=== PATIENT | male | born 1960 | race Caucasian/White ===

== ENCOUNTER 2017-04-24 16:16 | Emergency (ER) | payer OTHER ==
[~2017-04-24] VITALS: Ht 157.5 cm; Wt 68.8 kg
[~2017-04-24 16:16] MED LIST: ASCA500 PO; ASPEC81 PO; FENO160T4 PO; NIAC500T7 PO; PHN/100 PO; SOLI5TAB2 PO; TAMS0.4C38 PO
[2017-04-24 16:41] VITALS: Ht 157.5 cm; Wt 68.8 kg
[2017-04-24] MEDS ORDERED: IBUPROFEN 600 MG TAB PO STA (16:48)
--- NOTE | 2017-04-24 17:11 | DIAGNOSTIC IMAGING REPORT ---
RIGHT FOOT 3 VIEWS HISTORY: Right foot pain. Foot injury COMPARISON: None. FINDINGS: No fracture or dislocation. Tiny plantar and posterior calcaneal spurs. The Lisfranc joint is intact. Mild soft tissue swelling within the midfoot. No radiopaque foreign bodies. IMPRESSION: No fractures. Electronically signed by: Jc Cotto M.D. 04/24/2017 5:09 PM Dictated Date/Time: 04/24/2017 5:07 PM
--- NOTE | 2017-04-24 17:19 | EMERGENCY ROOM VISIT NOTE ---
ED Visit Note First contact with patient: 16:46 CHIEF COMPLAINT: Right foot injury HPI: This 56-year-old male patient sustained an injury to the right foot, when a large heavy pallet landed on his foot at 1030 this morning. Complains of swelling and pain with weight bearing. No numbness or weakness. Constant pain , moderate to severe, worse with movement and weight bearing. No ankle pain. Patient does admit to prior fractures in that foot in the past. REVIEW OF SYSTEMS: 6 system review was performed and was negative unless stated otherwise in history of present illness. PMH: The patient is healthy; there is no significant medical or surgical history. SOCIAL HISTORY: Patient lives with his . The patient admits to tobacco use. PHYSICAL EXAM: Vital Signs: Were reviewed reviewed Nurse's notes. GENERAL: 56- year-old male appears in no acute distress. MENTAL Status: Alert, oriented and choerent, not in acute distress. RIGHT foot: The patient has diffuse ecchymosis of the great toe. No other ecchymosis is visualized. He has tenderness palpation over both the medial and the dorsal aspect of the metatarsal region. The patient is able to move his toes without difficulty. Sensation is intact. EMERGENCY DEPARTMENT COURSE: The patient was evaluated. The patient was given Motrin 600 mg p.o. for pain. X-ray of the right foot was or interpreted by the radiologist and myself. DIAGNOSTICS:RIGHT FOOT 3 VIEWS HISTORY: Right foot pain. Foot injury COMPARISON: None. FINDINGS: No fracture or dislocation. Tiny plantar and posterior calcaneal spurs. The Lisfranc joint is intact. Mild soft tissue swelling within the midfoot. No radiopaque foreign bodies. IMPRESSION: No fractures. Electronically signed by: Jc Cotto M.D. 04/24/2017 5:09 PM The patient was informed of the findings. The patient has crutches with him to aid in ambulation. The patient was discharged home in stable condition. TREATMENT: Ice and elevation for one day. Ibuprofen, 600mg every 6 hours for the pain. Avoid weight bearing until the pain subsides. Follow up with your own doctor if the pain is no better in 4-5 days or if it gets worse. DIAGNOSIS: Right foot contusion Current/Historical Medications Scheduled Ascorbic Acid (Vitamin C *), 500 MG PO DAILY Aspirin Enteric Coated (Ecotrin Or Generic *), 81 MG PO DAILY Fenofibrate (Lofibra), 160 MG PO 3 am Niacinamide (Niacin), 2,000 MG PO 3am Phenytoin Sodium (Dilantin), 400 MG PO 3 am Solifenacin Succinate (Vesicare), 5 MG PO 11 am Tamsulosin Hcl (Flomax), 0.4 MG PO 3 am Allergies Coded Allergies: No Known Allergies (Verified , 04/24/17) Vital Signs Date Time Temp Pulse Resp B/P (MAP) Pulse Ox O2 Delivery O2 Flow Rate FiO2 04/24/17 16:41 36.5 100 20 131/89 96 Room Air Medications Administered Medications (Trade) Dose Ordered Sig/Salma Route Start Time Stop Time Status Last Admin Dose Admin Ibuprofen (Motrin Tab) 600 mg NOW STAT PO 04/24/17 16:48 04/24/17 16:50 DC 04/24/17 17:06 600 MG Departure Information Referrals Chad Wong M.D. (PCP) Patient Instructions My [facility]
[2017-04-24 17:37] VITALS: BP 131/89; PULSE 100; TEMP 36.5; O2SAT 96
== END 2017-04-24 17:38 | disposition home or self-care (01) ==
LOC: C.EDB 16:17 → C.EDD 17:38
DX: S90.31XA Contusion of right foot, initial encounter (principal); W22.8XXA Striking against or struck by other objects, initial encounter; Y92.9 Unspecified place or not applicable; Z72.0 Tobacco use; Z79.82 Long term (current) use of aspirin; Z79.899 Other long term (current) drug therapy

== ENCOUNTER 2017-10-24 16:36 | Emergency (ER) | payer OTHER ==
[~2017-10-24] VITALS: Ht 157.5 cm; Wt 68.5 kg
[~2017-10-24 16:36] MED LIST changes: -ASCA500 PO; +ASCO500T16 PO; -ASPEC81 PO; +ASPI-319 PO; -FENO160T4 PO; +FENO1TAB PO
[2017-10-24 16:41] VITALS: TEMP 36.8; Ht 157.5 cm; Wt 68.5 kg
[2017-10-24] MEDS ORDERED: AMPICILLIN/SULBACTAM SOD INJ 3,000 MG in SODIUM CHLORIDE 0.9% 100ML 100 ML IV STA (16:59)
[2017-10-24] MEDS ORDERED: OXYCODONE HCL IR 5 MG TAB (IMMEDIATE RELEASE) PO STA (16:59)
[2017-10-24 17:25] LABS: BASO % 0.2 %; BASO ABS # 0.02 K/uL (0-0.2); EOS % 3.5 %; EOS ABS # 0.43 K/uL (0-0.5); HEMATOCRIT 42.8 % (42-52); HEMOGLOBIN 15.2 g/dL (14.0-18.0); IG# 0.03 K/uL (0.00-0.02); LYMPH ABS # 3.28 K/uL (1.2-3.4); MEAN CELL VOLUME 90.5 fL (80-100); MEAN CORPUSCULAR HEMOGLOBIN 32.1 pg (25-34); MEAN CORPUSCULAR HGB CONC 35.5 g/dl (32-36); MEAN PLATELET VOLUME 9.1 fL (7.4-10.4); MONO % 8.4 %; MONO ABS # 1.02 K/uL (0.11-0.59); NEUT % 60.7 %; NEUT ABS # 7.39 K/uL (1.4-6.5); PLATELET COUNT 215 K/uL (130-400); RED CELL DISTRIBUTION WIDTH CV 12.5 % (11.5-14.5); RED CELL DISTRIBUTION WIDTH SD 41.5 fL (36.4-46.3); WHITE BLOOD COUNT 12.17 K/uL (4.8-10.8)
--- NOTE | 2017-10-24 17:40 | DIAGNOSTIC IMAGING REPORT ---
LEFT HAND 3 VIEWS CLINICAL HISTORY: Bite injury. FINDINGS: 3 views of the left hand are obtained. No prior studies are available for comparison at the time of dictation. The skeletal structures are well mineralized. No fracture is seen. Degenerative change is noted at the distal radioulnar joint. The joint spaces of the hand are preserved. Soft tissue edema is seen along the dorsal aspect of the hand. IMPRESSION: Dorsal soft tissue swelling with no radiographic evidence of acute fracture. Electronically signed by: Virgilio Lambert M.D. 10/24/2017 5:38 PM Dictated Date/Time: 10/24/2017 5:37 PM
[2017-10-24 17:46] LABS: ALBUMIN 3.8 gm/dl (3.4-5.0); CALCIUM 9.3 mg/dl (8.5-10.1); CREATININE 1.04 mg/dl (0.60-1.40); POTASSIUM 4.3 mmol/L (3.5-5.1); TOTAL PROTEIN 7.4 gm/dl (6.4-8.2)
[2017-10-24] MEDS ORDERED: AMOX875T PO (18:07)
[2017-10-24] MEDS ORDERED: OXYC-737 PO (18:07)
[2017-10-24 18:44] VITALS: BP 122/89; PULSE 89; O2SAT 99
--- NOTE | 2017-10-24 19:48 | EMERGENCY ROOM VISIT NOTE ---
History Report prepared by Sirena: Ketty Sutherland Under the Supervision of: Annabelle CorbinO. First contact with patient: 16:54 Chief Complaint: HAND PAIN/INJURY Stated Complaint: PAIN IN LEFT HAND History of Present Illness The patient is a 57 year old male who presents to the Emergency Room with complaints of an episode of a left hand injury that occurred yesterday. The patient states that he tried to mixing picker tender his mother's cat and it bit him. He states that he put Neosporin on the cut. He notes that the pain is exacerbated by trying to make a fist. The patient denies fever, chills, pain in underarms, and drainage of the cut. The patient states that he takes baby aspirin. .He denies any allergies to medications. He states that his tetanus is up to date. Source of History: patient Onset: yesterday Position: hand (left) Quality: other (cut) Modifying Factors (Worsening): other (making a fist) Associated Symptoms: No fevers, No chills Note: The patient denies pain in his underarms and drainage of the cut. Review of Systems See HPI for pertinent positives & negatives. A total of 10 systems reviewed and were otherwise negative. Past Medical & Surgical Medical Problems: (1) Diabetes Family History FH: diabetes mellitus FH: heart disease FH: kidney disease FH: seizures Social History Smoking Status: Current Every Day Smoker Alcohol Use: none Marital Status: Occupation Status: unemployed Current/Historical Medications Scheduled Amoxicillin & Pot Clavulanate (Augmentin 875-125 mg), 875 MG PO BID Ascorbic Acid (Ascorbic Acid), 500 MG PO DAILY Aspirin Enteric Coated (Ecotrin Or Generic), 81 MG PO DAILY Fenofibrate (Tricor), 160 MG PO DAILY Niacinamide (Niacin), 2,000 MG PO 3am Phenytoin Sodium (Dilantin), 400 MG PO 3 am Solifenacin Succinate (Vesicare), 5 MG PO 11 am Tamsulosin Hcl (Flomax), 0.4 MG PO 3 am Scheduled PRN Oxycodone Immediate Rel Tab (Roxicodone Ir), 1-2 TAB PO Q4H PRN for Severe Pain Allergies Coded Allergies: No Known Allergies (Verified , 09/17/17) Physical Exam Vital Signs Date Time Temp Pulse Resp B/P (MAP) Pulse Ox O2 Delivery O2 Flow Rate FiO2 8/17/18 18:44 89 18 122/89 99 10/24/17 16:41 36.8 99 18 102/76 99 Room Air Physical Exam GENERAL: Patient is awake, alert, and in no acute distress. Patient is resting comfortably and showing no signs of anxiety EYES: The conjunctivae are clear. The pupils are round and reactive. EARS, NOSE, MOUTH AND THROAT: The nose is without any evidence of any deformity. Mucous membranes are moist. Tongue is midline NECK: The neck is nontender and supple. RESPIRATORY: Normal respiratory effort is noted. There is no evidence of wheezing rhonchi or rales to auscultation. CARDIOVASCULAR: Regular rate and rhythm noted. There no murmurs rubs or gallops normal S1 normal S2 GASTROINTESTINAL: The abdomen is soft. Bowel sounds are present in all quadrants. Abdomen is nontender. MUSCULOSKELETAL/EXTREMITIES: There is no evidence of gross deformity. Full range of motion is noted in the hips and shoulders. See description of cat bite to left hand. SKIN: Multiple puncture and scratch wounds to the left hand consistent with recent history of cat bite. Erythema and swelling of the dorsum on the hand. Has pain with making a fist. Scratch wounds to the medial aspect of the right hand. No lymphangitic streaking of the left hand. NEUROLOGIC: Patient is awake alert and oriented x3. Medical Decision & Procedures ER Provider Diagnostic Interpretation: Radiology results as stated below per my review and radiologist interpretation: LEFT HAND 3 VIEWS CLINICAL HISTORY: Bite injury. FINDINGS: 3 views of the left hand are obtained. No prior studies are available for comparison at the time of dictation. The skeletal structures are well mineralized. No fracture is seen. Degenerative change is noted at the distal radioulnar joint. The joint spaces of the hand are preserved. Soft tissue edema is seen along the dorsal aspect of the hand. IMPRESSION: Dorsal soft tissue swelling with no radiographic evidence of acute fracture. Electronically signed by: Virgilio Lambert M.D. 10/24/2017 5:38 PM Dictated Date/Time: 10/24/2017 5:37 PM Laboratory Results 10/24/17 17:15 Red Blood Count 4.73, Mean Corpuscular Volume 90.5, Mean Corpuscular Hemoglobin 32.1, Mean Corpuscular Hemoglobin Concent 35.5, Mean Platelet Volume 9.1, Neutrophils (%) (Auto) 60.7, Lymphocytes (%) (Auto) 27.0, Monocytes (%) (Auto) 8.4, Eosinophils (%) (Auto) 3.5, Basophils (%) (Auto) 0.2, Neutrophils # (Auto) 7.39, Lymphocytes # (Auto) 3.28, Monocytes # (Auto) 1.02, Eosinophils # (Auto) 0.43, Basophils # (Auto) 0.02 10/24/17 17:15 Test 10/24/17 17:15 White Blood Count 12.17 K/uL (4.8-10.8) Red Blood Count 4.73 M/uL (4.7-6.1) Hemoglobin 15.2 g/dL (14.0-18.0) Hematocrit 42.8 % (42-52) Mean Corpuscular Volume 90.5 fL (80-100) Mean Corpuscular Hemoglobin 32.1 pg (25-34) Mean Corpuscular Hemoglobin Concent 35.5 g/dl (32-36) Platelet Count 215 K/uL (130-400) Mean Platelet Volume 9.1 fL (7.4-10.4) Neutrophils (%) (Auto) 60.7 % Lymphocytes (%) (Auto) 27.0 % Monocytes (%) (Auto) 8.4 % Eosinophils (%) (Auto) 3.5 % Basophils (%) (Auto) 0.2 % Neutrophils # (Auto) 7.39 K/uL (1.4-6.5) Lymphocytes # (Auto) 3.28 K/uL (1.2-3.4) Monocytes # (Auto) 1.02 K/uL (0.11-0.59) Eosinophils # (Auto) 0.43 K/uL (0-0.5) Basophils # (Auto) 0.02 K/uL (0-0.2) RDW Standard Deviation 41.5 fL (36.4-46.3) RDW Coefficient of Variation 12.5 % (11.5-14.5) Immature Granulocyte % (Auto) 0.2 % Immature Granulocyte # (Auto) 0.03 K/uL (0.00-0.02) Erythrocyte Sedimentation Rate 21 mm/hr (0-14) Anion Gap 5.0 mmol/L (3-11) Est Creatinine Clear Calc Drug Dose 66.7 ml/min Estimated GFR () 91.9 Estimated GFR (Non- 79.3 BUN/Creatinine Ratio 8.4 (10-20) Calcium Level 9.3 mg/dl (8.5-10.1) Total Bilirubin 0.4 mg/dl (0.2-1) Direct Bilirubin 0.1 mg/dl (0-0.2) Aspartate Amino Transf (AST/SGOT) 17 U/L (15-37) Alanine Aminotransferase (ALT/SGPT) 31 U/L (12-78) Alkaline Phosphatase 87 U/L (45-117) C-Reactive Protein 1.18 mg/dl (0-0.29) Total Protein 7.4 gm/dl (6.4-8.2) Albumin 3.8 gm/dl (3.4-5.0) Laboratory results per my review. Medications Administered Medications (Trade) Dose Ordered Sig/Salma Route Start Time Stop Time Status Last Admin Dose Admin Ampicillin Sodium/ Sulbactam Sodium 3000 mg/Sodium Chloride 108 ml @ 200 mls/hr NOW STAT IV 10/24/17 16:59 10/24/17 17:31 DC 10/24/17 17:21 200 MLS/HR Oxycodone HCl (Roxicodone Immediate Rel Tab) 5 mg NOW STAT PO 10/24/17 16:59 10/24/17 17:01 DC 10/24/17 17:20 5 MG ED Course 1657: The patient was evaluated in room A3. A complete history and physical examination were performed. 165: Ordered Oxycodone HCl 5 mg PO, Ampicillin Sodium/Sulbactum Sodium 3,000 mg /Sodium Chloride 108 ml @ 200 mls/hr IV. 1806: Upon reevaluation, the patient is resting comfortably. I discussed the results and treatment plan with him. He verbalized agreement of the treatment plan. He was discharged home. Medical Decision Prior records reviewed and summarized as above. Triage Nursing notes reviewed. The patient's history was concerning for swelling and redness of the skin. Differential diagnosis: Etiologies such as cellulitis, abscess, MRSA infection, DVT, necrotizing fasciitis, dermatitis, drug eruption, as well as others were entertained.. The patient is a 57-year-old male who presented to the emergency department for an evaluation of cellulitis. The patient had significant swelling and erythema over his left hand. The patient was recently bitten by a cat which is known to him. The cat is able to be observed and the patient will not require rabies vaccination at this time. He was instructed to return to the emergency department for rabies vaccination if the cat dies runs away or develops rabies within the next 10 days. Otherwise the patient was treated with IV antibiotics. He was also given pain medication. He was encouraged to follow- up with his primary care physician within the next 24-48 hours for reevaluation or return to the emergency department immediately if he develops other signs of worsening infection such as worsening pain worsening erythema worsening swelling high fever or severe vomiting or intolerance to the medication. Medication Reconcilliation Current Medication List: was personally reviewed by me Blood Pressure Screening Patient's blood pressure: Normal blood pressure Impression Primary Impression: Cellulitis of left hand Additional Impression: Cat bite Scribe Attestation The scribe's documentation has been prepared under my direction and personally reviewed by me in its entirety. I confirm that the note above accurately reflects all work, treatment, procedures, and medical decision making performed by me. Departure Information Dispostion Home / Self-Care Prescriptions Oxycodone Immediate Rel Tab (ROXICODONE IR) 5 Mg Tab 1-2 TAB PO Q4H Y for Severe Pain, #20 TAB Prov: Caesar Benson, DO 10/24/17 Amoxicillin & Pot Clavulanate (Augmentin 875-125 mg) 1 Tab Tab 875 MG PO BID, #20 TAB Prov: Caesar Benson, DO 10/24/17 Referrals No Doctor, Assigned (PCP) Forms HOME CARE DOCUMENTATION FORM, IMPORTANT VISIT INFORMATION Patient Instructions My [facility] Additional Instructions Continue all medications as prescribed. Continue to use Motrin and Tylenol as directed for pain. Continue to put triple antibiotic ointment to the area 2-3 times a day. Follow-up with your family doctor soon as possible. Return to the emergency department immediately if symptoms change worsen or the need arises. Problem Qualifiers Additional Impression: Cat bite Encounter type: initial encounter Qualified Codes: W55.01XA - Bitten by cat , initial encounter
== END 2017-10-24 18:45 | disposition home or self-care (01) ==
LOC: C.EDB 16:37 → C.EDA 18:45
DX: L03.114 Cellulitis of left upper limb (principal); S61.452A Open bite of left hand, initial encounter; W55.01XA Bitten by cat, initial encounter; Y92.89 Other specified places as the place of occurrence of the external cause; E11.9 Type 2 diabetes mellitus without complications; F17.210 Nicotine dependence, cigarettes, uncomplicated; Z79.82 Long term (current) use of aspirin; Z79.899 Other long term (current) drug therapy

== ENCOUNTER 2021-07-22 00:34 | Inpatient (IN) ==
[2021-07-22 01:46] LABS: Basophils # (auto) 0.01 K/uL (0-0.2); Basophils % (auto) 0.1 %; Eosinophils # (auto) 0.01 K/uL (0-0.5); Eosinophils % (auto) 0.1 %; Hematocrit (blood only) 37.7 % (42-52); Hemoglobin 12.7 g/dL (14.0-18.0); Immature Granulocytes # (auto) 0.08 K/uL (0.00-0.02); Immature Granulocytes % (auto) 1.1 %; Lymphocytes % (auto) 25.5 %; Mean Corpuscular Hgb Conc 33.7 g/dL (32-36); Monocytes % (auto) 16.1 %; Neutrophils # (auto) 4.24 K/uL (1.4-6.5); Neutrophils % (auto) 57.1 %; Platelet Count 160 K/uL (130-400); RDW Coefficient of Variation 13.1 % (11.5-14.5); RDW Standard Deviation 43.8 fL (36.4-46.3); White Blood Count 7.44 K/uL (4.8-10.8)
[2021-07-22 02:06] LABS: Albumin Globulin Ratio 1.6 (0.9-2); Albumin Level 4.2 gm/dl (3.4-5.0); BUN Creatinine Ratio 12.6 (10-20); Bilirubin,Total 0.6 mg/dl (0.2-1.0); Calcium 9.4 mg/dl (8.5-10.1); Creatinine Clr Calc Pharmacy 67.9 ml/min; Est GFR (African American) 91.1 ml/min; Est GFR (Non-African American) 78.6 ml/min; Globulin 2.6 gm/dl (2.5-4.0); Magnesium 1.3 mg/dl (1.7-2.4); Potassium 3.8 mmol/L (3.5-5.1); Total Protein 6.8 gm/dl (6.0-8.3)
[2021-07-22 02:10] LABS: Troponin I High Sensitivity 7.9 pg/ml (0-20)
--- NOTE | 2021-07-22 02:18 | Emergency Department Note ---
History of Present Illness General Chief complaint: Fall Stated complaint: WEAKNESS Time Seen by Provider: 07/22/21 00:36 Source: patient and EMS Mode of arrival: EMS Limitations: no limitations History of Present Illness Provider complaint: fall This is a 60-year-old male brought in by EMS from the [facility] after 3 falls throughout the day today. They reported to EMS that this is unusual for him. They did not provide any other additional history regarding whether or not this was witnessed or a medication list. Per EMS patient denied any pain, was initially tachycardic although that resolved in route. Patient for me states he did fall, despite using his walker which she normally uses. He denies any pain or concern for injury. He does not believe he struck his head or loss consciousness. Pt seen during a time of high acuity and national emergency pandemic while wearing PPE. Home Medications Medication Instructions Recorded Confirmed Type metformin 500 mg tablet,extended 1,000 mg PO [id number] 01/14/18 07/22/21 History release 24 hr Vitafusion Gummy 2 tab PO QAM 06/10/20 07/22/21 History alendronate 70 mg tablet (Fosamax) 70 mg PO WK 06/10/20 07/22/21 History atorvastatin 40 mg tablet (Lipitor) 40 mg PO QAM 06/10/20 07/22/21 History divalproex 500 mg tablet,delayed 500 mg PO BID 06/10/20 07/22/21 History release acetaminophen 500 mg tablet 1,000 mg PO Q8H PRN 07/22/21 07/22/21 History (Tylenol Extra Strength) calcium polycarbophil 625 mg 1,250 mg PO BID 07/22/21 07/22/21 History tablet (FiberCon) ketoconazole 2 % shampoo 1 ea TOPICAL 2XWK 07/22/21 07/22/21 History loperamide 2 mg capsule 2 mg PO QID PRN 07/22/21 07/22/21 History meloxicam 15 mg tablet 15 mg PO QAM 07/22/21 07/22/21 History ondansetron HCl 4 mg tablet 4 mg PO Q6H PRN 07/22/21 07/22/21 History sitagliptin 100 mg tablet (Januvia) 100 mg PO QAM 07/22/21 07/22/21 History triamcinolone acetonide 0.1 % 1 applic TOPICAL BID PRN 07/22/21 07/22/21 History topical cream Allergies Allergy/AdvReac Type Severity Reaction Status Date / Time No Known Allergies Allergy Unknown Verified 07/22/21 01:15 Past Med/Surg History Medical History (Updated 07/23/21 @ 04:18 by Thania Boss DO) Abdominal pain Abnormal EKG DR. RAMOS (01/06/18) CLEARED Diabetes mellitus, type 2 Hyperlipidemia Poor historian Psychotic disorder MANY YEARS AGO "NO RECENT HX" Seizure MANY YEARS AGO/NONE FOR MANY YEARS AND NO CURRENT SEIZURE MEDS(NEUROLOGY IN LAST 6 MONTHS AGO) [facility] Surgical History History of cataract surgery History of eye surgery Hx of tooth extraction Family History Mother , Mother age 87 and he is uncertain of her medical conditions No problems noted. Father , Father in his 80s of uncertain causes No problems noted. 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 Beliefs That Will Affect Care: None marital status: Current Living Situation: Spouse and Personal Care Facility current occupational status: unemployed current occupation: Unemployed How many Children do You have: 1 Feels Safe at Home: Yes Safety Concerns: Feels Safe At This Time Assistive Devices: None Review of Systems A total of 10 systems reviewed and were otherwise negative All systems reviewed & are unremarkable except as noted in HPI & below Physical Exam Vital Signs Vital Signs - 24 hr 07/22/21 00:45 07/22/21 02:26 Temperature 37.7 C H 38.1 C H Temperature Source Oral Oral Pulse Rate 86 Pulse Rate [Left Finger] 100 H Respiratory Rate 18 20 Respiratory Effort / Characteristics Non-Labored Spontaneous Non-Labored Spontaneous Respiratory Depth Normal Normal Blood Pressure 119/74 Blood Pressure Mean 89 Blood Pressure Position Sitting Pulse Oximetry 99 100 Oxygen Delivery Method Room Air Room Air Sepsis Recent Fever Within 48 Hours Yes Sepsis New/Unexplained Change in Mental Status No Sepsis Action Taken by Nursing No Action Required GENERAL: alert, well appearing, well nourished, no distress, non-toxic HEAD: nc/at EYE EXAM: normal conjunctiva, PERRL and EOM's grossly intact OROPHARYNX: no exudate, no erythema, lips, buccal mucosa, and tongue normal and mucous membranes are moist NECK: supple, no nuchal rigidity, no adenopathy, non-tender, FROM LUNGS: Clear to auscultation. Normal chest wall mechanics, no w/r/r HEART: no murmurs, S1 normal and S2 normal CHEST WALL: no crepitus, no tenderness with palpation ABDOMEN: abdomen soft, non-tender, normo-active bowel sounds, no masses, no rebound or guarding. PELVIS: stable with compression, nontender with palpation BACK: Back is symmetrical on inspection and there is no deformity, no midline tenderness, no CVA tenderness. SKIN: no rashes and no bruising UPPER EXTREMITIES: upper extremities are grossly normal. FROM, nml pulses b/l. LOWER EXTREMITIES: No pitting edema. FROM, nml pulses b/l. Chronic appearing deformity to left foot. Patient complains of pain and decreased range of motion of the right great toe/MTP. NEURO EXAM: Normal sensorium, cranial nerves II-XII grossly intact, normal spee ch, no gross weakness of arms, no gross weakness of legs. Gross sensation intact. Course Course 0126: ADditional paperwork sent from the [facility]. Patient did just finish a course of antibiotics for a UTI. 0220: 10 felt warm to nursing staff so repeat temperature was obtained. Patient now febrile with increased heart rate. Administered Medications Acetaminophen (Acetaminophen 1000 Mg/100 Ml Iv) 1,000 mg IV TID PRN PRN Reason: Pain or Fever Stop: 07/25/21 19:59 Last Admin: 07/22/21 20:13 Dose: 1,000 mg Documented by: [id number] Atorvastatin Calcium (Atorvastatin 40 Mg Tab) 40 mg PO QAM [facility] Stop: 08/21/21 08:59 Last Admin: 07/22/21 08:55 Dose: 40 mg Documented by: [id number] Calcium Polycarbophil (Calcium Polycarbophil 625mg Tab) 1,250 mg PO BID [facility] Stop: 08/21/21 08:59 Last Admin: 05/15/22 20:24 Dose: 1,250 mg Documented by: [id number] Admin: 07/22/21 08:55 Dose: 1,250 mg Documented by: [id number] Divalproex Sodium (Divalproex Delay Release 500 Mg Tab) 500 mg PO BID [facility] Stop: 08/21/21 08:59 Last Admin: 07/22/21 20:24 Dose: 500 mg Documented by: [id number] Admin: 07/22/21 08:55 Dose: 500 mg Documented by: [id number] Enoxaparin Sodium (Enoxaparin Inj 40 Mg/0.4 Ml Syr) 40 mg SQ Q24H [facility] Stop: 08/21/21 08:59 Last Admin: 07/22/21 08:55 Dose: 40 mg Documented by: [id number] Guaifenesin/Codeine Phosphate (Guaifenesin/Codeine 100mg/10mg 5ml Udc) 5 ml PO Q6H PRN PRN Reason: Cough Stop: 08/21/21 22:51 Last Admin: 07/22/21 23:31 Dose: 5 ml Documented by: [id number] Insulin Aspart (Insulin Aspart Per Unit) 0 units SC ACHS [facility] Stop: 08/21/21 07:29 Last Admin: 07/22/21 21:04 Dose: Not Given Documented by: [id number] Admin: 07/22/21 17:48 Dose: Not Given Documented by: [id number] Admin: 07/22/21 13:16 Dose: Not Given Documented by: [id number] Admin: 07/22/21 09:07 Dose: 2 units Documented by: [id number] Cosigned by: [id number] Multivitamins/Folic Acid/Vitamin C (Multivitamin Chewable Tab) 1 tab PO QAM [facility] Stop: 08/21/21 08:59 Last Admin: 07/22/21 08:55 Dose: 1 tab Documented by: [id number] Discontinued Medications Acetaminophen (Ofirmev) 1,000 mg in 100 mls @ 400 mls/hr IV NOW STA Stop: 07/22/21 02:42 Last Infusion: 07/22/21 04:01 Dose: 0 mls/hr Documented by: [id number] Admin: 07/22/21 03:07 Dose: 400 mls/hr Documented by: [id number] Magnesium Sulfate/Dextrose (Magnesium Sulfate / D5w) 1 gm in 100 mls @ 100 mls/hr IV Q1H [facility] Stop: 07/22/21 04:29 Last Infusion: 07/22/21 05:43 Dose: 0 mls/hr Documented by: [id number] Admin: 07/22/21 04:43 Dose: 100 mls/hr Documented by: [id number] Infusion: 07/22/21 04:07 Dose: 100 mls/hr Documented by: [id number] Admin: 07/22/21 03:07 Dose: 100 mls/hr Documented by: [id number] Cefepime HCl (Maxipime) 2,000 mg in 20 mls @ 5 mls/min IV NOW STA; Protocol Stop: 07/22/21 02:58 Last Admin: 07/22/21 03:07 Dose: 5 mls/min Documented by: [id number] Sodium Chloride (Nss 1000ml) 1,000 mls @ 75 mls/hr IV .[id number] [facility] Stop: 07/22/21 18:48 Last Infusion: 07/22/21 18:56 Dose: 0 mls/hr Documented by: [id number] Admin: 07/22/21 05:53 Dose: 75 mls/hr Documented by: [id number] Sodium Chloride (Nss) 500 mls @ 500 mls/hr IV .Q1H [facility] Stop: 07/22/21 21:14 Last Infusion: 07/22/21 21:40 Dose: 0 mls/hr Documented by: [id number] Admin: 07/22/21 20:13 Dose: 500 mls/hr Documented by: [id number] Remdesivir 200 mg/ Sodium (Chloride) 250 mls @ 125 mls/hr IV ONE STA; Protocol Stop: 07/23/21 00:59 Last Infusion: 07/23/21 01:31 Dose: 0 mls/hr Documented by: [id number] Admin: 07/22/21 23:30 Dose: 125 mls/hr Documented by: [id number] Dexamethasone 6 mg/ Syringe 1.5 mls @ 1 mls/min IV ONE ONE Stop: 07/22/21 23:01 Last Admin: 07/22/21 23:31 Dose: 1 mls/min Documented by: [id number] Ketorolac Tromethamine (Ketorolac Tromethamine 15 Mg/Ml Vial) 15 mg IV NOW ONE Stop: 07/22/21 23:17 Last Admin: 07/22/21 23:31 Dose: 15 mg Documented by: [id number] Medical Decision Making Differential Diagnosis Differential diagnoses include major intracranial, cervical, spinal, thoracic, abdominal, pelvic and neurologic injury. Fracture, contusion, sprain, strain, laceration, abrasions included as well. Medical Records Attestation: I reviewed the patient's medical records. Home Medications Current Medication List: was personally reviewed by me Laboratory Data Attestation: I reviewed the patient's lab results. Result diagrams: 07/22/21 07:00 07/22/21 07:00 Lab Results 07/22/21 07/22/21 07/22/21 Range/Units 01:39 01:39 01:39 WBC 7.44 (4.8-10.8) K/uL RBC 4.10 L (4.7-6.1) M/uL Hgb 12.7 L (14.0-18.0) g/dL Hct 37.7 L (42-52) % MCV 92.0 (80-100) fL MCH 31.0 (25-34) pg MCHC 33.7 (32-36) g/dL RDW Std Deviation 43.8 (36.4-46.3) fL RDW Coeff of Luci 13.1 (11.5-14.5) % Plt Count 160 (130-400) K/uL MPV 9.0 (7.4-10.4) fL Immature Gran % (Auto) 1.1 % Neut % (Auto) 57.1 % Lymph % (Auto) 25.5 % [place] % (Auto) 16.1 % Eos % (Auto) 0.1 % Baso % (Auto) 0.1 % Neut # (Auto) 4.24 (1.4-6.5) K/uL Lymph # (Auto) 1.90 (1.2-3.4) K/uL [place] # (Auto) 1.20 H (0.11-0.59) K/uL Eos # (Auto) 0.01 (0-0.5) K/uL Baso # (Auto) 0.01 (0-0.2) K/uL Immature Gran # (Auto) 0.08 H (0.00-0.02) K/uL Sodium 137 (136-145) mmol/L Potassium 3.8 (3.5-5.1) mmol/L Chloride 101 (98-107) mmol/L Carbon Dioxide 26 (21-32) mmol/L Anion Gap 10 (3-11) BUN 13 (6-23) mg/dl Creatinine 1.03 (0.6-1.4) mg/dl Est Cr Clr Drug Dosing 67.9 ml/min Est GFR ( Amer) 91.1 ml/min Est GFR (Non-Af Amer) 78.6 ml/min BUN/Creatinine Ratio 12.6 (10-20) Glucose 124 H (70-99(Fasting)) mg/dl Uric Acid (2.6-7.2) mg/dl Calcium 9.4 (8.5-10.1) mg/dl Magnesium 1.3 L (1.7-2.4) mg/dl Total Bilirubin 0.6 (0.2-1.0) mg/dl AST 38 (13-39) U/L ALT 59 H (7-52) U/L Alkaline Phosphatase 39 (34-104) U/L Troponin I High Sens 7.9 (0-20) pg/ml Total Protein 6.8 (6.0-8.3) gm/dl Albumin 4.2 (3.4-5.0) gm/dl Globulin 2.6 (2.5-4.0) gm/dl Albumin/Globulin Ratio 1.6 (0.9-2) Lipase 38 (11-82) U/L Procalcitonin (0-0.5) ng/ml TSH (0.300-4.500) uIu/ml Urine Color Urine Appearance (Clear) Urine pH (4.5-7.5) Ur Specific [place] (1.000-1.030) Urine Protein (Negative) Urine Glucose (UA) (Negative) Urine Ketones (Negative) Urine Blood (Negative) Urine Nitrite (Negative) Urine Bilirubin (Negative) Urine Urobilinogen (Negative) Ur Leukocyte Esterase (Negative) Valproic Acid 90 (50-100) mcg/ml SARS-CoV-2, RNA, NAAT (NEGATIVE) 07/22/21 07/22/21 07/22/21 Range/Units 01:39 01:39 01:39 WBC (4.8-10.8) K/uL RBC (4.7-6.1) M/uL Hgb (14.0-18.0) g/dL Hct (42-52) % MCV (80-100) fL MCH (25-34) pg MCHC (32-36) g/dL RDW Std Deviation (36.4-46.3) fL RDW Coeff of Luci (11.5-14.5) % Plt Count (130-400) K/uL MPV (7.4-10.4) fL Immature Gran % (Auto) % Neut % (Auto) % Lymph % (Auto) % [place] % (Auto) % Eos % (Auto) % Baso % (Auto) % Neut # (Auto) (1.4-6.5) K/uL Lymph # (Auto) (1.2-3.4) K/uL [place] # (Auto) (0.11-0.59) K/uL Eos # (Auto) (0-0.5) K/uL Baso # (Auto) (0-0.2) K/uL Immature Gran # (Auto) (0.00-0.02) K/uL Sodium (136-145) mmol/L Potassium (3.5-5.1) mmol/L Chloride (98-107) mmol/L Carbon Dioxide (21-32) mmol/L Anion Gap (3-11) BUN (6-23) mg/dl Creatinine (0.6-1.4) mg/dl Est Cr Clr Drug Dosing ml/min Est GFR ( Amer) ml/min Est GFR (Non-Af Amer) ml/min BUN/Creatinine Ratio (10-20) Glucose (70-99(Fasting)) mg/dl Uric Acid 7.9 H (2.6-7.2) mg/dl Calcium (8.5-10.1) mg/dl Magnesium (1.7-2.4) mg/dl Total Bilirubin (0.2-1.0) mg/dl AST (13-39) U/L ALT (7-52) U/L Alkaline Phosphatase (34-104) U/L Troponin I High Sens (0-20) pg/ml Total Protein (6.0-8.3) gm/dl Albumin (3.4-5.0) gm/dl Globulin (2.5-4.0) gm/dl Albumin/Globulin Ratio (0.9-2) Lipase (11-82) U/L Procalcitonin < 0.05 (0-0.5) ng/ml TSH 1.948 (0.300-4.500) uIu/ml Urine Color Urine Appearance (Clear) Urine pH (4.5-7.5) Ur Specific [place] (1.000-1.030) Urine Protein (Negative) Urine Glucose (UA) (Negative) Urine Ketones (Negative) Urine Blood (Negative) Urine Nitrite (Negative) Urine Bilirubin (Negative) Urine Urobilinogen (Negative) Ur Leukocyte Esterase (Negative) Valproic Acid (50-100) mcg/ml SARS-CoV-2, RNA, NAAT (NEGATIVE) 07/22/21 07/22/21 Range/Units 01:55 02:45 WBC (4.8-10.8) K/uL RBC (4.7-6.1) M/uL Hgb (14.0-18.0) g/dL Hct (42-52) % MCV (80-100) fL MCH (25-34) pg MCHC (32-36) g/dL RDW Std Deviation (36.4-46.3) fL RDW Coeff of Luci (11.5-14.5) % Plt Count (130-400) K/uL MPV (7.4-10.4) fL Immature Gran % (Auto) % Neut % (Auto) % Lymph % (Auto) % [place] % (Auto) % Eos % (Auto) % Baso % (Auto) % Neut # (Auto) (1.4-6.5) K/uL Lymph # (Auto) (1.2-3.4) K/uL [place] # (Auto) (0.11-0.59) K/uL Eos # (Auto) (0-0.5) K/uL Baso # (Auto) (0-0.2) K/uL Immature Gran # (Auto) (0.00-0.02) K/uL Sodium (136-145) mmol/L Potassium (3.5-5.1) mmol/L Chloride (98-107) mmol/L Carbon Dioxide (21-32) mmol/L Anion Gap (3-11) BUN (6-23) mg/dl Creatinine (0.6-1.4) mg/dl Est Cr Clr Drug Dosing ml/min Est GFR ( Amer) ml/min Est GFR (Non-Af Amer) ml/min BUN/Creatinine Ratio (10-20) Glucose (70-99(Fasting)) mg/dl Uric Acid (2.6-7.2) mg/dl Calcium (8.5-10.1) mg/dl Magnesium (1.7-2.4) mg/dl Total Bilirubin (0.2-1.0) mg/dl AST (13-39) U/L ALT (7-52) U/L Alkaline Phosphatase (34-104) U/L Troponin I High Sens (0-20) pg/ml Total Protein (6.0-8.3) gm/dl Albumin (3.4-5.0) gm/dl Globulin (2.5-4.0) gm/dl Albumin/Globulin Ratio (0.9-2) Lipase (11-82) U/L Procalcitonin (0-0.5) ng/ml TSH (0.300-4.500) uIu/ml Urine Color Yellow Urine Appearance Clear (Clear) Urine pH 8.0 H (4.5-7.5) Ur Specific [place] 1.012 (1.000-1.030) Urine Protein Negative (Negative) Urine Glucose (UA) Negative (Negative) Urine Ketones Trace H (Negative) Urine Blood Negative (Negative) Urine Nitrite Negative (Negative) Urine Bilirubin Negative (Negative) Urine Urobilinogen Negative (Negative) Ur Leukocyte Esterase Negative (Negative) Valproic Acid (50-100) mcg/ml SARS-CoV-2, RNA, NAAT POSITIVE A* (NEGATIVE) Imaging Data My Impression: X-ray: I interpreted the following studies. Chest: A single view study of the chest was reviewed and was negative for cardiomegaly, focal infiltrate, effusion, pulmonary edema, or wide mediastinum. Evidence of rib fracture or pneumothorax. Pelvis: No acute fracture or dislocation Right foot: No acute fracture or dislocation Radiologist's Impression: CT HEAD: No acute intracranial abnormality. Severe hydrocephalus. Unchanged from 04/15/2021. CT C SPINE: No acute fracture. Advanced degenerative spondylosis. Radiologist: Lamberto Brown MD ECG Data Attestation: I personally reviewed and interpreted this ECG as follows: Indication: + weakness Rate (beats per minute): 99 Rhythm: + normal sinus ECG Intervals/blocks: + Normal QRS and + Normal QT ECG [place]: + Normal ECG ST segments: + Nonspecific ST abnormalities MDM Narrative An order was placed for continuous cardiac monitoring. The monitor shows a rate of _100__ with _sinus tachycardia_ rhythm. This is a 60-year-old man who presents from [facility] care facility due to concern for recurrent falls today. Patient does admit to weakness, denies any specific complaints on initial questioning however on exam did have pain with palpation over the right great toe. Due to limited history, patient being a poor historian, and concern for possible evolving fevers patient felt warm initially, labs are drawn and sent, patient sent for CT and x-ray imaging. No evidence of acute traumatic injury. Patient's labs revealed hypomagnesemia, no other significant lab abnormality. Patient was found to be COVID-positive. I suspect patient was likely weak from his COVID infection and hypomagnesemia leading to his falls. Patient does have a history of ambulatory dysfunction and does typically use a walker. Etiology of his toe pain is unclear although acute trauma is probable. Patient was cautiously hydrated, and remained hemodyna mically stable throughout. At this time I do not suspect sepsis/bacteremia. Patient with no respiratory distress, no complaints of shortness of breath or chest pain. I do not suspect PE, pericarditis/myocarditis Impression & Plan Weakness, Fall, Hypomagnesemia, COVID-19, Anemia Discharge Plan Visit Data Chief Complaint: Fall Stated Complaint: WEAKNESS ED Provider: Thania Boss Discharge Problem: Weakness, Fall, Hypomagnesemia, COVID-19, Anemia Patient Disposition: Admitted As Inpatient Discharge Instructions Interventions: ED Discharge Assessment Last Done: 07/22/21 04:54
[2021-07-22] MEDS ORDERED: ACETAMINOPHEN 1,000 MG/100 ML VIAL IV STA (02:28)
[2021-07-22 02:34] LABS: Appearance Urine Clear (Clear); Bilirubin Urine Negative (Negative); Blood Urine Negative (Negative); Color Urine Yellow; Glucose Urine UA Negative (Negative); Ketones Urine Trace (Negative); Leukocyte Esterase Urine Negative (Negative); Nitrite Urine Negative (Negative); Protein Urine Negative (Negative); Specific Gravity Urine 1.012 (1.000-1.030); Urobilinogen Urine Negative (Negative)
[2021-07-22] MEDS ORDERED: CEFEPIME 2,000 MG/20 ML VIAL IV STA (02:55)
[2021-07-22] MEDS: MAGNESIUM SULFATE / D5W 1 GM/100 ML BAG IV SCH ×2 (03:07→04:43)
[2021-07-22] MEDS ORDERED: TRIAMCINOLONE ACET 0.1% CR 15 GM TUBE TOP PRN (05:29)
[2021-07-22] MEDS ORDERED: POLYETHYLENE (MIRALAX) 17 GM PACK PO PRN (05:29)
[2021-07-22] MEDS ORDERED: SODIUM CHLORIDE 0.9% 1000ML 1,000 ML IV SCH (05:29)
[2021-07-22] MEDS ORDERED: NITROGLYCERIN SL 0.4 MG/TAB TAB SL PRN (05:29)
[2021-07-22] MEDS ORDERED: ACETAMINOPHEN 325 MG TAB PO PRN (05:29)
[2021-07-22] MEDS ORDERED: NON-FORMULARY MEDICATION (Ketoconazole 2 % Shampoo) TOP SCH (05:29)
[2021-07-22] MEDS ORDERED: LOPERAMIDE HCL 2 MG CAP PO PRN (05:29)
[2021-07-22] MEDS ORDERED: ONDANSETRON 4 MG OD TAB PO PRN (05:29)
--- NOTE | 2021-07-22 05:53 | History and Physical Report ---
DATE OF ADMISSION: 07/22/2021. CHIEF COMPLAINT: Frequent falls, COVID. HISTORY OF PRESENT ILLNESS: This is a 60-year-old male with past medical history significant for type 2 diabetes, hyperlipidemia, history of seizure disorder, history of psychiatric disorders, poor historian, presents from [place] with frequent falls. As per the [place], he and his came about a year ago, they are at [place] because of the mild mental retardation as per the [place]. As per the [place], he has no dementia. He walks with a walker. Eats regular food. Since yesterday, his appetite is down and he fell 3 times in 24 hours that is why they sent him here. In the ER, he spiked temperature.Patient is alert and awake. Denies any headache, denies any chest pain or abdominal pain. No cough, no nausea, no vomiting, no abdominal pain, no diarrhea. He was hemodynamically stable.As per long-term also there was no complaints except for falls and the patient is COVID vaccinated and boosted as per the [place]. ALLERGIES: No known drug allergies. PAST MEDICAL HISTORY: As mentioned above. PAST SURGICAL HISTORY: Cataract surgery, tooth extractions. MEDICATIONS: The patient is on Tylenol 1000 mg p.o. q. 8 hours p.r.n., Fosamax 70 mg p.o. weekly, Lipitor 40 mg p.o. a.m., FiberCon 1250 mg p.o. b.i.d., divalproex 500 mg p.o. b.i.d., ketoconazole topical 2 times a week, Imodium 2 mg p.o. q.i.d. p.r.n., meloxicam 15 mg p.o. a.m., metformin 1000 mg p.o. b.i.d., Zofran 4 mg p.o. q. 6 hours p.r.n., Januvia 100 mg p.o. a.m., triamcinolone topical b.i.d prn., Vitafusion gummy 2 tablets p.o. a.m. FAMILY HISTORY: Significant for father and mother . No problems as per records. SOCIAL HISTORY: , currently lives at [place] with his . Seems to have a history of smoking and alcoholism. REVIEW OF SYSTEMS: As per HPI. Rest of review of systems is negative. PHYSICAL EXAMINATION: GENERAL: The patient is of moderate build, not in acute distress. VITAL SIGNS: Temperature 38.1, pulse 100, respiratory rate 20, blood pressure 119/74, oxygen 100% on room air. HEENT: Pupils equal, round and reactive to light. Oral mucosa moist. NECK: No JVD. No neck masses. CARDIOVASCULAR: S1 and S2 heard. Regular rate and rhythm. No murmur, no gallop. RESPIRATORY SYSTEM: Normal AP diameter. No accessory muscle use. No wheezing, no crackles. ABDOMEN: Soft, bowel sounds present, nontender, no distention. CENTRAL NERVOUS SYSTEM: Cranial nerves II-XII grossly intact, nonfocal. EXTREMITIES: No edema, no erythema seen. LABORATORY DATA: WBC 7.4, hemoglobin 12.7, hematocrit 37.7, platelets 160. Sodium 137, potassium 3.8, chloride 101, bicarbonate 26, BUN 13, creatinine 1.03, serum glucose 124. Uric acid 1.9, calcium 9.4, magnesium 1.3, total bilirubin 0.6, AST 38, ALT 59, alkaline phosphatase 39. Lipase 38. Procalcitonin less than 0.015. TSH 1.9. Urinalysis negative. SARS-CoV-2 PCR positive. Valproic acid level 90. IMAGING DATA: CTA of the head and CTA cervical spine results pending. Foot x- ray is pending. Chest x-ray, no acute findings. EKG: Normal sinus rhythm at a rate of 99 millimoles. T-wave inversions in lateral leads. ASSESSMENT AND PLAN: This 60-year-old male presents with frequent falls and COVID positive. 1. Frequent falls, COVID positive, falls most likely secondary to COVID. Urinalysis negative. Labs unremarkable mostly except for low magnesium, saturating okay on room air, having temp spike. We will give Tylenol p.r.n. and COVID isolation precautions. Follow CRP levels and D-dimer levels. Monitor in the med tele. PT, OT when stable. 2. Diabetes: Hold his home medications, follow blood sugars, follow HbA1c levels. 3. History of hyperlipidemia: Continue statin. 4. History of seizures disorder: Continue valproic acid. 5.Cognitive impairment chronic, monitor for any delirium. 6. Deep venous thrombosis prophylaxis: We will place on Lovenox. DISPOSITION: Closely monitor in the med tele. PT/OT prior to discharge. Social service to help with discharge planning. Discharge back to [place] when stable. Level I, full code. Job ID: [id number] [facility]
[2021-07-22] MEDS ORDERED: GLUCAGON FOR INJ 1 MG VIAL IM PRN (06:00)
[2021-07-22] MEDS ORDERED: GLUCOSE 10 TABS/TUBE PO PRN (06:00)
[2021-07-22] MEDS ORDERED: GLUCOSE 40% GEL 15 GM TUBE PO PRN (06:00)
[2021-07-22] MEDS ORDERED: CARBOHYDRATES FOR HYPOGLYCEMIA PO PRN (06:00)
[2021-07-22] MEDS ORDERED: DEXTROSE 50% 50 ML SYRINGE IV PRN (06:00)
--- NOTE | 2021-07-22 07:05 | CT Scan Report ---
HEAD CT NONCONTRAST CT DOSE: HISTORY: fall TECHNIQUE: Multiaxial CT images of the head were performed without the use of intravenous contrast. A utomated exposure control was utilized for this study. A dose lowering technique was utilized adheri ng to the principles of ALARA. Comparison: Head CT 04/15/2021. Findings: The paranasal sinuses and mastoid air cells are clear. The calvarium and skull base are int act. There is no mass, hematoma, midline shift, acute infarct. Severe hydrocephalus, unchanged. Impression: No acute intracranial abnormality. Severe hydrocephalus, unchanged. ACT 112: Negative or not required by law. Electronically signed by: Jc Cotto M.D. 07/22/2021 7:04 AM
--- NOTE | 2021-07-22 07:15 | CT Scan Report ---
CERVICAL SPINE CT CT DOSE: 1061.30 mGy.cm HISTORY: fall TECHNIQUE: Multiaxial CT images of the cervical spine were performed and reformatted in the sagittal and coronal plane without the use of contrast. A dose lowering technique was utilized adhering to th e principles of ALARA. COMPARISON: None. FINDINGS: No fractures. No subluxation. Prevertebral soft tissues and the C1-C2 interval are intact. No pneumothorax. Moderate to severe degenerative disease throughout the cervical spine. IMPRESSION: No fractures within the cervical spine. ACT 112: Negative or not required by law. Electronically signed by: Jc Cotto M.D. 07/22/2021 7:13 AM
[2021-07-22 07:22] LABS: Basophils # (auto) 0.01 K/uL (0-0.2); Basophils % (auto) 0.2 %; Eosinophils # (auto) 0.01 K/uL (0-0.5); Eosinophils % (auto) 0.2 %; Hematocrit (blood only) 36.9 % (42-52); Hemoglobin 12.3 g/dL (14.0-18.0); Immature Granulocytes # (auto) 0.05 K/uL (0.00-0.02); Immature Granulocytes % (auto) 0.8 %; Lymphocytes # (auto) 1.87 K/uL (1.2-3.4); Mean Corpuscular Hemoglobin 30.8 pg (25-34); Mean Corpuscular Hgb Conc 33.3 g/dL (32-36); Mean Corpuscular Volume 92.3 fL (80-100); Mean Platelet Volume 8.9 fL (7.4-10.4); Monocytes % (auto) 15.5 %; Neutrophils % (auto) 54.3 %; Platelet Count 142 K/uL (130-400); White Blood Count 6.44 K/uL (4.8-10.8)
[2021-07-22 07:36] LABS: D Dimer 320 ug/L FEU (0-500)
[2021-07-22 07:46] LABS: BUN Creatinine Ratio 13.7 (10-20); C Reactive Protein 3.21 mg/dl (0-0.5); Calcium 8.9 mg/dl (8.5-10.1); Creatinine Clr Calc Pharmacy 67.5 ml/min; Est GFR (African American) 92.2 ml/min; Est GFR (Non-African American) 79.5 ml/min; Potassium 3.9 mmol/L (3.5-5.1)
[2021-07-22 07:48] LABS: Troponin I High Sensitivity 8.5 pg/ml (0-20)
--- NOTE | 2021-07-22 08:49 | XRay Report ---
RIGHT FOOT 3 VIEWS HISTORY: pain right great toe/MTP COMPARISON: Right foot radiograph 04/24/2017. FINDINGS: There is no fracture or dislocation. Mild soft tissue swelling within the right first toe. Tiny plantar and posterior calcaneal spurs again noted. No erosive changes identified. There is mild osteoarthritis within the first MTP joint. No radiopaque foreign bodies. IMPRESSION: 1. No fracture or dislocation within the right foot. 2. Mild soft tissue swelling within the right first toe. ACT 112: Negative or not required by law. Electronically signed by: Jc Cotto M.D. 07/22/2021 8:47 AM
--- NOTE | 2021-07-22 08:53 | XRay Report ---
AP PELVIS ONE VIEW HISTORY: Pelvic pain. fall COMPARISON: None. FINDINGS: There is no fracture or dislocation. Soft tissues are unremarkable. No radiopaque foreign b odies. Mild osteoarthritis within the bilateral hips. The sacrum appears intact. IMPRESSION: No fracture or dislocation within the pelvis or hips. ACT 112: Negative or not required by law. Electronically signed by: Jc Cotto M.D. 07/22/2021 8:52 AM
[2021-07-22] MEDS: MULTIVITAMIN CHEWABLE TAB PO SCH (08:55)
[2021-07-22] MEDS: CALCIUM POLYCARBOPHIL 625MG TAB PO SCH ×2 (08:55→20:24)
[2021-07-22] MEDS: DIVALPROEX DELAY RELEASE 500 MG TAB PO SCH ×2 (08:55→20:24)
[2021-07-22] MEDS: ENOXAPARIN INJ 40 MG/0.4 ML SYR SQ SCH (08:55)
[2021-07-22] MEDS: ATORVASTATIN 40 MG TAB PO SCH (08:55)
--- NOTE | 2021-07-22 08:58 | XRay Report ---
XR chest 1V portable HISTORY: fall COMPARISON: Chest 06/10/2020. FINDINGS: The lungs are clear. Cardiac silhouette is normal in size. No pleural effusions. No pneumot horax. IMPRESSION: No acute process. ACT 112: Negative or not required by law. Electronically signed by: Jc Cotto M.D. 07/22/2021 8:57 AM
[2021-07-22] MEDS: INSULIN ASPART PER UNIT SC SCH ×4 (09:07→21:04)
--- NOTE | 2021-07-22 10:32 | Electrocardiogram Report ---
Test Reason : Blood Pressure : / mmHG Vent. Rate : 099 BPM Atrial Rate : 099 BPM P-R Int : 154 ms QRS Dur : 086 ms QT Int : 334 ms P-R-T Axes : 043 -21 -04 degrees QTc Int : 428 ms Normal sinus rhythm Poor R wave progression, consider anterior RI vs. lead placement vs. LVH Nonspecific T wave abnormality Abnormal ECG When compared with ECG of 10-JUN-2020 18:53, T wave inversion now evident in Anterior leads QT has shortened Confirmed by Felipe Douglas ([id number]) on 07/22/2021 10:32:30 AM Referred By: CHASTITY Confirmed By:Felipe Douglas
--- NOTE | 2021-07-22 18:40 | Communication Note ---
Date of Service: July 22, 2021 Pt was seen and examined for follow up of weakness. Lying in bed with no acute distress. Saturated well on RA. Pt said that he feels weak. CXR showed no acute distress. COVID 19 positive. Elevated CRP. Does not meed criteria for covid 19 therapy. Will monitor closely. MD Mariela
[2021-07-22] MEDS: ACETAMINOPHEN 1000 MG/100 ML IV IV PRN (20:13)
[2021-07-22] MEDS ORDERED: SODIUM CHLORIDE 0.9% 500 ML IV SCH (20:15)
[2021-07-22] MEDS ORDERED: LEVALBUTEROL HCL 1.25 MG/3 ML NEB NEB PRN (20:22)
[2021-07-22] MEDS ORDERED: dexAMETHasone 6 MG in SYRINGE 0 ML IV ONE (23:00)
[2021-07-22] MEDS ORDERED: REMDESIVIR 200 MG in SODIUM CHLORIDE 0.9% 210 ML IV STA (23:00)
[2021-07-22] MEDS ORDERED: KETOROLAC TROMETHAMINE 15 MG/ML VIAL IV ONE (23:16)
[2021-07-22] MEDS: guaiFENesin/CODEINE 100MG/10MG 5ML UDC PO PRN (23:31)
[2021-07-23] MEDS: guaiFENesin/CODEINE 100MG/10MG 5ML UDC PO PRN ×2 (05:54→22:04)
[2021-07-23] MEDS: ACETAMINOPHEN 1000 MG/100 ML IV IV PRN (05:54)
[2021-07-23 07:37] LABS: Estimated Average Glucose 154 mg/dl
[2021-07-23] MEDS: dexAMETHasone 6 MG in SYRINGE 0 ML IV SCH (08:28)
[2021-07-23] MEDS: CALCIUM POLYCARBOPHIL 625MG TAB PO SCH ×2 (08:28→20:08)
[2021-07-23] MEDS: BENZONATATE 100 MG CAPSULE PO SCH ×3 (08:28→20:08)
[2021-07-23] MEDS: FLUTICASONE FUROATE 100MCG 14 PUFFS/INHALER INH SCH (08:29)
[2021-07-23] MEDS: ATORVASTATIN 40 MG TAB PO SCH (08:29)
[2021-07-23] MEDS: DIVALPROEX DELAY RELEASE 500 MG TAB PO SCH ×2 (08:29→20:08)
[2021-07-23] MEDS: MULTIVITAMIN CHEWABLE TAB PO SCH (08:29)
[2021-07-23] MEDS: ENOXAPARIN INJ 40 MG/0.4 ML SYR SQ SCH (08:29)
--- NOTE | 2021-07-23 09:24 | XRay Report ---
XR chest 1V portable HISTORY: 60 years-old Male hypoxia acute shortness of breath COMPARISON: Chest radiograph 07/22/2021 at 1:25 AM TECHNIQUE: Portable AP view of the chest FINDINGS: Cardiac silhouette is enlarged. Mild right hemidiaphragmatic elevation. Mild pulmonary vascular conge stion. No pneumothorax, airspace consolidation or large pleural effusion. Degenerative changes of the shoulders and spine. IMPRESSION: Cardiac megaly with pulmonary vascular congestion. ACT 112: Negative or not required by law. The above report was generated using voice recognition software. It may contain grammatical, syntax o r spelling errors. Electronically signed by: Noe Onofre M.D. 07/23/2021 9:23 AM
[2021-07-23 09:27] LABS: Hematocrit (blood only) 40.8 % (42-52); Hemoglobin 13.7 g/dL (14.0-18.0); Mean Corpuscular Hemoglobin 31.2 pg (25-34); Mean Corpuscular Hgb Conc 33.6 g/dL (32-36); Mean Corpuscular Volume 92.9 fL (80-100); Mean Platelet Volume 9.7 fL (7.4-10.4); Platelet Count 137 K/uL (130-400); RDW Coefficient of Variation 12.8 % (11.5-14.5); RDW Standard Deviation 43.6 fL (36.4-46.3); Red Blood Count 4.39 M/uL (4.7-6.1); White Blood Count 8.99 K/uL (4.8-10.8)
[2021-07-23] MEDS: INSULIN ASPART PER UNIT SC SCH ×4 (09:38→20:21)
[2021-07-23 09:47] LABS: Albumin Globulin Ratio 1.3 (0.9-2); Albumin Level 3.9 gm/dl (3.4-5.0); BUN Creatinine Ratio 15.4 (10-20); Bilirubin Direct 0.1 mg/dl (0-0.2); Bilirubin,Total 0.6 mg/dl (0.2-1.0); C Reactive Protein 11.44 mg/dl (0-0.5); Calcium 8.5 mg/dl (8.5-10.1); Creatinine Clr Calc Pharmacy 58.7 ml/min; Est GFR (African American) 78.1 ml/min; Est GFR (Non-African American) 67.4 ml/min; Potassium 4.2 mmol/L (3.5-5.1); Total Protein 6.9 gm/dl (6.0-8.3)
[2021-07-23] MEDS ORDERED: PNEUMOCOCCAL POLYSACCHARIDES 25 MCG/0.5 ML VIAL/SYR IM ONE (11:00)
--- NOTE | 2021-07-23 12:45 | XRay Report ---
SINGLE VIEW CHEST CLINICAL HISTORY: Hypoxia. FINDINGS: An AP, portable, upright chest radiograph is compared to study dated 07/22/2021. The examina tion is degraded by portable technique and patient rotation. The heart is top normal for projection n oting atherosclerotic calcification of the thoracic aorta. There is chronic elevation of the right he midiaphragm with bibasilar scarring/atelectasis. No airspace consolidation or large pleural effusion is identified. No pneumothorax is seen. The skeletal structures are osteopenic. The bony thorax is gr ossly intact. Degenerative change is seen throughout the thoracic spine. IMPRESSION: No acute cardiopulmonary abnormality. ACT 112: Negative or not required by law. Electronically signed by: Virgilio Lambert M.D. 07/23/2021 12:43 PM
--- NOTE | 2021-07-23 17:53 | Hospitalist Progress Note ---
Date of Service July 23, 2021 Assessment & Plan (1) COVID-19: Plan: Present on admission with worsening weakness Testing positive for COVID 19 CXR on admission showed no acute process He became hypoxia and currently on 6L NC Pt was starting on Remdesivir and Dexamethasone CRP continues to elevate from 3.2 to 11.4 and D-dimer normal Will monitor LFT while on Remdesivir Will monitor inflammatory markers such as CRP and ferritin Continue oxygen supplement Weakness Falls Mostly due to acute illness CT head showed no acute intracranial abnormality. Severe hydrocephalus, unchanged. CT cervical spine showed No fractures within the cervical spine. Continue PT/OT eval Diabetes type 2 Most recent hab1c 7 Continue Insulin sliding scale Will monitor BS while on Solumedrol History of hyperlipidemia Continue statin. History of seizures disorder Continue valproic acid. Chronic Cognitive impairment Stable DVT px Continue Lovenox. Code status FULL CODE Admission and Anticipated Discharge Date Admission Date: July 22, 2021 Subjective Pt was seen and examined for follow up of weakness/SOB due to COVID 19 Lying in bed with no acute distress He continues to feel weak Currently he is on 6L NC oxygen He gave permission to speak to his Denies any chest pain, palpitation, dizziness and SOB Review of Systems Review of Systems: All systems reviewed & are unremarkable except as noted in Subjective Physical Exam Physical Exam: General- No acute distress Head- atraumatic Eyes- PERRL, EOMI, ENT- oropharynx clear Neck- supple, no JVD Lungs- +diminished BS Heart- regular rhythm; no murmur Abdomen- normal bowel sounds, soft, nontender Extremities- no calf tenderness Neuro- alert, oriented x 3; PERRL, EOMI; no facial palsy; no dysarthria Skin- warm & dry Results & Data Results & Data ([facility]) Vital Signs (Past 12 Hours) Vital Signs Temp Pulse Resp BP Pulse Ox 07/23/21 16:00 36.9 C 81 20 96/70 L 94 07/23/21 15:06 94 07/23/21 13:25 88 L 07/23/21 13:00 89 L 07/23/21 12:00 36.7 C 80 20 95/64 L 92 07/23/21 07:13 37.9 C H
[2021-07-23] MEDS: REMDESIVIR 100 MG in SODIUM CHLORIDE 0.9% 230 ML IV SCH (20:37)
[2021-07-24] MEDS: ALENDRONATE SODIUM 70 MG TAB PO SCH (06:14)
[2021-07-24 09:25] LABS: Albumin Globulin Ratio 1.3 (0.9-2); Albumin Level 3.4 gm/dl (3.4-5.0); BUN Creatinine Ratio 31.6 (10-20); Bilirubin,Total 0.4 mg/dl (0.2-1.0); C Reactive Protein 10.53 mg/dl (0-0.5); Calcium 8.4 mg/dl (8.5-10.1); Creatinine Clr Calc Pharmacy 72.3 ml/min; Est GFR (African American) 100.4 ml/min; Est GFR (Non-African American) 86.7 ml/min; Globulin 2.6 gm/dl (2.5-4.0); Potassium 4.4 mmol/L (3.5-5.1)
[2021-07-24] MEDS: ENOXAPARIN INJ 40 MG/0.4 ML SYR SQ SCH (09:31)
[2021-07-24] MEDS: DIVALPROEX DELAY RELEASE 500 MG TAB PO SCH ×2 (09:31→20:21)
[2021-07-24] MEDS: dexAMETHasone 6 MG in SYRINGE 0 ML IV SCH (09:31)
[2021-07-24] MEDS: BENZONATATE 100 MG CAPSULE PO SCH ×3 (09:31→20:21)
[2021-07-24] MEDS: MULTIVITAMIN CHEWABLE TAB PO SCH (09:32)
[2021-07-24] MEDS: ATORVASTATIN 40 MG TAB PO SCH (09:32)
[2021-07-24] MEDS: FLUTICASONE FUROATE 100MCG 14 PUFFS/INHALER INH SCH (09:32)
[2021-07-24] MEDS: CALCIUM POLYCARBOPHIL 625MG TAB PO SCH ×2 (09:32→20:21)
[2021-07-24 09:37] LABS: Ferritin 347.3 ng/ml (8-388)
[2021-07-24] MEDS: INSULIN ASPART PER UNIT SC SCH ×4 (09:57→20:57)
[2021-07-24] MEDS: REMDESIVIR 100 MG in SODIUM CHLORIDE 0.9% 230 ML IV SCH (20:21)
[2021-07-24] MEDS: guaiFENesin/CODEINE 100MG/10MG 5ML UDC PO PRN (20:21)
--- NOTE | 2021-07-24 23:28 | Hospitalist Progress Note ---
Date of Service July 24, 2021 Assessment & Plan (1) COVID-19: Plan: Present on admission with worsening weakness Testing positive for COVID 19 CXR on admission showed no acute process currently on 4L NC and saturated in the 95% Continue monitor Remdesivir and Dexamethasone CRP slightly dropped from 11.4 to 10.5 Ferritin and D-dimer normal Continue monitor LFT while on Remdesivir Continue oxygen titrate oxygen supplement Weakness Falls Mostly due to acute illness CT head showed no acute intracranial abnormality. Severe hydrocephalus, unchanged. CT cervical spine showed No fractures within the cervical spine. Continue PT/OT eval Diabetes type 2 Most recent hab1c 7 Continue Insulin sliding scale Will monitor BS while on Solumedrol History of hyperlipidemia Continue statin. History of seizures disorder Continue valproic acid. Chronic Cognitive impairment Stable DVT px Continue Lovenox. Code status FULL CODE Admission and Anticipated Discharge Date Admission Date: July 22, 2021 Subjective Pt was seen and examined for follow up of weakness/SOB due to COVID 19 Lying in bed with no acute distress Pt is looking much better today He is more awake and he has more energy today Currently he is on 4L NC oxygen Denies any chest pain, palpitation, dizziness and SOB Review of Systems Review of Systems: All systems reviewed & are unremarkable except as noted in Subjective Physical Exam Physical Exam: General- No acute distress Head- atraumatic Eyes- PERRL, EOMI, ENT- oropharynx clear Neck- supple, no JVD Lungs- +diminished BS Heart- regular rhythm; no murmur Abdomen- normal bowel sounds, soft, nontender Extremities- no calf tenderness Neuro- alert, oriented x 3; PERRL, EOMI; no facial palsy; no dysarthria Skin- warm & dry Results & Data Results & Data ([facility]) Vital Signs (Past 12 Hours) Vital Signs Temp Pulse Pulse Resp BP BP Pulse Ox 07/24/21 22:55 36.4 C L 68 18 131/81 96 07/24/21 20:13 36.4 C L 72 18 113/74 97 07/24/21 15:31 36.4 C L 84 20 101/67 94 07/24/21 15:06 93 H 07/24/21 13:37 07/24/21 11:57 36.8 C 81 18 105/70 95 Pulse Ox Pulse Ox 07/24/21 22:55 07/24/21 20:13 07/24/21 15:31 07/24/21 15:06 07/24/21 13:37 93 91 07/24/21 11:57
[2021-07-25] MEDS: dexAMETHasone 6 MG in SYRINGE 0 ML IV SCH (08:38)
[2021-07-25] MEDS: MULTIVITAMIN CHEWABLE TAB PO SCH (08:39)
[2021-07-25] MEDS: DIVALPROEX DELAY RELEASE 500 MG TAB PO SCH ×2 (08:39→20:52)
[2021-07-25] MEDS: ATORVASTATIN 40 MG TAB PO SCH (08:39)
[2021-07-25] MEDS: BENZONATATE 100 MG CAPSULE PO SCH ×3 (08:39→20:52)
[2021-07-25] MEDS: CALCIUM POLYCARBOPHIL 625MG TAB PO SCH ×2 (08:39→20:52)
[2021-07-25] MEDS: FLUTICASONE FUROATE 100MCG 14 PUFFS/INHALER INH SCH (08:40)
[2021-07-25] MEDS: ENOXAPARIN INJ 40 MG/0.4 ML SYR SQ SCH (08:40)
[2021-07-25] MEDS: INSULIN ASPART PER UNIT SC SCH ×4 (08:52→21:07)
[2021-07-25 11:38] LABS: Albumin Globulin Ratio 1.2 (0.9-2); Albumin Level 3.4 gm/dl (3.4-5.0); Bilirubin,Total 0.4 mg/dl (0.2-1.0); C Reactive Protein 3.94 mg/dl (0-0.5); Calcium 8.7 mg/dl (8.5-10.1); Creatinine Clr Calc Pharmacy 81.8 ml/min; Est GFR (African American) 110.3 ml/min; Est GFR (Non-African American) 95.2 ml/min; Globulin 2.8 gm/dl (2.5-4.0); Potassium 4.4 mmol/L (3.5-5.1); Total Protein 6.2 gm/dl (6.0-8.3)
--- NOTE | 2021-07-25 19:36 | Hospitalist Progress Note ---
Date of Service July 25, 2021 Assessment & Plan (1) COVID-19: Plan: Present on admission with worsening weakness Testing positive for COVID 19 CXR on admission showed no acute process currently on 3L NC and saturated in the 95% Continue monitor Remdesivir and Dexamethasone CRP slightly dropped from 11.4 to 10.5 Ferritin and D-dimer normal Continue monitor LFT while on Remdesivir Continue oxygen titrate oxygen supplement Weakness Falls Mostly due to acute illness CT head showed no acute intracranial abnormality. Severe hydrocephalus, unchanged. CT cervical spine showed No fractures within the cervical spine. Continue PT/OT recommended inpatient therapy Diabetes type 2 Most recent hab1c 7 Continue Insulin sliding scale Continue monitor BS while on Solumedrol History of hyperlipidemia Continue statin. History of seizures disorder Continue valproic acid. Chronic Cognitive impairment Stable DVT px Continue Lovenox. Code status FULL CODE Admission and Anticipated Discharge Date Admission Date: July 22, 2021 Subjective Pt was seen and examined for follow up of weakness/SOB due to COVID 19 Lying in bed with no acute distress Pt is looking much better today Currently he is on 3L NC oxygen Spoke to his over the phone. provided with updates and answered all her questions Denies any chest pain, palpitation, dizziness and SOB Review of Systems Review of Systems: All systems reviewed & are unremarkable except as noted in Subjective Physical Exam Physical Exam: General- No acute distress Head- atraumatic Eyes- PERRL, EOMI, ENT- oropharynx clear Neck- supple, no JVD Lungs- +diminished BS Heart- regular rhythm; no murmur Abdomen- normal bowel sounds, soft, nontender Extremities- no calf tenderness Neuro- alert, oriented x 3; PERRL, EOMI; no facial palsy; no dysarthria Skin- warm & dry Results & Data Results & Data ([facility]) Vital Signs (Past 12 Hours) Vital Signs Temp Pulse Pulse Resp BP Pulse Ox 07/25/21 16:13 69 07/25/21 14:29 36.6 C 77 18 104/68 94 07/25/21 11:59 36.6 C 72 18 110/71 93 07/25/21 10:58 94
[2021-07-25] MEDS: REMDESIVIR 100 MG in SODIUM CHLORIDE 0.9% 230 ML IV SCH (20:41)
[2021-07-26] MEDS: INSULIN ASPART PER UNIT SC SCH ×4 (08:00→22:26)
[2021-07-26] MEDS: FLUTICASONE FUROATE 100MCG 14 PUFFS/INHALER INH SCH (08:15)
[2021-07-26] MEDS: ATORVASTATIN 40 MG TAB PO SCH (08:15)
[2021-07-26] MEDS: CALCIUM POLYCARBOPHIL 625MG TAB PO SCH ×2 (08:15→22:06)
[2021-07-26] MEDS: dexAMETHasone 6 MG in SYRINGE 0 ML IV SCH (08:15)
[2021-07-26] MEDS: ENOXAPARIN INJ 40 MG/0.4 ML SYR SQ SCH (08:15)
[2021-07-26] MEDS: BENZONATATE 100 MG CAPSULE PO SCH ×3 (08:15→22:06)
[2021-07-26] MEDS: DIVALPROEX DELAY RELEASE 500 MG TAB PO SCH ×2 (08:15→22:07)
[2021-07-26] MEDS: MULTIVITAMIN CHEWABLE TAB PO SCH (08:15)
[2021-07-26 08:47] LABS: BUN Creatinine Ratio 29.1 (10-20); Calcium 8.8 mg/dl (8.5-10.1); Creatinine Clr Calc Pharmacy 80.1 ml/min; Est GFR (African American) 109.2 ml/min; Est GFR (Non-African American) 94.3 ml/min; Potassium 4.4 mmol/L (3.5-5.1)
[2021-07-26] MEDS ORDERED: FUROSEMIDE INJ 20 MG/2 ML VIAL IV ONE (09:04)
[2021-07-26 11:34] LABS: Albumin Globulin Ratio 1.2 (0.9-2); Albumin Level 3.5 gm/dl (3.4-5.0); Bilirubin,Total 0.5 mg/dl (0.2-1.0); Total Protein 6.5 gm/dl (6.0-8.3)
[2021-07-26] MEDS ORDERED: PHARMACY GLYCEMIC MGMT CONSULT PRN (17:52)
[2021-07-26] MEDS ORDERED: INSULIN GLARGINE SOLOSTAR 100 UNITS/ML 3 ML PEN SC STA (17:56)
--- NOTE | 2021-07-26 19:54 | Pharmacy Report ---
Pharmacy Glycemic Short Note 2 - Date of Service July 26, 2021 - Glycemic Short BSG Results (Last 24 hours): 07/25/21 07/26/21 07/26/21 20:34 07:48 07:53 Glucose 171 H POC Glucose 218 H 171 H 07/26/21 07/26/21 07/26/21 11:55 16:58 16:59 Glucose POC Glucose 281 H 319 H* 308 H* OUTPATIENT ANTIDIABETIC REGIMEN: * Metformin 1000 mg PO BIDM * Januvia 100 mg PO qAM * HbA1c = 7.0% (07/22/21) ASSESSMENT: * 60 yo M admitted on 07/22/21 secondary to COVID-19 infection. Pharmacy was consulted on 07/26/21 to assist with inpatient glycemic management. * Experiencing postprandial hyperglycemia secondary to steroid use. Will add basal insulin today and tighten goal range as well as carb ratio/correction factor to account for this. * Stressors remains stable at this time (Day #4/10 of IV dexamethasone). PLAN FOR INPATIENT GLYCEMIC CONTROL: * Hold outpatient oral diabetes medications * Basal insulin * Lantus 30 units SQ x 1 * Bolus insulin * NovoLog per scale ACHS or Q6hrs while NPO * Goal Range: Low 110 mg/dL - High 140 mg/dL * Correction Factor: 20 mg/dL/unit * Nutritional / Prandial insulin per carb ratio of 1 unit per 7 grams CHO consumed
[2021-07-26] MEDS: REMDESIVIR 100 MG in SODIUM CHLORIDE 0.9% 230 ML IV SCH (22:06)
--- NOTE | 2021-07-27 02:09 | Hospitalist Progress Note ---
Date of Service July 26, 2021 Assessment & Plan (1) COVID-19: Plan: Present on admission with worsening weakness Testing positive for COVID 19 CXR on admission showed no acute process currently on 2L NC and saturated in the 95% Continue monitor Remdesivir and Dexamethasone CRP slightly dropped from 11.4 to 10.5 Ferritin and D-dimer normal Continue monitor LFT while on Remdesivir Continue oxygen titrate oxygen supplement Will give lasix 20mg x1 Weakness Falls Mostly due to acute illness CT head showed no acute intracranial abnormality. Severe hydrocephalus, unchanged. CT cervical spine showed No fractures within the cervical spine. Continue PT/OT recommended inpatient therapy Diabetes type 2 Most recent hab1c 7 Continue Insulin sliding scale Continue monitor BS while on Solumedrol History of hyperlipidemia Continue statin. History of seizures disorder Continue valproic acid. Chronic Cognitive impairment Stable DVT px Continue Lovenox. Code status FULL CODE Admission and Anticipated Discharge Date Admission Date: July 22, 2021 Subjective Pt was seen and examined for follow up of weakness/SOB due to COVID 19 Sitting in chair with no acute distress Pt is looking much better today and participated in therapy Currently he is on 2L NC oxygen Denies any chest pain, palpitation, dizziness and SOB Review of Systems Review of Systems: All systems reviewed & are unremarkable except as noted in Subjective Physical Exam Physical Exam: General- No acute distress Head- atraumatic Eyes- PERRL, EOMI, ENT- oropharynx clear Neck- supple, no JVD Lungs- No wheezing Heart- regular rhythm; no murmur Abdomen- normal bowel sounds, soft, nontender Extremities- no calf tenderness Neuro- alert, oriented x 3; PERRL, EOMI; no facial palsy; no dysarthria Skin- warm & dry Results & Data Results & Data ([facility]) Vital Signs (Past 12 Hours) Vital Signs Temp Pulse Pulse Resp BP Pulse Ox 07/26/21 23:05 36.7 C 54 L 18 129/77 96 07/26/21 22:28 55 L 07/26/21 20:14 36.4 C L 76 16 124/76 93 07/26/21 15:37 36.4 C L 78 18 102/70 93 07/26/21 14:27 71
[2021-07-27] MEDS ORDERED: INSULIN ASPART PER UNIT SC ONE (03:00)
[2021-07-27 08:37] LABS: BUN Creatinine Ratio 31.5 (10-20); Calcium 9.1 mg/dl (8.5-10.1); Creatinine Clr Calc Pharmacy 77.5 ml/min; Est GFR (African American) 107.7 ml/min; Est GFR (Non-African American) 92.9 ml/min; Potassium 4.1 mmol/L (3.5-5.1)
[2021-07-27] MEDS ORDERED: INSULIN HUMAN NPH SC SCH (09:00)
[2021-07-27] MEDS: FLUTICASONE FUROATE 100MCG 14 PUFFS/INHALER INH SCH (09:07)
[2021-07-27] MEDS: DIVALPROEX DELAY RELEASE 500 MG TAB PO SCH ×2 (09:08→20:24)
[2021-07-27] MEDS: BENZONATATE 100 MG CAPSULE PO SCH ×3 (09:08→20:23)
[2021-07-27] MEDS: dexAMETHasone 6 MG in SYRINGE 0 ML IV SCH (09:08)
[2021-07-27] MEDS: MULTIVITAMIN CHEWABLE TAB PO SCH (09:09)
[2021-07-27] MEDS: ENOXAPARIN INJ 40 MG/0.4 ML SYR SQ SCH (09:09)
[2021-07-27] MEDS: CALCIUM POLYCARBOPHIL 625MG TAB PO SCH ×2 (09:09→20:23)
[2021-07-27] MEDS: ATORVASTATIN 40 MG TAB PO SCH (09:10)
[2021-07-27] MEDS: INSULIN ASPART PER UNIT SC SCH ×4 (09:19→20:37)
--- NOTE | 2021-07-27 10:00 | Psychiatric Consultation ---
Date of Consultation July 27, 2021 Impression / Recommendations Impression 60 yo man with intellectual disability, seizures on depakote with remote history of brief psychotic episode in 2003 admitted medically for COVID-19 with plan for [facility]. The patient is psychiatrically stable for transfer to a jail facility. There is no acute indication for inpatient psychiatric hospitalization as the patient is not suicidal or homicidal; there is no evidence of psychosis nor psychiatric symptoms interfering with their ability to care for their basic needs.He does not require any psychiatric medications. (1) COVID-19: (2) Intellectual disability: -Psychiatrically stable for transfer to a jail facility Telehealth Telehealth Options: Telephone only For the duration of the visit, provider was performing the assessment from: The same facility as the patient After establishing a telemedicine visit, patient was: Patient was verified with two unique identifiers, Patient/authorized rep acknowledged consent and understanding and Gave permission to continue telehealth session Total Time Spent (minutes): 10 Psych History Identifying Data 60 yo man with history of intellectual disability, seizures on depakote, and remote history of psychosis in 2003 admitted medically for COVID-19 infection. Psychiatry was consulted for assessment of appropriateness of [facility] placement. Chief Complaint "I'm ok, I'm happy that I'm feeling better and getting closer to being able to go soon". History of Present Illness Spoke with John via telephone as he is in isolation due to COVID-19. Psych liason nurses were present in the room with the patient. John notes stable mood, denies SI, denies HI and speaks to interests including watching TV. He denies any psychotic symptoms including denial of auditory hallucinations and denial of visual hallucinations. He denies any current psychiatric conditions and is not taking any psychiatric medications. He denies any medication side effects, confirms that he takes depakote for seizure prevention. He lives in a personal long-term with his . He endorses stable sleep and appetite. Has good sense of humor. Denies any other concerns. Has not required any IM medications nor had any behavioral events per chart review. Past Psychiatric History Previous Psych History: reported remote hx of psychosis in 2003, no psychiatric hospitalizations nor concerns since that time Allergies Allergy/AdvReac Type Severity Reaction Status Date / Time No Known Allergies Allergy Unknown Verified 07/22/21 01:15 Home Medications Medication Instructions Recorded Confirmed Type metformin 500 mg tablet,extended 1,000 mg PO BID17 01/14/18 07/22/21 History release 24 hr Vitafusion Gummy 2 tab PO QAM 06/10/20 07/22/21 History alendronate 70 mg tablet (Fosamax) 70 mg PO WK 06/10/20 07/22/21 History atorvastatin 40 mg tablet (Lipitor) 40 mg PO QAM 06/10/20 07/22/21 History divalproex 500 mg tablet,delayed 500 mg PO BID 06/10/20 07/22/21 History release acetaminophen 500 mg tablet 1,000 mg PO Q8H PRN 07/22/21 07/22/21 History (Tylenol Extra Strength) calcium polycarbophil 625 mg 1,250 mg PO BID 07/22/21 07/22/21 History tablet (FiberCon) ketoconazole 2 % shampoo 1 ea TOPICAL 2XWK 07/22/21 07/22/21 History loperamide 2 mg capsule 2 mg PO QID PRN 07/22/21 07/22/21 History meloxicam 15 mg tablet 15 mg PO QAM 07/22/21 07/22/21 History ondansetron HCl 4 mg tablet 4 mg PO Q6H PRN 07/22/21 07/22/21 History sitagliptin 100 mg tablet (Januvia) 100 mg PO QAM 07/22/21 07/22/21 History triamcinolone acetonide 0.1 % 1 applic TOPICAL BID PRN 07/22/21 07/22/21 History topical cream Substance Abuse History denies Personal History Living Arrangements: Personal Care Facility Highest Grade Completed: High School Graduate Beliefs That Will Affect Care: None Patient History Medical History (Updated 07/27/21 @ 10:11 by Ruby Paredes MD) Abdominal pain Abnormal EKG DR. RAMOS (01/06/18) CLEARED Diabetes mellitus, type 2 Hyperlipidemia Intellectual disability Poor historian Psychotic disorder MANY YEARS AGO "NO RECENT HX" Seizure MANY YEARS AGO/NONE FOR MANY YEARS AND NO CURRENT SEIZURE MEDS(NEUROLOGY IN LAST 6 MONTHS AGO) [facility] Surgical History History of cataract surgery History of eye surgery Hx of tooth extraction Family History Mother , Mother age 87 and he is uncertain of her medical conditions No problems noted. Father , Father in his 80s of uncertain causes No problems noted. Social History Smoking Status: Former smoker Tobacco Type: Cigarettes Years Smoked: 30; Cigarettes Per Day: NO CIG FOR 2 WEEKS/RECENTLY USING NICOTINE PATCH; Second Hand Exposure: No; Hx Alcohol Use: No Hx Substance Use: No Preferred Language: Yi Communication Ability: Effective Joint Setter Required: No Beliefs That Will Affect Care: None marital status: Current Living Situation: Spouse and Personal Care Facility current occupational status: unemployed current occupation: Unemployed How many Children do You have: 1 Feels Safe at Home: Yes Safety Concerns: Feels Safe At This Time Assistive Devices: None Physical Exam Psychiatric: Orientation: alert and oriented x 3 Speech: normal rate/rhythm/volume of speech Mood: no depressed mood and no anxious mood Thought Process: clear/coherent thought process and + concrete thought process Thought Content: reality based without delusions Suicidal Thoughts: denies suicidal thoughts Homicidal Thoughts: denies homicidal thoughts Hallucinations: no auditory hallucinations and no visual hallucinations Estimated Intelligence: + below average estimated intelligence Insight: + fair insight Judgement: + fair judgement Vital Signs (Past 24 Hours): Last Vital Signs Temp 36.6 C 07/27/21 07:34 Pulse 54 L 07/27/21 08:10 Resp 18 07/27/21 07:34 BP 120/69 07/27/21 07:34 Pulse Ox 96 07/27/21 07:34 Review of Systems All systems reviewed & are unremarkable except as noted in HPI & below Results & Data (PSY) Medications Administered Alendronate Sodium (Alendronate Sodium 70 Mg Tab) 70 mg PO Tu@0600 [facility] Stop: 08/23/21 05:59 Last Admin: 07/24/21 06:14 Dose: 70 mg Documented by: [id number] Atorvastatin Calcium (Atorvastatin 40 Mg Tab) 40 mg PO QAM [facility] Stop: 08/21/21 08:59 Last Admin: 07/27/21 09:10 Dose: 40 mg Documented by: [id number] Admin: 07/26/21 08:15 Dose: 40 mg Documented by: [id number] Admin: 07/25/21 08:39 Dose: 40 mg Documented by: [id number] Admin: 07/24/21 09:32 Dose: 40 mg Documented by: [id number] Admin: 07/23/21 08:29 Dose: 40 mg Documented by: [id number] Admin: 07/22/21 08:55 Dose: 40 mg Documented by: [id number] Benzonatate (Benzonatate 100 Mg Capsule) 100 mg PO TID [facility] Stop: 08/22/21 08:59 Last Admin: 07/27/21 09:08 Dose: 100 mg Documented by: [id number] Admin: 07/26/21 22:06 Dose: 100 mg Documented by: [id number] Admin: 07/26/21 13:50 Dose: Not Given Documented by: [id number] Admin: 07/26/21 08:15 Dose: 100 mg Documented by: [id number] Admin: 07/25/21 20:52 Dose: 100 mg Documented by: [id number] Admin: 07/25/21 12:40 Dose: 100 mg Documented by: [id number] Admin: 07/25/21 08:39 Dose: 100 mg Documented by: [id number] Admin: 07/24/21 20:21 Dose: 100 mg Documented by: [id number] Admin: 07/24/21 13:01 Dose: 100 mg Documented by: [id number] Admin: 07/24/21 09:31 Dose: 100 mg Documented by: [id number] Admin: 07/23/21 20:08 Dose: 100 mg Documented by: [id number] Admin: 07/23/21 14:30 Dose: Not Given Documented by: [id number] Admin: 07/23/21 08:28 Dose: 100 mg Documented by: [id number] Calcium Polycarbophil (Calcium Polycarbophil 625mg Tab) 1,250 mg PO BID [facility] Stop: 08/21/21 08:59 Last Admin: 07/27/21 09:09 Dose: 1,250 mg Documented by: [id number] Admin: 07/26/21 22:06 Dose: 1,250 mg Documented by: [id number] Admin: 07/26/21 08:15 Dose: 1,250 mg Documented by: [id number] Admin: 07/25/21 20:52 Dose: 1,250 mg Documented by: [id number] Admin: 07/25/21 08:39 Dose: 1,250 mg Documented by: [id number] Admin: 07/24/21 20:21 Dose: 1,250 mg Documented by: [id number] Admin: 07/24/21 09:32 Dose: 1,250 mg Documented by: [id number] Admin: 07/23/21 20:08 Dose: 1,250 mg Documented by: [id number] Admin: 07/23/21 08:28 Dose: 1,250 mg Documented by: [id number] Admin: 07/22/21 20:24 Dose: 1,250 mg Documented by: [id number] Admin: 07/22/21 08:55 Dose: 1,250 mg Documented by: [id number] Divalproex Sodium (Divalproex Delay Release 500 Mg Tab) 500 mg PO BID [facility] Stop: 08/21/21 08:59 Last Admin: 07/27/21 09:08 Dose: 500 mg Documented by: [id number] Admin: 07/26/21 22:07 Dose: 500 mg Documented by: [id number] Admin: 07/26/21 08:15 Dose: 500 mg Documented by: [id number] Admin: 07/25/21 20:52 Dose: 500 mg Documented by: [id number] Admin: 07/25/21 08:39 Dose: 500 mg Documented by: [id number] Admin: 07/24/21 20:21 Dose: 500 mg Documented by: [id number] Admin: 07/24/21 09:31 Dose: 500 mg Documented by: [id number] Admin: 07/23/21 20:08 Dose: 500 mg Documented by: [id number] Admin: 07/23/21 08:29 Dose: 500 mg Documented by: [id number] Admin: 07/22/21 20:24 Dose: 500 mg Documented by: [id number] Admin: 07/22/21 08:55 Dose: 500 mg Documented by: [id number] Enoxaparin Sodium (Enoxaparin Inj 40 Mg/0.4 Ml Syr) 40 mg SQ Q24H [facility] Stop: 08/21/21 08:59 Last Admin: 07/27/21 09:09 Dose: 40 mg Documented by: [id number] Admin: 07/26/21 08:15 Dose: 40 mg Documented by: [id number] Admin: 07/25/21 08:40 Dose: 40 mg Documented by: [id number] Admin: 07/24/21 09:31 Dose: 40 mg Documented by: [id number] Admin: 07/23/21 08:29 Dose: 40 mg Documented by: [id number] Admin: 07/22/21 08:55 Dose: 40 mg Documented by: [id number] Fluticasone Furoate (Fluticasone Furoate 100mcg 14 Puffs/Inhaler) 1 puffs INH DAILY [facility] Stop: 08/22/21 08:59 Last Admin: 07/27/21 09:07 Dose: 1 puffs Documented by: [id number] Admin: 07/26/21 08:15 Dose: 1 puffs Documented by: [id number] Admin: 07/25/21 08:40 Dose: 1 puffs Documented by: [id number] Admin: 07/24/21 09:32 Dose: 1 puffs Documented by: [id number] Admin: 07/23/21 08:29 Dose: 1 puffs Documented by: [id number] Guaifenesin/Codeine Phosphate (Guaifenesin/Codeine 100mg/10mg 5ml Udc) 5 ml PO Q6H PRN PRN Reason: Cough Stop: 08/21/21 22:51 Last Admin: 07/24/21 20:21 Dose: 5 ml Documented by: [id number] Admin: 07/23/21 22:04 Dose: 5 ml Documented by: [id number] Admin: 07/23/21 05:54 Dose: 5 ml Documented by: [id number] Admin: 07/22/21 23:31 Dose: 5 ml Documented by: [id number] Dexamethasone 6 mg/ Syringe 1.5 mls @ 1 mls/min IV DAILY [facility] Stop: 08/02/21 08:59 Last Admin: 07/27/21 09:08 Dose: 1 mls/min Documented by: [id number] Admin: 07/26/21 08:15 Dose: 1 mls/min Documented by: [id number] Admin: 07/25/21 08:38 Dose: 1 mls/min Documented by: [id number] Admin: 07/24/21 09:31 Dose: 1 mls/min Documented by: [id number] Admin: 07/23/21 08:28 Dose: 1 mls/min Documented by: [id number] Insulin Aspart (Insulin Aspart Per Unit) 0 units SC ACHS [facility] Stop: 08/21/21 07:29 Last Admin: 07/27/21 09:19 Dose: 8 units Documented by: [id number] Cosigned by: [id number] Admin: 07/26/21 22:26 Dose: 10 units Documented by: [id number] Cosigned by: [id number] Admin: 07/26/21 17:58 Dose: 14 units Documented by: [id number] Cosigned by: [id number] Admin: 07/26/21 12:17 Dose: 8 units Documented by: [id number] Cosigned by: [id number] Admin: 07/26/21 08:00 Dose: 6 units Documented by: [id number] Cosigned by: [id number] Admin: 07/25/21 21:07 Dose: 3 units Documented by: [id number] Cosigned by: [id number] Admin: 07/25/21 17:28 Dose: 6 units Documented by: [id number] Cosigned by: [id number] Admin: 07/25/21 12:43 Dose: 5 units Documented by: [id number] Cosigned by: [id number] Admin: 07/25/21 08:52 Dose: 4 units Documented by: [id number] Cosigned by: [id number] Admin: 07/24/21 20:57 Dose: 2 units Documented by: [id number] Cosigned by: [id number] Admin: 07/24/21 18:15 Dose: 5 units Documented by: [id number] Cosigned by: [id number] Admin: 07/24/21 13:16 Dose: 5 units Documented by: [id number] Cosigned by: [id number] Admin: 07/24/21 09:57 Dose: 4 units Documented by: [id number] Cosigned by: [id number] Admin: 07/23/21 20:21 Dose: 3 units Documented by: [id number] Cosigned by: [id number] Admin: 07/23/21 18:17 Dose: 4 units Documented by: [id number] Cosigned by: [id number] Admin: 07/23/21 12:47 Dose: 3 units Documented by: [id number] Cosigned by: [id number] Admin: 07/23/21 09:38 Dose: Not Given Documented by: [id number] Admin: 07/22/21 21:04 Dose: Not Given Documented by: [id number] Admin: 07/22/21 17:48 Dose: Not Given Documented by: [id number] Admin: 07/22/21 13:16 Dose: Not Given Documented by: [id number] Admin: 07/22/21 09:07 Dose: 2 units Documented by: [id number] Cosigned by: [id number] Insulin Human NPH (Insulin Human Nph) 15 units SC 0900 [facility] Stop: 07/27/21 11:00 Last Admin: 07/27/21 09:19 Dose: 15 units Documented by: [id number] Cosigned by: [id number] Loperamide HCl (Loperamide Hcl 2 Mg Cap) 2 mg PO QID PRN PRN Reason: Diarrhea Stop: 08/21/21 05:28 Last Admin: 07/23/21 08:28 Dose: 2 mg Documented by: [id number] Multivitamins/Folic Acid/Vitamin C (Multivitamin Chewable Tab) 1 tab PO QAM [facility] Stop: 08/21/21 08:59 Last Admin: 07/27/21 09:09 Dose: 1 tab Documented by: [id number] Admin: 07/26/21 08:15 Dose: 1 tab Documented by: [id number] Admin: 07/25/21 08:39 Dose: 1 tab Documented by: [id number] Admin: 07/24/21 09:32 Dose: 1 tab Documented by: [id number] Admin: 07/23/21 08:29 Dose: 1 tab Documented by: [id number] Admin: 07/22/21 08:55 Dose: 1 tab Documented by: [id number] Coding Level of Care Code 94031 Inpt Consult Level 2 Diagnoses COVID-19 U07.1 Intellectual disability F79
[2021-07-27] MEDS ORDERED: INSULIN HUMAN NPH SC ONE (12:15)
--- NOTE | 2021-07-27 12:19 | Pharmacy Report ---
Pharmacy Glycemic Short Note 2 - Date of Service July 27, 2021 - Glycemic Short BSG Results (Last 24 hours): 07/26/21 07/26/21 07/26/21 16:58 16:59 20:10 Glucose POC Glucose 319 H* 308 H* 287 H 07/27/21 07/27/21 07/27/21 03:22 07:30 07:36 Glucose 101 H POC Glucose 83 111 H 07/27/21 11:30 Glucose POC Glucose 254 H OUTPATIENT ANTIDIABETIC REGIMEN: * Metformin 1000 mg PO BIDM * Januvia 100 mg PO qAM * HbA1c = 7.0% (07/22/21) ASSESSMENT: 07/27: * John received 68 units of insulin yesterday (30 units Lantus + 38 units NovoLog) * Continues on dexamethasone 6 mg IV daily (day 07/17) * Fasting BSG = 111 mg/dL. Typically would start NPH 0.4 units/kg while on DXM IV, however, I was hesitant to do this with 30 units of Lantus on board and rapid correction overnight (287 -> 83) after 10 units of NovoLog. Entered a partial dose (0.2 units/kg) of NPH for today with plans to start full dose on 07/28. Lunch BSG elevated, therefore I have ordered an additional 5 units for now. * Change Lantus to dose per scale to avoid hypoglycemia with both NPH and Lantus on board. * Continue current Novolog parameters 07/26: * 60 yo M admitted on 07/22/21 secondary to COVID-19 infection. Pharmacy was consulted on 07/26/21 to assist with inpatient glycemic management. * Experiencing postprandial hyperglycemia secondary to steroid use. Will add basal insulin today and tighten goal range as well as carb ratio/correction factor to account for this. * Stressors remains stable at this time (Day #4/ of IV dexamethasone). PLAN FOR INPATIENT GLYCEMIC CONTROL: * Hold outpatient oral diabetes medications * Basal insulin * NPH 15 units SQ this morning, additional 5 units with lunch * Start NPH 30 units SQ daily on 07/28 - administer with dexamethasone * Lantus 0-18 units SQ qHS (0 units for BSG <120, 13 units for BSG 120-200, 18 units for BSG > 200) * Bolus insulin * NovoLog per scale ACHS or Q6hrs while NPO * Goal Range: Low 110 mg/dL - High 140 mg/dL * Correction Factor: 15 mg/dL/unit * Nutritional / Prandial insulin per carb ratio of 1 unit per 5 grams CHO consumed
[2021-07-27] MEDS: INSULIN GLARGINE SOLOSTAR 100 UNITS/ML 3 ML PEN SC SCH (20:38)
--- NOTE | 2021-07-27 23:36 | Hospitalist Progress Note ---
Date of Service July 27, 2021 Assessment & Plan (1) COVID-19: Plan: Present on admission with worsening weakness Testing positive for COVID 19 CXR on admission showed no acute process currently on 2L NC and saturated in the 95% Continue monitor Remdesivir and Dexamethasone CRP slightly dropped from 11.4 to 10.5 Ferritin and D-dimer normal Continue monitor LFT while on Remdesivir Continue oxygen titrate oxygen supplement Clinically improved significantly Weakness Falls Mostly due to acute illness CT head showed no acute intracranial abnormality. Severe hydrocephalus, unchanged. CT cervical spine showed No fractures within the cervical spine. Continue PT/OT recommended inpatient therapy Diabetes type 2 Most recent hab1c 7 Continue Insulin sliding scale Continue monitor BS while on Solumedrol History of hyperlipidemia Continue statin. History of seizures disorder Continue valproic acid. Chronic Cognitive impairment Stable DVT px Continue Lovenox. Code status FULL CODE Admission and Anticipated Discharge Date Admission Date: July 22, 2021 Subjective Pt was seen and examined for follow up of weakness/SOB due to COVID 19 Sitting in chair with no acute distress Pt is looking much better today Currently he is on 1L NC oxygen Denies any chest pain, palpitation, dizziness and SOB Review of Systems Review of Systems: All systems reviewed & are unremarkable except as noted in Subjective Physical Exam Physical Exam: General- No acute distress Head- atraumatic Eyes- PERRL, EOMI, ENT- oropharynx clear Neck- supple, no JVD Lungs- No wheezing Heart- regular rhythm; no murmur Abdomen- normal bowel sounds, soft, nontender Extremities- no calf tenderness Neuro- alert, oriented x 3; PERRL, EOMI; no facial palsy; no dysarthria Skin- warm & dry Results & Data Results & Data ([facility]) Vital Signs (Past 12 Hours) Vital Signs Temp Pulse Pulse Resp BP Pulse Ox 07/27/21 23:03 36.6 C 86 16 113/74 64 L 07/27/21 19:57 36.7 C 85 18 103/70 94 07/27/21 17:50 36.6 C 84 18 118/76 93 07/27/21 15:03 89
[2021-07-28 07:53] LABS: Creatinine Clr Calc Pharmacy 73.2 ml/min; Est GFR (African American) 101.7 ml/min; Est GFR (Non-African American) 87.8 ml/min
[2021-07-28] MEDS: MULTIVITAMIN CHEWABLE TAB PO SCH (09:06)
[2021-07-28] MEDS: ATORVASTATIN 40 MG TAB PO SCH (09:06)
[2021-07-28] MEDS: DIVALPROEX DELAY RELEASE 500 MG TAB PO SCH ×2 (09:07→21:43)
[2021-07-28] MEDS: dexAMETHasone 6 MG in SYRINGE 0 ML IV SCH (09:07)
[2021-07-28] MEDS: CALCIUM POLYCARBOPHIL 625MG TAB PO SCH ×2 (09:07→21:42)
[2021-07-28] MEDS: FLUTICASONE FUROATE 100MCG 14 PUFFS/INHALER INH SCH (09:07)
[2021-07-28] MEDS: BENZONATATE 100 MG CAPSULE PO SCH ×3 (09:07→21:43)
[2021-07-28] MEDS: ENOXAPARIN INJ 40 MG/0.4 ML SYR SQ SCH (09:07)
[2021-07-28] MEDS: INSULIN HUMAN NPH SC SCH (09:57)
[2021-07-28] MEDS: INSULIN ASPART PER UNIT SC SCH ×4 (09:57→21:29)
[2021-07-28] MEDS: INSULIN GLARGINE SOLOSTAR 100 UNITS/ML 3 ML PEN SC SCH (21:30)
--- NOTE | 2021-07-28 23:48 | Hospitalist Progress Note ---
Date of Service July 28, 2021 Assessment & Plan (1) COVID-19: Plan: Present on admission with worsening weakness Testing positive for COVID 19 CXR on admission showed no acute process Continue monitor Remdesivir and Dexamethasone CRP slightly dropped from 11.4 to 10.5 Ferritin and D-dimer normal Continue monitor LFT while on Remdesivir Continue incentive spirometry currently on 1L NC and saturated in the 94% Will turn off oxygen supplement and monitor closely off the oxygen Clinically improved significantly Weakness Falls Mostly due to acute illness CT head showed no acute intracranial abnormality. Severe hydrocephalus, unchanged. CT cervical spine showed No fractures within the cervical spine. Continue PT/OT recommended inpatient therapy Diabetes type 2 Most recent hab1c 7 Continue Insulin sliding scale Continue monitor BS while on Solumedrol History of hyperlipidemia Continue statin. History of seizures disorder Continue valproic acid. Chronic Cognitive impairment Stable DVT px Continue Lovenox. Code status FULL CODE Admission and Anticipated Discharge Date Admission Date: July 22, 2021 Subjective Pt was seen and examined for follow up of weakness/SOB due to COVID 19 Lying in bed with with no acute distress Pt is looking much better today He said that his seems to start to feel sick Spoke to an provided with update Denies any chest pain, palpitation, dizziness and SOB Review of Systems Review of Systems: All systems reviewed & are unremarkable except as noted in Subjective Physical Exam Physical Exam: General- No acute distress Head- atraumatic Eyes- PERRL, EOMI, ENT- oropharynx clear Neck- supple, no JVD Lungs- No wheezing Heart- regular rhythm; no murmur Abdomen- normal bowel sounds, soft, nontender Extremities- no calf tenderness Neuro- alert, oriented x 3; PERRL, EOMI; no facial palsy; no dysarthria Skin- warm & dry Results & Data Results & Data ([facility]) Vital Signs (Past 12 Hours) Vital Signs Temp Pulse Pulse Resp BP Pulse Ox 07/28/21 22:00 36.4 C L 57 L 18 108/64 94 07/28/21 19:28 36.4 C L 82 20 100/67 94 07/28/21 17:50 85 07/28/21 14:55 36.3 C L 89 18 95/74 L 92
[2021-07-29] MEDS: INSULIN ASPART PER UNIT SC SCH ×4 (09:59→21:18)
[2021-07-29] MEDS: ATORVASTATIN 40 MG TAB PO SCH (10:37)
[2021-07-29] MEDS: CALCIUM POLYCARBOPHIL 625MG TAB PO SCH ×2 (10:37→21:17)
[2021-07-29] MEDS: ENOXAPARIN INJ 40 MG/0.4 ML SYR SQ SCH (10:37)
[2021-07-29] MEDS: MULTIVITAMIN CHEWABLE TAB PO SCH (10:37)
[2021-07-29] MEDS: dexAMETHasone 6 MG in SYRINGE 0 ML IV SCH (10:37)
[2021-07-29] MEDS: FLUTICASONE FUROATE 100MCG 14 PUFFS/INHALER INH SCH (10:37)
[2021-07-29] MEDS: BENZONATATE 100 MG CAPSULE PO SCH ×3 (10:37→21:17)
[2021-07-29] MEDS: DIVALPROEX DELAY RELEASE 500 MG TAB PO SCH ×2 (10:37→21:41)
[2021-07-29] MEDS: INSULIN HUMAN NPH SC SCH (10:56)
[2021-07-29] MEDS ORDERED: INSULIN GLARGINE SOLOSTAR 100 UNITS/ML 3 ML PEN SC SCH (21:00)
--- NOTE | 2021-07-29 23:16 | Hospitalist Progress Note ---
Date of Service July 29, 2021 Assessment & Plan (1) COVID-19: Plan: Present on admission with worsening weakness Testing positive for COVID 19 CXR on admission showed no acute process Continue monitor Remdesivir and Dexamethasone CRP slightly dropped from 11.4 to 10.5 Ferritin and D-dimer normal Continue monitor LFT while on Remdesivir Continue incentive spirometry currently on 1L NC and saturated in the 94% Will turn off oxygen supplement and monitor closely off the oxygen Clinically improved significantly Weakness Falls Mostly due to acute illness CT head showed no acute intracranial abnormality. Severe hydrocephalus, unchanged. CT cervical spine showed No fractures within the cervical spine. Continue PT/OT recommended inpatient therapy Diabetes type 2 Most recent hab1c 7 Continue Insulin sliding scale Continue monitor BS while on Solumedrol History of hyperlipidemia Continue statin. History of seizures disorder Continue valproic acid. Chronic Cognitive impairment Stable DVT px Continue Lovenox. Code status FULL CODE Admission and Anticipated Discharge Date Admission Date: July 22, 2021 Subjective Pt was seen and examined for follow up of weakness/SOB due to COVID 19 Lying in bed with with no acute distress Pt feels much better He is saturated well on RA Denies any chest pain, palpitation, dizziness and SOB Review of Systems Review of Systems: All systems reviewed & are unremarkable except as noted in Subjective Physical Exam Physical Exam: General- No acute distress Head- atraumatic Eyes- PERRL, EOMI, ENT- oropharynx clear Neck- supple, no JVD Lungs- No wheezing Heart- regular rhythm; no murmur Abdomen- normal bowel sounds, soft, nontender Extremities- no calf tenderness Neuro- alert, oriented x 3; PERRL, EOMI; no facial palsy; no dysarthria Skin- warm & dry Results & Data Results [facility]) Vital Signs (Past 12 Hours) Vital Signs Temp Pulse Pulse Resp BP Pulse Ox 07/29/21 23:01 36.7 C 72 18 113/75 96 07/29/21 22:17 70 07/29/21 20:14 36.7 C 71 16 111/73 95
--- NOTE | 2021-07-30 07:52 | Pharmacy Report ---
Pharmacy Glycemic Short Note 2 - Date of Service July 30, 2021 - Glycemic Short BSG Results (Last 24 hours): 07/29/21 07/29/21 07/29/21 08:02 12:04 16:58 POC Glucose 183 H 121 H 44 L* 07/29/21 07/29/21 07/29/21 17:00 17:10 17:16 POC Glucose 45 L* 49 L* 42 L* 07/29/21 07/29/21 07/30/21 17:25 20:10 03:11 POC Glucose 92 206 H 67 L* 07/30/21 03:33 POC Glucose 88 OUTPATIENT ANTIDIABETIC REGIMEN: * Metformin 1000 mg PO BIDM * Januvia 100 mg PO qAM * HbA1c = 7.0% (07/22/21) ASSESSMENT: 07/30: * Patient remains on IV Dexamethasone, hypoglycemic yesterday prior to dinner and again at 0300 this morning. * I suspect hypoglycemia is most due to excess basal, especially Lantus, as it is 24 hours duration. * DC Lantus, reduce NPH dose and loosen CF/CR, raise goal range. 07/27: * John received 68 units of insulin yesterday (30 units Lantus + 38 units NovoLog) * Continues on dexamethasone 6 mg IV daily (day 07/17) * Fasting BSG = 111 mg/dL. Typically would start NPH 0.4 units/kg while on DXM IV, however, I was hesitant to do this with 30 units of Lantus on board and rapid correction overnight (287 -> 83) after 10 units of NovoLog. Entered a partial dose (0.2 units/kg) of NPH for today with plans to start full dose on 07/28. Lunch BSG elevated, therefore I have ordered an additional 5 units for now. * Change Lantus to dose per scale to avoid hypoglycemia with both NPH and Lantus on board. * Continue current Novolog parameters 07/26: * 60 yo M admitted on 07/22/21 secondary to COVID-19 infection. Pharmacy was consulted on 07/26/21 to assist with inpatient glycemic management. * Experiencing postprandial hyperglycemia secondary to steroid use. Will add basal insulin today and tighten goal range as well as carb ratio/correction factor to account for this. * Stressors remains stable at this time (Day #4/10 of IV dexamethasone). PLAN FOR INPATIENT GLYCEMIC CONTROL: * Hold outpatient oral diabetes medications * Basal insulin * DC Lantus * NPH 15 units SQ AM with IV Dexamethasone * Bolus insulin * NovoLog per scale ACHS or Q6hrs while NPO * Goal Range: Low 120 mg/dL - High 150 mg/dL - slightly higher to prevent further hypoglycemia * Correction Factor: 20 mg/dL/unit * Nutritional / Prandial insulin per carb ratio of 1 unit per 7 grams CHO consumed
[2021-07-30 08:09] LABS: BUN Creatinine Ratio 22.7 (10-20); Calcium 8.7 mg/dl (8.5-10.1); Creatinine Clr Calc Pharmacy 78.4 ml/min; Est GFR (African American) 108.2 ml/min; Est GFR (Non-African American) 93.4 ml/min; Potassium 4.4 mmol/L (3.5-5.1)
[2021-07-30] MEDS ORDERED: INSULIN HUMAN NPH SC SCH (09:00)
[2021-07-30] MEDS: BENZONATATE 100 MG CAPSULE PO SCH ×3 (09:05→21:11)
[2021-07-30] MEDS: dexAMETHasone 6 MG in SYRINGE 0 ML IV SCH (09:05)
[2021-07-30] MEDS: ATORVASTATIN 40 MG TAB PO SCH (09:05)
[2021-07-30] MEDS: FLUTICASONE FUROATE 100MCG 14 PUFFS/INHALER INH SCH (09:05)
[2021-07-30] MEDS: MULTIVITAMIN CHEWABLE TAB PO SCH (09:05)
[2021-07-30] MEDS: ENOXAPARIN INJ 40 MG/0.4 ML SYR SQ SCH (09:05)
[2021-07-30] MEDS: DIVALPROEX DELAY RELEASE 500 MG TAB PO SCH ×2 (09:06→21:12)
[2021-07-30] MEDS: CALCIUM POLYCARBOPHIL 625MG TAB PO SCH ×2 (09:06→21:14)
[2021-07-30] MEDS: INSULIN ASPART PER UNIT SC SCH ×4 (09:08→21:21)
--- NOTE | 2021-07-30 21:55 | Hospitalist Progress Note ---
Date of Service July 30, 2021 Assessment & Plan (1) COVID-19: Plan: Present on admission with worsening weakness Testing positive for COVID 19 CXR on admission showed no acute process Continue monitor Remdesivir and Dexamethasone CRP slightly dropped from 11.4 to 10.5 Ferritin and D-dimer normal Continue monitor LFT while on Remdesivir Continue incentive spirometry He has been saturated well on RA Clinically improved significantly Weakness Falls Mostly due to acute illness CT head showed no acute intracranial abnormality. Severe hydrocephalus, unchanged. CT cervical spine showed No fractures within the cervical spine. Continue PT/OT recommended inpatient therapy Diabetes type 2 Most recent hab1c 7 Continue Insulin sliding scale Continue monitor BS while on Solumedrol History of hyperlipidemia Continue statin. History of seizures disorder Continue valproic acid. Chronic Cognitive impairment Stable DVT px Continue Lovenox. Code status FULL CODE Disposition Waiting for placement to rehab Admission and Anticipated Discharge Date Admission Date: July 22, 2021 Subjective Pt was seen and examined for follow up of weakness/SOB due to COVID 19 Lying in bed with with no acute distress Pt feels much better He is saturated well on RA He is waiting for placement to discharge Denies any chest pain, palpitation, dizziness and SOB Review of Systems Review of Systems: All systems reviewed & are unremarkable except as noted in Subjective Physical Exam Physical Exam: General- No acute distress Head- atraumatic Eyes- PERRL, EOMI, ENT- oropharynx clear Neck- supple, no JVD Lungs- No wheezing Heart- regular rhythm; no murmur Abdomen- normal bowel sounds, soft, nontender Extremities- no calf tenderness Neuro- alert, oriented x 3; PERRL, EOMI; no facial palsy; no dysarthria Skin- warm & dry Results & Data Results & Data ([facility]) Vital Signs (Past 12 Hours) Vital Signs Temp Pulse Pulse Resp BP Pulse Ox 07/30/21 20:30 36.6 C 87 18 115/78 93 07/30/21 15:19 80 07/30/21 12:02 36.8 C 101 H 18 94/61 L 93
[2021-07-31] MEDS ORDERED: INSULIN ASPART PER UNIT SC SCH
[2021-07-31] MEDS: ALENDRONATE SODIUM 70 MG TAB PO SCH (05:58)
[2021-07-31] MEDS: INSULIN ASPART PER UNIT SC SCH ×4 (08:56→21:23)
[2021-07-31] MEDS ORDERED: INSULIN HUMAN NPH SC SCH (09:00)
[2021-07-31] MEDS: MULTIVITAMIN CHEWABLE TAB PO SCH (09:01)
[2021-07-31] MEDS: BENZONATATE 100 MG CAPSULE PO SCH ×3 (09:01→21:21)
[2021-07-31] MEDS: ENOXAPARIN INJ 40 MG/0.4 ML SYR SQ SCH (09:01)
[2021-07-31] MEDS: dexAMETHasone 6 MG in SYRINGE 0 ML IV SCH (09:01)
[2021-07-31] MEDS: CALCIUM POLYCARBOPHIL 625MG TAB PO SCH ×2 (09:02→21:20)
[2021-07-31] MEDS: DIVALPROEX DELAY RELEASE 500 MG TAB PO SCH ×2 (09:02→21:21)
[2021-07-31] MEDS: ATORVASTATIN 40 MG TAB PO SCH (09:02)
[2021-07-31] MEDS: FLUTICASONE FUROATE 100MCG 14 PUFFS/INHALER INH SCH (09:03)
[2021-07-31 10:09] LABS: Creatinine Clr Calc Pharmacy 67.2 ml/min; Est GFR (African American) 93.3 ml/min; Est GFR (Non-African American) 80.5 ml/min
--- NOTE | 2021-07-31 14:17 | Pharmacy Report ---
Pharmacy Glycemic Short Note 2 - Date of Service July 31, 2021 - Glycemic Short BSG Results (Last 24 hours): 07/30/21 07/30/21 07/30/21 16:54 19:57 23:33 POC Glucose 220 H 217 H 265 H 07/31/21 07/31/21 08:00 11:58 POC Glucose 107 H 289 H OUTPATIENT ANTIDIABETIC REGIMEN: * Metformin 1000 mg PO BIDM * Januvia 100 mg PO qAM * HbA1c = 7.0% (07/22/21) ASSESSMENT: 07/31: * Patient received 49 units of insulin yesterday, 15 units of basal with NPH, blood sugars [phone]/dl (increased d/t previous hypoglycemia and decreasing insulin dosing) * Increase NPH and tighten CR at this time, continue to hold off on Lantus 07/30: * Patient remains on IV Dexamethasone, hypoglycemic yesterday prior to dinner and again at 0300 this morning. * I suspect hypoglycemia is most due to excess basal, especially Lantus, as it is 24 hours duration. * DC Lantus, reduce NPH dose and loosen CF/CR, raise goal range. 07/27: * John received 68 units of insulin yesterday (30 units Lantus + 38 units NovoLog) * Continues on dexamethasone 6 mg IV daily (day 07/17) * Fasting BSG = 111 mg/dL. Typically would start NPH 0.4 units/kg while on DXM IV, however, I was hesitant to do this with 30 units of Lantus on board and rapid correction overnight (287 -> 83) after 10 units of NovoLog. Entered a partial dose (0.2 units/kg) of NPH for today with plans to start full dose on 07/28. Lunch BSG elevated, therefore I have ordered an additional 5 units for now. * Change Lantus to dose per scale to avoid hypoglycemia with both NPH and Lantus on board. * Continue current Novolog parameters 07/26: * 60 yo M admitted on 07/22/21 secondary to COVID-19 infection. Pharmacy was consulted on 07/26/21 to assist with inpatient glycemic management. * Experiencing postprandial hyperglycemia secondary to steroid use. Will add basal insulin today and tighten goal range as well as carb ratio/correction factor to account for this. * Stressors remains stable at this time (Day #4/10 of IV dexamethasone). PLAN FOR INPATIENT GLYCEMIC CONTROL: * Hold outpatient oral diabetes medications * Basal insulin * NPH 25 units SQ AM with IV Dexamethasone * Bolus insulin * NovoLog per scale ACHS or Q6hrs while NPO * Goal Range: Low 120 mg/dL - High 150 mg/dL - slightly higher to prevent further hypoglycemia * Correction Factor: 20 mg/dL/unit * Nutritional / Prandial insulin per carb ratio of 1 unit per 4 grams CHO consumed
--- NOTE | 2021-07-31 23:43 | Hospitalist Progress Note ---
Date of Service July 31, 2021 Assessment & Plan (1) COVID-19: Plan: Present on admission with worsening weakness Testing positive for COVID 19 CXR on admission showed no acute process Continue monitor Remdesivir and Dexamethasone CRP slightly dropped from 11.4 to 10.5 Ferritin and D-dimer normal Continue monitor LFT while on Remdesivir Continue incentive spirometry He has been saturated well on RA Clinically improved significantly Weakness Falls Mostly due to acute illness CT head showed no acute intracranial abnormality. Severe hydrocephalus, unchanged. CT cervical spine showed No fractures within the cervical spine. Continue PT/OT recommended inpatient therapy Diabetes type 2 Most recent hab1c 7 Continue Insulin sliding scale Continue monitor BS while on Solumedrol History of hyperlipidemia Continue statin. History of seizures disorder Continue valproic acid. Chronic Cognitive impairment Stable DVT px Continue Lovenox. Code status FULL CODE Disposition Waiting for placement to rehab Admission and Anticipated Discharge Date Admission Date: July 22, 2021 Subjective Pt was seen and examined for follow up of weakness/SOB due to COVID 19 Lying in bed with with no acute distress He is waiting for placement to discharge Denies any chest pain, palpitation, dizziness and SOB Review of Systems Review of Systems: All systems reviewed & are unremarkable except as noted in Subjective Physical Exam Physical Exam: General- No acute distress Head- atraumatic Eyes- PERRL, EOMI, ENT- oropharynx clear Neck- supple, no JVD Lungs- No wheezing Heart- regular rhythm; no murmur Abdomen- normal bowel sounds, soft, nontender Extremities- no calf tenderness Neuro- alert, oriented x 3; PERRL, EOMI; no facial palsy; no dysarthria Skin- warm & dry Results & Data Results & Data ([facility]) Vital Signs (Past 12 Hours) Vital Signs Temp Pulse Pulse Resp BP Pulse Ox 07/31/21 20:29 36.5 C 85 18 101/68 95 07/31/21 16:05 36.8 C 68 18 100/68 93 07/31/21 15:50 71 07/31/21 12:02 36.8 C 80 18 99/63 L 93
[2021-08-01] MEDS ORDERED: INSULIN ASPART PER UNIT SC SCH (02:00)
[2021-08-01] MEDS ORDERED: INSULIN HUMAN NPH SC SCH (09:00)
[2021-08-01] MEDS: dexAMETHasone 6 MG in SYRINGE 0 ML IV SCH (09:03)
[2021-08-01] MEDS: BENZONATATE 100 MG CAPSULE PO SCH ×3 (09:04→21:08)
[2021-08-01] MEDS: CALCIUM POLYCARBOPHIL 625MG TAB PO SCH ×2 (09:04→21:09)
[2021-08-01] MEDS: DIVALPROEX DELAY RELEASE 500 MG TAB PO SCH ×2 (09:04→21:08)
[2021-08-01] MEDS: FLUTICASONE FUROATE 100MCG 14 PUFFS/INHALER INH SCH (09:04)
[2021-08-01] MEDS: MULTIVITAMIN CHEWABLE TAB PO SCH (09:05)
[2021-08-01] MEDS: ATORVASTATIN 40 MG TAB PO SCH (09:05)
[2021-08-01] MEDS: ENOXAPARIN INJ 40 MG/0.4 ML SYR SQ SCH (09:05)
[2021-08-01] MEDS: INSULIN ASPART PER UNIT SC SCH ×4 (09:35→20:56)
--- NOTE | 2021-08-01 11:28 | Pharmacy Report ---
Pharmacy Glycemic Short Note 2 - Date of Service August 01, 2021 - Glycemic Short BSG Results (Last 24 hours): 07/31/21 07/31/21 07/31/21 11:58 16:59 20:06 POC Glucose 289 H 150 H 300 H 08/01/21 08/01/21 03:44 08:06 POC Glucose 199 H 189 H OUTPATIENT ANTIDIABETIC REGIMEN: * Metformin 1000 mg PO BIDM * Januvia 100 mg PO qAM * HbA1c = 7.0% (07/22/21) ASSESSMENT: 08/01: * John received a total of 77 units of insulin yesterday (25 units NPH + 52 units bolus). * BSGs uncontrolled: [phone] mg/dL. * Fasting BSG elevated at 189 mg/dL this AM. * Will increase NPH this AM. Today is last day of IV dexamethasone but given long half life, patient may require some basal coverage in the form of Lantus until Dexamethasone is removed from system. * No change to Novolog 07/31: * Patient received 49 units of insulin yesterday, 15 units of basal with NPH, blood sugars [phone]/dl (increased d/t previous hypoglycemia and decreasing insulin dosing) * Increase NPH and tighten CR at this time, continue to hold off on Lantus PLAN FOR INPATIENT GLYCEMIC CONTROL: * Hold outpatient oral diabetes medications * Basal insulin - increased * NPH 30 units SQ AM with IV Dexamethasone * Bolus insulin * NovoLog per scale ACHS or Q6hrs while NPO * Goal Range: Low 120 mg/dL - High 150 mg/dL * Correction Factor: 20 mg/dL/unit * Nutritional / Prandial insulin per carb ratio of 1 unit per 4 grams CHO consumed
--- NOTE | 2021-08-01 12:43 | Hospitalist Progress Note ---
Date of Service August 01, 2021 Assessment & Plan (1) COVID-19: Plan: Present on admission with worsening weakness Testing positive for COVID 19 CXR on admission showed no acute process Finished Remdesivir and cont. Dexamethasone CRP slightly dropped from 11.4 to 10.5 Ferritin and D-dimer normal Continued to monitor LFT while on Remdesivir Continue incentive spirometry He has been saturated well on RA Clinically improved significantly Weakness Falls Mostly due to acute illness CT head showed no acute intracranial abnormality. Severe hydrocephalus, unchanged. CT cervical spine showed No fractures within the cervical spine. Continue PT/OT recommended inpatient therapy Diabetes type 2 Most recent hab1c 7 Continue Insulin sliding scale Continue monitor BS while on Solumedrol History of hyperlipidemia Continue statin. History of seizures disorder Continue valproic acid. Chronic Cognitive impairment Stable DVT px Continue Lovenox. Code status FULL CODE Disposition Waiting for placement to rehab Admission and Anticipated Discharge Date Admission Date: July 22, 2021 Subjective Pt seen in follow up of weakness/SOB due to COVID 19 Pt is sitting up in chair in no acute distress He is waiting for placement to discharge Denies any chest pain, shortness of breath, palpitation, dizziness Currently breathing comfortably on RA Review of Systems Review of Systems: All systems reviewed & are unremarkable except as noted in Subjective Physical Exam Physical Exam: General- No acute distress Head- at raumatic Eyes- PER RL, EOMI, ENT- vikki pharynx clear Neck - supple, no JVD L ungs- No wheezing, somewhat diminish ed breath sounds H eart- regular rhyt hm; no murmur Abdo men- normal bowel sounds, soft, nont aure Extremities- no calf tenderne ss Neuro- alert, o riented x 3; PERRL , EOMI; no facial palsy; no dysarthr ia Skin- warm & dr y Results & Data Results & Data ([facility]) Vital Signs (Past 12 Hours) Vital Signs Temp Pulse Pulse Resp BP Pulse Ox Pulse Ox 08/01/21 07:45 36.8 C 82 18 115/80 98 08/01/21 07:15 67 08/01/21 06:55 96 08/01/21 04:41 36.6 C 70 18 122/81 94 Medications Administered Current Inpatient Medications Acetaminophen (Acetaminophen 325 Mg Tab) 650 mg PO Q4H PRN PRN Reason: Pain or Fever Stop: 08/21/21 05:28 Alendronate Sodium (Alendronate Sodium 70 Mg Tab) 70 mg PO Tu@0600 [facility] Stop: 08/23/21 05:59 Last Admin: 07/31/21 05:58 Dose: 70 mg Documented by: Atorvastatin Calcium (Atorvastatin 40 Mg Tab) 40 mg PO QAM [facility] Stop: 08/21/21 08:59 Last Admin: 08/01/21 09:05 Dose: 40 mg Documented by: Benzonatate (Benzonatate 100 Mg Capsule) 100 mg PO TID [facility] Stop: 08/22/21 08:59 Last Admin: 08/01/21 09:04 Dose: 100 mg Documented by: Calcium Polycarbophil (Calcium Polycarbophil 625mg Tab) 1,250 mg PO BID [facility] Stop: 08/21/21 08:59 Last Admin: 08/01/21 09:04 Dose: 1,250 mg Documented by: Dextrose (Dextrose 50% 50 Ml Syringe) 25 - 50 ml IV UD PRN; Protocol PRN Reason: Hypoglycemia Protocol Stop: 08/21/21 05:59 Divalproex Sodium (Divalproex Delay Release 500 Mg Tab) 500 mg PO BID [facility] Stop: 08/21/21 08:59 Last Admin: 08/01/21 09:04 Dose: 500 mg Documented by: Enoxaparin Sodium (Enoxaparin Inj 40 Mg/0.4 Ml Syr) 40 mg SQ Q24H [facility] Stop: 08/21/21 08:59 Last Admin: 08/01/21 09:05 Dose: 40 mg Documented by: Fluticasone Furoate (Fluticasone Furoate 100mcg 14 Puffs/Inhaler) 1 puffs INH DAILY [facility] Stop: 08/22/21 08:59 Last Admin: 08/01/21 09:04 Dose: 1 puffs Documented by: Glucagon (Glucagon For Inj 1 Mg Vial) 1 mg IM UD PRN; Protocol PRN Reason: Hypoglycemia Protocol Stop: 08/21/21 05:59 Glucose (Glucose 40% Gel 15 Gm Tube) 15 - 30 gm PO UD PRN; Protocol PRN Reason: Hypoglycemia Protocol Stop: 08/21/21 05:59 Last Admin: 07/29/21 17:32 Dose: 15 gm Documented by: Glucose (Glucose 10 Tabs/Tube) 4 - 8 tabs PO UD PRN; Protocol PRN Reason: Hypoglycemia Protocol Stop: 08/21/21 05:59 Guaifenesin/Codeine Phosphate (Guaifenesin/Codeine 100mg/10mg 5ml Udc) 5 ml PO Q6H PRN PRN Reason: Cough Stop: 08/21/21 22:51 Last Admin: 07/24/21 20:21 Dose: 5 ml Documented by: Dexamethasone 6 mg/ Syringe 1.5 mls @ 1 mls/min IV DAILY [facility] Stop: 08/02/21 08:59 Last Admin: 08/01/21 09:03 Dose: 1 mls/min Documented by: Insulin Aspart (Insulin Aspart Per Unit) 0 units SC ACHS [facility] Stop: 08/21/21 07:29 Last Admin: 08/01/21 12:38 Dose: 20 units Documented by: Insulin Human NPH (Insulin Human Nph) 30 units SC DAILY [facility]; Protocol Stop: 08/30/21 08:59 Last Admin: 08/01/21 09:35 Dose: 30 units Documented by: Levalbuterol HCl (Levalbuterol Hcl 1.25 Mg/3 Ml Neb) 1.25 mg NEB Q4R PRN; Protocol PRN Reason: Shortness Of Breath Or Wheezing Stop: 08/21/21 20:21 Loperamide HCl (Loperamide Hcl 2 Mg Cap) 2 mg PO QID PRN PRN Reason: Diarrhea Stop: 08/21/21 05:28 Last Admin: 07/23/21 08:28 Dose: 2 mg Documented by: Miscellaneous (Carbohydrates For Hypoglycemia ) 15 - 30 gm PO UD PRN PRN Reason: Hypoglycemia Treatment Stop: 08/21/21 05:59 Last Admin: 07/30/21 03:13 Dose: 15 gm Documented by: Miscellaneous Information (Pharmacy Glycemic Mgmt Consult) 1 ea N/A UD PRN PRN Reason: Consult Stop: 08/25/21 17:51 Multivitamins/Folic Acid/Vitamin C (Multivitamin Chewable Tab) 1 tab PO QAM [facility] Stop: 08/21/21 08:59 Last Admin: 08/01/21 09:05 Dose: 1 tab Documented by: Nitroglycerin (Nitroglycerin Sl 0.4 Mg/Tab Tab) 0.4 mg SL UD PRN PRN Reason: Chest Pain Stop: 08/21/21 05:28 Ondansetron HCl (Ondansetron 4 Mg Od Tab) 4 mg PO Q6H PRN PRN Reason: Nausea Stop: 08/21/21 05:28 Polyethylene Glycol (Polyethylene (Miralax) 17 Gm Pack) 17 gm PO DAILY PRN PRN Reason: Constipation Stop: 08/21/21 05:28 Triamcinolone Acetonide (Triamcinolone Acet 0.1% Cr 15 Gm Tube) 1 appln TOP BID PRN PRN Reason: SKIN IRRITATION BEHIND LEFT EA Stop: 08/21/21 05:28
[2021-08-02] MEDS: DIVALPROEX DELAY RELEASE 500 MG TAB PO SCH ×2 (08:10→20:40)
[2021-08-02] MEDS: BENZONATATE 100 MG CAPSULE PO SCH (08:10)
[2021-08-02] MEDS: CALCIUM POLYCARBOPHIL 625MG TAB PO SCH ×2 (08:10→20:39)
[2021-08-02] MEDS: MULTIVITAMIN CHEWABLE TAB PO SCH (08:12)
[2021-08-02] MEDS: FLUTICASONE FUROATE 100MCG 14 PUFFS/INHALER INH SCH (08:12)
[2021-08-02] MEDS: ENOXAPARIN INJ 40 MG/0.4 ML SYR SQ SCH (08:12)
[2021-08-02] MEDS: ATORVASTATIN 40 MG TAB PO SCH (08:12)
--- NOTE | 2021-08-02 08:18 | Hospitalist Progress Note ---
Date of Service August 02, 2021 Assessment & Plan (1) COVID-19: Plan: Present on admission with worsening weakness Testing positive for COVID 19 CXR on admission showed no acute process Finished Remdesivir and finished course of Dexamethasone CRP slightly dropped from 11.4 to 10.5 Ferritin and D-dimer normal Continued to monitor LFT while on Remdesivir Continue incentive spirometry He has been saturated well on RA Clinically improved significantly Weakness Falls Mostly due to acute illness CT head showed no acute intracranial abnormality. Severe hydrocephalus, unchanged. CT cervical spine showed No fractures within the cervical spine. Continue PT/OT recommended inpatient therapy Diabetes type 2 Most recent hab1c 7 Continue Insulin sliding scale Continue monitor BS while on Solumedrol History of hyperlipidemia Continue statin. History of seizures disorder Continue valproic acid. Chronic Cognitive impairment Stable DVT px Continue Lovenox. Code status FULL CODE Disposition Waiting for placement to rehab Admission and Anticipated Discharge Date Admission Date: July 22, 2021 Subjective Pt seen in follow up of weakness/shortness of breath due to COVID 19 Pt is sitting up in chair in no acute distress, eating dinner He is waiting for placement to discharge Denies any chest pain, shortness of breath, palpitation, dizziness Also denies any abdominal pain, nausea vomiting Currently breathing comfortably on RA Review of Systems Review of Systems: All systems reviewed & are unremarkable except as noted in Subjective Physical Exam Physical Exam: General- No acute distress Head- at raumatic Eyes- PER RL, EOMI, ENT- vikki pharynx clear Neck - supple, no JVD L ungs- No wheezing, somewhat diminish ed breath sounds H eart- regular rhyt hm; no murmur Abdo men- normal bowel sounds, soft, nont aure Extremities- no calf tenderne ss Neuro- alert, o riented x 3; PERRL , EOMI; no facial palsy; no dysarthr ia, moves extremit ies Skin- warm & d ry Results & Data Results & Data ([facility]) Vital Signs (Past 12 Hours) Vital Signs Temp Pulse Pulse Resp BP BP Pulse Ox 08/02/21 04:00 36.4 C L 69 18 134/81 97 08/02/21 00:00 67 08/01/21 23:00 36.4 C L 55 L 18 141/77 H 98 Laboratory Results 05/26/22 05/26/22 05/26/22 Range/Units 17:04 11:34 07:45 Sodium (136-145) mmol/L Potassium (3.5-5.1) mmol/L Chloride (98-107) mmol/L Carbon Dioxide (21-32) mmol/L Anion Gap (3-11) BUN (6-23) mg/dl Creatinine (0.6-1.4) mg/dl Est Cr Clr Drug Dosing ml/min Est GFR ( Amer) ml/min Est GFR (Non-Af Amer) ml/min BUN/Creatinine Ratio (10-20) Glucose (70-99(Fasting)) mg/dl POC Glucose 262 H 195 H 105 H (70-99) mg/dl Calcium (8.5-10.1) mg/dl Phosphorus (2.5-4.9) mg/dl Magnesium (1.7-2.4) mg/dl 08/02/21 08/01/21 Range/Units 07:36 20:22 Sodium 137 (136-145) mmol/L Potassium 4.0 (3.5-5.1) mmol/L Chloride 103 (98-107) mmol/L Carbon Dioxide 29 (21-32) mmol/L Anion Gap 5 (3-11) BUN 16 (6-23) mg/dl Creatinine 0.78 (0.6-1.4) mg/dl Est Cr Clr Drug Dosing 88.5 ml/min Est GFR ( Amer) 113.7 ml/min Est GFR (Non-Af Amer) 98.1 ml/min BUN/Creatinine Ratio 20.5 H (10-20) Glucose 114 H (70-99(Fasting)) mg/dl POC Glucose 185 H (70-99) mg/dl Calcium 8.5 (8.5-10.1) mg/dl Phosphorus 3.4 (2.5-4.9) mg/dl Magnesium 1.8 (1.7-2.4) mg/dl Medications Administered Current Inpatient Medications Acetaminophen (Acetaminophen 325 Mg Tab) 650 mg PO Q4H PRN PRN Reason: Pain or Fever Stop: 08/21/21 05:28 Alendronate Sodium (Alendronate Sodium 70 Mg Tab) 70 mg PO Tu@0600 [facility] Stop: 08/23/21 05:59 Last Admin: 07/31/21 05:58 Dose: 70 mg Documented by: Atorvastatin Calcium (Atorvastatin 40 Mg Tab) 40 mg PO QAM [facility] Stop: 08/21/21 08:59 Last Admin: 08/02/21 08:12 Dose: 40 mg Documented by: Benzonatate (Benzonatate 100 Mg Capsule) 100 mg PO TID [facility] Stop: 08/22/21 08:59 Last Admin: 08/02/21 08:10 Dose: 100 mg Documented by: Calcium Polycarbophil (Calcium Polycarbophil 625mg Tab) 1,250 mg PO BID [facility] Stop: 08/21/21 08:59 Last Admin: 08/02/21 08:10 Dose: 1,250 mg Documented by: Dextrose (Dextrose 50% 50 Ml Syringe) 25 - 50 ml IV UD PRN; Protocol PRN Reason: Hypoglycemia Protocol Stop: 08/21/21 05:59 Divalproex Sodium (Divalproex Delay Release 500 Mg Tab) 500 mg PO BID [facility] Stop: 08/21/21 08:59 Last Admin: 08/02/21 08:10 Dose: 500 mg Documented by: Enoxaparin Sodium (Enoxaparin Inj 40 Mg/0.4 Ml Syr) 40 mg SQ Q24H [facility] Stop: 08/21/21 08:59 Last Admin: 08/02/21 08:12 Dose: 40 mg Documented by: Fluticasone Furoate (Fluticasone Furoate 100mcg 14 Puffs/Inhaler) 1 puffs INH DAILY [facility] Stop: 08/22/21 08:59 Last Admin: 08/02/21 08:12 Dose: 1 puffs Documented by: Glucagon (Glucagon For Inj 1 Mg Vial) 1 mg IM UD PRN; Protocol PRN Reason: Hypoglycemia Protocol Stop: 08/21/21 05:59 Glucose (Glucose 40% Gel 15 Gm Tube) 15 - 30 gm PO UD PRN; Protocol PRN Reason: Hypoglycemia Protocol Stop: 08/21/21 05:59 Last Admin: 07/29/21 17:32 Dose: 15 gm Documented by: Glucose (Glucose 10 Tabs/Tube) 4 - 8 tabs PO UD PRN; Protocol PRN Reason: Hypoglycemia Protocol Stop: 08/21/21 05:59 Guaifenesin/Codeine Phosphate (Guaifenesin/Codeine 100mg/10mg 5ml Udc) 5 ml PO Q6H PRN PRN Reason: Cough Stop: 08/21/21 22:51 Last Admin: 07/24/21 20:21 Dose: 5 ml Documented by: Dexamethasone 6 mg/ Syringe 1.5 mls @ 1 mls/min IV DAILY [facility] Stop: 08/02/21 08:59 Last Admin: 08/01/21 09:03 Dose: 1 mls/min Documented by: Insulin Aspart (Insulin Aspart Per Unit) 0 units SC ACHS [facility] Stop: 08/21/21 07:29 Last Admin: 08/01/21 20:56 Dose: 2 units Documented by: Levalbuterol HCl (Levalbuterol Hcl 1.25 Mg/3 Ml Neb) 1.25 mg NEB Q4R PRN; Protocol PRN Reason: Shortness Of Breath Or Wheezing Stop: 08/21/21 20:21 Loperamide HCl (Loperamide Hcl 2 Mg Cap) 2 mg PO QID PRN PRN Reason: Diarrhea Stop: 08/21/21 05:28 Last Admin: 07/23/21 08:28 Dose: 2 mg Documented by: Miscellaneous (Carbohydrates For Hypoglycemia ) 15 - 30 gm PO UD PRN PRN Reason: Hypoglycemia Treatment Stop: 08/21/21 05:59 Last Admin: 07/30/21 03:13 Dose: 15 gm Documented by: Miscellaneous Information (Pharmacy Glycemic Mgmt Consult) 1 ea N/A UD PRN PRN Reason: Consult Stop: 08/25/21 17:51 Multivitamins/Folic Acid/Vitamin C (Multivitamin Chewable Tab) 1 tab PO QAM [facility] Stop: 08/21/21 08:59 Last Admin: 08/02/21 08:12 Dose: 1 tab Documented by: Nitroglycerin (Nitroglycerin Sl 0.4 Mg/Tab Tab) 0.4 mg SL UD PRN PRN Reason: Chest Pain Stop: 08/21/21 05:28 Ondansetron HCl (Ondansetron 4 Mg Od Tab) 4 mg PO Q6H PRN PRN Reason: Nausea Stop: 08/21/21 05:28 Polyethylene Glycol (Polyethylene (Miralax) 17 Gm Pack) 17 gm PO DAILY PRN PRN Reason: Constipation Stop: 08/21/21 05:28 Triamcinolone Acetonide (Triamcinolone Acet 0.1% Cr 15 Gm Tube) 1 appln TOP BID PRN PRN Reason: SKIN IRRITATION BEHIND LEFT EA Stop: 08/21/21 05:28
[2021-08-02] MEDS: INSULIN ASPART PER UNIT SC SCH ×4 (08:29→20:37)
[2021-08-02 08:38] LABS: BUN Creatinine Ratio 20.5 (10-20); Calcium 8.5 mg/dl (8.5-10.1); Creatinine Clr Calc Pharmacy 88.5 ml/min; Est GFR (African American) 113.7 ml/min; Est GFR (Non-African American) 98.1 ml/min; Magnesium 1.8 mg/dl (1.7-2.4); Phosphorus 3.4 mg/dl (2.5-4.9)
[2021-08-02] MEDS ORDERED: BENZONATATE 100 MG CAPSULE PO PRN (10:55)
[2021-08-03] MEDS: INSULIN ASPART PER UNIT SC SCH ×4 (08:23→22:00)
[2021-08-03] MEDS: FLUTICASONE FUROATE 100MCG 14 PUFFS/INHALER INH SCH (09:27)
[2021-08-03] MEDS: ATORVASTATIN 40 MG TAB PO SCH (09:28)
[2021-08-03] MEDS: ENOXAPARIN INJ 40 MG/0.4 ML SYR SQ SCH (09:28)
[2021-08-03] MEDS: DIVALPROEX DELAY RELEASE 500 MG TAB PO SCH ×2 (09:28→22:18)
[2021-08-03] MEDS: MULTIVITAMIN CHEWABLE TAB PO SCH (09:28)
[2021-08-03] MEDS: CALCIUM POLYCARBOPHIL 625MG TAB PO SCH ×2 (09:28→22:18)
[2021-08-03 10:04] LABS: Creatinine Clr Calc Pharmacy 76.4 ml/min; Est GFR (African American) 105.8 ml/min; Est GFR (Non-African American) 91.3 ml/min
--- NOTE | 2021-08-03 15:10 | Hospitalist Progress Note ---
Date of Service August 03, 2021 Assessment & Plan (1) COVID-19: Plan: Present on admission with worsening weakness Testing positive for COVID 19 CXR on admission showed no acute process Finished Remdesivir and finished course of Dexamethasone CRP slightly dropped from 11.4 to 10.5 Ferritin and D-dimer normal Continued to monitor LFT while on Remdesivir Continue incentive spirometry He has been saturated well on RA Clinically improved significantly Weakness Falls Mostly due to acute illness CT head showed no acute intracranial abnormality. Severe hydrocephalus, unchanged. CT cervical spine showed No fractures within the cervical spine. Continue PT/OT recommended inpatient therapy Diabetes type 2 Most recent hab1c 7 Continue Insulin sliding scale Continue monitor BS while on Solumedrol History of hyperlipidemia Continue statin. History of seizures disorder Continue valproic acid. Chronic Cognitive impairment Stable DVT px Continue Lovenox. Code status FULL CODE Disposition Waiting for placement to rehab Admission and Anticipated Discharge Date Admission Date: July 22, 2021 Subjective Pt seen in follow up of weakness/shortness of breath due to COVID 19 Pt is sitting up in chair in no acute distress He is waiting for placement to discharge Denies any chest pain, shortness of breath, palpitation, dizziness Also denies any abdominal pain, nausea vomiting Currently breathing comfortably on RA Review of Systems Review of Systems: All systems reviewed & are unremarkable except as noted in Subjective Physical Exam Physical Exam: General- No acute distress Head- at raumatic Eyes- PER RL, EOMI, ENT- vikki pharynx clear Neck - supple, no JVD L ungs- No wheezing, somewhat diminish ed breath sounds H eart- regular rhyt hm; no murmur Abdo men- normal bowel sounds, soft, nont aure Extremities- no calf tenderne ss Neuro- alert, o riented x 3; PERRL , EOMI; no facial palsy; no dysarthr ia, moves extremit ies Skin- warm & d ry Results & Data Results & Data ([facility]) Vital Signs (Past 12 Hours) Vital Signs Temp Pulse Pulse Resp BP BP Pulse Ox 08/03/21 12:09 36.3 C L 107 H 18 102/70 95 08/03/21 10:49 64 08/03/21 08:23 36.5 C 76 18 118/72 97 08/03/21 04:00 36.5 C 75 20 109/73 97 Laboratory Results 05/08/03/21 08/03/21 Range/Units 11:41 08:09 08:08 Creatinine 0.91 (0.6-1.4) mg/dl Est Cr Clr Drug Dosing 76.4 ml/min Est GFR ( Amer) 105.8 ml/min Est GFR (Non-Af Amer) 91.3 ml/min POC Glucose 181 H 97 (70-99) mg/dl 08/02/21 08/02/21 Range/Units 20:20 17:04 Creatinine (0.6-1.4) mg/dl Est Cr Clr Drug Dosing ml/min Est GFR ( Amer) ml/min Est GFR (Non-Af Amer) ml/min POC Glucose 149 H 262 H (70-99) mg/dl Medications Administered Current Inpatient Medications Acetaminophen (Acetaminophen 325 Mg Tab) 650 mg PO Q4H PRN PRN Reason: Pain or Fever Stop: 08/21/21 05:28 Alendronate Sodium (Alendronate Sodium 70 Mg Tab) 70 mg PO Tu@0600 [facility] Stop: 08/23/21 05:59 Last Admin: 07/31/21 05:58 Dose: 70 mg Documented by: Atorvastatin Calcium (Atorvastatin 40 Mg Tab) 40 mg PO QAM [facility] Stop: 08/21/21 08:59 Last Admin: 08/03/21 09:28 Dose: 40 mg Documented by: Benzonatate (Benzonatate 100 Mg Capsule) 100 mg PO TID PRN PRN Reason: Cough Stop: 08/22/21 08:59 Calcium Polycarbophil (Calcium Polycarbophil 625mg Tab) 1,250 mg PO BID [facility] Stop: 08/21/21 08:59 Last Admin: 08/03/21 09:28 Dose: 1,250 mg Documented by: Dextrose (Dextrose 50% 50 Ml Syringe) 25 - 50 ml IV UD PRN; Protocol PRN Reason: Hypoglycemia Protocol Stop: 08/21/21 05:59 Divalproex Sodium (Divalproex Delay Release 500 Mg Tab) 500 mg PO BID [facility] Stop: 08/21/21 08:59 Last Admin: 08/03/21 09:28 Dose: 500 mg Documented by: Enoxaparin Sodium (Enoxaparin Inj 40 Mg/0.4 Ml Syr) 40 mg SQ Q24H [facility] Stop: 08/21/21 08:59 Last Admin: 08/03/21 09:28 Dose: 40 mg Documented by: Fluticasone Furoate (Fluticasone Furoate 100mcg 14 Puffs/Inhaler) 1 puffs INH DAILY [facility] Stop: 08/22/21 08:59 Last Admin: 08/03/21 09:27 Dose: 1 puffs Documented by: Glucagon (Glucagon For Inj 1 Mg Vial) 1 mg IM UD PRN; Protocol PRN Reason: Hypoglycemia Protocol Stop: 08/21/21 05:59 Glucose (Glucose 40% Gel 15 Gm Tube) 15 - 30 gm PO UD PRN; Protocol PRN Reason: Hypoglycemia Protocol Stop: 08/21/21 05:59 Last Admin: 07/29/21 17:32 Dose: 15 gm Documented by: Glucose (Glucose 10 Tabs/Tube) 4 - 8 tabs PO UD PRN; Protocol PRN Reason: Hypoglycemia Protocol Stop: 08/21/21 05:59 Guaifenesin/Codeine Phosphate (Guaifenesin/Codeine 100mg/10mg 5ml Udc) 5 ml PO Q6H PRN PRN Reason: Cough Stop: 08/21/21 22:51 Last Admin: 07/24/21 20:21 Dose: 5 ml Documented by: Insulin Aspart (Insulin Aspart Per Unit) 0 units SC ACHS [facility] Stop: 08/21/21 07:29 Last Admin: 08/03/21 12:47 Dose: 8 units Documented by: Levalbuterol HCl (Levalbuterol Hcl 1.25 Mg/3 Ml Neb) 1.25 mg NEB Q4R PRN; Protocol PRN Reason: Shortness Of Breath Or Wheezing Stop: 08/21/21 20:21 Loperamide HCl (Loperamide Hcl 2 Mg Cap) 2 mg PO QID PRN PRN Reason: Diarrhea Stop: 08/21/21 05:28 Last Admin: 07/23/21 08:28 Dose: 2 mg Documented by: Miscellaneous (Carbohydrates For Hypoglycemia ) 15 - 30 gm PO UD PRN PRN Reason: Hypoglycemia Treatment Stop: 08/21/21 05:59 Last Admin: 07/30/21 03:13 Dose: 15 gm Documented by: Miscellaneous Information (Pharmacy Glycemic Mgmt Consult) 1 ea N/A UD PRN PRN Reason: Consult Stop: 08/25/21 17:51 Multivitamins/Folic Acid/Vitamin C (Multivitamin Chewable Tab) 1 tab PO QAM [facility] Stop: 08/21/21 08:59 Last Admin: 08/03/21 09:28 Dose: 1 tab Documented by: Nitroglycerin (Nitroglycerin Sl 0.4 Mg/Tab Tab) 0.4 mg SL UD PRN PRN Reason: Chest Pain Stop: 08/21/21 05:28 Ondansetron HCl (Ondansetron 4 Mg Od Tab) 4 mg PO Q6H PRN PRN Reason: Nausea Stop: 08/21/21 05:28 Polyethylene Glycol (Polyethylene (Miralax) 17 Gm Pack) 17 gm PO DAILY PRN PRN Reason: Constipation Stop: 08/21/21 05:28 Triamcinolone Acetonide (Triamcinolone Acet 0.1% Cr 15 Gm Tube) 1 appln TOP BID PRN PRN Reason: SKIN IRRITATION BEHIND LEFT EA Stop: 08/21/21 05:28
[2021-08-03] MEDS: guaiFENesin 600 MG TABCR PO SCH (22:20)
--- NOTE | 2021-08-04 07:55 | Hospitalist Progress Note ---
Date of Service August 04, 2021 Assessment & Plan (1) COVID-19: Plan: Present on admission with worsening weakness Testing positive for COVID 19 CXR on admission showed no acute process Finished Remdesivir and finished course of Dexamethasone CRP slightly dropped from 11.4 to 10.5 Ferritin and D-dimer normal Continued to monitor LFT while on Remdesivir Continue incentive spirometry He has been saturated well on RA Clinically improved significantly Weakness Falls Mostly due to acute illness CT head showed no acute intracranial abnormality. Severe hydrocephalus, unchanged. CT cervical spine showed No fractures within the cervical spine. Continue PT/OT recommended inpatient therapy Diabetes type 2 Most recent hab1c 7 Continue Insulin sliding scale Continue monitor BS while on Solumedrol History of hyperlipidemia Continue statin. History of seizures disorder Continue valproic acid. Chronic Cognitive impairment Stable DVT px Continue Lovenox. Code status FULL CODE Disposition Waiting for placement to rehab Admission and Anticipated Discharge Date Admission Date: July 22, 2021 Subjective Pt seen in follow up of weakness/shortness of breath due to COVID 19 Pt is laying in bed in no acute distress He is waiting for placement to discharge Denies any chest pain, shortness of breath, palpitation, dizziness Also denies any abdominal pain, nausea vomiting Currently breathing comfortably on RA Review of Systems Review of Systems: All systems reviewed & are unremarkable except as noted in Subjective Physical Exam Physical Exam: General- No acute distress Head- at raumatic Eyes- PER RL, EOMI, ENT- vikki pharynx clear Neck - supple, no JVD L ungs- No wheezing, somewhat diminish ed breath sounds H eart- regular rhyt hm; no murmur Abdo men- normal bowel sounds, soft, nont aure Extremities- no calf tenderne ss Neuro- alert, o riented x 3; PERRL , EOMI; no facial palsy; no dysarthr ia, moves extremit ies Skin- warm & d ry Results & Data Results & Data ([facility]) Vital Signs (Past 12 Hours) Vital Signs Temp Pulse Resp BP Pulse Ox 08/04/21 07:15 36.9 C 59 L 16 134/72 100 08/04/21 04:03 36.8 C 74 18 105/70 94 08/03/21 23:00 36.8 C 86 18 92/62 L 94 Laboratory Results 05/27/22 05/27/22 05/27/22 Range/Units 20:58 17:08 11:41 Creatinine (0.6-1.4) mg/dl Est Cr Clr Drug Dosing ml/min Est GFR ( Amer) ml/min Est GFR (Non-Af Amer) ml/min POC Glucose 230 H 166 H 181 H (70-99) mg/dl 08/03/21 08/03/21 Range/Units 08:09 08:08 Creatinine 0.91 (0.6-1.4) mg/dl Est Cr Clr Drug Dosing 76.4 ml/min Est GFR ( Amer) 105.8 ml/min Est GFR (Non-Af Amer) 91.3 ml/min POC Glucose 97 (70-99) mg/dl Medications Administered Current Inpatient Medications Acetaminophen (Acetaminophen 325 Mg Tab) 650 mg PO Q4H PRN PRN Reason: Pain or Fever Stop: 08/21/21 05:28 Alendronate Sodium (Alendronate Sodium 70 Mg Tab) 70 mg PO Tu@0600 [facility] Stop: 08/23/21 05:59 Last Admin: 07/31/21 05:58 Dose: 70 mg Documented by: Atorvastatin Calcium (Atorvastatin 40 Mg Tab) 40 mg PO QAM [facility] Stop: 08/21/21 08:59 Last Admin: 08/03/21 09:28 Dose: 40 mg Documented by: Benzonatate (Benzonatate 100 Mg Capsule) 100 mg PO TID PRN PRN Reason: Cough Stop: 08/22/21 08:59 Calcium Polycarbophil (Calcium Polycarbophil 625mg Tab) 1,250 mg PO BID [facility] Stop: 08/21/21 08:59 Last Admin: 08/03/21 22:18 Dose: 1,250 mg Documented by: Dextrose (Dextrose 50% 50 Ml Syringe) 25 - 50 ml IV UD PRN; Protocol PRN Reason: Hypoglycemia Protocol Stop: 08/21/21 05:59 Divalproex Sodium (Divalproex Delay Release 500 Mg Tab) 500 mg PO BID [facility] Stop: 08/21/21 08:59 Last Admin: 08/03/21 22:18 Dose: 500 mg Documented by: Enoxaparin Sodium (Enoxaparin Inj 40 Mg/0.4 Ml Syr) 40 mg SQ Q24H [facility] Stop: 08/21/21 08:59 Last Admin: 08/03/21 09:28 Dose: 40 mg Documented by: Fluticasone Furoate (Fluticasone Furoate 100mcg 14 Puffs/Inhaler) 1 puffs INH DAILY [facility] Stop: 08/22/21 08:59 Last Admin: 08/03/21 09:27 Dose: 1 puffs Documented by: Glucagon (Glucagon For Inj 1 Mg Vial) 1 mg IM UD PRN; Protocol PRN Reason: Hypoglycemia Protocol Stop: 08/21/21 05:59 Glucose (Glucose 40% Gel 15 Gm Tube) 15 - 30 gm PO UD PRN; Protocol PRN Reason: Hypoglycemia Protocol Stop: 08/21/21 05:59 Last Admin: 07/29/21 17:32 Dose: 15 gm Documented by: Glucose (Glucose 10 Tabs/Tube) 4 - 8 tabs PO UD PRN; Protocol PRN Reason: Hypoglycemia Protocol Stop: 08/21/21 05:59 Guaifenesin (Guaifenesin 600 Mg Tabcr) 600 mg PO Q12 [facility] Stop: 09/02/21 20:59 Last Admin: 08/03/21 22:20 Dose: 600 mg Documented by: Guaifenesin/Codeine Phosphate (Guaifenesin/Codeine 100mg/10mg 5ml Udc) 5 ml PO Q6H PRN PRN Reason: Cough Stop: 08/21/21 22:51 Last Admin: 07/24/21 20:21 Dose: 5 ml Documented by: Insulin Aspart (Insulin Aspart Per Unit) 0 units SC ACHS [facility] Stop: 08/21/21 07:29 Last Admin: 08/03/21 22:00 Dose: 3 units Documented by: Levalbuterol HCl (Levalbuterol Hcl 1.25 Mg/3 Ml Neb) 1.25 mg NEB Q4R PRN; Protocol PRN Reason: Shortness Of Breath Or Wheezing Stop: 08/21/21 20:21 Loperamide HCl (Loperamide Hcl 2 Mg Cap) 2 mg PO QID PRN PRN Reason: Diarrhea Stop: 08/21/21 05:28 Last Admin: 07/23/21 08:28 Dose: 2 mg Documented by: Miscellaneous (Carbohydrates For Hypoglycemia ) 15 - 30 gm PO UD PRN PRN Reason: Hypoglycemia Treatment Stop: 08/21/21 05:59 Last Admin: 07/30/21 03:13 Dose: 15 gm Documented by: Miscellaneous Information (Pharmacy Glycemic Mgmt Consult) 1 ea N/A UD PRN PRN Reason: Consult Stop: 08/25/21 17:51 Multivitamins/Folic Acid/Vitamin C (Multivitamin Chewable Tab) 1 tab PO QAM [facility] Stop: 08/21/21 08:59 Last Admin: 08/03/21 09:28 Dose: 1 tab Documented by: Nitroglycerin (Nitroglycerin Sl 0.4 Mg/Tab Tab) 0.4 mg SL UD PRN PRN Reason: Chest Pain Stop: 08/21/21 05:28 Ondansetron HCl (Ondansetron 4 Mg Od Tab) 4 mg PO Q6H PRN PRN Reason: Nausea Stop: 08/21/21 05:28 Polyethylene Glycol (Polyethylene (Miralax) 17 Gm Pack) 17 gm PO DAILY PRN PRN Reason: Constipation Stop: 08/21/21 05:28 Triamcinolone Acetonide (Triamcinolone Acet 0.1% Cr 15 Gm Tube) 1 appln TOP BID PRN PRN Reason: SKIN IRRITATION BEHIND LEFT EA Stop: 08/21/21 05:28
[2021-08-04] MEDS: CALCIUM POLYCARBOPHIL 625MG TAB PO SCH ×2 (08:48→21:22)
[2021-08-04] MEDS: ATORVASTATIN 40 MG TAB PO SCH (08:48)
[2021-08-04] MEDS: DIVALPROEX DELAY RELEASE 500 MG TAB PO SCH ×2 (08:49→21:22)
[2021-08-04] MEDS: ENOXAPARIN INJ 40 MG/0.4 ML SYR SQ SCH (08:49)
[2021-08-04] MEDS: FLUTICASONE FUROATE 100MCG 14 PUFFS/INHALER INH SCH (08:50)
[2021-08-04] MEDS: MULTIVITAMIN CHEWABLE TAB PO SCH (08:50)
[2021-08-04] MEDS: guaiFENesin 600 MG TABCR PO SCH ×2 (08:51→21:22)
[2021-08-04] MEDS: INSULIN ASPART PER UNIT SC SCH ×4 (09:23→21:21)
[2021-08-04] MEDS: metFORMIN HCL ER 500 MG TABCR PO SCH ×2 (10:42→17:12)
--- NOTE | 2021-08-05 08:35 | Hospitalist Progress Note ---
Date of Service August 05, 2021 Assessment & Plan (1) COVID-19: Plan: Present on admission with worsening weakness Testing positive for COVID 19 CXR on admission showed no acute process Finished Remdesivir and finished course of Dexamethasone CRP slightly dropped from 11.4 to 10.5 Ferritin and D-dimer normal Continued to monitor LFT while on Remdesivir Continue incentive spirometry He has been saturated well on RA Clinically improved significantly Weakness Falls Mostly due to acute illness CT head showed no acute intracranial abnormality. Severe hydrocephalus, unchanged. CT cervical spine showed No fractures within the cervical spine. Continue PT/OT recommended inpatient therapy Diabetes type 2 Most recent hab1c 7 Continue Insulin sliding scale Continue monitor BS while on Solumedrol History of hyperlipidemia Continue statin. History of seizures disorder Continue valproic acid. Chronic Cognitive impairment Stable DVT px Continue Lovenox. Code status FULL CODE Disposition Waiting for placement to rehab Admission and Anticipated Discharge Date Admission Date: July 22, 2021 Subjective Pt seen in follow up of weakness/shortness of breath due to COVID 19 Pt is laying in bed in no acute distress He is waiting for placement to discharge Denies any chest pain, shortness of breath, palpitation, dizziness Also denies any abdominal pain, nausea vomiting Currently breathing comfortably on RA Review of Systems Review of Systems: All systems reviewed & are unremarkable except as noted in Subjective Physical Exam Physical Exam: General- No acute distress Head- at raumatic Eyes- PER RL, EOMI, ENT- vikki pharynx clear Neck - supple, no JVD L ungs- No wheezing, somewhat diminish ed breath sounds H eart- regular rhyt hm; no murmur Abdo men- normal bowel sounds, soft, nont aure Extremities- no calf tenderne ss Neuro- alert, o riented x 3; PERRL , EOMI; no facial palsy; no dysarthr ia, moves extremit ies Skin- warm & d ry Results & Data Results & Data ([facility]) Vital Signs (Past 12 Hours) Vital Signs Temp Pulse Resp BP Pulse Ox 08/04/21 21:28 36.5 C 98 H 18 95/62 L 95 Laboratory Results 08/04/21 08/04/21 08/04/21 Range/Units 20:27 17:41 12:59 POC Glucose 153 H 121 H 152 H (70-99) mg/dl 08/04/21 08/04/21 Range/Units 12:07 08:39 POC Glucose 193 H 117 H (70-99) mg/dl Medications Administered Current Inpatient Medications Acetaminophen (Acetaminophen 325 Mg Tab) 650 mg PO Q4H PRN PRN Reason: Pain or Fever Stop: 08/21/21 05:28 Alendronate Sodium (Alendronate Sodium 70 Mg Tab) 70 mg PO Tu@0600 [facility] Stop: 08/23/21 05:59 Last Admin: 07/31/21 05:58 Dose: 70 mg Documented by: Atorvastatin Calcium (Atorvastatin 40 Mg Tab) 40 mg PO QAM [facility] Stop: 08/21/21 08:59 Last Admin: 08/04/21 08:48 Dose: 40 mg Documented by: Benzonatate (Benzonatate 100 Mg Capsule) 100 mg PO TID PRN PRN Reason: Cough Stop: 08/22/21 08:59 Calcium Polycarbophil (Calcium Polycarbophil 625mg Tab) 1,250 mg PO BID [facility] Stop: 08/21/21 08:59 Last Admin: 08/04/21 21:22 Dose: 1,250 mg Documented by: Dextrose (Dextrose 50% 50 Ml Syringe) 25 - 50 ml IV UD PRN; Protocol PRN Reason: Hypoglycemia Protocol Stop: 08/21/21 05:59 Divalproex Sodium (Divalproex Delay Release 500 Mg Tab) 500 mg PO BID [facility] Stop: 08/21/21 08:59 Last Admin: 08/04/21 21:22 Dose: 500 mg Documented by: Enoxaparin Sodium (Enoxaparin Inj 40 Mg/0.4 Ml Syr) 40 mg SQ Q24H [facility] Stop: 08/21/21 08:59 Last Admin: 08/04/21 08:49 Dose: 40 mg Documented by: Fluticasone Furoate (Fluticasone Furoate 100mcg 14 Puffs/Inhaler) 1 puffs INH DAILY [facility] Stop: 08/22/21 08:59 Last Admin: 08/04/21 08:50 Dose: 1 puffs Documented by: Glucagon (Glucagon For Inj 1 Mg Vial) 1 mg IM UD PRN; Protocol PRN Reason: Hypoglycemia Protocol Stop: 08/21/21 05:59 Glucose (Glucose 40% Gel 15 Gm Tube) 15 - 30 gm PO UD PRN; Protocol PRN Reason: Hypoglycemia Protocol Stop: 08/21/21 05:59 Last Admin: 07/29/21 17:32 Dose: 15 gm Documented by: Glucose (Glucose 10 Tabs/Tube) 4 - 8 tabs PO UD PRN; Protocol PRN Reason: Hypoglycemia Protocol Stop: 08/21/21 05:59 Guaifenesin (Guaifenesin 600 Mg Tabcr) 600 mg PO Q12 [facility] Stop: 09/02/21 20:59 Last Admin: 08/04/21 21:22 Dose: 600 mg Documented by: Guaifenesin/Codeine Phosphate (Guaifenesin/Codeine 100mg/10mg 5ml Udc) 5 ml PO Q6H PRN PRN Reason: Cough Stop: 08/21/21 22:51 Last Admin: 07/24/21 20:21 Dose: 5 ml Documented by: Insulin Aspart (Insulin Aspart Per Unit) 0 units SC ACHS [facility] Stop: 08/21/21 07:29 Last Admin: 08/04/21 21:21 Dose: 2 units Documented by: Levalbuterol HCl (Levalbuterol Hcl 1.25 Mg/3 Ml Neb) 1.25 mg NEB Q4R PRN; Protocol PRN Reason: Shortness Of Breath Or Wheezing Stop: 08/21/21 20:21 Loperamide HCl (Loperamide Hcl 2 Mg Cap) 2 mg PO QID PRN PRN Reason: Diarrhea Stop: 08/21/21 05:28 Last Admin: 07/23/21 08:28 Dose: 2 mg Documented by: Metformin HCl (Metformin Hcl Er 500 Mg Tabcr) 1,000 mg PO BIDM [facility] Stop: 09/03/21 09:59 Last Admin: 08/04/21 17:12 Dose: 1,000 mg Documented by: Miscellaneous (Carbohydrates For Hypoglycemia ) 15 - 30 gm PO UD PRN PRN Reason: Hypoglycemia Treatment Stop: 08/21/21 05:59 Last Admin: 07/30/21 03:13 Dose: 15 gm Documented by: Miscellaneous Information (Pharmacy Glycemic Mgmt Consult) 1 ea N/A UD PRN PRN Reason: Consult Stop: 08/25/21 17:51 Multivitamins/Folic Acid/Vitamin C (Multivitamin Chewable Tab) 1 tab PO QAM [facility] Stop: 08/21/21 08:59 Last Admin: 08/04/21 08:50 Dose: 1 tab Documented by: Nitroglycerin (Nitroglycerin Sl 0.4 Mg/Tab Tab) 0.4 mg SL UD PRN PRN Reason: Chest Pain Stop: 08/21/21 05:28 Ondansetron HCl (Ondansetron 4 Mg Od Tab) 4 mg PO Q6H PRN PRN Reason: Nausea Stop: 08/21/21 05:28 Polyethylene Glycol (Polyethylene (Miralax) 17 Gm Pack) 17 gm PO DAILY PRN PRN Reason: Constipation Stop: 08/21/21 05:28 Triamcinolone Acetonide (Triamcinolone Acet 0.1% Cr 15 Gm Tube) 1 appln TOP BID PRN PRN Reason: SKIN IRRITATION BEHIND LEFT EA Stop: 08/21/21 05:28
[2021-08-05] MEDS: INSULIN ASPART PER UNIT SC SCH ×4 (09:16→21:51)
[2021-08-05] MEDS: FLUTICASONE FUROATE 100MCG 14 PUFFS/INHALER INH SCH (09:28)
[2021-08-05] MEDS: MULTIVITAMIN CHEWABLE TAB PO SCH (09:29)
[2021-08-05] MEDS: ATORVASTATIN 40 MG TAB PO SCH (09:29)
[2021-08-05] MEDS: CALCIUM POLYCARBOPHIL 625MG TAB PO SCH ×2 (09:29→21:41)
[2021-08-05] MEDS: metFORMIN HCL ER 500 MG TABCR PO SCH ×2 (09:30→18:09)
[2021-08-05] MEDS: guaiFENesin 600 MG TABCR PO SCH ×2 (09:30→21:41)
[2021-08-05] MEDS: ENOXAPARIN INJ 40 MG/0.4 ML SYR SQ SCH (09:30)
[2021-08-05] MEDS: DIVALPROEX DELAY RELEASE 500 MG TAB PO SCH ×2 (11:05→21:41)
--- NOTE | 2021-08-05 14:05 | Pharmacy Report ---
Pharmacy Glycemic Short Note 2 - Date of Service August 05, 2021 - Glycemic Short BSG Results (Last 24 hours): 08/04/21 08/04/21 08/05/21 17:41 20:27 08:45 POC Glucose 121 H 153 H 127 H 08/05/21 12:40 POC Glucose 125 H OUTPATIENT ANTIDIABETIC REGIMEN: * Metformin 1000 mg PO BIDM * Januvia 100 mg PO qAM * HbA1c = 7.0% (07/22/21) ASSESSMENT: * BSGs have been stable. * Metformin was resumed yesterday, so Novolog parameters were adjusted to provide slightly less prandial coverage. * No additional changes are required at this time. PLAN FOR INPATIENT GLYCEMIC CONTROL: * Metformin ER 1gm PO BID * Basal insulin - none * Bolus insulin * NovoLog per scale ACHS or Q6hrs while NPO * Goal Range: Low 110 mg/dL - High 140 mg/dL * Correction Factor: 30 mg/dL/unit * Nutritional / Prandial insulin per carb ratio of 1 unit per 15 grams CHO consumed
[2021-08-06 07:24] LABS: Creatinine Clr Calc Pharmacy 77.3 ml/min; Est GFR (African American) 107.2 ml/min; Est GFR (Non-African American) 92.5 ml/min
[2021-08-06] MEDS: INSULIN ASPART PER UNIT SC SCH ×4 (09:23→21:37)
[2021-08-06] MEDS: FLUTICASONE FUROATE 100MCG 14 PUFFS/INHALER INH SCH (09:55)
[2021-08-06] MEDS: ENOXAPARIN INJ 40 MG/0.4 ML SYR SQ SCH (09:56)
[2021-08-06] MEDS: guaiFENesin 600 MG TABCR PO SCH ×2 (09:56→21:37)
[2021-08-06] MEDS: DIVALPROEX DELAY RELEASE 500 MG TAB PO SCH ×2 (09:56→21:36)
[2021-08-06] MEDS: CALCIUM POLYCARBOPHIL 625MG TAB PO SCH ×2 (09:56→21:36)
[2021-08-06] MEDS: ATORVASTATIN 40 MG TAB PO SCH (09:57)
[2021-08-06] MEDS: metFORMIN HCL ER 500 MG TABCR PO SCH ×2 (09:57→18:39)
[2021-08-06] MEDS: MULTIVITAMIN CHEWABLE TAB PO SCH (09:57)
--- NOTE | 2021-08-06 14:06 | Hospitalist Progress Note ---
Date of Service August 06, 2021 Assessment & Plan (1) COVID-19: Plan: Present on admission with worsening weakness Testing positive for COVID 19 CXR on admission showed no acute process Finished Remdesivir and finished course of Dexamethasone CRP slightly dropped from 11.4 to 10.5 Ferritin and D-dimer normal Continue incentive spirometry He has been saturated well on RA Clinically improved significantly Weakness Falls Mostly due to acute illness CT head showed no acute intracranial abnormality. Severe hydrocephalus, unchanged. CT cervical spine showed No fractures within the cervical spine. Continue PT/OT recommended inpatient therapy Diabetes type 2 Most recent hab1c 7 Continue Insulin sliding scale Continue monitor BS while on Solumedrol History of hyperlipidemia Continue statin. History of seizures disorder Continue valproic acid. Chronic Cognitive impairment Stable DVT px Continue Lovenox. Code status FULL CODE Disposition Waiting for placement to rehab Admission and Anticipated Discharge Date Admission Date: July 22, 2021 Subjective Pt seen in follow up of weakness/shortness of breath due to COVID 19 Pt is laying in bed in no acute distress He is waiting for placement to discharge Denies any chest pain, shortness of breath, palpitation, dizziness Also denies any abdominal pain, nausea vomiting Currently breathing comfortably on RA Review of Systems Review of Systems: All systems reviewed & are unremarkable except as noted in Subjective Physical Exam Physical Exam: General- No acute distress Head- at raumatic Eyes- PER RL, EOMI, ENT- vikki pharynx clear Neck - supple, no JVD L ungs- No wheezing, somewhat diminish ed breath sounds H eart- regular rhyt hm; no murmur Abdo men- normal bowel sounds, soft, nont aure Extremities- no calf tenderne ss Neuro- alert, o riented x 3; PERRL , EOMI; no facial palsy; no dysarthr ia, moves extremit ies Skin- warm & d ry Results & Data Results & Data ([facility]) Vital Signs (Past 12 Hours) Vital Signs Temp Pulse Resp BP Pulse Ox 08/06/21 08:21 36.9 C 82 16 103/69 96 Laboratory Results 08/06/21 08/06/21 08/06/21 Range/Units 12:05 08:19 06:24 Creatinine 0.90 (0.6-1.4) mg/dl Est Cr Clr Drug Dosing 77.3 ml/min Est GFR ( Amer) 107.2 ml/min Est GFR (Non-Af Amer) 92.5 ml/min POC Glucose 192 H 107 H (70-99) mg/dl 08/05/21 08/05/21 Range/Units 21:37 17:18 Creatinine (0.6-1.4) mg/dl Est Cr Clr Drug Dosing ml/min Est GFR ( Amer) ml/min Est GFR (Non-Af Amer) ml/min POC Glucose 168 H 192 H (70-99) mg/dl Medications Administered Current Inpatient Medications Acetaminophen (Acetaminophen 325 Mg Tab) 650 mg PO Q4H PRN PRN Reason: Pain or Fever Stop: 08/21/21 05:28 Alendronate Sodium (Alendronate Sodium 70 Mg Tab) 70 mg PO Tu@0600 [facility] Stop: 08/23/21 05:59 Last Admin: 07/31/21 05:58 Dose: 70 mg Documented by: Atorvastatin Calcium (Atorvastatin 40 Mg Tab) 40 mg PO QAM [facility] Stop: 08/21/21 08:59 Last Admin: 08/06/21 09:57 Dose: 40 mg Documented by: Benzonatate (Benzonatate 100 Mg Capsule) 100 mg PO TID PRN PRN Reason: Cough Stop: 08/22/21 08:59 Calcium Polycarbophil (Calcium Polycarbophil 625mg Tab) 1,250 mg PO BID [facility] Stop: 08/21/21 08:59 Last Admin: 08/06/21 09:56 Dose: 1,250 mg Documented by: Dextrose (Dextrose 50% 50 Ml Syringe) 25 - 50 ml IV UD PRN; Protocol PRN Reason: Hypoglycemia Protocol Stop: 08/21/21 05:59 Divalproex Sodium (Divalproex Delay Release 500 Mg Tab) 500 mg PO BID [facility] Stop: 08/21/21 08:59 Last Admin: 08/06/21 09:56 Dose: 500 mg Documented by: Enoxaparin Sodium (Enoxaparin Inj 40 Mg/0.4 Ml Syr) 40 mg SQ Q24H [facility] Stop: 08/21/21 08:59 Last Admin: 08/06/21 09:56 Dose: 40 mg Documented by: Fluticasone Furoate (Fluticasone Furoate 100mcg 14 Puffs/Inhaler) 1 puffs INH DAILY [facility] Stop: 08/22/21 08:59 Last Admin: 08/06/21 09:55 Dose: 1 puffs Documented by: Glucagon (Glucagon For Inj 1 Mg Vial) 1 mg IM UD PRN; Protocol PRN Reason: Hypoglycemia Protocol Stop: 08/21/21 05:59 Glucose (Glucose 40% Gel 15 Gm Tube) 15 - 30 gm PO UD PRN; Protocol PRN Reason: Hypoglycemia Protocol Stop: 08/21/21 05:59 Last Admin: 07/29/21 17:32 Dose: 15 gm Documented by: Glucose (Glucose 10 Tabs/Tube) 4 - 8 tabs PO UD PRN; Protocol PRN Reason: Hypoglycemia Protocol Stop: 08/21/21 05:59 Guaifenesin (Guaifenesin 600 Mg Tabcr) 600 mg PO Q12 [facility] Stop: 09/02/21 20:59 Last Admin: 08/06/21 09:56 Dose: 600 mg Documented by: Guaifenesin/Codeine Phosphate (Guaifenesin/Codeine 100mg/10mg 5ml Udc) 5 ml PO Q6H PRN PRN Reason: Cough Stop: 08/21/21 22:51 Last Admin: 07/24/21 20:21 Dose: 5 ml Documented by: Insulin Aspart (Insulin Aspart Per Unit) 0 units SC ACHS [facility] Stop: 08/21/21 07:29 Last Admin: 08/06/21 12:35 Dose: 6 units Documented by: Levalbuterol HCl (Levalbuterol Hcl 1.25 Mg/3 Ml Neb) 1.25 mg NEB Q4R PRN; Protocol PRN Reason: Shortness Of Breath Or Wheezing Stop: 08/21/21 20:21 Loperamide HCl (Loperamide Hcl 2 Mg Cap) 2 mg PO QID PRN PRN Reason: Diarrhea Stop: 08/21/21 05:28 Last Admin: 07/23/21 08:28 Dose: 2 mg Documented by: Metformin HCl (Metformin Hcl Er 500 Mg Tabcr) 1,000 mg PO BIDM [facility] Stop: 09/03/21 09:59 Last Admin: 08/06/21 09:57 Dose: 1,000 mg Documented by: Miscellaneous (Carbohydrates For Hypoglycemia ) 15 - 30 gm PO UD PRN PRN Reason: Hypoglycemia Treatment Stop: 08/21/21 05:59 Last Admin: 07/30/21 03:13 Dose: 15 gm Documented by: Miscellaneous Information (Pharmacy Glycemic Mgmt Consult) 1 ea N/A UD PRN PRN Reason: Consult Stop: 08/25/21 17:51 Multivitamins/Folic Acid/Vitamin C (Multivitamin Chewable Tab) 1 tab PO QAM [facility] Stop: 08/21/21 08:59 Last Admin: 08/06/21 09:57 Dose: 1 tab Documented by: Nitroglycerin (Nitroglycerin Sl 0.4 Mg/Tab Tab) 0.4 mg SL UD PRN PRN Reason: Chest Pain Stop: 08/21/21 05:28 Ondansetron HCl (Ondansetron 4 Mg Od Tab) 4 mg PO Q6H PRN PRN Reason: Nausea Stop: 08/21/21 05:28 Polyethylene Glycol (Polyethylene (Miralax) 17 Gm Pack) 17 gm PO DAILY PRN PRN Reason: Constipation Stop: 08/21/21 05:28 Triamcinolone Acetonide (Triamcinolone Acet 0.1% Cr 15 Gm Tube) 1 appln TOP BID PRN PRN Reason: SKIN IRRITATION BEHIND LEFT EA Stop: 08/21/21 05:28
[2021-08-07] MEDS: ALENDRONATE SODIUM 70 MG TAB PO SCH (06:13)
[2021-08-07] MEDS: ENOXAPARIN INJ 40 MG/0.4 ML SYR SQ SCH (08:25)
[2021-08-07] MEDS: CALCIUM POLYCARBOPHIL 625MG TAB PO SCH ×2 (08:26→21:44)
[2021-08-07] MEDS: ATORVASTATIN 40 MG TAB PO SCH (08:26)
[2021-08-07] MEDS: guaiFENesin 600 MG TABCR PO SCH ×2 (08:26→21:44)
[2021-08-07] MEDS: DIVALPROEX DELAY RELEASE 500 MG TAB PO SCH ×2 (08:26→21:44)
[2021-08-07] MEDS: metFORMIN HCL ER 500 MG TABCR PO SCH ×2 (08:26→17:15)
[2021-08-07] MEDS: FLUTICASONE FUROATE 100MCG 14 PUFFS/INHALER INH SCH (08:27)
[2021-08-07] MEDS: MULTIVITAMIN CHEWABLE TAB PO SCH (08:27)
[2021-08-07] MEDS: INSULIN ASPART PER UNIT SC SCH ×4 (10:03→22:18)
--- NOTE | 2021-08-07 11:52 | Hospitalist Progress Note ---
Date of Service August 07, 2021 Assessment & Plan (1) COVID-19: Plan: Present on admission with worsening weakness Testing positive for COVID 19 CXR on admission showed no acute process Finished Remdesivir and finished course of Dexamethasone CRP slightly dropped from 11.4 to 10.5 Ferritin and D-dimer normal Continue incentive spirometry He has been saturated well on RA Clinically improved significantly Weakness Falls Mostly due to acute illness CT head showed no acute intracranial abnormality. Severe hydrocephalus, unchanged. CT cervical spine showed No fractures within the cervical spine. Continue PT/OT recommended inpatient therapy Diabetes type 2 Most recent hab1c 7 Continue Insulin sliding scale Continue monitor BS while on Solumedrol History of hyperlipidemia Continue statin. History of seizures disorder Continue valproic acid. Chronic Cognitive impairment Stable DVT px Continue Lovenox. Code status FULL CODE Disposition Waiting for placement to rehab Admission and Anticipated Discharge Date Admission Date: July 22, 2021 Subjective Pt seen in follow up of weakness/shortness of breath due to COVID 19 Pt is laying in bed in no acute distress He is waiting for placement to discharge Denies any chest pain, shortness of breath, palpitation, dizziness Also denies any abdominal pain, nausea vomiting Currently breathing comfortably on RA Review of Systems Review of Systems: All systems reviewed & are unremarkable except as noted in Subjective Physical Exam Physical Exam: General- No acute distress Head- at raumatic Eyes- PER RL, EOMI, ENT- vikki pharynx clear Neck - supple, no JVD L ungs- No wheezing, somewhat diminish ed breath sounds H eart- regular rhyt hm; no murmur Abdo men- normal bowel sounds, soft, nont aure Extremities- no calf tenderne ss Neuro- alert, o riented x 3; PERRL , EOMI; no facial palsy; no dysarthr ia, moves extremit ies Skin- warm & d ry Results & Data Results & Data ([facility]) Vital Signs (Past 12 Hours) Vital Signs Temp Pulse Resp BP Pulse Ox 08/07/21 07:27 36.6 C 89 17 111/75 95 Laboratory Results 08/07/21 08/06/21 08/06/21 Range/Units 08:28 21:14 17:58 POC Glucose 101 H 168 H 87 (70-99) mg/dl 08/06/21 Range/Units 12:05 POC Glucose 192 H (70-99) mg/dl Medications Administered Current Inpatient Medications Acetaminophen (Acetaminophen 325 Mg Tab) 650 mg PO Q4H PRN PRN Reason: Pain or Fever Stop: 08/21/21 05:28 Last Admin: 08/07/21 08:25 Dose: 650 mg Documented by: Alendronate Sodium (Alendronate Sodium 70 Mg Tab) 70 mg PO Tu@0600 [facility] Stop: 08/23/21 05:59 Last Admin: 08/07/21 06:13 Dose: 70 mg Documented by: Atorvastatin Calcium (Atorvastatin 40 Mg Tab) 40 mg PO QAM [facility] Stop: 08/21/21 08:59 Last Admin: 08/07/21 08:26 Dose: 40 mg Documented by: Benzonatate (Benzonatate 100 Mg Capsule) 100 mg PO TID PRN PRN Reason: Cough Stop: 08/22/21 08:59 Calcium Polycarbophil (Calcium Polycarbophil 625mg Tab) 1,250 mg PO BID [facility] Stop: 08/21/21 08:59 Last Admin: 08/07/21 08:26 Dose: 1,250 mg Documented by: Dextrose (Dextrose 50% 50 Ml Syringe) 25 - 50 ml IV UD PRN; Protocol PRN Reason: Hypoglycemia Protocol Stop: 08/21/21 05:59 Divalproex Sodium (Divalproex Delay Release 500 Mg Tab) 500 mg PO BID [facility] Stop: 08/21/21 08:59 Last Admin: 08/07/21 08:26 Dose: 500 mg Documented by: Enoxaparin Sodium (Enoxaparin Inj 40 Mg/0.4 Ml Syr) 40 mg SQ Q24H [facility] Stop: 08/21/21 08:59 Last Admin: 08/07/21 08:25 Dose: 40 mg Documented by: Fluticasone Furoate (Fluticasone Furoate 100mcg 14 Puffs/Inhaler) 1 puffs INH DAILY [facility] Stop: 08/22/21 08:59 Last Admin: 08/07/21 08:27 Dose: 1 puffs Documented by: Glucagon (Glucagon For Inj 1 Mg Vial) 1 mg IM UD PRN; Protocol PRN Reason: Hypoglycemia Protocol Stop: 08/21/21 05:59 Glucose (Glucose 40% Gel 15 Gm Tube) 15 - 30 gm PO UD PRN; Protocol PRN Reason: Hypoglycemia Protocol Stop: 08/21/21 05:59 Last Admin: 07/29/21 17:32 Dose: 15 gm Documented by: Glucose (Glucose 10 Tabs/Tube) 4 - 8 tabs PO UD PRN; Protocol PRN Reason: Hypoglycemia Protocol Stop: 08/21/21 05:59 Guaifenesin (Guaifenesin 600 Mg Tabcr) 600 mg PO Q12 [facility] Stop: 09/02/21 20:59 Last Admin: 08/07/21 08:26 Dose: 600 mg Documented by: Guaifenesin/Codeine Phosphate (Guaifenesin/Codeine 100mg/10mg 5ml Udc) 5 ml PO Q6H PRN PRN Reason: Cough Stop: 08/21/21 22:51 Last Admin: 07/24/21 20:21 Dose: 5 ml Documented by: Insulin Aspart (Insulin Aspart Per Unit) 0 units SC ACHS [facility] Stop: 08/21/21 07:29 Last Admin: 08/07/21 10:03 Dose: 4 units Documented by: Levalbuterol HCl (Levalbuterol Hcl 1.25 Mg/3 Ml Neb) 1.25 mg NEB Q4R PRN; Protocol PRN Reason: Shortness Of Breath Or Wheezing Stop: 08/21/21 20:21 Loperamide HCl (Loperamide Hcl 2 Mg Cap) 2 mg PO QID PRN PRN Reason: Diarrhea Stop: 08/21/21 05:28 Last Admin: 07/23/21 08:28 Dose: 2 mg Documented by: Metformin HCl (Metformin Hcl Er 500 Mg Tabcr) 1,000 mg PO BIDM [facility] Stop: 09/03/21 09:59 Last Admin: 08/07/21 08:26 Dose: 1,000 mg Documented by: Miscellaneous (Carbohydrates For Hypoglycemia ) 15 - 30 gm PO UD PRN PRN Reason: Hypoglycemia Treatment Stop: 08/21/21 05:59 Last Admin: 07/30/21 03:13 Dose: 15 gm Documented by: Miscellaneous Information (Pharmacy Glycemic Mgmt Consult) 1 ea N/A UD PRN PRN Reason: Consult Stop: 08/25/21 17:51 Multivitamins/Folic Acid/Vitamin C (Multivitamin Chewable Tab) 1 tab PO QAM [facility] Stop: 08/21/21 08:59 Last Admin: 08/07/21 08:27 Dose: 1 tab Documented by: Nitroglycerin (Nitroglycerin Sl 0.4 Mg/Tab Tab) 0.4 mg SL UD PRN PRN Reason: Chest Pain Stop: 08/21/21 05:28 Ondansetron HCl (Ondansetron 4 Mg Od Tab) 4 mg PO Q6H PRN PRN Reason: Nausea Stop: 08/21/21 05:28 Polyethylene Glycol (Polyethylene (Miralax) 17 Gm Pack) 17 gm PO DAILY PRN PRN Reason: Constipation Stop: 08/21/21 05:28 Triamcinolone Acetonide (Triamcinolone Acet 0.1% Cr 15 Gm Tube) 1 appln TOP BID PRN PRN Reason: SKIN IRRITATION BEHIND LEFT EA Stop: 08/21/21 05:28
[2021-08-08] MEDS: CALCIUM POLYCARBOPHIL 625MG TAB PO SCH ×2 (08:39→20:18)
[2021-08-08] MEDS: FLUTICASONE FUROATE 100MCG 14 PUFFS/INHALER INH SCH (08:39)
[2021-08-08] MEDS: metFORMIN HCL ER 500 MG TABCR PO SCH ×2 (08:40→16:46)
[2021-08-08] MEDS: MULTIVITAMIN CHEWABLE TAB PO SCH (08:40)
[2021-08-08] MEDS: ENOXAPARIN INJ 40 MG/0.4 ML SYR SQ SCH (08:40)
[2021-08-08] MEDS: DIVALPROEX DELAY RELEASE 500 MG TAB PO SCH ×2 (08:41→20:18)
[2021-08-08] MEDS: guaiFENesin 600 MG TABCR PO SCH ×2 (08:41→20:18)
[2021-08-08] MEDS: ATORVASTATIN 40 MG TAB PO SCH (08:41)
[2021-08-08] MEDS: INSULIN ASPART PER UNIT SC SCH ×4 (09:32→20:35)
--- NOTE | 2021-08-08 15:03 | Pharmacy Report ---
Pharmacy Glycemic Sign Off Nt - Date of Service August 08, 2021 - Assessment & Plan ASSESSMENT: * Pharmacy was consulted by Dr Sierra on 07/26/21 for glycemic control and to write orders per [facility] inpatient glycemic control protocol. * Patient has been receiving 10 units of Novolog insulin per day for adequate glycemic control * BSGs ranging 101-113 mg/dl * Regimen has only required minor adjustments over the past 48hrs to achieve this level of control * Do not anticipate further changes in patient status that would quickly deteriorate glycemic control (i.e. patient to be NPO for upcoming procedure, steroids tapering, starting tube feedings, etc). * Please see recommendations for outpatient antidiabetic regimen below. PLAN FOR INPATIENT GLYCEMIC CONTROL: No changes needed to current regimen. * Continue NovoLog per scale ACHS/Q6hrs while NPO * Goal range = 110-140 mg/dl * CF = 30 mg/dl/unit * CR = 1 unit for ever 15 g CHO consumed * Pharmacy is signing off of glycemic consult and will no longer be making adjustments to inpatient regimen. Please feel free to re-consult if needed. Thank you.
--- NOTE | 2021-08-08 23:47 | Hospitalist Progress Note ---
Date of Service August 08, 2021 Assessment & Plan (1) COVID-19: Plan: Present on admission with worsening weakness Testing positive for COVID 19 CXR on admission showed no acute process Finished Remdesivir and finished course of Dexamethasone CRP slightly dropped from 11.4 to 10.5 Ferritin and D-dimer normal Continue incentive spirometry He has been saturated well on RA Clinically improved significantly Weakness Falls Mostly due to acute illness CT head showed no acute intracranial abnormality. Severe hydrocephalus, unchanged. CT cervical spine showed No fractures within the cervical spine. Continue PT/OT recommended inpatient therapy Diabetes type 2 Most recent hab1c 7 Continue Insulin sliding scale Continue monitor BS while on Solumedrol History of hyperlipidemia Continue statin. History of seizures disorder Continue valproic acid. Chronic Cognitive impairment Stable DVT px Continue Lovenox. Code status FULL CODE Disposition Waiting for placement to rehab Admission and Anticipated Discharge Date Admission Date: July 22, 2021 Subjective Pt was seen and examined for follow up of COVID 19 Pt is laying in bed in no acute distress He is waiting for placement to discharge Denies any chest pain, shortness of breath, palpitation, dizziness Review of Systems Review of Systems: All systems reviewed & are unremarkable except as noted in Subjective Physical Exam Physical Exam: General- No acute distress Head- atraumatic Eyes- PERRL, EOMI, ENT- oropharynx clear Neck- supple, no JVD Lungs- No wheezing Heart- regular rhythm; no murmur Abdomen- normal bowel sounds, soft, nontender Extremities- no calf tenderness Neuro- alert, oriented x 3; PERRL, EOMI; no facial palsy; no dysarthria Skin- warm & dry Results & Data Results & Data ([facility]) Vital Signs (Past 12 Hours) Vital Signs Temp Pulse Resp BP BP Pulse Ox 08/08/21 22:30 36.6 C 94 H 20 112/73 96 08/08/21 13:42 36.7 C 17 95/61 L 94
[2021-08-09] MEDS: guaiFENesin 600 MG TABCR PO SCH ×2 (07:56→20:54)
[2021-08-09] MEDS: DIVALPROEX DELAY RELEASE 500 MG TAB PO SCH ×2 (07:56→20:55)
[2021-08-09] MEDS: ATORVASTATIN 40 MG TAB PO SCH (07:56)
[2021-08-09] MEDS: MULTIVITAMIN CHEWABLE TAB PO SCH (07:56)
[2021-08-09] MEDS: ENOXAPARIN INJ 40 MG/0.4 ML SYR SQ SCH (07:56)
[2021-08-09] MEDS: metFORMIN HCL ER 500 MG TABCR PO SCH ×2 (07:56→17:38)
[2021-08-09] MEDS: CALCIUM POLYCARBOPHIL 625MG TAB PO SCH ×2 (07:56→20:55)
[2021-08-09] MEDS: FLUTICASONE FUROATE 100MCG 14 PUFFS/INHALER INH SCH (07:57)
[2021-08-09] MEDS: INSULIN ASPART PER UNIT SC SCH ×4 (08:35→20:47)
[2021-08-09 11:39] LABS: Creatinine Clr Calc Pharmacy 73.2 ml/min; Est GFR (African American) 100.4 ml/min; Est GFR (Non-African American) 86.7 ml/min
--- NOTE | 2021-08-09 22:13 | Hospitalist Progress Note ---
Date of Service August 09, 2021 Assessment & Plan (1) COVID-19: Plan: Present on admission with worsening weakness Testing positive for COVID 19 CXR on admission showed no acute process Finished Remdesivir and finished course of Dexamethasone CRP slightly dropped from 11.4 to 10.5 Ferritin and D-dimer normal Continue incentive spirometry He has been saturated well on RA Resolved Weakness Falls Mostly due to acute illness CT head showed no acute intracranial abnormality. Severe hydrocephalus, unchanged. CT cervical spine showed No fractures within the cervical spine. Continue PT/OT recommended inpatient therapy Diabetes type 2 Most recent hab1c 7 Continue Insulin sliding scale Continue monitor BS while on Solumedrol History of hyperlipidemia Continue statin. History of seizures disorder Continue valproic acid. Chronic Cognitive impairment Stable DVT px Continue Lovenox. Code status FULL CODE Disposition Waiting for placement to rehab Admission and Anticipated Discharge Date Admission Date: July 22, 2021 Subjective Pt was seen and examined for follow up of COVID 19 Pt is laying in bed in no acute distress Denies any chest pain, shortness of breath, palpitation, dizziness Review of Systems Review of Systems: All systems reviewed & are unremarkable except as noted in Subjective Physical Exam Physical Exam: General- No acute distress Head- atraumatic Eyes- PERRL, EOMI, ENT- oropharynx clear Neck- supple, no JVD Lungs- No wheezing Heart- regular rhythm; no murmur Abdomen- normal bowel sounds, soft, nontender Extremities- no calf tenderness Neuro- alert, oriented x 3; PERRL, EOMI; no facial palsy; no dysarthria Skin- warm & dry Results & Data Results & Data ([facility]) Vital Signs (Past 12 Hours) Vital Signs Temp Pulse Resp BP Pulse Ox 08/09/21 21:49 36.5 C 92 H 18 124/83 98 08/09/21 15:34 36.8 C 82 20 98/66 L 98
[2021-08-10] MEDS: metFORMIN HCL ER 500 MG TABCR PO SCH ×2 (08:04→17:31)
[2021-08-10] MEDS: ATORVASTATIN 40 MG TAB PO SCH (08:04)
[2021-08-10] MEDS: DIVALPROEX DELAY RELEASE 500 MG TAB PO SCH ×2 (08:04→21:05)
[2021-08-10] MEDS: MULTIVITAMIN CHEWABLE TAB PO SCH (08:04)
[2021-08-10] MEDS: CALCIUM POLYCARBOPHIL 625MG TAB PO SCH ×2 (08:04→21:06)
[2021-08-10] MEDS: guaiFENesin 600 MG TABCR PO SCH ×2 (08:04→21:06)
[2021-08-10] MEDS: FLUTICASONE FUROATE 100MCG 14 PUFFS/INHALER INH SCH (08:04)
[2021-08-10] MEDS: ENOXAPARIN INJ 40 MG/0.4 ML SYR SQ SCH (08:05)
[2021-08-10] MEDS: INSULIN ASPART PER UNIT SC SCH ×4 (09:17→22:29)
--- NOTE | 2021-08-10 23:58 | Hospitalist Progress Note ---
Date of Service August 10, 2021 Assessment & Plan (1) COVID-19: Plan: Present on admission with worsening weakness Testing positive for COVID 19 CXR on admission showed no acute process Finished Remdesivir and finished course of Dexamethasone CRP slightly dropped from 11.4 to 10.5 Ferritin and D-dimer normal Continue incentive spirometry He has been saturated well on RA Resolved Weakness Falls Mostly due to acute illness CT head showed no acute intracranial abnormality. Severe hydrocephalus, unchanged. CT cervical spine showed No fractures within the cervical spine. Continue PT/OT recommended inpatient therapy Diabetes type 2 Most recent hab1c 7 Continue Insulin sliding scale Continue monitor BS while on Solumedrol History of hyperlipidemia Continue statin. History of seizures disorder Continue valproic acid. Chronic Cognitive impairment Stable DVT px Continue Lovenox. Code status FULL CODE Disposition Waiting for placement to rehab Admission and Anticipated Discharge Date Admission Date: July 22, 2021 Subjective Pt was seen and examined for follow up of COVID 19 Pt is laying in bed in no acute distress Denies any chest pain, shortness of breath, palpitation, dizziness Review of Systems Review of Systems: All systems reviewed & are unremarkable except as noted in Subjective Physical Exam Physical Exam: General- No acute distress Head- atraumatic Eyes- PERRL, EOMI, ENT- oropharynx clear Neck- supple, no JVD Lungs- No wheezing Heart- regular rhythm; no murmur Abdomen- normal bowel sounds, soft, nontender Extremities- no calf tenderness Neuro- alert, oriented x 3; PERRL, EOMI; no facial palsy; no dysarthria Skin- warm & dry Results & Data Results & Data ([facility]) Vital Signs (Past 12 Hours) Vital Signs Temp Pulse Resp BP BP Pulse Ox 08/10/21 22:34 36.8 C 101 H 16 109/76 93 08/10/21 13:48 36.8 C 95 H 16 101/68 96
[2021-08-11] MEDS: guaiFENesin 600 MG TABCR PO SCH ×2 (08:42→22:05)
[2021-08-11] MEDS: ATORVASTATIN 40 MG TAB PO SCH (08:42)
[2021-08-11] MEDS: MULTIVITAMIN CHEWABLE TAB PO SCH (08:42)
[2021-08-11] MEDS: DIVALPROEX DELAY RELEASE 500 MG TAB PO SCH ×2 (08:42→22:06)
[2021-08-11] MEDS: CALCIUM POLYCARBOPHIL 625MG TAB PO SCH ×2 (08:43→22:06)
[2021-08-11] MEDS: FLUTICASONE FUROATE 100MCG 14 PUFFS/INHALER INH SCH (08:43)
[2021-08-11] MEDS: metFORMIN HCL ER 500 MG TABCR PO SCH ×2 (08:43→17:34)
[2021-08-11] MEDS: ENOXAPARIN INJ 40 MG/0.4 ML SYR SQ SCH (08:43)
[2021-08-11] MEDS: INSULIN ASPART PER UNIT SC SCH ×4 (09:25→22:35)
--- NOTE | 2021-08-11 23:37 | Hospitalist Progress Note ---
Date of Service August 11, 2021 Assessment & Plan (1) COVID-19: Plan: Present on admission with worsening weakness Testing positive for COVID 19 CXR on admission showed no acute process Finished Remdesivir and finished course of Dexamethasone CRP slightly dropped from 11.4 to 10.5 Ferritin and D-dimer normal Continue incentive spirometry He has been saturated well on RA Resolved Weakness Falls Mostly due to acute illness CT head showed no acute intracranial abnormality. Severe hydrocephalus, unchanged. CT cervical spine showed No fractures within the cervical spine. Continue PT/OT recommended inpatient therapy Diabetes type 2 Most recent hab1c 7 Continue Insulin sliding scale Continue monitor BS while on Solumedrol History of hyperlipidemia Continue statin. History of seizures disorder Continue valproic acid. Chronic Cognitive impairment Stable DVT px Continue Lovenox. Code status FULL CODE Disposition Waiting for placement to rehab Admission and Anticipated Discharge Date Admission Date: July 22, 2021 Subjective Pt was seen and examined for follow up of COVID 19 Pt is laying in bed in no acute distress Denies any chest pain, shortness of breath, palpitation, dizziness Review of Systems Review of Systems: All systems reviewed & are unremarkable except as noted in Subjective Physical Exam Physical Exam: General- No acute distress Head- atraumatic Eyes- PERRL, EOMI, ENT- oropharynx clear Neck- supple, no JVD Lungs- No wheezing Heart- regular rhythm; no murmur Abdomen- normal bowel sounds, soft, nontender Extremities- no calf tenderness Neuro- alert, oriented x 3; PERRL, EOMI; no facial palsy; no dysarthria Skin- warm & dry Results & Data Results & Data ([facility]) Vital Signs (Past 12 Hours) Vital Signs Temp Pulse Pulse Resp BP Pulse Ox 08/11/21 22:24 36.8 C 90 18 122/76 95 08/11/21 14:42 36.8 C 85 16 95/65 L 95
[2021-08-12 06:49] LABS: Creatinine Clr Calc Pharmacy 85.9 ml/min; Est GFR (Non-African American) 96.6 ml/min
[2021-08-12] MEDS: guaiFENesin 600 MG TABCR PO SCH ×2 (09:18→20:38)
[2021-08-12] MEDS: DIVALPROEX DELAY RELEASE 500 MG TAB PO SCH ×2 (09:18→20:38)
[2021-08-12] MEDS: CALCIUM POLYCARBOPHIL 625MG TAB PO SCH ×2 (09:18→20:38)
[2021-08-12] MEDS: ATORVASTATIN 40 MG TAB PO SCH (09:18)
[2021-08-12] MEDS: MULTIVITAMIN CHEWABLE TAB PO SCH (09:18)
[2021-08-12] MEDS: metFORMIN HCL ER 500 MG TABCR PO SCH ×2 (09:18→17:37)
[2021-08-12] MEDS: FLUTICASONE FUROATE 100MCG 14 PUFFS/INHALER INH SCH (09:19)
[2021-08-12] MEDS: ENOXAPARIN INJ 40 MG/0.4 ML SYR SQ SCH (09:19)
[2021-08-12] MEDS: INSULIN ASPART PER UNIT SC SCH ×4 (09:21→22:03)
--- NOTE | 2021-08-12 22:26 | Hospitalist Progress Note ---
Date of Service August 12, 2021 Assessment & Plan (1) COVID-19: Plan: Present on admission with worsening weakness Testing positive for COVID 19 CXR on admission showed no acute process Finished Remdesivir and finished course of Dexamethasone CRP slightly dropped from 11.4 to 10.5 Ferritin and D-dimer normal Continue incentive spirometry He has been saturated well on RA Resolved Weakness Falls Mostly due to acute illness CT head showed no acute intracranial abnormality. Severe hydrocephalus, unchanged. CT cervical spine showed No fractures within the cervical spine. Continue PT/OT recommended inpatient therapy Diabetes type 2 Most recent hab1c 7 Continue Insulin sliding scale Continue monitor BS while on Solumedrol History of hyperlipidemia Continue statin. History of seizures disorder Continue valproic acid. Chronic Cognitive impairment Stable DVT px Continue Lovenox. Code status FULL CODE Disposition Waiting for placement to rehab Admission and Anticipated Discharge Date Admission Date: July 22, 2021 Subjective Pt was seen and examined for follow up of COVID 19 Pt is laying in bed in no acute distress Denies any chest pain, shortness of breath, palpitation, dizziness Review of Systems Review of Systems: All systems reviewed & are unremarkable except as noted in Subjective Physical Exam Physical Exam: General- No acute distress Head- atraumatic Eyes- PERRL, EOMI, ENT- oropharynx clear Neck- supple, no JVD Lungs- No wheezing Heart- regular rhythm; no murmur Abdomen- normal bowel sounds, soft, nontender Extremities- no calf tenderness Neuro- alert, oriented x 3; PERRL, EOMI; no facial palsy; no dysarthria Skin- warm & dry Results & Data Results & Data ([facility]) Vital Signs (Past 12 Hours) Vital Signs Temp Pulse Resp BP Pulse Ox 08/12/21 14:14 36.5 C 88 16 94/62 L 95
[2021-08-13] MEDS: CALCIUM POLYCARBOPHIL 625MG TAB PO SCH (08:07)
[2021-08-13] MEDS: DIVALPROEX DELAY RELEASE 500 MG TAB PO SCH (08:07)
[2021-08-13] MEDS: guaiFENesin 600 MG TABCR PO SCH (08:07)
[2021-08-13] MEDS: MULTIVITAMIN CHEWABLE TAB PO SCH (08:07)
[2021-08-13] MEDS: ATORVASTATIN 40 MG TAB PO SCH (08:07)
[2021-08-13] MEDS: ENOXAPARIN INJ 40 MG/0.4 ML SYR SQ SCH (08:08)
[2021-08-13] MEDS: FLUTICASONE FUROATE 100MCG 14 PUFFS/INHALER INH SCH (08:08)
[2021-08-13] MEDS: metFORMIN HCL ER 500 MG TABCR PO SCH (08:08)
[2021-08-13] MEDS: INSULIN ASPART PER UNIT SC SCH ×2 (08:24→12:31)
--- NOTE | 2021-08-13 14:05 | Discharge Summary ---
Date of Service August 13, 2021 Admission HPI Per Admitting Provider CHIEF COMPLAINT: Frequent falls, COVID. HISTORY OF PRESENT ILLNESS: This is a 60-year-old male with past medical history significant for type 2 diabetes, hyperlipidemia, history of seizure disorder, history of psychiatric disorders, poor historian, presents from [facility] with frequent falls. As per the [facility], he and his came about a year ago, they are at [facility] because of the mild mental retardation as per the [facility]. As per the [facility], he has no dementia. He walks with a walker. Eats regular food. Since yesterday, his appetite is down and he fell 3 times in 24 hours that is why they sent him here. In the ER, he spiked temperature.Patient is alert and awake. Denies any headache, denies any chest pain or abdominal pain. No cough, no nausea, no vomiting, no abdominal pain, no diarrhea. He was hemodynamically s table.As per residential also there was no complaints except for falls and the patient is COVID vaccinated and boosted as per the [facility]. Admission Exam Per Admitting Provider GENERAL: The patient is of moderate build, not in acute distress. VITAL SIGNS: Temperature 38.1, pulse 100, respiratory rate 20, blood pressure 119/74, oxygen 100% on room air. HEENT: Pupils equal, round and reactive to light. Oral mucosa moist. NECK: No JVD. No neck masses. CARDIOVASCULAR: S1 and S2 heard. Regular rate and rhythm. No murmur, no gallop. RESPIRATORY SYSTEM: Normal AP diameter. No accessory muscle use. No wheezing, no crackles. ABDOMEN: Soft, bowel sounds present, nontender, no distention. CENTRAL NERVOUS SYSTEM: Cranial nerves II-XII grossly intact, nonfocal. EXTREMITIES: No edema, no erythema seen. Principal Diagnosis COVID-19 Weakness S/P Fall Diabetes type 2 History of hyperlipidemia History of seizures disorder Discharge Exam General- No acute distress Head- atraumatic Eyes- PERRL, EOMI, ENT- oropharynx clear Neck- supple, no JVD Lungs- No wheezing Heart- regular rhythm; no murmur Abdomen- normal bowel sounds, soft, nontender Extremities- no calf tenderness Neuro- alert, oriented x 3; PERRL, EOMI; no facial palsy; no dysarthria Skin- warm & dry Discharge Data Allergies Allergy/AdvReac Type Severity Reaction Status Date / Time No Known Allergies Allergy Unknown Verified 07/22/21 01:15 Consultations 07/22/21 03:04 ED Decision to Admit Stat 07/26/21 14:56 Consult Psychiatry Routine Ordered Studies 07/22/21 00:44 CT cervical spine wo con Urgent CT head/brain wo con Urgent RIGHT FOOT 3 VIEWS HISTORY: pain right great toe/MTP COMPARISON: Right foot radiograph 04/24/2017. FINDINGS: There is no fracture or dislocation. Mild soft tissue swelling within the right first toe. Tiny plantar and posterior calcaneal spurs again noted. No erosive changes identified. There is mild osteoarthritis within the first MTP joint. No radiopaque foreign bodies. IMPRESSION: 1. No fracture or dislocation within the right foot. 2. Mild soft tissue swelling within the right first toe. ACT 112: Negative or not required by law. Electronically signed by: Jc Cotto M.D. 07/22/2021 8:47 AM Dictated:07/22/2144 Transcribed: 07/22/[address] DOSE: 1061.30 mGy.cm HISTORY: fall TECHNIQUE: Multiaxial CT images of the cervical spine were performed and reformatted in the sagittal and coronal plane without the use of contrast. A dose lowering technique was utilized adhering to the principles of ALARA. COMPARISON: None. FINDINGS: No fractures. No subluxation. Prevertebral soft tissues and the C1-C2 interval are intact. No pneumothorax. Moderate to severe degenerative disease throughout the cervical spine. IMPRESSION: No fractures within the cervical spine. ACT 112: Negative or not required by law. Electronically signed by: Jc Cotto M.D. 07/22/2021 7:13 AM Dictated:07/22/21 0711 Transcribed: 07/22/21 0711 XR chest 1V portable HISTORY: fall COMPARISON: Chest 06/10/2020. FINDINGS: The lungs are clear. Cardiac silhouette is normal in size. No pleural effusions. No pneumothorax. IMPRESSION: No acute process. ACT 112: Negative or not required by law. Electronically signed by: Jc Cotto M.D. 07/22/2021 8:57 AM Dictated:07/22/21 0856 Transcribed: 07/22/[address] DOSE: HISTORY: fall TECHNIQUE: Multiaxial CT images of the head were performed without the use of intravenous contrast. Automated exposure control was utilized for this study. A dose lowering technique was utilized adhering to the principles of ALARA. Comparison: Head CT 04/15/2021. Findings: The paranasal sinuses and mastoid air cells are clear. The calvarium and skull base are intact. There is no mass, hematoma, midline shift, acute infarct. Severe hydrocephalus, unchanged. Impression: No acute intracranial abnormality. Severe hydrocephalus, unchanged. ACT 112: Negative or not required by law. Electronically signed by: Jc Cotto M.D. 07/22/2021 7:04 AM Dictated:07/22/21702 Transcribed: 07/22/21702 AP PELVIS ONE VIEW HISTORY: Pelvic pain. fall COMPARISON: None. FINDINGS: There is no fracture or dislocation. Soft tissues are unremarkable. No radiopaque foreign bodies. Mild osteoarthritis within the bilateral hips. The sacrum appears intact. IMPRESSION: No fracture or dislocation within the pelvis or hips. ACT 112: Negative or not required by law. Electronically signed by: Jc Cotto M.D. 07/22/2021 8:52 AM Dictated:07/22/21 0851 Transcribed: 07/22/21850 XR chest 1V portable HISTORY: 60 years-old Male hypoxia acute shortness of breath COMPARISON: Chest radiograph 07/22/2021 at 1:25 AM TECHNIQUE: Portable AP view of the chest FINDINGS: Cardiac silhouette is enlarged. Mild right hemidiaphragmatic elevation. Mild p ulmonary vascular congestion. No pneumothorax, airspace consolidation or large pleural effusion. Degenerative changes of the shoulders and spine. IMPRESSION: Cardiac megaly with pulmonary vascular congestion. ACT 112: Negative or not required by law. The above report was generated using voice recognition software. It may contain grammatical, syntax or spelling errors. Electronically signed by: Noe Onofre M.D. 07/23/2021 9:23 AM Dictated:07/23/21917 Transcribed: 07/23/21917 SINGLE VIEW CHEST CLINICAL HISTORY: Hypoxia. FINDINGS: An AP, portable, upright chest radiograph is compared to study dated 07/22/2021. The examination is degraded by portable technique and patient rotation. The heart is top normal for projection noting atherosclerotic calcification of the thoracic aorta. There is chronic elevation of the right hemidiaphragm with bibasilar scarring/atelectasis. No airspace consolidation or large pleural effusion is identified. No pneumothorax is seen. The skeletal structures are osteopenic. The bony thorax is grossly intact. Degenerative change is seen throughout the thoracic spine. IMPRESSION: No acute cardiopulmonary abnormality. ACT 112: Negative or not required by law. Electronically signed by: Virgilio Lambert M.D. 07/23/2021 12:43 PM Dictated:07/23/21 1242 Transcribed: 07/23/21 1242 Hospital Course (1) COVID-19: Present on admission with worsening weakness Testing positive for COVID 19 CXR on admission showed no acute process Finished Remdesivir and finished course of Dexamethasone CRP slightly dropped from 11.4 to 10.5 Ferritin and D-dimer normal Continue incentive spirometry He has been saturated well on RA Resolved Weakness Falls Mostly due to acute illness CT head showed no acute intracranial abnormality. Severe hydrocephalus, unchanged. CT cervical spine showed No fractures within the cervical spine. Continue PT/OT recommended inpatient therapy Fall precaution Diabetes type 2 Most recent hab1c 7 Continue Insulin sliding scale Continue monitor BS while on Solumedrol History of hyperlipidemia Continue statin. History of seizures disorder Continue valproic acid. Seizure precaution Chronic Cognitive impairment Stable DVT px Continue Lovenox. Code status FULL CODE Disposition Discharge to [facility] today Total Time Total Time Spent Total Time Spent (In Minutes): 35 minutes Discharge Plan Discharge Items Patient Disposition: Transfer Correction Fac Reason For Visit: FALLS Discharge Diagnosis: COVID-19 Weakness S/P Fall Diabetes type 2 History of hyperlipidemia History of seizures disorder Activity: Resume your previous activity Non-emergency contact: Primary Care Provider Call non-emergency contact if: you have any medication questions Follow-up/Referrals: CHASTITY, [Primary Care Provider] - Diet: Carb Consistent or DM2 Addtl Attending Provider Instructions: You were admitted at [facility] for weakness and recurrent falls. You were found to have covid 19 and completed treatment. You will be discharged to [facility] for rehab. Please follow with your primary care provider once discharge from rehab Continue physical and occuaptional therapy Fall and seizure precaution Continue to wear your mask and practice social distance Coronavirus disease 2019 (COVID-19) is a virus that causes a respiratory illness. It is caused by a coronavirus called 2019 novel coronavirus (2019- nCoV). There are many types of coronavirus. Coronaviruses are a very common cause of bronchitis. They may sometimes cause lung infection(pneumonia). Symptoms can range from mild to severe respiratory illness. These viruses are also foundin some animals. COVID-19 was first found in people in [facility], in late 2019. In 2020, several cases of COVID-19 have been confirmed in the [place] Public health officials are working to find the source. How the virus spreads is not yet fully known. It may be spread through droplets of fluid that a person coughs or sneezes into the air. It may be spread if you touch a surface with virus on it, such as a handle or object, and then touch your mouth. What are the symptoms of COVID-19? Some people have no symptoms or mild symptoms. Symptoms may appear 2 to 14 days after contact with the virus. Symptoms can include: Fever Coughing Trouble breathing What are possible complications from COVID-19? In many cases, this virus can cause infection (pneumonia) in both lungs. In some cases, this can cause . How is COVID-19 diagnosed? Your healthcare provider will ask about your symptoms. He or she will also ask about your recent travel and contact with sick people. Testing for the virus is only done through the CDC. If yourhealthcare provider thinks you may have COVID- 19, he or she will work with your local health department and the CDC on testing. Follow all instructions from your healthcare provider. COVID-19 is diagnosed by: Nasal and throat swab. A cotton-tipped swab is wiped inside your nose or throat. This is done to check for viruses in your nasal mucus. Sputum culture. A small sample of mucus coughed from your lungs (sputum) is collected if you have a cough. It is checked for the virus. How is COVID-19 treated? There is currently no medicine to treat the virus. Treatment is done to help your body while it fights the virus. This is known as supportive care. Supportive care may include: Pain medicine. These include acetaminophen and ibuprofen. They are used to help ease pain and reduce fever. Bed rest. This helps your body fight the illness. For severe illness, you may need to stay in the hospital. Care during severe illness may include: IV (intravenous) fluids.These are given through a vein to help keep your body hydrated. Oxygen. Supplemental oxygen or ventilation with a breathing machine (ventilator) may be given. This is done to keep enough oxygen in your body. Are you at risk for COVID-19? If youve been to a place where people have been sick with this virus, you are at risk for infection. You are at risk if you: Recently traveled to an affected area Had contact with a sick person who recently traveled to this area Had contact with a person who was diagnosed with COVID-19 How can COVID-19 be prevented? There is no vaccine yet. The best prevention is to not have contact with the virus. The CDC advises that people should not travel to areas where there are COVID-19 outbreaks right now for any reason that is not urgent. To help prevent spreading the infection, wash your hands often, or use an alcohol-basedhand hypo splasher. If you are in an area with COVID-19: Wash your hands often. Or use an alcohol-based hand hypo splasher often. Only touch your eyes, nose, or mouth with clean hands. Dont have contact with people who are sick. Follow local instructions about being in public. For example, you may be told to not use public transport for a period of time. Stay away from markets that have live or animals. Wash your hands after touching any animals. Don't touch animals that may be sick. Dont share eating or drinking tools with sick people. Dont kiss someone who is sick. Clean surfaces often with disinfectant. If you were in an area with COVID-19 in the last 14 days: Call your healthcare provider. He or she can talk with local health staff to see what action may be needed. Follow all instructions from your provider. Take your temperature every morning and evening for at least 14 days. This is to check for fever. Keep a record of the readings. Keep watch for symptoms of the virus. Tell your provider right away if you have symptoms. If you were in an area with COVID-19 and have a fever or other symptoms: Dont panic. Keep in mind that other illnesses can cause similar symptoms. Stay away from work, school, and public places. Limit physical contact with family members. Don't kiss anyone or share eating or drinking utensils. Clean surfaces you touch with disinfectant. This is to help prevent the virus from spreading. Call your healthcare provider. Explain that you have been exposed to COVID-19 and have symptoms. Do this before going to any hospital. Wait for instructions. Keep in mind that healthcare staff may wear protective equipment such as masks, gowns, gloves, and eye protection. You may be put in a separate room. This is to prevent the possible virus from spreading. Tell the healthcare staff about recent travel. This includes local travel on public transport. Staff may need to find other people you have been in contact with. Follow all instructions the healthcare staff give you. If you have been diagnosed with COVID-19 Follow all instructions from your healthcare provider. Dont leave your home, except to get medical care. Call your healthcare providers office before going. They can prepare and give you instructions. This will help prevent the virus from spreading. Dont go to work, school, or public areas. Dont use public transport or taxis. Stay away from other people in your home. Have them wear face masks around you. Dont share household items or food. Wear a face mask if you can. This includes at home or in a medical facility. Cover your face with a tissue when you cough or sneeze. Throw the tissue away. Wash your hands. Wash your hands often. Caregivers should: Follow all instructions from healthcare staff. Wear a face mask and protective clothing as advised. Wash hands often. Keep track of the sick persons symptoms. Clean surfaces, fabrics, and laundry thoroughly. Keep other people away from the sick person. When to call your healthcare provider Call your healthcare provider: If youve recently traveled and have symptoms If you have been diagnosed with COVID-19 and your symptoms are worse To learn more To find out more about COVID-19, visit the CDC website at www.cdc.gov/coronavirus/2019-ncov/index.html. [employer]. [address] [place] [address], [place] [address]. All rights reserved. This information is not intended as a substitute for professional medical care. Always follow your healthcare professional's instructions. This information has been adapted from [employer] Pending Studies at Discharge: No Stand-Alone Forms: My [employer] Skilled Items Patient informed of condition?: Yes DNR: No Discharge Level of Care: Skilled Communicable Disease: No Discharge Prognosis: Stable Lines: None Urinary Catheter: No Medications and DC Order Prescriptions: Continued metformin 500 mg tablet extended release 24 hr 1,000 mg PO BID17 RF: 0 ketoconazole 2 % Shampoo 1 ea TOPICAL 2XWK RF: 0 calcium polycarbophil [FiberCon] 625 mg Tablet 1,250 mg PO BID RF: 0 Januvia 100 mg tablet 100 mg PO QAM RF: 0 loperamide [Imodium] 2 mg Capsule 2 mg PO QID PRN (Reason: Diarrhea) RF: 0 ondansetron HCl [Zofran] 4 mg Tablet 4 mg PO Q6H PRN (Reason: Nausea) RF: 0 acetaminophen [Tylenol Extra Strength] 500 mg Tablet 1,000 mg PO Q8H PRN (Reason: Pain, Moderate) RF: 0 triamcinolone acetonide 0.1 % Cream 1 applic TOPICAL BID PRN (Reason: SKIN IRRITATION BEHIND LEFT EAR) RF: 0 atorvastatin [Lipitor] 40 mg tablet 40 mg PO QAM RF: 0 alendronate [Fosamax] 70 mg tablet 70 mg PO WK RF: 0 divalproex 500 mg tablet,delayed release (DR/EC) 500 mg PO BID RF: 0 Vitafusion Gummy 2 tab PO QAM RF: 0 Changed meloxicam 15 mg Tablet 15 mg PO QAM PRN (Reason: pain) Qty: 0 RF: 0 Discharge Orders: Discharge Order (Routine); Ordered 08/13/21 Ordered By: Argentina Sierra Admission Data Admit Date/Time: 07/22/21 04:15 Attending Provider: Argentina Sierra Admit Provider: Gael Maynard Primary Care Provider: Eleanor HAYWOOD Providers: Nakul Rico ; Roosevelt,Care ; Gael Maynard ; Ruby Paredes ; Nati eBach ; Bessy Noland ; Agusto Light
== END 2021-08-13 14:30 | DRG 178 ==
LOC: ED 00:34 → 2W 04:15 → SUATTDRO 04:15 → 2W 04:54 → 3N 08-04 04:05 → 3E 08-07 22:51

== ENCOUNTER 2022-06-25 17:33 | Observation (INO) ==
--- NOTE | 2022-06-25 17:58 | Emergency Department Note ---
Impression & Plan Fall, Abnormal serum level of lipase, Vomiting, Acute pancreatitis ED Provider Note NAME: RASHEEDA DO AGE: 61 SEX: M : 1960 ARRIVES VIA: Ambulance INFORMANT: Patient ED PROVIDER(S): Lukas Storm DO CHIEF COMPLAINT: fall HPI: Patient is a 61-year-old male who presents to the ER for a fall. He notes that he got up to go to the bathroom lost his balance and fell. He was not dizzy or lightheaded. He denies any headache or change in vision. No chest pain or shortness of breath. He does admit to throwing up about 3 times prior to arrival. He threw up after eating earlier today. He notes his stomach does feel little upset. He notes he fell backward to his right side and did hit his head. He has no head pain. Denies any blood thinners. No other exacerbating or remitting factors. PAST MEDICAL HISTORY:See Below PAST SURGICAL HISTORY:See Below FAMILY HISTORY:See Below SOCIAL HISTORY:See Below HOME MEDICATIONS:See Below ALLERGIES:See Below VITALS:See Below PHYSICAL EXAMINATION: GENERAL: Sitting up in bed, alert, well appearing, well nourished, no distress, non-toxic EYE EXAM: normal conjunctiva. HEAD: NC/AT HEAD: Normal cephalic atraumatic OROPHARYNX: no exudate, no erythema, lips, buccal mucosa, and tongue normal and mucous membranes are moist NECK: supple, no nuchal rigidity, no adenopathy, non-tender LUNGS: Clear to auscultation. Normal chest wall mechanics HEART: no murmurs, S1 normal and S2 normal ABDOMEN: abdomen soft, non-tender, normo-active bowel sounds, no masses, no rebound or guarding. BACK: Back is symmetrical on inspection and there is no deformity, no midline tenderness, no CVA tenderness. SKIN: no rashes and no bruising UPPER EXTREMITIES: upper extremities are grossly normal. LOWER EXTREMITIES: No pitting edema. NEURO EXAM: Normal sensorium, cranial nerves II-XII grossly intact, normal speech, no gross weakness of arms, no gross weakness of legs. No drift. Finger to nose intact. Gross sensation intact. MEDICAL DECISION MAKING: Patient is a 61-year-old male with a past medical history of cognitive impairm ent, hydrocephalus, seizures, aspiration pneumonitis who presents to the ER following a fall. He notes he does remember this. This not consistent with a seizure. IV was established blood work was obtained. External records were reviewed. Labs show no significant leukocytosis. No anemia. BMP along with LFTs bilirubin was unremarkable. Troponin was negative. Lipase was elevated at 285. He did vomit several times prior to arrival. He also vomited once here after eating. Do favor this is consistent with a pancreatitis. CT of the head was unremarkable. CT of the belly was unremarkable as well. Triage Nursing notes reviewed. Limited review of prior medical records performed Vital Signs: reviewed and remarkable for no significant abnormalities Differential diagnosis: Differential diagnoses include major intracranial, cervical, spinal, thoracic, abdominal, pelvic and neurologic injury. Fracture, contusion, sprain, strain, laceration, abrasions included as well. ER treatment provided: See below Diagnostics interpreted by me include EKG and cardiac monitoring as listed below: -Cardiac Monitoring: An order was placed for continuous cardiac monitoring. The monitor shows a rate of 80 with sinus rhythm. -ECG: Sinus rhythm rate 86 Normal axis No PVCs Poor baseline T wave inversion in septal leads -Laboratory studies:Interpreted by me as stated above in MDM and shown below. Imaging studies: Xrays: As interpreted by me: Portable AP upright 1 view of the chest shows no focal infiltrate CTs show: CT head and abdomen pelvis is unremarkable Consultation(s): As described in [facility] Procedures:none Critical Care: None Past Med/Surg History Medical History Abdominal pain Abnormal EKG DR. RAMOS (01/06/18) CLEARED Anemia COVID-19 Diabetes mellitus, type 2 Fall Hyperlipidemia Hypomagnesemia Poor historian Psychotic disorder MANY YEARS AGO "NO RECENT HX" Seizure MANY YEARS AGO/NONE FOR MANY YEARS AND NO CURRENT SEIZURE MEDS(NEUROLOGY IN LAST 6 MONTHS AGO) [place] Weakness Surgical History History of cataract surgery History of eye surgery Hx of tooth extraction Family History Mother , Mother age 87 and he is uncertain of her medical conditions No problems noted. Father , Father in his 80s of uncertain causes No problems noted. Social History (Reviewed 02/27/22 @ 20:32 by Jacoby Wei Smoking Status: Never smoker Tobacco Type: Cigarettes Cigarettes Per Day: NO CIG FOR 2 WEEKS/RECENTLY USING NICOTINE PATCH; Second Hand Exposure: No; Hx Alcohol Use: No Hx Substance Use: No Preferred Language: Albanian Communication Ability: Effective Quality Control Coordinator Required: No Beliefs That Will Affect Care: None marital status: Current Living Situation: Spouse and Personal Care Facility current occupational status: unemployed current occupation: Unemployed How many Children do You have: 1 Feels Safe at Home: Yes Assistive Devices: None Allergies Allergies Allergy/AdvReac Type Severity Reaction Status Date / Time No Known Allergies Allergy Unknown Verified 06/25/22 18:36 Home Meds Home Medications Medication Instructions Recorded Confirmed metformin 500 mg tablet,extended 1,000 mg PO BID17 01/14/18 06/25/22 release 24 hr alendronate 70 mg tablet (Fosamax) 70 mg PO WK 06/10/20 06/25/22 atorvastatin 40 mg tablet (Lipitor) 40 mg PO QAM 06/10/20 06/25/22 divalproex 500 mg tablet,delayed 500 mg PO BID 06/10/20 06/25/22 release acetaminophen 500 mg tablet 1,000 mg PO Q8H PRN Pain, 07/22/21 06/25/22 (Tylenol Extra Strength) Moderate/FEVER ketoconazole 2 % shampoo 1 ea topical 2XWK 07/22/21 06/25/22 loperamide 2 mg capsule 2 mg PO QID PRN Diarrhea 07/22/21 06/25/22 ondansetron HCl 4 mg tablet 4 mg PO Q8H PRN Nausea 07/22/21 06/25/22 sitagliptin phosphate 100 mg 100 mg PO QAM 07/22/21 06/25/22 tablet (Januvia) triamcinolone acetonide 0.1 % 1 applic topical BID PRN SKIN 07/22/21 06/25/22 topical cream IRRITATION BEHIND LEFT EAR Vitafusion Multivit Gummy 2 tab PO QAM 06/25/22 06/25/22 Vitafusion Vitamin D 2,000 unit PO QAM 06/25/22 06/25/22 levothyroxine 25 mcg tablet 25 mcg PO DAILYBB 06/25/22 06/25/22 Results & Data (ED) Vital Signs Vital Signs - 24 hr 06/25/22 17:42 06/25/22 17:49 06/25/22 18:15 Temperature 36.8 C Temperature Source Oral Pulse Rate 90 85 Pulse Rate from SpO2 Sensor Respiratory Rate 18 Respiratory Effort / Characteristics Non-Labored Respiratory Depth Normal Blood Pressure Blood Pressure [Right Arm] 113/72 Blood Pressure Mean Blood Pressure Mean [Right Arm] 85 Pulse Oximetry 98 Oxygen Delivery Method Room Air Sepsis Recent Fever Within 48 Hours No Sepsis New/Unexplained Change in Mental Status N/A Sepsis Action Taken by Nursing No Action Required 06/25/22 18:45 06/25/22 18:14 06/25/22 19:47 Temperature Temperature Source Pulse Rate 82 85 Pulse Rate from SpO2 Sensor 83 Respiratory Rate 18 18 Respiratory Effort / Characteristics Respiratory Depth Blood Pressure 104/73 104/73 Blood Pressure [Right Arm] Blood Pressure Mean 83 83 Blood Pressure Mean [Right Arm] Pulse Oximetry 99 98 Oxygen Delivery Method Sepsis Recent Fever Within 48 Hours Sepsis New/Unexplained Change in Mental Status Sepsis Action Taken by Nursing 06/25/22 20:57 Temperature Temperature Source Pulse Rate 89 Pulse Rate from SpO2 Sensor Respiratory Rate 18 Respiratory Effort / Characteristics Respiratory Depth Blood Pressure 138/75 Blood Pressure [Right Arm] Blood Pressure Mean 96 Blood Pressure Mean [Right Arm] Pulse Oximetry Oxygen Delivery Method Sepsis Recent Fever Within 48 Hours Sepsis New/Unexplained Change in Mental Status Sepsis Action Taken by Nursing Laboratory Data 06/25/22 17:43 06/25/22 17:43 Lab Results 06/25/22 06/25/22 Range/Units 17:43 17:43 WBC 7.28 (4.8-10.8) K/ul RBC 4.37 L (4.70-6.10) M/uL Hgb 13.0 L (14.0-18.0) g/dl Hct 39.0 L (42.0-52.0) % MCV 89.2 (80.0-100.0) fL MCH 29.7 (25.0-34.0) pg MCHC 33.3 (32.0-36.0) g/dL RDW Std Deviation 42.9 (36.4-46.3) fL RDW Coeff of Luci 13.2 (11.5-14.5) % Plt Count 188 (130-400) K/uL MPV 9.4 (9.4-12.4) fL Immature Gran % (Auto) 1.1 % Neut % (Auto) 45.9 % Lymph % (Auto) 42.2 % Levy % (Auto) 8.1 % Eos % (Auto) 2.3 % Baso % (Auto) 0.4 % Neut # (Auto) 3.34 (1.40-6.50) K/uL Lymph # (Auto) 3.07 (1.2-3.4) K/uL Levy # (Auto) 0.59 (0.11-0.59) K/uL Eos # (Auto) 0.17 (0-0.50) K/uL Baso # (Auto) 0.03 (0-0.2) K/uL Immature Gran # (Auto) 0.08 (0.01-0.20) K/uL Sodium 138 (136-145) mmol/L Potassium 4.0 (3.5-5.1) mmol/L Chloride 103 (98-107) mmol/L Carbon Dioxide 29 (21-32) mmol/L Anion Gap 6 (3-11) BUN 13 (6-23) mg/dl Creatinine 1.07 (0.6-1.4) mg/dl Est Cr Clr Drug Dosing 69.0 ml/min Est GFR ( Amer) 86.4 ml/min Est GFR (Non-Af Amer) 74.5 ml/min BUN/Creatinine Ratio 12.1 (10-20) Glucose 159 H (70-99(Fasting)) mg/dl Calcium 9.4 (8.6-10.3) mg/dl Total Bilirubin 0.4 (0.2-1.0) mg/dl AST 33 (13-39) U/L ALT 46 (7-52) U/L Alkaline Phosphatase 52 (34-104) U/L Troponin I High Sens 5.6 (0-20) pg/ml Total Protein 6.9 (6.0-8.3) gm/dl Albumin 4.1 (3.4-5.0) gm/dl Globulin 2.8 (2.5-4.0) gm/dl Albumin/Globulin Ratio 1.5 (0.9-2) Lipase 284 H (11-82) U/L Administered Medications Discontinued Medications Ioversol (Optiray 350 100ml) 82 ml IV ONCE ONE Stop: 06/25/22 20:28 Last Admin: 06/25/22 20:29 Dose: 82 ml Documented By: [facility] Imaging Data Radiologist's Impression: Chest X-Ray 06/25/22 17:42 XR chest 1V portable CLINICAL HISTORY: Chest pain, nonspecific COMPARISON STUDY: Chest radiograph July 23, 2021. FINDINGS: No pneumothorax or pleural effusion is present. Lung volumes are diminished. This is unchanged. Right infrahilar opacity is noted. Cardiomediastinal silhouette is stable. Mild interstitial thickening is unchanged. This is likely chronic. IMPRESSION: 1. No change in low lung volumes with a right infrahilar opacity. This likely reflects pulmonary vessels or atelectasis. Consolidation could appear similar although is considered less likely. Radiographic follow-up to exclude an underlying lesion is recommended. 2. Stable interstitial thickening, likely chronic. ACT 112: Negative or not required by law. Electronically signed by: Ren Espinoza M.D. 06/25/2022 7:[address] 06/25/22 17:42 CT OF THE HEAD WITHOUT CONTRAST CLINICAL HISTORY: Fall. COMPARISON STUDY: Head CT February 27, 2022. CT DOSE: 691.05 mGy.cm TECHNIQUE: Helical axial images of the head were obtained without IV contrast. Automated exposure control was utilized for the study. A dose lowering technique was utilized adhering to the principles of ALARA. FINDINGS: No acute intracranial hemorrhage, midline shift or mass effect is pr esent. Severe dilatation of the lateral ventricles remains unchanged. Mild dilatation of the third ventricle is unchanged. The basal cisterns are patent. No extra-axial collections are present. There are no findings to suggest acute dural sinus thrombosis or acute territorial infarct. No significant calvarial abnormalities are present. Visualized portions of the sinuses and mastoid air cells are clear. IMPRESSION: 1. No acute intracranial findings. No change in hydrocephalus. 2. No acute calvarial fracture. ACT 112: Negative or not required by law. Electronically signed by: Ren Espinoza M.D. 06/25/2022 7:30 PM Abdomen/Pelvis CT 06/25/22 19:39 Exam(s): CT ABDOMEN + PELVIS With Contrast EXAM: CT Abdomen and Pelvis With Intravenous Contrast CLINICAL HISTORY: Reason for exam: elevated lipase w/ fall. TECHNIQUE: Axial computed tomography images of the abdomen and pelvis with intravenous contrast. Automated exposure control was utilized for the study. A dose lowering technique was utilized adhering to the principles of ALARA. CONTRAST: Contrast must be dictated COMPARISON: No relevant prior studies available. FINDINGS: Lung bases: Unremarkable. No mass. No consolidation. Mediastinum: Mild-moderate hiatal hernia. ABDOMEN: Liver: Hepatic steatosis. Gallbladder and bile ducts: Contracted gallbladder. No calcified stones. No ductal dilation. Pancreas: Unremarkable. No mass. No ductal dilation. Spleen: Unremarkable. No splenomegaly. Adrenals: Unremarkable. No mass. Kidneys and ureters: Unremarkable. No hydronephrosis or delayed nephrogram. Stomach and bowel: Diverticulosis, without acute diverticulitis. No small bowel obstruction. No free intraperitoneal air. Mild fluid-filled small bowel, with mild wall thickening, correlate for mild enteritis. PELVIS: Appendix: Normal appendix. Bladder: Unremarkable. No mass. Reproductive: Unremarkable as visualized. ABDOMEN and PELVIS: Intraperitoneal space: Unremarkable. No free air. No significant fluid collection. Bones/joints: Degenerative changes of the spine. No acute fracture. No dislocation. Soft tissues: Unremarkable. Vasculature: Atherosclerotic changes of the aorta. No abdominal aortic aneurysm. Lymph nodes: Unremarkable. No enlarged lymph nodes. IMPRESSION: 1. Normal appendix. 2. Diverticulosis, without acute diverticulitis. No small bowel obstruction. No free intraperitoneal air. 3. Mild fluid-filled small bowel, with mild wall thickening, correlate for mild enteritis. 4. Mild-moderate hiatal hernia. 5. Hepatic steatosis. Electronically signed by: Amadeo Galarza MD 06/25/22 21:45 PM Discharge Plan Visit Data Chief Complaint: Fall Stated Complaint: Fall ED Provider: Lukas Storm Discharge Problem: Fall, Abnormal serum level of lipase, Vomiting, Acute pancreatitis Discharge Instructions Activity Restrictions/Additional Instructions: Please follow up with your primary care doctor with in the next 24 hours. Any worsening of your symptoms, please return to the ED immediately. This includes any fevers greater than 100.4, worsening pain, chest pain, shortness breath, persistent nausea, vomiting, unable to eat or drink, or any other concerning signs or symptoms from your standpoint. You were found to have a blood pressure greater than 120 systolic over 90 diastolic. Due to the new Medicare guidelines, we are now recommending that you follow up with your primary care doctor in regards to this elevated blood pressure. Lipase is slightly elevated at [address] abdomen pelvis was negative. CT of his head was also unremarkable. No abdominal pain. He was discharged to follow-up with PCP as an outpatient. Should have repeat blood work within the next 24 to 48 hours. Forms Stand Alone Forms: My [facility] Prescriptions Prescriptions: No Action metformin 500 mg tablet extended release 24 hr 1,000 mg PO BID17 ketoconazole 2 % Shampoo 1 ea TOPICAL 2XWK Rx Instructions: DOES ON TUESDAYS & SATURDAYS Januvia 100 mg tablet 100 mg PO QAM loperamide 2 mg Capsule 2 mg PO QID PRN (Reason: Diarrhea) ondansetron HCl 4 mg Tablet 4 mg PO Q8H PRN (Reason: Nausea) acetaminophen [Tylenol Extra Strength] 500 mg Tablet 1,000 mg PO Q8H MDD 3 GRAMS APAP/24 HOURS PRN (Reason: Pain, Moderate/FEVER) triamcinolone acetonide 0.1 % Cream 1 applic TOPICAL BID PRN (Reason: SKIN IRRITATION BEHIND LEFT EAR) levothyroxine 25 mcg tablet 25 mcg PO DAILYBB Vitafusion Multivit Gummy 2 tab PO QAM Vitafusion Vitamin D 2,000 unit PO QAM atorvastatin [Lipitor] 40 mg tablet 40 mg PO QAM alendronate [Fosamax] 70 mg tablet 70 mg PO WK Rx Instructions: TAKES ON TUESDAYS. Take 1/2 hour prior to breakfast with a full glass of water. Do not lay down divalproex 500 mg tablet,delayed release (DR/EC) 500 mg PO BID Referrals Referrals: CHASTITY, [Primary Care Provider] -
[2022-06-25 18:12] LABS: Basophils # (auto) 0.03 K/uL (0-0.2); Basophils % (auto) 0.4 %; Eosinophils # (auto) 0.17 K/uL (0-0.50); Eosinophils % (auto) 2.3 %; Immature Granulocytes # (auto) 0.08 K/uL (0.01-0.20); Immature Granulocytes % (auto) 1.1 %; Lymphocytes # (auto) 3.07 K/uL (1.2-3.4); Lymphocytes % (auto) 42.2 %; Mean Corpuscular Hemoglobin 29.7 pg (25.0-34.0); Mean Corpuscular Hgb Conc 33.3 g/dL (32.0-36.0); Mean Corpuscular Volume 89.2 fL (80.0-100.0); Mean Platelet Volume 9.4 fL (9.4-12.4); Monocytes # (auto) 0.59 K/uL (0.11-0.59); Monocytes % (auto) 8.1 %; Neutrophils # (auto) 3.34 K/uL (1.40-6.50); Neutrophils % (auto) 45.9 %; Platelet Count 188 K/uL (130-400); RDW Coefficient of Variation 13.2 % (11.5-14.5); RDW Standard Deviation 42.9 fL (36.4-46.3); Red Blood Count 4.37 M/uL (4.70-6.10); White Blood Count 7.28 K/ul (4.8-10.8)
[2022-06-25 18:29] LABS: Albumin Globulin Ratio 1.5 (0.9-2); Albumin Level 4.1 gm/dl (3.4-5.0); BUN Creatinine Ratio 12.1 (10-20); Bilirubin,Total 0.4 mg/dl (0.2-1.0); Calcium 9.4 mg/dl (8.6-10.3); Est GFR (African American) 86.4 ml/min; Est GFR (Non-African American) 74.5 ml/min; Globulin 2.8 gm/dl (2.5-4.0); Total Protein 6.9 gm/dl (6.0-8.3)
[2022-06-25 18:36] LABS: Troponin I High Sensitivity 5.6 pg/ml (0-20)
--- NOTE | 2022-06-25 19:31 | CT Scan Report ---
CT OF THE HEAD WITHOUT CONTRAST CLINICAL HISTORY: Fall. COMPARISON STUDY: Head CT February 27, 2022. CT DOSE: 691.05 mGy.cm TECHNIQUE: Helical axial images of the head were obtained without IV contrast. Automated exposure con trol was utilized for the study. A dose lowering technique was utilized adhering to the principles o f ALARA. FINDINGS: No acute intracranial hemorrhage, midline shift or mass effect is present. Severe dilatatio n of the lateral ventricles remains unchanged. Mild dilatation of the third ventricle is unchanged. T he basal cisterns are patent. No extra-axial collections are present. There are no findings to sugges t acute dural sinus thrombosis or acute territorial infarct. No significant calvarial abnormalities a re present. Visualized portions of the sinuses and mastoid air cells are clear. IMPRESSION: 1. No acute intracranial findings. No change in hydrocephalus. 2. No acute calvarial fracture. ACT 112: Negative or not required by law. Electronically signed by: Ren Espinoza M.D. 06/25/2022 7:30 PM
--- NOTE | 2022-06-25 19:47 | XRay Report ---
XR chest 1V portable CLINICAL HISTORY: Chest pain, nonspecific COMPARISON STUDY: Chest radiograph July 23, 2021. FINDINGS: No pneumothorax or pleural effusion is present. Lung volumes are diminished. This is unchan ged. Right infrahilar opacity is noted. Cardiomediastinal silhouette is stable. Mild interstitial thi ckening is unchanged. This is likely chronic. IMPRESSION: 1. No change in low lung volumes with a right infrahilar opacity. This likely reflects pulmonary vess els or atelectasis. Consolidation could appear similar although is considered less likely. Radiograph ic follow-up to exclude an underlying lesion is recommended. 2. Stable interstitial thickening, likely chronic. ACT 112: Negative or not required by law. Electronically signed by: Ren Espinoza M.D. 06/25/2022 7:46 PM
[2022-06-25] MEDS ORDERED: OPTIRAY 350 100ml IV ONE (20:27)
--- NOTE | 2022-06-25 21:46 | CT Scan Report ---
Exam(s): CT ABDOMEN + PELVIS With Contrast EXAM: CT Abdomen and Pelvis With Intravenous Contrast CLINICAL HISTORY: Reason for exam: elevated lipase w/ fall. TECHNIQUE: Axial computed tomography images of the abdomen and pelvis with intravenous contrast. Automated exposure control was utilized for the study. A dose lowering technique was utilized adhering to the principles of ALARA. CONTRAST: Contrast must be dictated COMPARISON: No relevant prior studies available. FINDINGS: Lung bases: Unremarkable. No mass. No consolidation. Mediastinum: Mild-moderate hiatal hernia. ABDOMEN: Liver: Hepatic steatosis. Gallbladder and bile ducts: Contracted gallbladder. No calcified stones. No ductal dilation. Pancreas: Unremarkable. No mass. No ductal dilation. Spleen: Unremarkable. No splenomegaly. Adrenals: Unremarkable. No mass. Kidneys and ureters: Unremarkable. No hydronephrosis or delayed nephrogram. Stomach and bowel: Diverticulosis, without acute diverticulitis. No small bowel obstruction. No free intraperitoneal air. Mild fluid-filled small bowel, with mild wall thickening, correlate for mild enteritis. PELVIS: Appendix: Normal appendix. Bladder: Unremarkable. No mass. Reproductive: Unremarkable as visualized. ABDOMEN and PELVIS: Intraperitoneal space: Unremarkable. No free air. No significant fluid collection. Bones/joints: Degenerative changes of the spine. No acute fracture. No dislocation. Soft tissues: Unremarkable. Vasculature: Atherosclerotic changes of the aorta. No abdominal aortic aneurysm. Lymph nodes: Unremarkable. No enlarged lymph nodes. IMPRESSION: 1. Normal appendix. 2. Diverticulosis, without acute diverticulitis. No small bowel obstruction. No free intraperitoneal air. 3. Mild fluid-filled small bowel, with mild wall thickening, correlate for mild enteritis. 4. Mild-moderate hiatal hernia. 5. Hepatic steatosis. Electronically signed by: Amadeo Galarza MD 06/25/22 21:45 PM
[2022-06-25] MEDS ORDERED: ONDANSETRON INJ 2 MG/ML 2 ML VIAL IV STA (21:59)
[2022-06-25] MEDS ORDERED: SODIUM CHLORIDE 0.9% 1000ML 1,000 ML IV ONE (21:59)
[2022-06-26] MEDS ORDERED: GLUCAGON FOR INJ 1 MG VIAL SQ PRN (02:40)
[2022-06-26] MEDS ORDERED: DEXTROSE 50% 50 ML SYRINGE IV PRN (02:40)
[2022-06-26] MEDS ORDERED: GLUCOSE 40% GEL 15 GM TUBE PO PRN (02:40)
[2022-06-26] MEDS ORDERED: GLUCOSE 10 TAB/TUBE PO PRN (02:40)
[2022-06-26] MEDS ORDERED: TRIAMCINOLONE ACET 0.1% CR 15 GM TUBE TOP PRN (02:40)
[2022-06-26] MEDS ORDERED: ONDANSETRON INJ 2 MG/ML 2 ML VIAL IV PRN (02:40)
[2022-06-26] MEDS ORDERED: LOPERAMIDE HCL 2 MG CAP PO PRN (02:40)
[2022-06-26] MEDS ORDERED: ACETAMINOPHEN 325 MG TAB PO PRN (02:40)
[2022-06-26] MEDS ORDERED: CARBOHYDRATES FOR HYPOGLYCEMIA PO PRN (02:40)
[2022-06-26] MEDS: D5W AND 1/2NSS 1,000 ML IV SCH ×2 (02:55→10:27)
--- NOTE | 2022-06-26 02:57 | History and Physical Report ---
DATE OF ADMISSION: 06/26/2022. CHIEF COMPLAINT: Nausea, vomiting and a fall. HISTORY OF PRESENT ILLNESS: This is a 61-year-old male with past medical history significant for type 2 diabetes, hyperlipidemia, history of seizure disorder, history of psychiatric disorders, who is a poor historian, presents with falls and also nausea, vomiting. The patient has a history of mild mental retardation. The patient ays he lives at [facility] [place] and his , lives in next room. He walks with a walker. Today, he seems like when coming out of bathroom fell. HAs history of falls.. Denies any dizziness, no chest pain, no shortness of breath, no cough, but he vomited 3 times and vomited once in the ER. Denies any diarrhea or constipation. Bowels are moving okay. No abdominal pain. Normal bladder movements. Currently, resting comfortably and hemodynamically stable. His nausea has improved. ALLERGIES: No known drug allergies. PAST MEDICAL HISTORY: As mentioned above. PAST SURGICAL HISTORY: Cataract surgery. MEDICATIONS: The patient is on Tylenol Extra Strength 1000 mg p.o. q. 8 hours p.r.n., Fosamax 70 mg p.o. weekly, atorvastatin 40 mg p.o. a.m., divalproex 500 mg p.o. b.i.d., Januvia 100 mg p.o. a.m., levothyroxine 25 mcg p.o. daily, loperamide 2 mg p.o. b.i.d. p.r.n., metformin 1000 mg p.o. b.i.d., Zofran 4 mg p.o. q. 8 hours p.r.n., triamcinolone topical b.i.d. p.r.n., VitaFusion multivitamin gummies 2 tablets p.o. a.m. FAMILY HISTORY: Significant for father has diabetes. SOCIAL HISTORY: Currently living at [facility]. Former smoker, quit smoking in 10/2019. Smoked from 0.33 packs a day for 43 years. No alcohol use. No drug use. REVIEW OF SYSTEMS: As per HPI. Rest of review of systems is negative. PHYSICAL EXAMINATION: GENERAL: The patient is of moderate build, not in acute distress. VITAL SIGNS: Temperature 36.8, pulse 89, respiratory rate 18, blood pressure 119/84, oxygen 96% on room air. HEENT: Pupils equal, round and reactive to light. Oral mucosa moist. NECK: No JVD, no neck masses. CARDIOVASCULAR: S1 and S2 heard. Regular rate and rhythm. No murmur, no gallop. RESPIRATORY SYSTEM: Normal AP diameter. No accessory muscle use. No wheezing, no crackles. ABDOMEN: Soft, bowel sounds present, nontender, no distention. CENTRAL NERVOUS SYSTEM: Cranial nerves II through XII grossly intact. Nonfocal. EXTREMITIES: No edema, no erythema. LABORATORY DATA: WBC 7.1, hemoglobin 13, hematocrit 39, platelets 188. Sodium 138, potassium 4, chloride 103, bicarb 29, BUN 13, creatinine 1.07, serum glucose 159, calcium 9.4, total bilirubin 0.4, AST 33, ALT 46, alkaline phosphatase 52. Troponin I high sensitivity 5.6. Lipase 284. SARS-CoV-2 rapid test negative. IMAGING DATA: CT abdomen and pelvis with IV contrast, normal appendix, diverticulosis without acute diverticulitis. No small bowel obstruction, no free intraperitoneal air, with mild fluid-filled small bowel with mild wall thickening, correlated with mild enteritis, [id number] hiatal hernia, hepatic steatosis. CT of the head, no acute findings, no hydrocephalus. Chest x-ray, no change in low lung volumes with right infrahilar opacity, likely representing atelectasis, pulmonary edema or atelectasis. ASSESSMENT AND PLAN: This is a 61-year-old male, comes [facility] with a fall and also nausea and vomiting. 1. Falls: The patient has history of frequent falls. We will do PT, OT. Observe in the hospital. 2. Nausea and vomiting: on ct scan mild enteritis, most likely mild gastroenteritis. We will place him on clear liquid diet, IV fluids, IV antiemetics and monitor in the hospital. 3. History of seizure disorder: Continue his home medications. 4. History of diabetes: Hold his p.o. medications. Placed on insulin sliding scale. Follow the blood sugars. 5. History of hyperlipidemia: Continue statin. 6. Deep venous thrombosis prophylaxis: Heparin subcutaneously. DISPOSITION: Observe in medical floor. PT/OT prior to discharge. Social service to help with discharge planning. Discharged back to [place] when stable. Level 1 full code. Job ID: [id number] [facility]
[2022-06-26] MEDS: LEVOTHYROXINE SODIUM 25 MCG TABLET PO SCH (05:30)
[2022-06-26 07:12] LABS: Basophils # (auto) 0.02 K/uL (0-0.2); Basophils % (auto) 0.3 %; Eosinophils # (auto) 0.16 K/uL (0-0.50); Eosinophils % (auto) 2.2 %; Hematocrit (blood only) 38.6 % (42.0-52.0); Immature Granulocytes # (auto) 0.06 K/uL (0.01-0.20); Immature Granulocytes % (auto) 0.8 %; Lymphocytes # (auto) 2.75 K/uL (1.2-3.4); Mean Corpuscular Hemoglobin 29.7 pg (25.0-34.0); Mean Corpuscular Hgb Conc 33.7 g/dL (32.0-36.0); Mean Corpuscular Volume 88.3 fL (80.0-100.0); Mean Platelet Volume 9.5 fL (9.4-12.4); Monocytes # (auto) 0.69 K/uL (0.11-0.59); Monocytes % (auto) 9.3 %; Neutrophils # (auto) 3.76 K/uL (1.40-6.50); Neutrophils % (auto) 50.4 %; Platelet Count 182 K/uL (130-400); RDW Coefficient of Variation 13.2 % (11.5-14.5); RDW Standard Deviation 42.6 fL (36.4-46.3); Red Blood Count 4.37 M/uL (4.70-6.10); White Blood Count 7.44 K/ul (4.8-10.8)
[2022-06-26 07:18] LABS: BUN Creatinine Ratio 9.5 (10-20); Calcium 8.7 mg/dl (8.6-10.3); Creatinine Clr Calc Pharmacy 70.3 ml/min; Est GFR (African American) 88.4 ml/min; Est GFR (Non-African American) 76.2 ml/min; Magnesium 1.5 mg/dl (1.7-2.4); Potassium 4.3 mmol/L (3.5-5.1)
[2022-06-26] MEDS: ATORVASTATIN 40 MG TAB PO SCH (08:41)
[2022-06-26] MEDS: DIVALPROEX DELAY RELEASE 500 MG TAB PO SCH ×2 (08:41→20:38)
[2022-06-26] MEDS: HEPARIN SOD 5,000 UNIT/0.5 ML VIAL SQ SCH ×2 (08:41→20:38)
[2022-06-26] MEDS ORDERED: MAGNESIUM SULFATE / D5W 1 GM/100 ML BAG IV ONE (09:21)
[2022-06-26] MEDS: INSULIN ASPART PER UNIT CHARGE SC SCH ×4 (09:28→22:38)
--- NOTE | 2022-06-26 13:18 | Electrocardiogram Report ---
Test Reason : Blood Pressure : / mmHG Vent. Rate : 086 BPM Atrial Rate : 086 BPM P-R Int : 158 ms QRS Dur : 074 ms QT Int : 376 ms P-R-T Axes : 034 -23 -13 degrees QTc Int : 449 ms Poor data quality, interpretation may be adversely affected Normal sinus rhythm Low voltage QRS Inferior infarct , age undetermined Abnormal ECG When compared with ECG of 22-JUL-2021 01:16, No significant change was found Confirmed by Jose Maria Cano ([id number]) on 06/26/2022 1:17:42 PM Referred By: CHASTITY Confirmed By:Kit Cano
--- NOTE | 2022-06-26 17:41 | Communication Note ---
Date of Service: June 26, 2022 Patient was admitted overnight with nausea, vomiting and diarrhea with CT abdomen pelvis showing evidence of mild fluid-filled small bowel, with mild wall thickening consistent with gastroenteritis. Symptoms have subsided today without any further episodes of vomiting or diarrhea. Tolerating clears with plans to advance to solids for dinner. Stool culture pending but has not had a bowel movement today. Denies any fever, chills, lightheadedness, chest pain for shortness of breath, nausea, vomiting, dumping, dysuria, diarrhea constipation. If able to tolerate normal diet this evening, plan for discharge tomorrow. Initial magnesium low at 1.5 and was replaced. Repeat lab work tomorrow. Patient seen in collaboration with Dr. Light.
[2022-06-27] MEDS: LEVOTHYROXINE SODIUM 25 MCG TABLET PO SCH (05:45)
[2022-06-27 07:04] LABS: Hematocrit (blood only) 39.8 % (42.0-52.0); Hemoglobin 13.5 g/dl (14.0-18.0); Mean Corpuscular Hemoglobin 29.9 pg (25.0-34.0); Mean Corpuscular Hgb Conc 33.9 g/dL (32.0-36.0); Mean Corpuscular Volume 88.1 fL (80.0-100.0); Mean Platelet Volume 9.2 fL (9.4-12.4); Platelet Count 185 K/uL (130-400); RDW Coefficient of Variation 13.4 % (11.5-14.5); RDW Standard Deviation 43.2 fL (36.4-46.3); Red Blood Count 4.52 M/uL (4.70-6.10); White Blood Count 7.75 K/ul (4.8-10.8)
[2022-06-27 07:26] LABS: Calcium 8.6 mg/dl (8.6-10.3); Magnesium 1.8 mg/dl (1.7-2.4); Potassium 4.1 mmol/L (3.5-5.1)
[2022-06-27 07:31] LABS: BUN Creatinine Ratio 6.9 (10-20); Creatinine Clr Calc Pharmacy 73.1 ml/min; Est GFR (African American) 92.6 ml/min; Est GFR (Non-African American) 79.9 ml/min
[2022-06-27] MEDS: DIVALPROEX DELAY RELEASE 500 MG TAB PO SCH (09:18)
[2022-06-27] MEDS: INSULIN ASPART PER UNIT CHARGE SC SCH ×2 (09:18→14:03)
[2022-06-27] MEDS: ATORVASTATIN 40 MG TAB PO SCH (09:18)
[2022-06-27] MEDS: HEPARIN SOD 5,000 UNIT/0.5 ML VIAL SQ SCH (09:18)
--- NOTE | 2022-06-27 13:51 | Discharge Summary ---
Discharge Summary Date of Service June 27, 2022 Notes For Next Care Provider Mild gastroenteritis with associated weakness now resolved Medication Changes From Visit none Admission HPI Per Admitting Provider This is a 61-year-old male with past medical history significant for type 2 diabetes, hyperlipidemia, history of seizure disorder, history of psychiatric disorders, who is a poor historian, presents with falls and also nausea, vomiting. The patient has a history of mild mental retardation. The patient ays he lives at [facility] [place] and his , lives in [facility]. He walks with a walker. Today, he seems like when coming out of bathroom fell. HAs history of falls.. Denies any dizziness, no chest pain, no shortness of breath, no cough, but he vomited 3 times and vomited once in the ER. Denies any diarrhea or constipation. Bowels are moving okay. No abdominal pain. Normal bladder movements. Currently, resting comfortably and hemodynamically stable. His nausea has improved. Admission Exam Per Admitting Provider GENERAL: The patient is of moderate build, not in acute distress. VITAL SIGNS: Temperature 36.8, pulse 89, respiratory rate 18, blood pressure 119/84, oxygen 96% on room air. HEENT: Pupils equal, round and reactive to light. Oral mucosa moist. NECK: No JVD, no neck masses. CARDIOVASCULAR: S1 and S2 heard. Regular rate and rhythm. No murmur, no gallop. RESPIRATORY SYSTEM: Normal AP diameter. No accessory muscle use. No wheezing, no crackles. ABDOMEN: Soft, bowel sounds present, nontender, no distention. CENTRAL NERVOUS SYSTEM: Cranial nerves II through XII grossly intact. Nonfocal. EXTREMITIES: No edema, no erythema. Principal Dx & Hospital Course #1 = Principal Diagnosis (1) Gastroenteritis: (2) Fall: (3) Cognitive impairment: (4) Diabetes: Plan This is a 61-year-old male with past medical history significant for type 2 diabetes, hyperlipidemia, history of seizure disorder, history of psychiatric di sorders, who is a poor historian, presents with falls and also nausea, vomiting. CT abd/pelvis with mild fluid-filled small bowel, with mild wall thickening, correlate for mild enteritis. Symptoms consistent with mild gastroenteritis. Did order stool studies, but diarrhea resolved soon after arrival. Has not had nausea, vomiting or diarrhea in over a day and is tolerating regular diet without issue. Initially had episode of fall at personal care facility due to generalized weakness in setting of illness, but head CT without acute intracranial abnormality. Ambulates with walker at baseline. [place] to be appropriate to return to the [place], where he permanently resides. Patient is comfortable and hemodynamically stable at time of discharge. Discharge Exam Gen: WD/WN, NAD, lying in bed, A&Ox3 HEENT: Normocephalic, atraumatic, conjunctivae moist, sclerae anicteric, mucous membranes moist Lung: Clear to Auscultation bilaterally, no wheezes/rales/rhonchi Heart: Regular rate, regular rhythm, no murmurs, rubs, or gallops Abdomen: Soft, NT, ND +BS x 4 Extremities: no edema Skin: Warm, no rash Updated Medication List Medication Instructions Recorded Confirmed Type metformin 500 mg tablet,extended 1,000 mg PO BID17 01/14/18 06/25/22 History release 24 hr alendronate 70 mg tablet (Fosamax) 70 mg PO WK 06/10/20 06/25/22 History atorvastatin 40 mg tablet (Lipitor) 40 mg PO QAM 06/10/20 06/25/22 History divalproex 500 mg tablet,delayed 500 mg PO BID 06/10/20 06/25/22 History release acetaminophen 500 mg tablet 1,000 mg PO Q8H PRN Pain, 07/22/21 06/25/22 History (Tylenol Extra Strength) Moderate/FEVER ketoconazole 2 % shampoo 1 ea topical 2XWK 07/22/21 06/25/22 History loperamide 2 mg capsule 2 mg PO QID PRN Diarrhea 07/22/21 06/25/22 History ondansetron HCl 4 mg tablet 4 mg PO Q8H PRN Nausea 07/22/21 06/25/22 History sitagliptin phosphate 100 mg 100 mg PO QAM 07/22/21 06/25/22 History tablet (Januvia) triamcinolone acetonide 0.1 % 1 applic topical BID PRN SKIN 07/22/21 06/25/22 History topical cream IRRITATION BEHIND LEFT EAR Vitafusion Multivit Gummy 2 tab PO QAM 06/25/22 06/25/22 History Vitafusion Vitamin D 2,000 unit PO QAM 06/25/22 06/25/22 History levothyroxine 25 mcg tablet 25 mcg PO DAILYBB 06/25/22 06/25/22 History Hospital Stay Data Diagnostic Imagining Performed 06/25/22 17:42 CT head/brain wo con Stat 06/25/22 19:39 CT Abd and Pelvis [CT abd pelvis IV con only] Stat Pending Results Patient Have Any Pending Studies at Discharge: No Discharge Instructions Given to Patient (Per Discharging Provider) MEDICATION CHANGES: No medication changes SUMMARY OF TEST RESULTS: You were admitted to hospital for nausea, vomiting and diarrhea felt to be due to viral gastroenteritis. CT abd/pelvis with mild fluid-filled small bowel, with mild wall thickening, correlate for mild enteritis. RECOMMENDATIONS FOR FOLLOW-UP: Follow up with PCP as scheduled. Take it easy with bland foods for the next few days. Continue home medication regimen as before. OTHER INSTRUCTIONS: Seek medical attention if you have: * temperature above 101 * chest pain or trouble breathing * abdominal pain, nausea, vomiting * diarrhea, dark stools or bloody stools * any unanswered questions or concerns Call 911 if symptoms are severe. Please take good care of yourself. Call if you have any questions or problems. You can reach a [facility] hospitalist on duty at [facility] 24 hours a day by calling [phone]. Sally Swanson PA-C [facility] Hospitalist Total Time Total Time Spent Total Time Spent (In Minutes): 45 Supervising Physician Co-Signing Physician Notes Pt seen and examined by myself, Dr. Key Ledbetter MD. Care was coordinated with Sally Swanson PA-C. Please refer to their note for additional information. Pt seen on day of service. Was sitting at the bedside, eating a full breakfast and tolerating well. States that his episodes of N/V had subsided. [place] well enough to be discharged. AAOx3. No acute distress, abdomen nontender to palpation. CT abd/pelvis showed signs of enteritis. Pt eating food and tolerating well, N/V resolved. Stable for discharge, with close pcp followup.
--- NOTE | 2022-06-27 13:52 | Discharge Summary ---
Discharge Summary Date of Service June 27, 2022 Notes For Next Care Provider mild gastroenteritis now resolved, Admission HPI Per Admitting Provider This is a 61-year-old male with past medical history significant for type 2 diabetes, hyperlipidemia, history of seizure disorder, history of psychiatric disorders, who is a poor historian, presents with falls and also nausea, vomiting. The patient has a history of mild mental retardation. The patient ays he lives at [facility] [place] and his , lives in [facility]. He walks with a walker. Today, he seems like when coming out of bathroom fell. HAs history of falls.. Denies any dizziness, no chest pain, no shortness of breath, no cough, but he vomited 3 times and vomited once in the ER. Denies any diarrhea or constipation. Bowels are moving okay. No abdominal pain. Normal bladder movements. Currently, resting comfortably and hemodynamically stable. His nausea has improved. Principal Dx & Hospital Course #1 = Principal Diagnosis Updated Medication List Medication Instructions Recorded Confirmed Type metformin 500 mg tablet,extended 1,000 mg PO BID17 01/14/18 06/25/22 History release 24 hr alendronate 70 mg tablet (Fosamax) 70 mg PO WK 06/10/20 06/25/22 History atorvastatin 40 mg tablet (Lipitor) 40 mg PO QAM 06/10/20 06/25/22 History divalproex 500 mg tablet,delayed 500 mg PO BID 06/10/20 06/25/22 History release acetaminophen 500 mg tablet 1,000 mg PO Q8H PRN Pain, 07/22/21 06/25/22 History (Tylenol Extra Strength) Moderate/FEVER ketoconazole 2 % shampoo 1 ea topical 2XWK 07/22/21 06/25/22 History loperamide 2 mg capsule 2 mg PO QID PRN Diarrhea 07/22/21 06/25/22 History ondansetron HCl 4 mg tablet 4 mg PO Q8H PRN Nausea 07/22/21 06/25/22 History sitagliptin phosphate 100 mg 100 mg PO QAM 07/22/21 06/25/22 History tablet (Januvia) triamcinolone acetonide 0.1 % 1 applic topical BID PRN SKIN 07/22/21 06/25/22 History topical cream IRRITATION BEHIND LEFT EAR Vitafusion Multivit Gummy 2 tab PO QAM 06/25/22 06/25/22 History Vitafusion Vitamin D 2,000 unit PO QAM 06/25/22 06/25/22 History levothyroxine 25 mcg tablet 25 mcg PO DAILYBB 06/25/22 06/25/22 History Hospital Stay Data Diagnostic Imagining Performed 06/25/22 17:42 CT head/brain wo con Stat 06/25/22 19:39 CT Abd and Pelvis [CT abd pelvis IV con only] Stat Pending Results Patient Have Any Pending Studies at Discharge: No Discharge Instructions Given to Patient (Per Discharging Provider) MEDICATION CHANGES: No medication changes SUMMARY OF TEST RESULTS: You were admitted to hospital for nausea, vomiting and diarrhea felt to be due to viral gastroenteritis. CT abd/pelvis with mild fluid-filled small bowel, with mild wall thickening, correlate for mild enteritis. RECOMMENDATIONS FOR FOLLOW-UP: Follow up with PCP as scheduled. Take it easy with bland foods for the next few days. Continue home medication regimen as before. OTHER INSTRUCTIONS: Seek medical attention if you have: * temperature above 101 * chest pain or trouble breathing * abdominal pain, nausea, vomiting * diarrhea, dark stools or bloody stools * any unanswered questions or concerns Call 911 if symptoms are severe. Please take good care of yourself. Call if you have any questions or problems. You can reach a [facility] hospitalist on duty at [facility] 24 hours a day by calling [phone]. Sally Swanson PA-C [facility] Hospitalist
== END 2022-06-27 14:04 | disposition home or self-care (01) ==
LOC: 3N 17:33 → ED 17:33 → SUATTDRO 06-26 01:06 → 3N 06-26 02:16

== ENCOUNTER 2022-07-06 21:34 | Inpatient (IN) ==
[2022-07-06] MEDS ORDERED: HYDROmorphone INJ 0.5 MG/0.5 ML SYR IV STA ×2 (21:43→22:54)
[2022-07-06] MEDS ORDERED: MoRPHine SULFATE 10 MG/ML CARP/VIAL ONE (21:45)
--- NOTE | 2022-07-06 21:46 | Emergency Department Note ---
Impression & Plan Closed fracture of left hip, Fall from ground level ED Provider Note Name: RASHEEDA REYNOSO Age: 61 Sex: M Arrives Via: Ambulance Informant: Patient, EMS ED Provider: Pedro Luis Norman MD Chief Complaint: Left leg injury Impression: As per impressions above Medical Decision Makin-year-old male from local nursing facility who has known cognitive disorder along with extensive other past medical history arrives following a fall at nursing facility. Patient was actually just seen this morning for another fall with work-up that was benign. Unfortunately this time seems to have injured his leg and has deformity of the left thigh/hip. X-rays do confirm an extensive com minuted left hip fracture. Chest x-ray is benign and the rest of the femur looks okay. Laboratory work-up is benign. Conteh catheter was placed. Patient's pain was controlled with IV narcotics. At this point given no headache and no evidence of head injury would hold off on CT imaging of the bra in at this time. Hospitalist was consulted for further management. Patient does have a mildly elevated CK may be due to injury as well as maybe mild rhabdo though was not on the ground very long tonight. He was given a small bolus of fluid. Prior Medical Record and Triage/Nursing Notes reviewed by Me External chart reviewed by me Differentials:Fracture, dislocation, compartment syndrome, neurovascular injury, multiple other pathologies considered Vital Signs: reviewed and remarkable for hypertension Interventions: Normal saline bolus 500 mL IV, Dilaudid 0.5 mg IV x2 Labs:Reviewed and remarkable for mildly elevated CK Imagin view left femur x-rays as per my interpretation comminuted displaced left intertrochanteric hip fracture 1 view pelvis x-rays as per my interpretation, hip fracture 1 view chest x-ray as per my interpretation no infiltrate effusion poor aeration noted. Consults:Dr Aleyda Trejo Hospitalist Plan: Disposition:Hospitalization. Condition: Good History of Present Illness:61-year-old gentleman arrives for evaluation of left knee and hip pain. Patient fell at his nursing facility landing on his left knee. Notes left thigh and knee pain. Unable to walk. Unable to get up due to the pain. No head injury or loss of consciousness. Patient with recurrent fall issues and was actually seen here earlier this morning. Denies any headache, chest pain, neck pain, other injuries. Past History:See Below Home Medications:See Below Allergies:See Below Vitals:Blood Pressure: 172/100, Pulse 94, RR 20, T 36.6C, O2 99% on RA Physical Exam: GENERAL: Patient is uncomfortable appearing and in moderate distress. EYES: No scleral icterus, unremarkable pupils. NECK: No cervical midline TTP. RESPIRATORY: No dyspnea. Clear to auscultation and equal bilaterally. No wheeze, no rhonchi. CARDIOVASCULAR: Regular rate and rhythm.No murmurs, rubs, gallops appreciated. GASTROINTESTINAL: Abdomen soft, non-tender, no peritonitis. EXTREMITIES: Shortened externally rotated left leg with swelling over the left proximal thigh pain with range of motion knee and hip. Distal N/V intact. Moderate edema bilateral lower leg. Normal motion all extremities, no cyanosis, no edema. NEUROLOGIC: Alert and answering most questions, no focal neurologic deficit appreciated SKIN: No rash, no jaundice, no diaphoresis. PSYCH: Appropriate GCS: 15 ED Course: Times/Reassessments: Patient was given IV narcotics with vast improvement in pain. He denies any headache or neck pain. Good pulses in foot. Pedro Luis Norman MD Past Med/Surg History Medical History Abdominal pain Abnormal EKG DR. RAMOS (01/06/18) CLEARED Anemia COVID-19 Diabetes mellitus, type 2 Fall Hyperlipidemia Hypomagnesemia Intellectual disability Poor historian Psychotic disorder MANY YEARS AGO "NO RECENT HX" Seizure MANY YEARS AGO/NONE FOR MANY YEARS AND NO CURRENT SEIZURE MEDS(NEUROLOGY IN LAST 6 MONTHS AGO) [place] Weakness Surgical History History of cataract surgery History of eye surgery Hx of tooth extraction Family History Mother , Mother age 87 and he is uncertain of her medical conditions No problems noted. Father , Father in his 80s of uncertain causes No problems noted. 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 Beliefs That Will Affect Care: None marital status: Current Living Situation: Personal Care Facility Current Living Situation Comment: [facility] current occupational status: unemployed current occupation: Unemployed How many Children do You have: 1 Other Information That Helps Us Care for You: No Feels Safe at Home: Yes Safety Concerns: Feels Safe At This Time Assistive Devices: Glasses and Walker Allergies Allergies Allergy/AdvReac Type Severity Reaction Status Date / Time No Known Allergies Allergy Unknown Verified 07/06/22 23:28 Home Meds Home Medications Medication Instructions Recorded Confirmed metformin 500 mg tablet,extended 1,000 mg PO BID 01/14/18 07/06/22 release 24 hr alendronate 70 mg tablet (Fosamax) 70 mg PO WK 06/10/20 07/06/22 atorvastatin 40 mg tablet (Lipitor) 40 mg PO QAM 06/10/20 07/06/22 divalproex 500 mg tablet,delayed 500 mg PO BID 06/10/20 07/06/22 release acetaminophen 500 mg tablet 1,000 mg PO Q8H PRN Pain, 07/22/21 07/06/22 (Tylenol Extra Strength) Moderate/FEVER ketoconazole 2 % shampoo 1 ea topical 2XWK 07/22/21 07/06/22 loperamide 2 mg capsule 2 mg PO QID PRN Diarrhea 07/22/21 07/06/22 ondansetron HCl 4 mg tablet 4 mg PO Q8H PRN Nausea 07/22/21 07/06/22 sitagliptin phosphate 100 mg 100 mg PO QAM 07/22/21 07/06/22 tablet (Januvia) triamcinolone acetonide 0.1 % 1 applic topical BID PRN SKIN 07/22/21 07/06/22 topical cream IRRITATION BEHIND LEFT EAR Vitafusion Multivit Gummy 2 tab PO QAM 06/25/22 07/06/22 Vitafusion Vitamin D 2,000 unit PO QAM 06/25/22 07/06/22 levothyroxine 25 mcg tablet 25 mcg PO DAILYBB 06/25/22 07/06/22 diphenoxylate-atropine 2.5 2 tab PO QID 07/06/22 07/06/22 mg-0.025 mg tablet Results & Data (ED) Vital Signs Vital Signs - 24 hr 07/06/22 21:41 07/06/22 21:41 07/06/22 23:04 Temperature 36.6 C 36.6 C Temperature Source Temporal Artery Scan Temporal Artery Scan Pulse Rate 94 H Pulse Rate [Finger] 94 H 98 H Pulse Rate from SpO2 Sensor Respiratory Rate 20 20 20 Respiratory Effort / Characteristics Non-Labored Spontaneous Non-Labored Spontaneous Non-Labored Spontaneous Respiratory Depth Normal Normal Normal Blood Pressure 172/100 H Blood Pressure [Right Arm] 172/100 H 164/97 H Blood Pressure Mean 124 Blood Pressure Mean [Right Arm] 124 119 Pulse Oximetry 99 99 94 Oxygen Delivery Method Room Air Room Air Room Air Sepsis Recent Fever Within 48 Hours No Sepsis New/Unexplained Change in Mental Status N/A Sepsis Action Taken by Nursing No Action Required 07/06/22 23:00 Temperature Temperature Source Pulse Rate 102 H Pulse Rate [Finger] Pulse Rate from SpO2 Sensor 103 H Respiratory Rate 14 Respiratory Effort / Characteristics Respiratory Depth Blood Pressure 164/97 H Blood Pressure [Right Arm] Blood Pressure Mean 119 Blood Pressure Mean [Right Arm] Pulse Oximetry 97 Oxygen Delivery Method Sepsis Recent Fever Within 48 Hours Sepsis New/Unexplained Change in Mental Status Sepsis Action Taken by Nursing Laboratory Data 07/06/22 21:55 07/06/22 21:55 Lab Results 07/06/22 07/06/22 07/06/22 Range/Units 21:45 21:55 21:55 WBC 8.80 (4.8-10.8) K/ul RBC 4.16 L (4.70-6.10) M/uL Hgb 12.7 L (14.0-18.0) g/dl Hct 37.3 L (42.0-52.0) % MCV 89.7 (80.0-100.0) fL MCH 30.5 (25.0-34.0) pg MCHC 34.0 (32.0-36.0) g/dL RDW Std Deviation 43.8 (36.4-46.3) fL RDW Coeff of Luci 13.3 (11.5-14.5) % Plt Count 203 (130-400) K/uL MPV 9.8 (9.4-12.4) fL Immature Gran % (Auto) 0.8 % Neut % (Auto) 71.0 % Lymph % (Auto) 16.0 % [place] % (Auto) 10.8 % Eos % (Auto) 1.3 % Baso % (Auto) 0.1 % Neut # (Auto) 6.25 (1.40-6.50) K/uL Lymph # (Auto) 1.41 (1.2-3.4) K/uL [place] # (Auto) 0.95 H (0.11-0.59) K/uL Eos # (Auto) 0.11 (0-0.50) K/uL Baso # (Auto) 0.01 (0-0.2) K/uL Immature Gran # (Auto) 0.07 (0.01-0.20) K/uL Sodium 138 (136-145) mmol/L Potassium 4.3 (3.5-5.1) mmol/L Chloride 103 (98-107) mmol/L Carbon Dioxide 25 (21-32) mmol/L Anion Gap 10 (3-11) BUN 12 (6-23) mg/dl Creatinine 0.98 (0.6-1.4) mg/dl Est Cr Clr Drug Dosing 73.1 ml/min Est GFR ( Amer) 96.1 ml/min Est GFR (Non-Af Amer) 82.9 ml/min BUN/Creatinine Ratio 12.2 (10-20) Glucose 167 H (70-99(Fasting)) mg/dl Calcium 8.9 (8.6-10.3) mg/dl Total Creatine Kinase 525 H (30-223) U/L SARS-CoV-2, RNA, NAAT NEGATIVE (NEGATIVE) Administered Medications Sodium Chloride (Nss 1000ml) 1,000 mls @ 125 mls/hr IV .Q8H MARIBELL Stop: 08/06/22 00:49 Last Admin: 07/07/22 01:30 Dose: 125 mls/hr Documented By: MAIRA Insulin Aspart (Insulin Aspart Per Unit Charge) 0 units SC Q6 MARIBELL Stop: 08/06/22 00:49 Last Admin: 07/07/22 01:30 Dose: 1 units Documented By: MAIRA Co-signed By: LY Discontinued Medications Hydromorphone HCl (Hydromorphone Inj 0.5 Mg/0.5 Ml Syr) 0.5 mg IV NOW STA Stop: 07/06/22 21:44 Last Admin: 07/06/22 21:53 Dose: 0.5 mg Documented By: ALFIE Hydromorphone HCl (Hydromorphone Inj 0.5 Mg/0.5 Ml Syr) 0.5 mg IV NOW STA Stop: 07/06/22 22:55 Last Admin: 07/06/22 22:58 Dose: 0.5 mg Documented By: ALFIE Hydromorphone HCl (Hydromorphone Inj 0.5 Mg/0.5 Ml Syr) 0.5 mg IV Q15M PRN PRN Reason: Pain Stop: 07/20/22 22:53 Last Admin: 07/07/22 00:21 Dose: 0.5 mg Documented By: ROCIO Sodium Chloride (Nss) 500 mls @ 999 mls/hr IV .Q31M ONE Stop: 07/06/22 23:52 Last Infusion: 07/07/22 00:24 Dose: 0 mls/hr Documented By: Admin: 07/06/22 23:35 Dose: 999 mls/hr Documented By: ROCIO Morphine Sulfate (Morphine Sulfate 10 Mg/Ml Carp/Vial) Confirm Administered Dose 10 mg .ROUTE .STK-MED ONE Stop: 07/06/22 21:46 Last Admin: 07/06/22 21:48 Dose: Not Given Documented By: ALFIE Discharge Plan Visit Data Chief Complaint: Fall Stated Complaint: FALL/DISLOCATED [place]ATE[place]A ED Provider: Pedro Luis Norman Discharge Problem: Closed fracture of left hip, Fall from ground level Patient Disposition: Admitted As Inpatient Discharge Instructions Interventions: ED Discharge Assessment Last Done: 07/07/22 00:23 Closed fracture of left hip Qualifiers: Encounter type: initial encounter Qualified Code(s): S72.002A - Fracture of unspecified part of neck of left femur, initial encounter for closed fracture
[2022-07-06 22:21] LABS: Basophils # (auto) 0.01 K/uL (0-0.2); Basophils % (auto) 0.1 %; Eosinophils # (auto) 0.11 K/uL (0-0.50); Eosinophils % (auto) 1.3 %; Hematocrit (blood only) 37.3 % (42.0-52.0); Hemoglobin 12.7 g/dl (14.0-18.0); Immature Granulocytes # (auto) 0.07 K/uL (0.01-0.20); Immature Granulocytes % (auto) 0.8 %; Lymphocytes # (auto) 1.41 K/uL (1.2-3.4); Mean Corpuscular Hemoglobin 30.5 pg (25.0-34.0); Mean Corpuscular Volume 89.7 fL (80.0-100.0); Mean Platelet Volume 9.8 fL (9.4-12.4); Monocytes # (auto) 0.95 K/uL (0.11-0.59); Monocytes % (auto) 10.8 %; Neutrophils # (auto) 6.25 K/uL (1.40-6.50); Platelet Count 203 K/uL (130-400); RDW Coefficient of Variation 13.3 % (11.5-14.5); RDW Standard Deviation 43.8 fL (36.4-46.3); Red Blood Count 4.16 M/uL (4.70-6.10)
[2022-07-06] MEDS ORDERED: HYDROmorphone INJ 0.5 MG/0.5 ML SYR IV PRN (22:54)
[2022-07-06 23:08] LABS: Calcium 8.9 mg/dl (8.6-10.3); Potassium 4.3 mmol/L (3.5-5.1)
[2022-07-06 23:10] LABS: Appearance Urine Clear (Clear); Bilirubin Urine Negative (Negative); Blood Urine Negative (Negative); Color Urine Yellow; Glucose Urine UA Trace (Negative); Ketones Urine 1+ (Negative); Leukocyte Esterase Urine Negative (Negative); Nitrite Urine Negative (Negative); Protein Urine Negative (Negative); Specific Gravity Urine 1.022 (1.000-1.030); Urobilinogen Urine Negative (Negative); pH Urine 7.5 (4.5-7.5)
[2022-07-06 23:14] LABS: BUN Creatinine Ratio 12.2 (10-20); Creatinine Clr Calc Pharmacy 73.1 ml/min; Est GFR (African American) 96.1 ml/min; Est GFR (Non-African American) 82.9 ml/min
[2022-07-06] MEDS ORDERED: SODIUM CHLORIDE 0.9% 500 ML IV ONE (23:22)
[2022-07-07] MEDS ORDERED: DEXTROSE 50% 50 ML SYRINGE IV PRN ×2 (00:50→13:48)
[2022-07-07] MEDS ORDERED: HYDROmorphone INJ 0.5 MG/0.5 ML SYR IV PRN (00:50)
[2022-07-07] MEDS ORDERED: GLUCOSE 40% GEL 15 GM TUBE PO PRN ×2 (00:50→13:48)
[2022-07-07] MEDS ORDERED: TRIAMCINOLONE ACET 0.1% CR 15 GM TUBE TOP PRN (00:50)
[2022-07-07] MEDS ORDERED: GLUCOSE 10 TAB/TUBE PO PRN ×2 (00:50→13:48)
[2022-07-07] MEDS ORDERED: ONDANSETRON INJ 2 MG/ML 2 ML VIAL IV PRN ×2 (00:50→10:06)
[2022-07-07] MEDS ORDERED: GLUCAGON FOR INJ 1 MG VIAL SQ PRN ×2 (00:50→13:48)
[2022-07-07] MEDS ORDERED: CARBOHYDRATES FOR HYPOGLYCEMIA PO PRN ×2 (00:50→13:48)
[2022-07-07] MEDS ORDERED: ACETAMINOPHEN 325 MG TAB PO PRN (00:50)
[2022-07-07] MEDS: INSULIN ASPART PER UNIT CHARGE SC SCH ×5 (01:30→20:25)
[2022-07-07] MEDS: SODIUM CHLORIDE 0.9% 1000ML 1,000 ML IV SCH ×3 (01:30→13:57)
[2022-07-07 06:07] LABS: Basophils # (auto) 0.02 K/uL (0-0.2); Basophils % (auto) 0.2 %; Eosinophils # (auto) 0.08 K/uL (0-0.50); Eosinophils % (auto) 0.9 %; Hematocrit (blood only) 34.2 % (42.0-52.0); Hemoglobin 11.1 g/dl (14.0-18.0); Immature Granulocytes # (auto) 0.05 K/uL (0.01-0.20); Immature Granulocytes % (auto) 0.6 %; Lymphocytes # (auto) 2.09 K/uL (1.2-3.4); Lymphocytes % (auto) 23.4 %; Mean Corpuscular Hemoglobin 29.3 pg (25.0-34.0); Mean Corpuscular Hgb Conc 32.5 g/dL (32.0-36.0); Mean Corpuscular Volume 90.2 fL (80.0-100.0); Mean Platelet Volume 9.4 fL (9.4-12.4); Monocytes # (auto) 1.09 K/uL (0.11-0.59); Monocytes % (auto) 12.2 %; Neutrophils # (auto) 5.61 K/uL (1.40-6.50); Neutrophils % (auto) 62.7 %; Platelet Count 193 K/uL (130-400); RDW Coefficient of Variation 13.3 % (11.5-14.5); Red Blood Count 3.79 M/uL (4.70-6.10); White Blood Count 8.94 K/ul (4.8-10.8)
[2022-07-07] MEDS: LEVOTHYROXINE SODIUM 25 MCG TABLET PO SCH (06:18)
[2022-07-07 06:26] LABS: BUN Creatinine Ratio 11.4 (10-20); Calcium 8.1 mg/dl (8.6-10.3); Est GFR (African American) 107.5 ml/min; Est GFR (Non-African American) 92.7 ml/min; Magnesium 1.6 mg/dl (1.7-2.4); Potassium 4.2 mmol/L (3.5-5.1)
[2022-07-07] MEDS: ATORVASTATIN 40 MG TAB PO SCH (07:33)
[2022-07-07] MEDS: CHOLECALCIFEROL 1,000 UNITS 25 MCG TAB PO SCH (07:34)
[2022-07-07] MEDS: MULTIVITAMIN CHEWABLE TAB PO SCH (07:34)
[2022-07-07] MEDS: DIVALPROEX DELAY RELEASE 500 MG TAB PO SCH ×2 (07:34→20:25)
[2022-07-07] MEDS: KETOCONAZOLE 2% SCH ×2 (07:34→15:27)
--- NOTE | 2022-07-07 07:35 | XRay Report ---
XR pelvis 1-2V routine, XR femur LT 2V routine CLINICAL HISTORY: left hip pain COMPARISON STUDY: Abdomen and pelvis CT 07/06/2022.. FINDINGS: Comminuted and displaced intertrochanteric fracture within the proximal left femur. Contras t within the bladder from the recent CT examination. No acute fracture or dislocation within the pelv is or right hip. The distal left femur is intact. IMPRESSION: Comminuted and displaced intertrochanteric fracture within the proximal left femur. ACT 112: Negative or not required by law. Electronically signed by: Jc Cotto M.D. 07/07/2022 7:33 AM
--- NOTE | 2022-07-07 07:36 | XRay Report ---
XR chest 1V portable HISTORY: left hip fracture COMPARISON: Chest 06/25/2022. FINDINGS: No pneumothorax. No pleural effusions. There are low lung volumes with chronic interstitial thickening. The heart remains mildly enlarged. No evidence for pulmonary edema. IMPRESSION: Stable cardiomegaly and mild interstitial thickening. ACT 112: Negative or not required by law. Electronically signed by: Jc Cotto M.D. 07/07/2022 7:35 AM
--- NOTE | 2022-07-07 08:12 | Anesthesiology Consultation ---
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 Surgery Operation Date: 07/07/22 10:00 Proposed Procedures p Left Intramedullary Zeferino Femur - [place] MD Height/Weight Height: 5 ft 2 in Weight: 80.5 kg Allergies Allergy/AdvReac Type Severity Reaction Status Date / Time No Known Allergies Allergy Unknown Verified 07/06/22 23:28 Medications Home Medications Medication Instructions Recorded Confirmed Last Taken metformin 500 mg tablet,extended 1,000 mg PO BID 01/14/18 07/06/22 06/25/22 07:30 release 24 hr alendronate 70 mg tablet (Fosamax) 70 mg PO WK 06/10/20 07/06/22 06/25/22 atorvastatin 40 mg tablet (Lipitor) 40 mg PO QAM 06/10/20 07/06/22 06/25/22 divalproex 500 mg tablet,delayed 500 mg PO BID 06/10/20 07/06/22 06/25/22 07:30 release acetaminophen 500 mg tablet 1,000 mg PO Q8H PRN Pain, 07/22/21 07/06/22 Unknown (Tylenol Extra Strength) Moderate/FEVER ketoconazole 2 % shampoo 1 ea topical 2XWK 07/22/21 07/06/22 06/25/22 loperamide 2 mg capsule 2 mg PO QID PRN Diarrhea 07/22/21 07/06/22 06/25/22 10:00 ondansetron HCl 4 mg tablet 4 mg PO Q8H PRN Nausea 07/22/21 07/06/22 07/11/21 sitagliptin phosphate 100 mg 100 mg PO QAM 07/22/21 07/06/22 06/25/22 tablet (Januvia) triamcinolone acetonide 0.1 % 1 applic topical BID PRN SKIN 07/22/21 07/06/22 U nknown topical cream IRRITATION BEHIND LEFT EAR Vitafusion Multivit Gummy 2 tab PO QAM 06/25/22 07/06/22 06/25/22 Vitafusion Vitamin D 2,000 unit PO QAM 06/25/22 07/06/22 06/25/22 levothyroxine 25 mcg tablet 25 mcg PO DAILYBB 06/25/22 07/06/22 06/25/22 diphenoxylate-atropine 2.5 2 tab PO QID 07/06/22 07/06/22 Unknown mg-0.025 mg tablet Active Medications Generic Name Dose Route Start Last Admin Trade Name Kashmirq PRN Reason Stop Dose Admin Atorvastatin Calcium 40 mg 07/07/22 09:00 07/07/22 07:33 Atorvastatin 40 Mg Tab PO 08/06/22 08:59 40 mg QAM MARIBELL Administration Divalproex Sodium 500 mg 07/07/22 09:00 07/07/22 07:34 Divalproex Delay Release 500 Mg Tab PO 08/06/22 08:59 500 mg BID MARIBELL Administration Hydromorphone HCl 0.5 mg 07/07/22 00:50 07/07/22 07:33 Hydromorphone Inj 0.5 Mg/0.5 Ml Syr IV 07/21/22 00:49 0.5 mg Q3H PRN Administration Pain Sodium Chloride 1,000 mls @ 125 mls/hr 07/07/22 00:50 07/07/22 01:30 Nss 1000ml IV 08/06/22 00:49 125 mls/hr .Q8H MARIBELL Administration Insulin Aspart 0 units 07/07/22 00:50 07/07/22 06:14 Insulin Aspart Per Unit Charge SC 08/06/22 00:49 Not Given Q6 MARIBELL Levothyroxine Sodium 25 mcg 07/07/22 06:30 07/07/22 06:18 Levothyroxine Sodium 25 Mcg Tablet PO 08/06/22 06:29 25 mcg DAILYBB MARIBELL Administration Miscellaneous 1 each 07/07/22 08:00 07/07/22 07:34 Ketoconazole 2 % Shampoo - Order Awaiting Action N/A 08/06/22 07:59 Not Given QS MARIBELL Multivitamins/Folic Acid/Vitamin C 1 tab 07/07/22 09:00 07/07/22 07:34 Multivitamin Chewable Tab PO 08/06/22 08:59 1 tab QAM MARIBELL Administration Vitamin D 2,000 units 07/07/22 09:00 07/07/22 07:34 Cholecalciferol 1,000 Units 25 Mcg Tab PO 08/06/22 08:59 2,000 units QAM MARIBELL Administration Past Medical History Medical History Abdominal pain Abnormal EKG DR. RAMOS (01/06/18) CLEARED Anemia COVID-19 Diabetes mellitus, type 2 Fall Hyperlipidemia Hypomagnesemia Intellectual disability Poor historian Psychotic disorder MANY YEARS AGO "NO RECENT HX" Seizure MANY YEARS AGO/NONE FOR MANY YEARS AND NO CURRENT SEIZURE MEDS(NEUROLOGY IN LAST 6 MONTHS AGO) [facility] Weakness Past Family History Family History Mother , Mother age 87 and he is uncertain of her medical conditions No problems noted. Father , Father in his 80s of uncertain causes No problems noted. Past Surgical History Surgical History History of cataract surgery History of eye surgery Hx of tooth extraction Social History Smoking Status: Former smoker tobacco type: cigarettes Smoking cigarettes per day: NO CIG FOR 2 WEEKS/RECENTLY USING NICOTINE PATCH Do You Dip or Chew Tobacco: No Hx Alcohol Use: No Alcohol type: beer and wine alcohol intake frequency: a few times a month Hx Substance Use: No substance use type: does not use Physical Exam Vital Signs Last Vital Signs Temp 98.8 F 07/07/22 07:29 Pulse 105 H 07/07/22 07:29 Resp 20 07/07/22 07:29 BP 137/81 07/07/22 07:29 Pulse Ox 97 07/07/22 07:29 O2 Del Method Nasal Cannula 07/07/22 07:29 O2 Flow Rate 2 07/07/22 07:29 Testing Laboratory Results 07/07/22 05:39 07/07/22 05:39 Urine Color Yellow 07/06/22 Unknown Urine Appearance Clear (Clear) 07/06/22 Unknown Urine pH 7.5 (4.5-7.5) 07/06/22 Unknown Ur Specific [place] 1.022 (1.000-1.030) 07/06/22 Unknown Urine Protein Negative (Negative) 07/06/22 Unknown Urine Glucose (UA) Trace (Negative) H 07/06/22 Unknown Urine Ketones 1+ (Negative) H 07/06/22 Unknown Urine Nitrite Negative (Negative) 07/06/22 Unknown Ur Leukocyte Esterase Negative (Negative) 07/06/22 Unknown 07/07/22 07/07/22 06:06 01:02 POC Glucose 137 H 169 H Electrocardiogram Date: 07/06/22 Sinus tachycardia, rate 111 bpm Possible Left atrial enlargement Low voltage QRS Inferior infarct (cited on or before 25-JUN-2022) Abnormal ECG When compared with ECG of 25-JUN-2022 17:41, No significant change was found Chest X-Ray Date: 07/06/22 FINDINGS: No pneumothorax. No pleural effusions. There are low lung volumes with chronic interstitial thickening. The heart remains mildly enlarged. No evidence for pulmonary edema. IMPRESSION: Stable cardiomegaly and mild interstitial thickening.
--- NOTE | 2022-07-07 08:30 | Orthopedic Consultation ---
Date of Service July 07, 2022 Assessment & Plan (1) Closed fracture of left hip: He has been admitted by the hospital service. We will get a plan on IM nailing of left inotrope fracture. The risk meant the procedure explained to the patient. I attempted to contact family unsuccessfully this morning. We will try to proceed with the contact them to talk about as well. Informed consent was obtained. History of Present Illness Reason for Consultation: . Left hip fracture Requesting Physician: . Attending Physician: Mac Antony MD . 61-year-old gentleman who is a resident of a care facility who has had multiple falls recently. He apparently was recently evaluated for a fall without any signs of a problem. He had another fall just last evening. She had cute onset of pain. Unable to ambulate. Brought to emergency room for x-rays left inotrope fracture. He has been admitted and indicated for orthopedic evaluation and treatment. Allergies Allergy/AdvReac Type Severity Reaction Status Date / Time No Known Allergies Allergy Unknown Verified 07/06/22 23:28 Home Medications Medication Instructions Recorded Confirmed Type metformin 500 mg tablet,extended 1,000 mg PO BID 01/14/18 07/06/22 History release 24 hr alendronate 70 mg tablet (Fosamax) 70 mg PO WK 06/10/20 07/06/22 History atorvastatin 40 mg tablet (Lipitor) 40 mg PO QAM 06/10/20 07/06/22 History divalproex 500 mg tablet,delayed 500 mg PO BID 06/10/20 07/06/22 History release acetaminophen 500 mg tablet 1,000 mg PO Q8H PRN Pain, 07/22/21 07/06/22 History (Tylenol Extra Strength) Moderate/FEVER ketoconazole 2 % shampoo 1 ea topical 2XWK 07/22/21 07/06/22 History loperamide 2 mg capsule 2 mg PO QID PRN Diarrhea 07/22/21 07/06/22 History ondansetron HCl 4 mg tablet 4 mg PO Q8H PRN Nausea 07/22/21 07/06/22 History sitagliptin phosphate 100 mg 100 mg PO QAM 07/22/21 07/06/22 History tablet (Januvia) triamcinolone acetonide 0.1 % 1 applic topical BID PRN SKIN 07/22/21 07/06/22 History topical cream IRRITATION BEHIND LEFT EAR Vitafusion Multivit Gummy 2 tab PO QAM 06/25/22 07/06/22 History Vitafusion Vitamin D 2,000 unit PO QAM 06/25/22 07/06/22 History levothyroxine 25 mcg tablet 25 mcg PO DAILYBB 06/25/22 07/06/22 History diphenoxylate-atropine 2.5 2 tab PO QID 07/06/22 07/06/22 History mg-0.025 mg tablet Past Med/Surg History Medical History Abdominal pain Abnormal EKG DR. RAMOS (01/06/18) CLEARED Anemia COVID-19 Diabetes mellitus, type 2 Fall Hyperlipidemia Hypomagnesemia Intellectual disability Poor historian Psychotic disorder MANY YEARS AGO "NO RECENT HX" Seizure MANY YEARS AGO/NONE FOR MANY YEARS AND NO CURRENT SEIZURE MEDS(NEUROLOGY IN LAST 6 MONTHS AGO) [place] [place] Weakness Surgical History History of cataract surgery History of eye surgery Hx of tooth extraction Family History Mother , Mother age 87 and he is uncertain of her medical conditions No problems noted. Father , Father in his 80s of uncertain causes No problems noted. 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 Physical Exam .Examination of the left hip and leg reveals the leg to be shortened and externally rotated. He is got some moderate swelling in his thigh. He is got marked pain with any type of hip motion. He is neurologically intact. He can dorsiflex and plantarflex his foot. He does have a chronic foot deformities. Results & Data Results & Data Laboratory Results . Diagnostic Findings .X-rays of the left hip and femur reveal comminuted intertrochanteric hip fracture. PG Care Time/CCT Total # of Minutes Spent Total Time Spent with Patient: Total time spent is greater than 50% in coordination of care (as documented) at patient's floor/unit and/or counseling patient: Coding Level of Care Code 17139 IN/OBS CONSULT LVL 5,80M Diagnoses Closed fracture of left hip S72.002A Encounter type: initial encounter (1) Closed fracture of left hip Encounter type: initial encounter Qualified Code(s): S72.002A - Fracture of unspecified part of neck of left femur, initial encounter for closed fracture
[2022-07-07] MEDS ORDERED: fentaNYL citrate PF 100 MCG/2 ML VIAL IV PRN (10:06)
[2022-07-07] MEDS ORDERED: ePHEDrine sulfate 50 MG/ML AMP IV PRN (10:06)
[2022-07-07] MEDS ORDERED: ATROPINE SULFATE 0.1 MG/ML 10ML SYR IV PRN (10:06)
[2022-07-07] MEDS ORDERED: BUPIVACAINE 0.5 % 5 MG/1 ML PF 10ML VIAL ONE (10:19)
[2022-07-07] MEDS ORDERED: BUPIVACAINE/EPINEPHRINE 0.5% MPF 1:200,000 30 ML VIAL ONE (10:34)
[2022-07-07] MEDS ORDERED: MIDAZOLAM HCL 1 MG/ML 2ML VIAL ONE (10:40)
[2022-07-07] MEDS ORDERED: fentaNYL citrate PF 100 MCG/2 ML VIAL ONE ×2 (10:41→13:03)
[2022-07-07] MEDS ORDERED: ceFAZolin 330 MG/ML 1 GM VIAL ONE ×2 (11:23)
[2022-07-07] MEDS ORDERED: PROPOFOL IV EMULSION 10 MG/ML 20 ML VIAL IV ONE (11:23)
[2022-07-07] MEDS ORDERED: LIDOCAINE 2% MPF LOCAL 5 ML VIAL ONE (11:23)
[2022-07-07] MEDS ORDERED: PHENYLEPHRINE 100MCG/ML 5ML SYR ONE (11:27)
[2022-07-07] MEDS ORDERED: ONDANSETRON INJ 2 MG/ML 2 ML VIAL ONE (11:29)
--- NOTE | 2022-07-07 11:47 | History and Physical Report ---
DATE OF ADMISSION: 07/06/2022. CHIEF COMPLAINT: Status post fall and left hip fracture. HISTORY OF PRESENT ILLNESS: This is a 61-year-old male with past medical history significant for type 2 diabetes, hyperlipidemia, history of seizure disorder, history of psychiatric disorders, a poor historian, has mild mental retardation, lives at assisted living at [facility], seems like his lives next door, ambulates with a walker, presents with a fall, recently he has had frequent falls. He was in the ER in the morning with a fall. Looks like he says he fell from the chair on his left hip, could not get up, lot of pain and was brought in here and found to have left hip fracture. He thinks, he might have some slight dizziness before fall. Denies any chest pain. No shortness of breath, no cough, no fevers. Appetite is okay. Eating and swallowing okay. No earache. Has occasional runny nose. No sore throat. After falling down, he said he had some nausea. Currently no abdominal pain. Normal bowel and bladder movements. Hemodynamically stable. ALLERGIES: No known drug allergies. PAST MEDICAL HISTORY: As mentioned above. PAST SURGICAL HISTORY: Cataract surgery, bilateral. MEDICATIONS: The patient is on Tylenol Extra Strength 1000 mg p.o. every 8 hours p.r.n., alendronate 70 mg p.o. weekly, Lipitor 40 mg in a.m., Lomotil 2 tablets p.o. b.i.d., divalproex 500 mg p.o. b.i.d., Januvia 100 mg p.o. daily, ketoconazole shampoo 2 times weekly, levothyroxine 25 mcg p.o. daily, loperamide 2 mg p.o. daily p.r.n., metformin 1000 mg p.o. b.i.d., Zofran 4 mg every 8 hours p.r.n., triamcinolone p.r.n., VitaFusion multivitamin gummy 2 tablets daily. FAMILY HISTORY: Significant for father had diabetes. SOCIAL HISTORY: Currently lives and still living at [facility]. Former smoker, smoked from to 10/2019 [id number]-day for 43 years. No alcohol use. No drug use. REVIEW OF SYSTEMS: As per HPI. Rest of the review of systems is negative. PHYSICAL EXAMINATION: GENERAL: The patient is of moderate build, not in acute distress. VITAL SIGNS: Temperature 36.6, pulse 90, respiratory rate 20, blood pressure 164/97, oxygen 94% on room air. HEENT: Pupils equal, round and reactive to light. Oral mucosa dry. NECK: No JVD, no neck masses. CARDIOVASCULAR: S1 and S2 heard. Regular rate and rhythm. No murmur, no gallop. RESPIRATORY SYSTEM: Normal AP diameter. No accessory muscle use. No wheezing, no crackles. ABDOMEN: Soft, bowel sounds present, nontender, no distention. CENTRAL NERVOUS SYSTEM: Alert and oriented. Speech is clear. No facial droop. Obeys simple commands. Moves extremities. EXTREMITIES: Left lower extremity is shortened and externally rotated. Mild pedal edema present, no erythema seen. LABORATORY DATA: WBC 8, hemoglobin 12.7, hematocrit 37.3, platelets 203. Sodium 138, potassium 4.3, chloride 103, bicarbonate 25, BUN 12, creatinine 0.9, serum glucose 167, calcium 8.9, total creatine kinase 525. Urinalysis negative. SARS-COVID rapid test negative. IMAGING DATA: Chest x-ray, poor inspiratory effort, but no obvious acute findings. Femur x-ray, left femur fracture. EKG: Sinus tachycardia at a rate of 111, possible left atrial enlargement, no significant change was found. ASSESSMENT AND PLAN: A 61-year-old male who presents with seems to be mechanical fall and left hip fracture. 1.Left hip Fracture. Falling frequent recently, seems to have no cardiac history. Chest x-ray and EKG looks okay and labs look okay. Hemodynamically stable. The patient seems to be an acceptable risk to proceed with surgery.Will Keep n.p.o., IV fluids, IV antiemetics, IV pain medication p.r.n. Consult orthopedics in the a.m. Monitor in the medical floor. 2. Mild elevation of CPK. Getting fluids. We will follow, repeat labs. 3. Ambulatory dysfunction and frequent falls. Needs possibly rehab. PT/OT when stable. 4. History of seizure disorder. Continue his home medications. 5. History of diabetes. Hold his p.o. medications, placed on insulin sliding scale. Follow the blood sugars. 6. History of hyperlipidemia, on statin. 7. Deep venous thrombosis prophylaxis. Could not place SCDs because of hip fracture No anticoagulation in anticipation of procedure. Further anticoagulation as per orthopedics. DISPOSITION: Admit to medical floor. PT/OT prior to discharge. Social service to help with discharge planning. Level 1 full code. Job ID: [id number] [facility]
--- NOTE | 2022-07-07 11:56 | Hospitalist Progress Note ---
Date of Service July 07, 2022 Assessment & Plan (1) Closed fracture of left hip: (2) Fall: (3) Rhabdomyolysis: Plan: past medical history of type 2 diabetes mellitus, hyperlipidemia, seizure disorder, , mild cognitive dysfunction presented from assisted living at [facility] presented with recurrent falls. found to have fracture of left hip and was admitted to medical floor. X-ray of left femur personally viewed and reviewed; comminuted and displaced intertrochanteric fracture present Labs reviewed from today morning; hemoglobin slightly lower to 11.1. BUN/creatinine within normal limits. Creatinine kinase downtrending with IV hydration EKG personally reviewed; sinus tachycardia; nonspecific T wave changes in inferior lateral leads. Similar to his EKG on 06/25. Orthopedic evaluate the patient; plan for IM nailing of the fracture Monitor for blood loss after surgery PT OT when able Plan Chronic conditions; History of seizure disorder. Continue home divalproex History of diabetes. Hold his p.o. medications, placed on insulin sliding scale. Follow the blood sugars. History of hyperlipidemia, statin on hold given elevated CK Deep venous thrombosis prophylaxis: Will start after orthopedic clearance. Full code Please note the above document was generated using voice recognition software. It may contain grammatical, syntax or spelling errors. Any formal questions or concerns about the content, text or information contained within the body of this dictation should be directly addressed to the provider for clarification Admission and Anticipated Discharge Date Admission Date: July 06, 2022 Subjective Patient seen and examined at bedside. He is lying on the bed; not in distress. He reports that he is waiting for surgery. Review of Systems Review of Systems: All systems reviewed & are unremarkable except as noted in Subjective Physical Exam Physical Exam: Constitutional: Awake, alert orient x3. Lying on the bed. Respiratory: normal respiratory effort, lungs clear to auscultation, no wheeze, rales, rhonchi. Normal insp/exp effort, no accessory muscle use Cardiovascular: RRR, no murmur, no edema Vessels: no JVD or carotid bruit Chest: normal inspection of chest Abdomen: normal bowel sounds, soft, nontender, no hepatosplenomegaly Musculoskeletal: Left leg shortened and externally rotated. Skin: no rashes, warm and dry normal turgor Neurologic: PERRL, EOMI, accommodation nl, no face palsy, no dysarthria CN's II- XI intact bilaterally and moves all extremities Psychiatric: A+Ox3, euthymic affect Lymphatic: no cervical or axillary lymphadenopathy : deferred Results & Data Results & Data Vital Signs (Past 12 Hours) Vital Signs Temp Pulse Resp BP BP Pulse Ox O2 Del Method 07/07/22 07:29 37.1 C 105 H 20 137/81 97 Nasal Cannula 07/07/22 00:51 36.3 C L 102 H 174/104 H 100 Nasal Cannula O2 Flow Rate 07/07/22 07:29 2 07/07/22 00:51 2 Laboratory Results Laboratory Results WBC 8.94 K/ul (4.8-10.8) 07/07/22 05:39 RBC 3.79 M/uL (4.70-6.10) L 07/07/22 05:39 Hgb 11.1 g/dl (14.0-18.0) L 07/07/22 05:39 Hct 34.2 % (42.0-52.0) L 07/07/22 05:39 MCV 90.2 fL (80.0-100.0) 07/07/22 05:39 MCH 29.3 pg (25.0-34.0) 07/07/22 05:39 MCHC 32.5 g/dL (32.0-36.0) 07/07/22 05:39 RDW Std Deviation 44.0 fL (36.4-46.3) 07/07/22 05:39 RDW Coeff of Luci 13.3 % (11.5-14.5) 07/07/22 05:39 Plt Count 193 K/uL (130-400) 07/07/22 05:39 MPV 9.4 fL (9.4-12.4) 07/07/22 05:39 Immature Gran % (Auto) 0.6 % 07/07/22 05:39 Neut % (Auto) 62.7 % 07/07/22 05:39 Lymph % (Auto) 23.4 % 07/07/22 05:39 [place] % (Auto) 12.2 % 07/07/22 05:39 Eos % (Auto) 0.9 % 07/07/22 05:39 Baso % (Auto) 0.2 % 07/07/22 05:39 Neut # (Auto) 5.61 K/uL (1.40-6.50) 07/07/22 05:39 Lymph # (Auto) 2.09 K/uL (1.2-3.4) 07/07/22 05:39 [place] # (Auto) 1.09 K/uL (0.11-0.59) H 07/07/22 05:39 Eos # (Auto) 0.08 K/uL (0-0.50) 07/07/22 05:39 Baso # (Auto) 0.02 K/uL (0-0.2) 07/07/22 05:39 Immature Gran # (Auto) 0.05 K/uL (0.01-0.20) 07/07/22 05:39 Sodium 139 mmol/L (136-145) 07/07/22 05:39 Potassium 4.2 mmol/L (3.5-5.1) 07/07/22 05:39 Chloride 102 mmol/L (98-107) 07/07/22 05:39 Carbon Dioxide 29 mmol/L (21-32) 07/07/22 05:39 Anion Gap 8 (3-11) 07/07/22 05:39 BUN 10 mg/dl (6-23) 07/07/22 05:39 Creatinine 0.88 mg/dl (0.6-1.4) 07/07/22 05:39 Est Cr Clr Drug Dosing 81.0 ml/min 07/07/22 05:39 Est GFR ( Amer) 107.5 ml/min 07/07/22 05:39 Est GFR (Non-Af Amer) 92.7 ml/min 07/07/22 05:39 BUN/Creatinine Ratio 11.4 (10-20) 07/07/22 05:39 Glucose 140 mg/dl (70-99(Fasting)) H 07/07/22 05:39 POC Glucose 137 mg/dl (70-99) H 07/07/22 06:06 Calcium 8.1 mg/dl (8.6-10.3) L 07/07/22 05:39 Magnesium 1.6 mg/dl (1.7-2.4) L 07/07/22 05:39 Total Creatine Kinase 395 U/L (30-223) H 07/07/22 05:39 Urine Color Yellow 07/06/22 Unknown Urine Appearance Clear (Clear) 07/06/22 Unknown Urine pH 7.5 (4.5-7.5) 07/06/22 Unknown Ur Specific [place] 1.022 (1.000-1.030) 07/06/22 Unknown Urine Protein Negative (Negative) 07/06/22 Unknown Urine Glucose (UA) Trace (Negative) H 07/06/22 Unknown Urine Ketones 1+ (Negative) H 07/06/22 Unknown Urine Blood Negative (Negative) 07/06/22 Unknown Urine Nitrite Negative (Negative) 07/06/22 Unknown Urine Bilirubin Negative (Negative) 07/06/22 Unknown Urine Urobilinogen Negative (Negative) 07/06/22 Unknown Ur Leukocyte Esterase Negative (Negative) 07/06/22 Unknown SARS-CoV-2, RNA, NAAT NEGATIVE (NEGATIVE) 07/06/22 21:45 Blood Type O Positive 07/07/22 08:35 Antibody Screen NEGATIVE 07/07/22 08:35 Impressions Femur X-Ray 07/06/22 21:43 XR pelvis 1-2V routine, XR femur LT 2V routine CLINICAL HISTORY: left hip pain COMPARISON STUDY: Abdomen and pelvis CT 07/06/2022.. FINDINGS: Comminuted and displaced intertrochanteric fracture within the proximal left femur. Contrast within the bladder from the recent CT examination. No acute fracture or dislocation within the pelvis or right hip. The distal left femur is intact. IMPRESSION: Comminuted and displaced intertrochanteric fracture within the proximal left femur. ACT 112: Negative or not required by law. Electronically signed by: Jc Cotto M.D. 07/07/2022 7:33 AM Pelvis X-Ray 07/06/22 21:43 XR pelvis 1-2V routine, XR femur LT 2V routine CLINICAL HISTORY: left hip pain COMPARISON STUDY: Abdomen and pelvis CT 07/06/2022.. FINDINGS: Comminuted and displaced intertrochanteric fracture within the proximal left femur. Contrast within the bladder from the recent CT examination. No acute fracture or dislocation within the pelvis or right hip. The distal left femur is intact. IMPRESSION: Comminuted and displaced intertrochanteric fracture within the proximal left femur. ACT 112: Negative or not required by law. Electronically signed by: Jc Cotto M.D. 07/07/2022 7:33 AM Chest X-Ray 07/06/22 22:43 XR chest 1V portable HISTORY: left hip fracture COMPARISON: Chest 06/25/2022. FINDINGS: No pneumothorax. No pleural effusions. There are low lung volumes with chronic interstitial thickening. The heart remains mildly enlarged. No evidence for pulmonary edema. IMPRESSION: Stable cardiomegaly and mild interstitial thickening. ACT 112: Negative or not required by law. Electronically signed by: Jc Cotto M.D. 07/07/2022 7:35 AM (1) Closed fracture of left hip Encounter type: initial encounter Qualified Code(s): S72.002A - Fracture of unspecified part of neck of left femur, initial encounter for closed fracture
[2022-07-07] MEDS ORDERED: ceFAZolin 2000MG 2,000 MG/15 ML SYR IV ONE (12:03)
--- NOTE | 2022-07-07 12:51 | Operative Report ---
PG Post Operative Report Pre & Post Diagnosis Operation Date: 07/07/22 10:00 Pre-Op Diagnosis: Left displaced comminuted intertrochanteric femur fracture Post-Op Diagnosis: Left displaced comminuted intertrochanteric femur fracture I identified the patient and participated in the time-out.: Yes Procedure Operation Date: 07/07/22 10:00 Actual Procedures p Left Intramedullary Zeferino Femur(Left) - South Swanson MD Surgeon South Swanson MD Gymnastic Teacher Lamberto Velasquez PA-C Estimated Blood Loss 50 Findings Consistent with Post-Op Diagnosis Specimens None Anesthesia Type General Disposition Accompanied Patient To Recovery: No Indications Patient is a 61-year-old gentleman with some underlying neurological and mental dysfunction with ambulatory dysfunction who has sustained multiple falls over the past several weeks. He recently fell yesterday had the cute onset of left hip and leg pain. Is unable to ambulate. Brought to emergency room where x-ray of the left comminuted displaced intertrochanteric hip fracture patient was admitted by the medicine service, medically optimized indicated for surgical management. Description of Procedure Operative implants consist of: 1 Synthes left 340 mm x 10 mm long trochanteric nail. 2. 85 mm helical blade. 3. 42 mm x 5 mm distal interlocking screw. The patient was taken to the operating, identified, placed on the operating table supine position protectors were properly padded. IV antibiotics provided by anesthesia team. A spinal anesthetic was attempted in the holding area but unsuccessful. A general anesthetic was implemented. The patient was then placed on the fracture table. The left leg was placed in boot traction. The right leg was placed in a well leg vidal. I applied some longitudinal traction to the left leg. I then attempted to reduce the fracture. We lined up the best we could under fluoroscopic assessment. The left hip was then scrubbed with Hibiclens, prepped with ChloraPrep and draped in usual sterile fashion. A curvilinear incision was made just proximal tip of the greater trochanter. Sharp dissection was carried through subcutaneous tissues down the loop gluteal fascia. Gluteal fascia was incised longitudinally in line with skin incision. A guidewire was then placed just over the lateral tip of the trochanter in line with the IM canal both the AP and lateral planes. It was advanced down the canal under fluoroscopic guidance. It was overreamed with a 16 mm reamer. This guidewire was then exchanged for a ball-tipped guidewire. The ball-tipped guidewire was placed down the femoral canal. The length of the wire was measured for nail length and a 340 mm nail was selected. His canal was pretty narrow so we did ream his femur. We began with a 10 reamer and progressed up to . We got chatter even at the 10. A left 340 mm x 10 mm long trochanteric nail was then placed over the guidewire. The guidewire was removed. We tapped the nail and appropriate position. The lateral aiming arm was attached. Stab incision was made in the lateral aiming arm was advanced to the lateral aspect of femur. Guidewire was placed in the central aspect of the femoral head in both the AP and lateral planes. The guidewire was measured an 85 mm helical blade was selected. The cortical strut drill was used to breach the cortex and then the triple reamer was set at 85. The guidewire was overreamed with a 85 mm triple reamer. 85 mm helical blade was tapped into place. I then compressed the fracture site. We tried to adjust the lateral compression screw to compress the trochanteric piece but it was too far posterior to do this. We did compress the fracture site. We took traction off the femur to allow it to compress. The proximal setscrew was then tightened and then just loosened I have a turn to allow for sliding to occur. The proximal humeral arm was removed. Some final x-rays were obtained. Attention drawn to the distal interlocking. Using the perfect knik technique distal interlocking hole was placed in the dynamic hole to allow for some settling of the fracture. A stab incision was made. The drill was used to create the hole and a 42 mm x 5 mm distal interlocking screw was placed. Some final x-rays were obtained. Attention drawn toward closing. The wound was irrigated coconuts with pulsatile lavage solution. I did inject locally with 30 cc of half percent Marcaine with epinephrine. The gluteal fascia was then closed with #1 Vicryl suture in a running fashion for subcutaneous tissues at the proximal incision was closed with #1 Vicryl suture. The subcutaneous tissues of all wounds were then closed with 2-0 Dexon suture in buried interrupted fashion the skin was closed skin eve. Leg was then cleaned and dried and a sterile dressing was Xeroform, 4 x 4's, ABD pad, foam tape was applied. The patient then taken off the fracture table and placed on the transport table. He was brought out of general anesthesia and transferred to the recovery room in stable condition. Patient tolerated procedure well and there were no complications. Lamberto Velasquez, my physician apartment assistant manager, was present for the entire procedure. His assistance was required for proper patient positioning, prepping and draping, surgical exposure, retraction, performing the technical details the operation, placement of the implants, closure of the incision site and placement of the sterile bandage. I attest to the content of the Intraoperative Record and any orders documented therein. Any exceptions are noted below.
--- NOTE | 2022-07-07 12:55 | Fluoroscopy Report ---
FL femur LT 2V CLINICAL HISTORY: Left femoral fracture. Postop. COMPARISON STUDY: Left femur 07/06/2022. FLUOROSCOPY TIME: 1 minute and 46 seconds FLUOROSCOPY IMAGES: 4 Ka,r: 20.4 mGy FINDINGS: Status post internal fixation of the left femoral intertrochanteric fracture with an intram edullary femoral collin and interlocking femoral neck pin. The hardware appears intact. Alignment is sanket r-anatomic. IMPRESSION: Fluoroscopic assistance as above. ACT 112: Negative or not required by law. Electronically signed by: Jc Cotto M.D. 07/07/2022 12:53 PM
--- NOTE | 2022-07-07 13:22 | Anesthesiology Progress Note ---
Date of Service July 07, 2022 Anesthesia Post Procedure Vital Signs Vital Signs: Temp Pulse Pulse Pulse Resp BP BP 07/07/22 13:15 99 H 22 131/80 07/07/22 12:55 98 H 15 145/86 H 07/07/22 12:45 102 H 14 142/78 H 07/07/22 13:05 103 H 15 131/82 07/07/22 12:39 98.2 F 104 H 18 125/84 07/07/22 07:29 98.8 F 105 H 20 137/81 07/07/22 00:51 97.3 F L 102 H 07/06/22 23:00 102 H 14 164/97 H 07/06/22 23:04 98 H 20 07/06/22 21:41 97.9 F 94 H 20 07/06/22 21:41 97.9 F 94 H 20 172/100 H BP Pulse Ox O2 Del Method O2 Flow Rate 07/07/22 13:15 95 Nasal Cannula 2 07/07/22 12:55 97 Oxymask 6 07/07/22 12:45 100 Oxymask 6 07/07/22 13:05 98 Oxymask 6 07/07/22 12:39 96 Oxymask 6 07/07/22 07:29 97 Nasal Cannula 2 07/07/22 00:51 174/104 H 100 Nasal Cannula 2 07/06/22 23:00 97 07/06/22 23:04 164/97 H 94 Room Air 07/06/22 21:41 172/100 H 99 Room Air 07/06/22 21:41 99 Room Air Pain Intensity Left Upper Leg: Pain Intensity: 5 Transfer of Care Handoff Completed per policy Notes Mental Status: alert / awake / arousable and participated in evaluation Patient Amnestic to Procedure: Yes Nausea / Vomiting: adequately controlled Pain: adequately controlled Airway Patency, RR, SpO2: stable & adequate BP & HR: stable & adequate Hydration State: stable & adequate Anesthetic Complications: no major complications apparent and Pt Satisfied with anesthetic care
[2022-07-07] MEDS ORDERED: PHARMACY GLYCEMIC MGMT CONSULT PRN (13:48)
[2022-07-07] MEDS ORDERED: DIPHENOXYLATE/ATROPINE 2.5/0.025MG TAB PO SCH (14:00)
[2022-07-07] MEDS: ACETAMINOPHEN 500 MG TAB PO SCH ×2 (15:26→21:59)
[2022-07-07] MEDS ORDERED: Nursing to Pharmacy Communication SCH (16:00)
[2022-07-07] MEDS: ceFAZolin 2000MG 2,000 MG/15 ML SYR IV SCH (18:25)
[2022-07-07] MEDS: ASPIRIN 81 MG ECTAB PO SCH (20:25)
[2022-07-08] MEDS: KETOCONAZOLE 2% SCH ×4 (01:04→23:06)
[2022-07-08] MEDS: SODIUM CHLORIDE 0.9% 1000ML 1,000 ML IV SCH (01:05)
[2022-07-08] MEDS: HYDROmorphone INJ 0.5 MG/0.5 ML SYR IV PRN (02:01)
[2022-07-08] MEDS: ceFAZolin 2000MG 2,000 MG/15 ML SYR IV SCH (02:02)
[2022-07-08] MEDS: LEVOTHYROXINE SODIUM 25 MCG TABLET PO SCH (06:20)
[2022-07-08] MEDS: ACETAMINOPHEN 500 MG TAB PO SCH ×3 (06:20→21:49)
[2022-07-08 06:51] LABS: Basophils # (auto) 0.01 K/uL (0-0.2); Basophils % (auto) 0.1 %; Eosinophils # (auto) 0.02 K/uL (0-0.50); Eosinophils % (auto) 0.2 %; Hematocrit (blood only) 29.8 % (42.0-52.0); Hemoglobin 9.8 g/dl (14.0-18.0); Immature Granulocytes # (auto) 0.04 K/uL (0.01-0.20); Immature Granulocytes % (auto) 0.5 %; Lymphocytes # (auto) 1.94 K/uL (1.2-3.4); Lymphocytes % (auto) 22.5 %; Mean Corpuscular Hemoglobin 29.7 pg (25.0-34.0); Mean Corpuscular Hgb Conc 32.9 g/dL (32.0-36.0); Mean Corpuscular Volume 90.3 fL (80.0-100.0); Mean Platelet Volume 9.6 fL (9.4-12.4); Monocytes # (auto) 1.14 K/uL (0.11-0.59); Monocytes % (auto) 13.2 %; Neutrophils # (auto) 5.47 K/uL (1.40-6.50); Neutrophils % (auto) 63.5 %; Platelet Count 171 K/uL (130-400); RDW Coefficient of Variation 13.3 % (11.5-14.5); RDW Standard Deviation 44.1 fL (36.4-46.3); White Blood Count 8.62 K/ul (4.8-10.8)
[2022-07-08 07:14] LABS: Albumin Globulin Ratio 1.4 (0.9-2); Albumin Level 3.4 gm/dl (3.4-5.0); BUN Creatinine Ratio 10.3 (10-20); Bilirubin,Total 0.5 mg/dl (0.2-1.0); Calcium 7.8 mg/dl (8.6-10.3); Creatinine Clr Calc Pharmacy 81.9 ml/min; Est GFR (Non-African American) 93.2 ml/min; Globulin 2.5 gm/dl (2.5-4.0); Potassium 4.2 mmol/L (3.5-5.1); Total Protein 5.9 gm/dl (6.0-8.3)
[2022-07-08] MEDS: CHOLECALCIFEROL 1,000 UNITS 25 MCG TAB PO SCH (08:40)
[2022-07-08] MEDS: DIVALPROEX DELAY RELEASE 500 MG TAB PO SCH ×2 (08:40→20:25)
[2022-07-08] MEDS: ASPIRIN 81 MG ECTAB PO SCH ×2 (08:41→20:25)
[2022-07-08] MEDS: MULTIVITAMIN CHEWABLE TAB PO SCH (08:41)
[2022-07-08] MEDS: ATORVASTATIN 40 MG TAB PO SCH (08:41)
[2022-07-08] MEDS: INSULIN ASPART PER UNIT CHARGE SC SCH ×4 (08:49→20:38)
--- NOTE | 2022-07-08 09:31 | Orthopedic Progress Note ---
Date of Service July 08, 2022 Assessment & Plan (1) Closed fracture of left hip: S/p IM Nail L femur (DOS 07/07/2022; Dr. Swanson) -Progressing as expected -WBAT to LLE; OOB w/ assistance; PT/OT today -DVT prophylaxis with Aspirin 81 mg BID -Post op antibiotics ordered -Pain control per primary team Dispo: Needs PT/OT evaluation. Anticipate need for inpatient rehab. Discussed w/ Dr. wSanson Subjective Feels okay today. Minimal pain at rest . Review of Systems All systems reviewed & are unremarkable except as noted in HPI & below. Physical Exam General: 61 y/o/m resting in bed in NAD. AAO x 4. Somnolent . LLE: Dressing C/D/I. Leg lengths equal. Pain w/ log roll. Expected incisional tenderness, no gross hematoma. Distally N/V/I. Results & Data Results & Data Laboratory Results Reviewed - Hgb 9.8 from 11.1 . Diagnostic Findings None recent . PG Care Time/CCT Total # of Minutes Spent Total Time Spent with Patient: Total time spent is greater than 50% in coordination of care (as documented) at patient's floor/unit and/or counseling patient: Coding Level of Care Code 76271 Post Operative Follow-Up Diagnoses Closed fracture of left hip S72.002A Encounter type: initial encounter (1) Closed fracture of left hip Encounter type: initial encounter Qualified Code(s): S72.002A - Fracture of unspecified part of neck of left femur, initial encounter for closed fracture
--- NOTE | 2022-07-08 14:50 | Hospitalist Progress Note ---
Date of Service July 08, 2022 Assessment & Plan (1) Closed fracture of left hip: (2) Fall: (3) Rhabdomyolysis: Plan: past medical history of type 2 diabetes mellitus, hyperlipidemia, seizure disorder, , mild cognitive dysfunction presented from assisted living at [place] presented with recurrent falls. found to have fracture of left hip and was admitted to medical floor. X-ray of left femur personally viewed and reviewed; comminuted and displaced intertrochanteric fracture present BUN/creatinine within normal limits. Creatinine kinase downtrending with IV hydration EKG personally reviewed; sinus tachycardia; nonspecific T wave changes in inferior lateral leads. Similar to his EKG on 06/25. Status post left intramedullary collin on 07/07/2022. PT OT Pain control with scheduled Tylenol, oxycodone and Dilaudid. Aspirin 81 mg twice daily for DVT prophylaxis. (4) Acute blood loss anemia: Plan: Postop hemoglobin is 9.8, down from 11.1. No signs of active bleeding. Monitor for now Plan Chronic conditions; History of seizure disorder. Continue home divalproex History of diabetes. Hold his p.o. medications, placed on insulin sliding scale . Follow the blood sugars. History of hyperlipidemia, statin on hold given elevated CK Deep venous thrombosis prophylaxis: Aspirin BID Full code Please note the above document was generated using voice recognition software. It may contain grammatical, syntax or spelling errors. Any formal questions or concerns about the content, text or information contained within the body of this dictation should be directly addressed to the provider for clarification Admission and Anticipated Discharge Date Admission Date: July 06, 2022 Subjective Patient seen and examined at bedside. He is sitting up on the bed; not in distress. He reports that pain is well controlled on current regimen. Denies fever, chills or shortness of breath. Review of Systems Review of Systems: All systems reviewed & are unremarkable except as noted in Subjective Physical Exam Physical Exam: Constitutional: Awake, alert orient x3. Lying on the bed. Respiratory: normal respiratory effort, lungs clear to auscultation, no wheeze, rales, rhonchi. Normal insp/exp effort, no accessory muscle use Cardiovascular: RRR, no murmur, no edema Vessels: no JVD or carotid bruit Chest: normal inspection of chest Abdomen: normal bowel sounds, soft, nontender, no hepatosplenomegaly Musculoskeletal: Left hip bandages dry, clean and intact. Skin: no rashes, warm and dry normal turgor Neurologic: PERRL, EOMI, accommodation nl, no face palsy, no dysarthria CN's II- XI intact bilaterally and moves all extremities Psychiatric: A+Ox3, euthymic affect Lymphatic: no cervical or axillary lymphadenopathy : deferred Results & Data Results & Data Vital Signs (Past 12 Hours) Vital Signs Temp Pulse Resp BP Pulse Ox O2 Del Method O2 Flow Rate 07/08/22 07:50 37.3 C 104 H 18 131/85 99 Nasal Cannula 2 07/08/22 04:28 106 H 107/69 96 Nasal Cannula 2 07/08/22 04:24 93 Nasal Cannula 2 07/08/22 04:23 37.4 C 106 H 16 98/66 L 83 L Room Air Laboratory Results Laboratory Results WBC 8.62 K/ul (4.8-10.8) 07/08/22 06:09 RBC 3.30 M/uL (4.70-6.10) L 07/08/22 06:09 Hgb 9.8 g/dl (14.0-18.0) L 07/08/22 06:09 Hct 29.8 % (42.0-52.0) L 07/08/22 06:09 MCV 90.3 fL (80.0-100.0) 07/08/22 06:09 MCH 29.7 pg (25.0-34.0) 07/08/22 06:09 MCHC 32.9 g/dL (32.0-36.0) 07/08/22 06:09 RDW Std Deviation 44.1 fL (36.4-46.3) 07/08/22 06:09 RDW Coeff of Luci 13.3 % (11.5-14.5) 07/08/22 06:09 Plt Count 171 K/uL (130-400) 07/08/22 06:09 MPV 9.6 fL (9.4-12.4) 07/08/22 06:09 Immature Gran % (Auto) 0.5 % 07/08/22 06:09 Neut % (Auto) 63.5 % 07/08/22 06:09 Lymph % (Auto) 22.5 % 07/08/22 06:09 Pope % (Auto) 13.2 % 07/08/22 06:09 Eos % (Auto) 0.2 % 07/08/22 06:09 Baso % (Auto) 0.1 % 07/08/22 06:09 Neut # (Auto) 5.47 K/uL (1.40-6.50) 07/08/22 06:09 Lymph # (Auto) 1.94 K/uL (1.2-3.4) 07/08/22 06:09 Pope # (Auto) 1.14 K/uL (0.11-0.59) H 07/08/22 06:09 Eos # (Auto) 0.02 K/uL (0-0.50) 07/08/22 06:09 Baso # (Auto) 0.01 K/uL (0-0.2) 07/08/22 06:09 Immature Gran # (Auto) 0.04 K/uL (0.01-0.20) 07/08/22 06:09 Sodium 138 mmol/L (136-145) 07/08/22 06:09 Potassium 4.2 mmol/L (3.5-5.1) 07/08/22 06:09 Chloride 103 mmol/L (98-107) 07/08/22 06:09 Carbon Dioxide 28 mmol/L (21-32) 07/08/22 06:09 Anion Gap 7 (3-11) 07/08/22 06:09 BUN 9 mg/dl (6-23) 07/08/22 06:09 Creatinine 0.87 mg/dl (0.6-1.4) 07/08/22 06:09 Est Cr Clr Drug Dosing 81.9 ml/min 07/08/22 06:09 Est GFR ( Amer) 108.0 ml/min 07/08/22 06:09 Est GFR (Non-Af Amer) 93.2 ml/min 07/08/22 06:09 BUN/Creatinine Ratio 10.3 (10-20) 07/08/22 06:09 Glucose 136 mg/dl (70-99(Fasting)) H 07/08/22 06:09 POC Glucose 196 mg/dl (70-99) H 07/08/22 12:13 Calcium 7.8 mg/dl (8.6-10.3) L 07/08/22 06:09 Magnesium 1.6 mg/dl (1.7-2.4) L 07/07/22 05:39 Total Bilirubin 0.5 mg/dl (0.2-1.0) 07/08/22 06:09 AST 25 U/L (13-39) 07/08/22 06:09 ALT 19 U/L (7-52) 07/08/22 06:09 Alkaline Phosphatase 39 U/L (34-104) 07/08/22 06:09 Total Creatine Kinase 395 U/L (30-223) H 07/07/22 05:39 Total Protein 5.9 gm/dl (6.0-8.3) L 07/08/22 06:09 Albumin 3.4 gm/dl (3.4-5.0) 07/08/22 06:09 Globulin 2.5 gm/dl (2.5-4.0) 07/08/22 06:09 Albumin/Globulin Ratio 1.4 (0.9-2) 07/08/22 06:09 25-OH Vitamin D Total 61.6 ng/ml (30-100) 07/08/22 06:09 Urine Color Yellow 07/06/22 Unknown Urine Appearance Clear (Clear) 07/06/22 Unknown Urine pH 7.5 (4.5-7.5) 07/06/22 Unknown Ur Specific [place] 1.022 (1.000-1.030) 07/06/22 Unknown Urine Protein Negative (Negative) 07/06/22 Unknown Urine Glucose (UA) Trace (Negative) H 07/06/22 Unknown Urine Ketones 1+ (Negative) H 07/06/22 Unknown Urine Blood Negative (Negative) 07/06/22 Unknown Urine Nitrite Negative (Negative) 07/06/22 Unknown Urine Bilirubin Negative (Negative) 07/06/22 Unknown Urine Urobilinogen Negative (Negative) 07/06/22 Unknown Ur Leukocyte Esterase Negative (Negative) 07/06/22 Unknown SARS-CoV-2, RNA, NAAT NEGATIVE (NEGATIVE) 07/06/22 21:45 Blood Type O Positive 07/07/22 08:35 Antibody Screen NEGATIVE 07/07/22 08:35 Impressions Pelvis X-Ray 07/06/22 21:43 XR pelvis 1-2V routine, XR femur LT 2V routine CLINICAL HISTORY: left hip pain COMPARISON STUDY: Abdomen and pelvis CT 07/06/2022.. FINDINGS: Comminuted and displaced intertrochanteric fracture within the proximal left femur. Contrast within the bladder from the recent CT examination. No acute fracture or dislocation within the pelvis or right hip. The distal left femur is intact. IMPRESSION: Comminuted and displaced intertrochanteric fracture within the proximal left femur. ACT 112: Negative or not required by law. Electronically signed by: Jc Cotto M.D. 07/07/2022 7:33 AM Chest X-Ray 07/06/22 22:43 XR chest 1V portable HISTORY: left hip fracture COMPARISON: Chest 06/25/2022. FINDINGS: No pneumothorax. No pleural effusions. There are low lung volumes with chronic interstitial thickening. The heart remains mildly enlarged. No evidence for pulmonary edema. IMPRESSION: Stable cardiomegaly and mild interstitial thickening. ACT 112: Negative or not required by law. Electronically signed by: Jc Cotto M.D. 07/07/2022 7:35 AM Femur X-Ray 07/07/22 00:00 FL femur LT 2V CLINICAL HISTORY: Left femoral fracture. Postop. COMPARISON STUDY: Left femur 07/06/2022. FLUOROSCOPY TIME: 1 minute and 46 seconds FLUOROSCOPY IMAGES: 4 Ka,r: 20.4 mGy FINDINGS: Status post internal fixation of the left femoral intertrochanteric fracture with an intramedullary femoral collin and interlocking femoral neck pin. The hardware appears intact. Alignment is near-anatomic. IMPRESSION: Fluoroscopic assistance as above. ACT 112: Negative or not required by law. Electronically signed by: Jc Cotto M.D. 07/07/2022 12:53 PM (1) Closed fracture of left hip Encounter type: initial encounter Qualified Code(s): S72.002A - Fracture of unspecified part of neck of left femur, initial encounter for closed fracture
[2022-07-09] MEDS: ACETAMINOPHEN 500 MG TAB PO SCH ×3 (05:29→21:35)
[2022-07-09] MEDS: LEVOTHYROXINE SODIUM 25 MCG TABLET PO SCH (05:29)
[2022-07-09 07:40] LABS: Basophils # (auto) 0.03 K/uL (0-0.2); Basophils % (auto) 0.3 %; Eosinophils # (auto) 0.06 K/uL (0-0.50); Eosinophils % (auto) 0.6 %; Hematocrit (blood only) 28.6 % (42.0-52.0); Hemoglobin 9.5 g/dl (14.0-18.0); Immature Granulocytes # (auto) 0.09 K/uL (0.01-0.20); Immature Granulocytes % (auto) 0.9 %; Lymphocytes # (auto) 1.57 K/uL (1.2-3.4); Mean Corpuscular Hemoglobin 29.9 pg (25.0-34.0); Mean Corpuscular Hgb Conc 33.2 g/dL (32.0-36.0); Mean Corpuscular Volume 89.9 fL (80.0-100.0); Mean Platelet Volume 9.6 fL (9.4-12.4); Monocytes # (auto) 1.31 K/uL (0.11-0.59); Monocytes % (auto) 13.3 %; Neutrophils # (auto) 6.77 K/uL (1.40-6.50); Neutrophils % (auto) 68.9 %; Nucleated RBC # (auto) 0.02 K/uL (0-0.12); Nucleated RBC % (auto) 0.2 %; Platelet Count 185 K/uL (130-400); RDW Coefficient of Variation 13.2 % (11.5-14.5); RDW Standard Deviation 43.7 fL (36.4-46.3); Red Blood Count 3.18 M/uL (4.70-6.10); White Blood Count 9.83 K/ul (4.8-10.8)
[2022-07-09 08:11] LABS: Albumin Globulin Ratio 1.2 (0.9-2); Albumin Level 3.1 gm/dl (3.4-5.0); BUN Creatinine Ratio 13.9 (10-20); Bilirubin,Total 0.6 mg/dl (0.2-1.0); Calcium 8.2 mg/dl (8.6-10.3); Creatinine Clr Calc Pharmacy 90.2 ml/min; Est GFR (African American) 112.3 ml/min; Est GFR (Non-African American) 96.9 ml/min; Globulin 2.5 gm/dl (2.5-4.0); Potassium 3.8 mmol/L (3.5-5.1); Total Protein 5.6 gm/dl (6.0-8.3)
[2022-07-09] MEDS: CHOLECALCIFEROL 1,000 UNITS 25 MCG TAB PO SCH (08:46)
[2022-07-09] MEDS: ATORVASTATIN 40 MG TAB PO SCH (08:46)
[2022-07-09] MEDS: MULTIVITAMIN CHEWABLE TAB PO SCH (08:46)
[2022-07-09] MEDS: DIVALPROEX DELAY RELEASE 500 MG TAB PO SCH ×2 (08:46→20:44)
[2022-07-09] MEDS: ASPIRIN 81 MG ECTAB PO SCH ×2 (08:46→20:44)
[2022-07-09] MEDS: KETOCONAZOLE 2% SCH ×3 (08:47→23:20)
[2022-07-09] MEDS: INSULIN ASPART PER UNIT CHARGE SC SCH ×4 (08:53→21:34)
--- NOTE | 2022-07-09 10:47 | Psychiatric Consultation ---
Date of Consultation July 09, 2022 Impression / Recommendations Impression 61 yo man with history of moderate intellectual disability, seizures on Depakote ER, a remote history of brief psychotic episode in 2003 admitted medically s/p hip fracture now awaiting [facility] placement. Psychiatry was consulted for assessment for appropriateness for [facility] placement. The patient is psychiatrically stable for transfer to a [facility] facility. There is no acute indication for inpatient psychiatric hospitalization as the patient is not suicidal or homicidal; there is no evidence of psychosis nor psychiatric symptoms interfering with their ability to care for their basic needs.He does not re quire any psychiatric follow-up care nor does he have any psychiatric medications. (1) Closed fracture of left hip: Encounter type: initial encounter Qualified Code(s): S72.002A - Fracture of unspecified part of neck of left femur, initial encounter for closed fracture (2) Cognitive impairment: Plan -Psychiatrically stable for transfer to a [facility] facility Psych History Identifying Data 61 yo man with history of moderate intellectual disability seizures on Depakote ER, a remote history of brief psychotic episode in 2003 admitted medically s/p hip fracture now awaiting [facility] placement. Psychiatry was consulted for assessment for appropriateness for [facility] placement. Chief Complaint "I'm ok". History of Present Illness John is known to me from previous psychiatric consult in July 2021 for similar assessment of appropriateness for [facility] placement. He denies any current p sychiatric symptoms, mood is stable and remains on no psychiatric medications (Depakote ER is for seizure prevention). He is looking forward to getting stronger again and recovering from this fracture. He's also looking forward to [facility]. Allergies Allergy/AdvReac Type Severity Reaction Status Date / Time No Known Allergies Allergy Unknown Verified 07/06/22 23:28 Home Medications Medication Instructions Recorded Confirmed Type metformin 500 mg tablet,extended 1,000 mg PO BID 01/14/18 07/06/22 History release 24 hr alendronate 70 mg tablet (Fosamax) 70 mg PO WK 06/10/20 07/06/22 History atorvastatin 40 mg tablet (Lipitor) 40 mg PO QAM 06/10/20 07/06/22 History divalproex 500 mg tablet,delayed 500 mg PO BID 06/10/20 07/06/22 History release acetaminophen 500 mg tablet 1,000 mg PO Q8H PRN Pain, 07/22/21 07/06/22 History (Tylenol Extra Strength) Moderate/FEVER ketoconazole 2 % shampoo 1 ea topical 2XWK 07/22/21 07/06/22 History loperamide 2 mg capsule 2 mg PO QID PRN Diarrhea 07/22/21 07/06/22 History ondansetron HCl 4 mg tablet 4 mg PO Q8H PRN Nausea 07/22/21 07/06/22 History sitagliptin phosphate 100 mg 100 mg PO QAM 07/22/21 07/06/22 History tablet (Januvia) triamcinolone acetonide 0.1 % 1 applic topical BID PRN SKIN 07/22/21 07/06/22 History topical cream IRRITATION BEHIND LEFT EAR Vitafusion Multivit Gummy 2 tab PO QAM 06/25/22 07/06/22 History Vitafusion Vitamin D 2,000 unit PO QAM 06/25/22 07/06/22 History levothyroxine 25 mcg tablet 25 mcg PO DAILYBB 06/25/22 07/06/22 History diphenoxylate-atropine 2.5 2 tab PO QID 07/06/22 07/06/22 History mg-0.025 mg tablet Patient History Medical History Abdominal pain Abnormal EKG DR. RAMOS (01/06/18) CLEARED Anemia COVID-19 Diabetes mellitus, type 2 Fall Hyperlipidemia Hypomagnesemia Intellectual disability Poor historian Psychotic disorder MANY YEARS AGO "NO RECENT HX" Seizure MANY YEARS AGO/NONE FOR MANY YEARS AND NO CURRENT SEIZURE MEDS(NEUROLOGY IN LAST 6 MONTHS AGO) [place] Weakness Surgical History History of cataract surgery History of eye surgery Hx of tooth extraction Family History Mother , Mother age 87 and he is uncertain of her medical conditions No problems noted. Father , Father in his 80s of uncertain causes No problems noted. 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: No Beliefs That Will Affect Care: None marital status: Current Living Situation: Personal Care Facility Current Living Situation Comment: [facility] current occupational status: unemployed current occupation: Unemployed How many Children do You have: 1 Other Information That Helps Us Care for You: No Feels Safe at Home: Yes Safety Concerns: Feels Safe At This Time Assistive Devices: None Physical Exam Psychiatric: Orientation: alert and oriented x 3 Apperance: appropriately dressed and appropriately groomed Eye Contact: good eye contact Motor Behavior: no abnormal motor movements Speech: normal rate/rhythm/volume of speech Affect: euthymic affect Mood: no depressed mood and no anxious mood Thought Process: linear/logical thought process Thought Content: reality based without delusions Suicidal Thoughts: denies suicidal thoughts Homicidal Thoughts: denies homicidal thoughts Hallucinations: no auditory hallucinations and no visual hallucinations Cognition: recent memory grossly intact, remote memory grossly intact, attention grossly intact and language grossly intact Estimated Intelligence: + below average estimated intelligence Insight: + fair insight Judgment: + fair judgement Vital Signs (Past 24 Hours): Last Vital Signs Temp 37.6 C H 07/09/22 07:51 Pulse 106 H 07/09/22 07:51 Resp 18 07/09/22 07:51 BP 118/75 07/09/22 07:51 Pulse Ox 93 07/09/22 07:51 O2 Del Method Room Air 07/09/22 07:51 O2 Flow Rate 2 07/08/22 07:50 Review of Systems All systems reviewed & are unremarkable except as noted in HPI & below Results & Data (PSY) Medications Administered Acetaminophen (Acetaminophen 500 Mg Tab) 1,000 mg PO Q8H [facility] Stop: 08/06/22 14:29 Last Admin: 07/09/22 05:29 Dose: 1,000 mg Documented By: Admin: 07/08/22 21:49 Dose: 1,000 mg Documented By: Admin: 07/08/22 14:23 Dose: 1,000 mg Documented By: [facility] Admin: 07/08/22 06:20 Dose: 1,000 mg Documented By: Admin: 07/07/22 21:59 Dose: 1,000 mg Documented By: Admin: 07/07/22 15:26 Dose: 1,000 mg Documented By: EDUAR Aspirin (Aspirin 81 Mg Ectab) 81 mg PO BID [facility] Stop: 08/06/22 20:59 Last Admin: 07/09/22 08:46 Dose: 81 mg Documented By: Admin: 07/08/22 20:25 Dose: 81 mg Documented By: Admin: 07/08/22 08:41 Dose: 81 mg Documented By: Admin: 07/07/22 20:25 Dose: 81 mg Documented By: MAIRA Atorvastatin Calcium (Atorvastatin 40 Mg Tab) 40 mg PO QAM [facility] Stop: 08/06/22 08:59 Last Admin: 07/09/22 08:46 Dose: 40 mg Documented By: Admin: 07/08/22 08:41 Dose: 40 mg Documented By: Admin: 07/07/22 07:33 Dose: 40 mg Documented By: EDUAR Divalproex Sodium (Divalproex Delay Release 500 Mg Tab) 500 mg PO BID [facility] Stop: 08/06/22 08:59 Last Admin: 07/09/22 08:46 Dose: 500 mg Documented By: Admin: 07/08/22 20:25 Dose: 500 mg Documented By: Admin: 07/08/22 08:40 Dose: 500 mg Documented By: Admin: 07/07/22 20:25 Dose: 500 mg Documented By: Admin: 07/07/22 07:34 Dose: 500 mg Documented By: EDUAR Hydromorphone HCl (Hydromorphone Inj 0.5 Mg/0.5 Ml Syr) 0.5 mg IV Q3H PRN PRN Reason: Severe Pain (Scale 7, 8, 9,10) Stop: 07/21/22 00:49 Last Admin: 07/08/22 02:01 Dose: 0.5 mg Documented By: MAIRA Insulin Aspart (Insulin Aspart Per Unit Charge) 0 units SC ACHS [facility] Stop: 08/06/22 00:49 Last Admin: 07/09/22 08:53 Dose: 4 units Documented By: ADELINA Co-signed By: [facility] Admin: 07/08/22 20:38 Dose: 1 units Documented By: ANITA Co-signed By: EM Admin: 07/08/22 18:29 Dose: 2 units Documented By: EDUAR Co-signed By: ADELINA Admin: 07/08/22 12:49 Dose: 4 units Documented By: EDUAR Co-signed By: GALLO Admin: 07/08/22 08:49 Dose: 3 units Documented By: EDUAR Co-signed By: ADELINA Admin: 07/07/22 20:25 Dose: 1 units Documented By: MAIRA Co-signed By: Admin: 07/07/22 17:54 Dose: 3 units Documented By: EDUAR Co-signed By: LILLIAN Levothyroxine Sodium (Levothyroxine Sodium 25 Mcg Tablet) 25 mcg PO DAILYBB [facility] Stop: 08/06/22 06:29 Last Admin: 07/09/22 05:29 Dose: 25 mcg Documented By: Admin: 07/08/22 06:20 Dose: 25 mcg Documented By: Admin: 07/07/22 06:18 Dose: 25 mcg Documented By: MAIRA Miscellaneous (Ketoconazole 2 % Shampoo - Order Awaiting Action) 1 each N/A QS [facility] Stop: 08/06/22 07:59 Last Admin: 07/09/22 08:47 Dose: Not Given Documented By: Admin: 07/08/22 23:06 Dose: Not Given Documented By: Admin: 07/08/22 17:12 Dose: Not Given Documented By: Admin: 07/08/22 08:41 Dose: Not Given Documented By: Admin: 07/08/22 01:04 Dose: Not Given Documented By: Admin: 07/07/22 15:27 Dose: Not Given Documented By: Admin: 07/07/22 07:34 Dose: Not Given Documented By: EDUAR Multivitamins/Folic Acid/Vitamin C (Multivitamin Chewable Tab) 1 tab PO QAM [facility] Stop: 08/06/22 08:59 Last Admin: 07/09/22 08:46 Dose: 1 tab Documented By: Admin: 07/08/22 08:41 Dose: 1 tab Documented By: Admin: 07/07/22 07:34 Dose: 1 tab Documented By: EDUAR Vitamin D (Cholecalciferol 1,000 Units 25 Mcg Tab) 2,000 units PO QAM [facility] Stop: 08/06/22 08:59 Last Admin: 07/09/22 08:46 Dose: 2,000 units Documented By: Admin: 07/08/22 08:40 Dose: 2,000 units Documented By: Admin: 07/07/22 07:34 Dose: 2,000 units Documented By: RENEE Coding Level of Care Code 54872 IN/OBS CONSULT LVL 2,35M Diagnoses Closed fracture of left hip S72.002A Encounter type: initial encounter Cognitive impairment R41.89 Time Spent (min) 35
--- NOTE | 2022-07-09 13:14 | Progress Notes ---
DATE OF SERVICE: 07/09/2022. SUBJECTIVE: A 61-year-old gentleman postoperative day 2 from IM nailing of a left intertrochanteric fracture. He seems to be doing okay. He has been mobilizing some. He does report a significant manjeet unt of thigh pain, but seems improved from preoperatively. No new complaints. OBJECTIVE: VITAL SIGNS: Temperature is 37.6. Vital signs are stable. GENERAL: Shows a pleasant middle-aged male. He is lying in bed, looks pretty comfortable this morni ng. EXTREMITIES: Examination of the left hip reveals dressing to be clean, dry and intact. Leg lengths are equal. He can dorsiflex and plantarflex his foot appropriately. He is neurologically intact. LABORATORY DATA: Hemoglobin 9.5. Hematocrit 28.6. Electrolytes are stable. ASSESSMENT: A 61-year-old gentleman postoperative day 2 from IM nailing of a left fairly comminuted intertrochanteric fracture. Seems to be doing okay. PLAN: 1. DVT prophylaxis including thigh-high TEDs, SCDs and we recommended a baby aspirin twice a day for 6 weeks. 2. PT/OT. He can fully weightbear as tolerated on this left leg. He will need a walker for quite s ome time. 3. Medical management as per the medicine service. 4. Disposition: Plan to discharge back to his care facility when medically stable. He is orthopedi lenka okay for discharge any time. I need to see him back 2 to 3 weeks out from his surgery date. Job ID: [id number]
--- NOTE | 2022-07-09 14:58 | Hospitalist Progress Note ---
Date of Service July 09, 2022 Assessment & Plan (1) Closed fracture of left hip: (2) Fall: (3) Rhabdomyolysis: Plan: past medical history of type 2 diabetes mellitus, hyperlipidemia, seizure disorder, , mild cognitive dysfunction presented from assisted living at [place] presented with recurrent falls. found to have fracture of left hip and was admitted to medical floor. X-ray of left femur personally viewed and reviewed; comminuted and displaced intertrochanteric fracture present BUN/creatinine within normal limits. Creatinine kinase downtrending with IV hydration EKG personally reviewed; sinus tachycardia; nonspecific T wave changes in inferior lateral leads. Similar to his EKG on 06/25. Status post left intramedullary collin on 07/07/[address] Swanson, POD #2 PT OT Pain control with scheduled Tylenol, oxycodone and Dilaudid. Aspirin 81 mg twice daily for DVT prophylaxis x 6 weeks (4) Acute blood loss anemia: Plan: Postop hemoglobin is 9.5, down from 11.1. No signs of active bleeding. Monitor for now (5) Tachycardia: Plan: present since admission pain appears to be adequately controlled, BP stable no wbc or MARIA G, hgb stable obtain ecg in a.m. Plan Chronic conditions; History of seizure disorder. Continue home divalproex History of diabetes. Hold his p.o. medications, placed on insulin sliding scale. Follow the blood sugars. History of hyperlipidemia, statin on hold given elevated CK Deep venous thrombosis prophylaxis: Aspirin BID Dispo: from the [place], seen by psych for appropriateness of [facility], no evidence of psychosis or psych symptoms interfering with their ability to care for basic needs, pt to need rehab Full code A total of 40 was spent coordinating, documenting, and providing care for this patient excluding time spent in the performance of separately billed services. This included personally viewing all current laboratories and imaging studies, medication reconciliation, outpatient chart review, and discussion with specialists. Pt seen and examined in collaboration with Dr. Antony, please see addendum Admission and Anticipated Discharge Date Admission Date: July 06, 2022 Supervising Physician Co-Signing Physician Notes Patient seen and examined independently. Discussed with above provider. Pain well controlled on current medication. Aspirin 81 mg twice daily for DVT prophylaxis Continue PT OT while inpatient. Transition to SNF when placement available. Subjective Pt seen and examined in room 353-2. F/U femur fx s/p IM collin. Pt c/o pain and wanting to get up and move. Denies f/c/s, chest pain, sob, n/v/d, abd pain. Review of Systems Review of Systems: All systems reviewed & are unremarkable except as noted in HPI & below Physical Exam Physical Exam: Gen: WD/WN, NAD, A&O x3 HEENT: Normocephalic, atraumatic, conjunctivae moist, sclerae anicteric, mucous membranes moist. Lung: Clear to Auscultation bilaterally, no wheezes/rales/rhonchi Heart: tachy rate, regular rhythm, no murmurs, rubs, or gallops Abdomen: Soft, NT, ND +BS x 4 Extremities: No edema Skin: Warm, no rash, negative turgor. Results & Data Results & Data Vital Signs (Past 12 Hours) Vital Signs Temp Pulse Resp BP Pulse Ox O2 Del Method 07/09/22 14:31 37.5 C 110 H 18 117/77 93 Room Air 07/09/22 07:51 37.6 C H 106 H 18 118/75 93 Room Air Medications Administered Current Inpatient Medications Acetaminophen (Acetaminophen 500 Mg Tab) 1,000 mg PO Q8H [facility] Stop: 08/06/22 14:29 Last Admin: 07/09/22 05:29 Dose: 1,000 mg Aspirin (Aspirin 81 Mg Ectab) 81 mg PO BID [facility] Stop: 08/06/22 20:59 Last Admin: 07/09/22 08:46 Dose: 81 mg Atorvastatin Calcium (Atorvastatin 40 Mg Tab) 40 mg PO QAM [facility] Stop: 08/06/22 08:59 Last Admin: 07/09/22 08:46 Dose: 40 mg Dextrose (Dextrose 50% 50 Ml Syringe) 25 - 50 ml IV UD PRN; Protocol PRN Reason: Hypoglycemia Protocol Stop: 08/06/22 00:49 Dextrose (Dextrose 50% 50 Ml Syringe) 25 - 50 ml IV UD PRN; Protocol PRN Reason: Hypoglycemia Protocol Stop: 08/06/22 13:47 Divalproex Sodium (Divalproex Delay Release 500 Mg Tab) 500 mg PO BID [facility] Stop: 08/06/22 08:59 Last Admin: 07/09/22 08:46 Dose: 500 mg Glucagon (Glucagon For Inj 1 Mg Vial) 1 mg SQ UD PRN; Protocol PRN Reason: Hypoglycemia Protocol Stop: 08/06/22 00:49 Glucagon (Glucagon For Inj 1 Mg Vial) 1 mg SQ UD PRN; Protocol PRN Reason: Hypoglycemia Protocol Stop: 08/06/22 13:47 Glucose (Glucose 10 Tab/Tube) 4 - 8 tab PO UD PRN; Protocol PRN Reason: Hypoglycemia Treatment Stop: 08/06/22 00:49 Glucose (Glucose 40% Gel 15 Gm Tube) 15 - 30 gm PO UD PRN; Protocol PRN Reason: Hypoglycemia Protocol Stop: 08/06/22 00:49 Glucose (Glucose 10 Tab/Tube) 4 - 8 tab PO UD PRN; Protocol PRN Reason: Hypoglycemia Treatment Stop: 08/06/22 13:47 Glucose (Glucose 40% Gel 15 Gm Tube) 15 - 30 gm PO UD PRN; Protocol PRN Reason: Hypoglycemia Protocol Stop: 08/06/22 13:47 Hydromorphone HCl (Hydromorphone Inj 0.5 Mg/0.5 Ml Syr) 0.5 mg IV Q3H PRN PRN Reason: Severe Pain (Scale 7, 8, 9,10) Stop: 07/21/22 00:49 Last Admin: 07/08/22 02:01 Dose: 0.5 mg Insulin Aspart (Insulin Aspart Per Unit Charge) 0 units SC ACHS [facility] Stop: 08/06/22 00:49 Last Admin: 07/09/22 13:40 Dose: Not Given Levothyroxine Sodium (Levothyroxine Sodium 25 Mcg Tablet) 25 mcg PO DAILYBB [facility] Stop: 08/06/22 06:29 Last Admin: 07/09/22 05:29 Dose: 25 mcg Loperamide HCl (Loperamide Hcl 2 Mg Cap) 2 mg PO QID PRN PRN Reason: Diarrhea Stop: 08/06/22 00:49 Miscellaneous (Ketoconazole 2 % Shampoo - Order Awaiting Action) 1 each N/A QS [facility] Stop: 08/06/22 07:59 Last Admin: 07/09/22 08:47 Dose: Not Given Miscellaneous (Carbohydrates For Hypoglycemia ) 15 - 30 gm PO UD PRN PRN Reason: Hypoglycemia Protocol Stop: 08/06/22 00:49 Miscellaneous (Carbohydrates For Hypoglycemia ) 15 - 30 gm PO UD PRN PRN Reason: Hypoglycemia Protocol Stop: 08/06/22 13:47 Multivitamins/Folic Acid/Vitamin C (Multivitamin Chewable Tab) 1 tab PO QAM [facility] Stop: 08/06/22 08:59 Last Admin: 07/09/22 08:46 Dose: 1 tab Ondansetron HCl (Ondansetron Inj 2 Mg/Ml 2 Ml Vial) 4 mg IV Q6H PRN PRN Reason: Nausea Stop: 08/06/22 00:49 Oxycodone HCl (Oxycodone Hcl Ir 5 Mg Tab (Immediate Release)) 5 mg PO Q4H PRN PRN Reason: Moderate Pain (Scale 4, 5, 6) Stop: 07/21/22 14:11 Polyethylene Glycol (Polyethylene (Miralax) 17 Gm Pack) 17 gm PO Q6 [facility] Stop: 08/08/22 17:59 Triamcinolone Acetonide (Triamcinolone Acet 0.1% Cr 15 Gm Tube) 1 appln TOP BID PRN PRN Reason: SKIN IRRITATION BEHIND LEFT EA Stop: 08/06/22 00:49 Vitamin D (Cholecalciferol 1,000 Units 25 Mcg Tab) 2,000 units PO QAM [facility] Stop: 08/06/22 08:59 Last Admin: 07/09/22 08:46 Dose: 2,000 units (1) Closed fracture of left hip Encounter type: initial encounter Qualified Code(s): S72.002A - Fracture of unspecified part of neck of left femur, initial encounter for closed fracture
[2022-07-09] MEDS: POLYETHYLENE (MIRALAX) 17 GM PACK PO SCH (17:42)
[2022-07-10] MEDS: POLYETHYLENE (MIRALAX) 17 GM PACK PO SCH ×5 (00:02→23:50)
[2022-07-10] MEDS: LEVOTHYROXINE SODIUM 25 MCG TABLET PO SCH (05:40)
[2022-07-10] MEDS: ACETAMINOPHEN 500 MG TAB PO SCH ×3 (05:40→22:33)
[2022-07-10 06:42] LABS: Basophils # (auto) 0.02 K/uL (0-0.2); Basophils % (auto) 0.2 %; Eosinophils # (auto) 0.12 K/uL (0-0.50); Eosinophils % (auto) 1.3 %; Hematocrit (blood only) 27.8 % (42.0-52.0); Hemoglobin 9.4 g/dl (14.0-18.0); Immature Granulocytes # (auto) 0.09 K/uL (0.01-0.20); Lymphocytes # (auto) 1.59 K/uL (1.2-3.4); Lymphocytes % (auto) 17.7 %; Mean Corpuscular Hemoglobin 30.2 pg (25.0-34.0); Mean Corpuscular Hgb Conc 33.8 g/dL (32.0-36.0); Mean Corpuscular Volume 89.4 fL (80.0-100.0); Mean Platelet Volume 9.6 fL (9.4-12.4); Monocytes # (auto) 1.01 K/uL (0.11-0.59); Monocytes % (auto) 11.3 %; Neutrophils # (auto) 6.14 K/uL (1.40-6.50); Neutrophils % (auto) 68.5 %; Nucleated RBC # (auto) 0.04 K/uL (0-0.12); Nucleated RBC % (auto) 0.4 %; Platelet Count 198 K/uL (130-400); RDW Coefficient of Variation 13.3 % (11.5-14.5); RDW Standard Deviation 43.7 fL (36.4-46.3); Red Blood Count 3.11 M/uL (4.70-6.10); White Blood Count 8.97 K/ul (4.8-10.8)
[2022-07-10 07:02] LABS: Albumin Globulin Ratio 1.2 (0.9-2); BUN Creatinine Ratio 17.3 (10-20); Bilirubin,Total 0.6 mg/dl (0.2-1.0); Calcium 8.2 mg/dl (8.6-10.3); Est GFR (African American) 114.8 ml/min; Globulin 2.5 gm/dl (2.5-4.0); Potassium 3.8 mmol/L (3.5-5.1); Total Protein 5.5 gm/dl (6.0-8.3)
[2022-07-10] MEDS: KETOCONAZOLE 2% SCH ×2 (07:04→12:25)
[2022-07-10] MEDS: MULTIVITAMIN CHEWABLE TAB PO SCH (07:40)
[2022-07-10] MEDS: DIVALPROEX DELAY RELEASE 500 MG TAB PO SCH ×2 (07:41→21:27)
[2022-07-10] MEDS: ATORVASTATIN 40 MG TAB PO SCH (07:41)
[2022-07-10] MEDS: CHOLECALCIFEROL 1,000 UNITS 25 MCG TAB PO SCH (07:41)
[2022-07-10] MEDS: ASPIRIN 81 MG ECTAB PO SCH ×2 (07:41→21:27)
[2022-07-10] MEDS: INSULIN ASPART PER UNIT CHARGE SC SCH ×4 (09:37→21:28)
[2022-07-10] MEDS: oxyCODONE HCL IR 5 MG TAB (IMMEDIATE RELEASE) PO PRN ×2 (11:17→21:27)
--- NOTE | 2022-07-10 12:38 | Progress Notes ---
DATE OF SERVICE: 07/10/2022 SUBJECTIVE: A 61-year-old gentleman now postop day 3 from IM nailing of a left intertrochanteric fra cture. He is doing okay. Pain seems a little bit better today. Denies any chest pain or shortness of breath. No new complaints. OBJECTIVE: VITAL SIGNS: Temperature 37.4. Vital signs are stable. PHYSICAL EXAMINATION: GENERAL: Shows a pleasant middle-aged male. He is sitting up in his bedside chair and looks pretty comfortable. EXTREMITIES: Examination of the left hip reveals dressing to be clean, dry and intact. Leg lengths equal. He can dorsiflex and plantarflex his foot appropriately. He is neurologically stable. LABORATORY DATA: Hemoglobin 9.4. Hematocrit 27.8. Electrolytes are stable. ASSESSMENT: A 61-year-old gentleman, postoperative day #3 from intramedullary nailing of a left comm inuted intertrochanteric fracture. He seems to be a little bit better today. Seems to be recovering appropriately considering his injury. PLAN: 1. DVT prophylaxis including thigh-high TEDs, SCDs and we recommend a baby aspirin twice a day for 6 weeks. 2. PT/OT. He can fully weight bear as tolerated in left the leg. 3. Pain control, seems to be doing okay with current pain regimen. 4. Medical management as per the medicine service. 5. Disposition: He is orthopedically okay for discharge any time medically stable. I need to see h im back 2-3 weeks out from surgery date. Any orthopedic questions can be directed to me at . Job ID: [id number]
--- NOTE | 2022-07-10 13:07 | Hospitalist Progress Note ---
Date of Service July 10, 2022 Assessment & Plan (1) Closed fracture of left hip: (2) Fall: (3) Rhabdomyolysis: Plan: past medical history of type 2 diabetes mellitus, hyperlipidemia, seizure disorder, , mild cognitive dysfunction presented from assisted living at [place] presented with recurrent falls. found to have fracture of left hip and was admitted to medical floor. X-ray of left femur personally viewed and reviewed; comminuted and displaced intertrochanteric fracture present BUN/creatinine within normal limits. Creatinine kinase downtrending with IV hydration EKG personally reviewed; sinus tachycardia; nonspecific T wave changes in inferior lateral leads. Similar to his EKG on 06/25. Status post left intramedullary collin on 07/07/[address] Swanson, POD #2 PT OT Pain control with scheduled Tylenol, oxycodone and Dilaudid. Aspirin 81 mg twice daily for DVT prophylaxis x 6 weeks (4) Acute blood loss anemia: Plan: Postop hemoglobin is 9.4, down from 11.1. No signs of active bleeding. Monitor for now (5) Tachycardia: Plan: present since admission pain appears to be adequately controlled, BP stable no wbc or MARIA G, hgb stable ekg 101bpm, no st twave change Plan Chronic conditions; History of seizure disorder. Continue home divalproex History of diabetes. Hold his p.o. medications, placed on insulin sliding scale. Follow the blood sugars. History of hyperlipidemia, statin on hold given elevated CK Deep venous thrombosis prophylaxis: Aspirin BID Dispo: from the [place], seen by psych for appropriateness of [facility], no evidence of psychosis or psych symptoms interfering with their ability to care for basic needs, pt to need rehab Full code A total of 40 was spent coordinating, documenting, and providing care for this patient excluding time spent in the performance of separately billed services. This included personally viewing all current laboratories and imaging studies, medication reconciliation, outpatient chart review, and discussion with specialists. Pt seen and examined in collaboration with Dr. Antony, please see addendum Admission and Anticipated Discharge Date Admission Date: July 06, 2022 Supervising Physician Co-Signing Physician Notes Patient seen and examined independently. Discussed with above provider. Pain well controlled on current medication. Aspirin 81 mg twice daily for DVT prophylaxis Continue PT OT while inpatient. Transition to SNF when placement available. Subjective Pt seen and examined in room 353-2. F/U femur fx s/p IM collin. He is sitting up in bed. Appears in much better spirits. C/O pain with movement. Denies f/c/s, chest pain, sob, n/v/d. Review of Systems Review of Systems: All systems reviewed & are unremarkable except as noted in HPI & below Physical Exam Physical Exam: Gen: WD/WN, NAD, A&O x3 HEENT: Normocephalic, atraumatic, conjunctivae moist, sclerae anicteric, mucous membranes moist. Lung: Clear to Auscultation bilaterally, no wheezes/rales/rhonchi Heart: tachy rate, regular rhythm, no murmurs, rubs, or gallops Abdomen: Soft, NT, ND +BS x 4 Extremities: No edema Skin: Warm, no rash, negative turgor. Results & Data Results & Data Vital Signs (Past 12 Hours) Vital Signs Temp Pulse Resp BP Pulse Ox O2 Del Method 07/10/22 07:31 37.4 C 101 H 16 132/80 95 Room Air Laboratory Results Short CBC 07/10/22 Range/Units 05:44 WBC 8.97 (4.8-10.8) K/ul Hgb 9.4 L (14.0-18.0) g/dl Hct 27.8 L (42.0-52.0) % Plt Count 198 (130-400) K/uL BMP 07/10/22 05:44 Sodium 138 Potassium 3.8 Chloride 103 Carbon Dioxide 28 BUN 13 Creatinine 0.75 Glucose 127 H Calcium 8.2 L Liver Function 07/10/22 Range/Units 05:44 Total Bilirubin 0.6 (0.2-1.0) mg/dl AST 25 (13-39) U/L ALT 17 (7-52) U/L Alkaline Phosphatase 38 (34-104) U/L Albumin 3.0 L (3.4-5.0) gm/dl (1) Closed fracture of left hip Encounter type: initial encounter Qualified Code(s): S72.002A - Fracture of unspecified part of neck of left femur, initial encounter for closed fracture
--- NOTE | 2022-07-10 14:00 | Electrocardiogram Report ---
Test Reason : Blood Pressure : / mmHG Vent. Rate : 101 BPM Atrial Rate : 101 BPM P-R Int : 146 ms QRS Dur : 084 ms QT Int : 376 ms P-R-T Axes : 044 004 012 degrees QTc Int : 487 ms Poor data quality, interpretation may be adversely affected Sinus tachycardia Inferior infarct (cited on or before 25-JUN-2022) Abnormal ECG When compared with ECG of 06-JUL-2022 08:10, No significant change Confirmed by Willie Chavez ([id number]) on 07/10/2022 1:59:52 PM Referred By: REFERRED SELF Confirmed By:Willie Chavez
[2022-07-11] MEDS: ACETAMINOPHEN 500 MG TAB PO SCH ×3 (06:30→21:57)
[2022-07-11] MEDS: LEVOTHYROXINE SODIUM 25 MCG TABLET PO SCH (06:30)
[2022-07-11] MEDS: POLYETHYLENE (MIRALAX) 17 GM PACK PO SCH ×3 (06:30→17:19)
[2022-07-11] MEDS: DIVALPROEX DELAY RELEASE 500 MG TAB PO SCH ×2 (08:17→21:20)
[2022-07-11] MEDS: ASPIRIN 81 MG ECTAB PO SCH ×2 (08:17→21:20)
[2022-07-11] MEDS: MULTIVITAMIN CHEWABLE TAB PO SCH (08:17)
[2022-07-11] MEDS: CHOLECALCIFEROL 1,000 UNITS 25 MCG TAB PO SCH (08:17)
[2022-07-11] MEDS: ATORVASTATIN 40 MG TAB PO SCH (08:17)
[2022-07-11] MEDS: oxyCODONE HCL IR 5 MG TAB (IMMEDIATE RELEASE) PO PRN (08:19)
[2022-07-11 08:59] LABS: Hematocrit (blood only) 26.5 % (42.0-52.0); Hemoglobin 9.1 g/dl (14.0-18.0); Mean Corpuscular Hemoglobin 29.8 pg (25.0-34.0); Mean Corpuscular Hgb Conc 34.3 g/dL (32.0-36.0); Mean Corpuscular Volume 86.9 fL (80.0-100.0); Mean Platelet Volume 9.1 fL (9.4-12.4); Nucleated RBC # (auto) 0.07 K/uL (0-0.12); Nucleated RBC % (auto) 0.9 %; Platelet Count 245 K/uL (130-400); RDW Coefficient of Variation 13.3 % (11.5-14.5); RDW Standard Deviation 41.9 fL (36.4-46.3); Red Blood Count 3.05 M/uL (4.70-6.10)
[2022-07-11 09:05] LABS: BUN Creatinine Ratio 21.6 (10-20); Calcium 8.2 mg/dl (8.6-10.3); Creatinine Clr Calc Pharmacy 96.3 ml/min; Est GFR (African American) 115.4 ml/min; Est GFR (Non-African American) 99.6 ml/min; Potassium 3.9 mmol/L (3.5-5.1)
[2022-07-11] MEDS: INSULIN ASPART PER UNIT CHARGE SC SCH ×4 (09:43→21:52)
--- NOTE | 2022-07-11 14:40 | Hospitalist Progress Note ---
Date of Service July 11, 2022 Assessment & Plan (1) Closed fracture of left hip: (2) Fall: (3) Rhabdomyolysis: Plan: past medical history of type 2 diabetes mellitus, hyperlipidemia, seizure disorder, , mild cognitive dysfunction presented from assisted living at [place] presented with recurrent falls. found to have fracture of left hip and was admitted to medical floor. X-ray of left femur personally viewed and reviewed; comminuted and displaced intertrochanteric fracture present BUN/creatinine within normal limits. Creatinine kinase downtrending with IV hydration EKG personally reviewed; sinus tachycardia; nonspecific T wave changes in inferior lateral leads. Similar to his EKG on 06/25. Status post left intramedullary collin on 07/07/[address] Swanson, PT OT Pain control with scheduled Tylenol, oxycodone and Dilaudid. Aspirin 81 mg twice daily for DVT prophylaxis x 6 weeks (4) Acute blood loss anemia: Plan: Postop hemoglobin around 9, down from 11.1. No signs of active bleeding. Monitor for now (5) Tachycardia: Plan: present since admission pain appears to be adequately controlled, BP stable no wbc or MARIA G, hgb stable ekg 101bpm, no st twave change Plan Chronic conditions; History of seizure disorder. Continue home divalproex History of diabetes. Hold his p.o. medications, placed on insulin sliding scale. Follow the blood sugars. History of hyperlipidemia, statin Deep venous thrombosis prophylaxis: Aspirin BID Dispo: from the [facility], seen by psych for appropriateness of FELIPE, no evidence of psychosis or psych symptoms interfering with their ability to care for basic needs, pt to need rehab Full code Please note the above document was generated using voice recognition software. It may contain grammatical, syntax or spelling errors. Any formal questions or concerns about the content, text or information contained within the body of this dictation should be directly addressed to the provider for clarification Admission and Anticipated Discharge Date Admission Date: July 06, 2022 Subjective Patient seen and examined at bedside. He is sitting up on the chair; not in distress. He reports that pain is well controlled. Voiding well and normal bowel movements. Review of Systems Review of Systems: All systems reviewed & are unremarkable except as noted in Subjective Physical Exam Physical Exam: Constitutional: Awake, alert orient x3. Lying on the bed. Respiratory: normal respiratory effort, lungs clear to auscultation, no wheeze, rales, rhonchi. Normal insp/exp effort, no accessory muscle use Cardiovascular: RRR, no murmur, no edema Vessels: no JVD or carotid bruit Chest: normal inspection of chest Abdomen: normal bowel sounds, soft, nontender, no hepatosplenomegaly Musculoskeletal: Left hip bandages dry, clean and intact. Skin: no rashes, warm and dry normal turgor Neurologic: PERRL, EOMI, accommodation nl, no face palsy, no dysarthria CN's II- XI intact bilaterally and moves all extremities Psychiatric: A+Ox3, euthymic affect Lymphatic: no cervical or axillary lymphadenopathy : deferred Results & Data Results & Data Vital Signs (Past 12 Hours) Vital Signs Temp Pulse Resp BP Pulse Ox O2 Del Method 07/11/22 07:18 36.9 C 94 H 16 145/79 H 96 Room Air Laboratory Results Laboratory Results WBC 7.50 K/ul (4.8-10.8) 07/11/22 08:22 RBC 3.05 M/uL (4.70-6.10) L 07/11/22 08:22 Hgb 9.1 g/dl (14.0-18.0) L 07/11/22 08:22 Hct 26.5 % (42.0-52.0) L 07/11/22 08:22 MCV 86.9 fL (80.0-100.0) 07/11/22 08:22 MCH 29.8 pg (25.0-34.0) 07/11/22 08:22 MCHC 34.3 g/dL (32.0-36.0) 07/11/22 08:22 RDW Std Deviation 41.9 fL (36.4-46.3) 07/11/22 08:22 RDW Coeff of Luci 13.3 % (11.5-14.5) 07/11/22 08:22 Plt Count 245 K/uL (130-400) 07/11/22 08:22 MPV 9.1 fL (9.4-12.4) L 07/11/22 08:22 Immature Gran % (Auto) 1.0 % 07/10/22 05:44 Neut % (Auto) 68.5 % 07/10/22 05:44 Lymph % (Auto) 17.7 % 07/10/22 05:44 [place] % (Auto) 11.3 % 07/10/22 05:44 Eos % (Auto) 1.3 % 07/10/22 05:44 Baso % (Auto) 0.2 % 07/10/22 05:44 Neut # (Auto) 6.14 K/uL (1.40-6.50) 07/10/22 05:44 Lymph # (Auto) 1.59 K/uL (1.2-3.4) 07/10/22 05:44 [place] # (Auto) 1.01 K/uL (0.11-0.59) H 07/10/22 05:44 Eos # (Auto) 0.12 K/uL (0-0.50) 07/10/22 05:44 Baso # (Auto) 0.02 K/uL (0-0.2) 07/10/22 05:44 Immature Gran # (Auto) 0.09 K/uL (0.01-0.20) 07/10/22 05:44 Absolute Nucleated RBC 0.07 K/uL (0-0.12) 07/11/22 08:22 Nucleated RBC % (auto) 0.9 % 07/11/22 08:22 Sodium 136 mmol/L (136-145) 07/11/22 08:22 Potassium 3.9 mmol/L (3.5-5.1) 07/11/22 08:22 Chloride 102 mmol/L (98-107) 07/11/22 08:22 Carbon Dioxide 28 mmol/L (21-32) 07/11/22 08:22 Anion Gap 6 (3-11) 07/11/22 08:22 BUN 16 mg/dl (6-23) 07/11/22 08:22 Creatinine 0.74 mg/dl (0.6-1.4) 07/11/22 08:22 Est Cr Clr Drug Dosing 96.3 ml/min 07/11/22 08:22 Est GFR ( Amer) 115.4 ml/min 07/11/22 08:22 Est GFR (Non-Af Amer) 99.6 ml/min 07/11/22 08:22 BUN/Creatinine Ratio 21.6 (10-20) H 07/11/22 08:22 Glucose 169 mg/dl (70-99(Fasting)) H 07/11/22 08:22 POC Glucose 182 mg/dl (70-99) H 07/11/22 11:52 Calcium 8.2 mg/dl (8.6-10.3) L 07/11/22 08:22 Magnesium 1.6 mg/dl (1.7-2.4) L 07/07/22 05:39 Total Bilirubin 0.6 mg/dl (0.2-1.0) 07/10/22 05:44 AST 25 U/L (13-39) 07/10/22 05:44 ALT 17 U/L (7-52) 07/10/22 05:44 Alkaline Phosphatase 38 U/L (34-104) 07/10/22 05:44 Total Creatine Kinase 395 U/L (30-223) H 07/07/22 05:39 Total Protein 5.5 gm/dl (6.0-8.3) L 07/10/22 05:44 Albumin 3.0 gm/dl (3.4-5.0) L 07/10/22 05:44 Globulin 2.5 gm/dl (2.5-4.0) 07/10/22 05:44 Albumin/Globulin Ratio 1.2 (0.9-2) 07/10/22 05:44 25-OH Vitamin D Total 61.6 ng/ml (30-100) 07/08/22 06:09 Urine Color Yellow 07/06/22 Unknown Urine Appearance Clear (Clear) 07/06/22 Unknown Urine pH 7.5 (4.5-7.5) 07/06/22 Unknown Ur Specific [place] 1.022 (1.000-1.030) 07/06/22 Unknown Urine Protein Negative (Negative) 07/06/22 Unknown Urine Glucose (UA) Trace (Negative) H 07/06/22 Unknown Urine Ketones 1+ (Negative) H 07/06/22 Unknown Urine Blood Negative (Negative) 07/06/22 Unknown Urine Nitrite Negative (Negative) 07/06/22 Unknown Urine Bilirubin Negative (Negative) 07/06/22 Unknown Urine Urobilinogen Negative (Negative) 07/06/22 Unknown Ur Leukocyte Esterase Negative (Negative) 07/06/22 Unknown SARS-CoV-2, RNA, NAAT NEGATIVE (NEGATIVE) 07/06/22 21:45 Blood Type O Positive 07/07/22 08:35 Antibody Screen NEGATIVE 07/07/22 08:35 Impressions Pelvis X-Ray 07/06/22 21:43 XR pelvis 1-2V routine, XR femur LT 2V routine CLINICAL HISTORY: left hip pain COMPARISON STUDY: Abdomen and pelvis CT 07/06/2022.. FINDINGS: Comminuted and displaced intertrochanteric fracture within the proximal left femur. Contrast within the bladder from the recent CT examination. No acute fracture or dislocation within the pelvis or right hip. The distal left femur is intact. IMPRESSION: Comminuted and displaced intertrochanteric fracture within the proximal left femur. ACT 112: Negative or not required by law. Electronically signed by: Jc Cotto M.D. 07/07/2022 7:33 AM Chest X-Ray 07/06/22 22:43 XR chest 1V portable HISTORY: left hip fracture COMPARISON: Chest 06/25/2022. FINDINGS: No pneumothorax. No pleural effusions. There are low lung volumes with chronic interstitial thickening. The heart remains mildly enlarged. No evidence for pulmonary edema. IMPRESSION: Stable cardiomegaly and mild interstitial thickening. ACT 112: Negative or not required by law. Electronically signed by: Jc Cotto M.D. 07/07/2022 7:35 AM Femur X-Ray 07/07/22 00:00 FL femur LT 2V CLINICAL HISTORY: Left femoral fracture. Postop. COMPARISON STUDY: Left femur 07/06/2022. FLUOROSCOPY TIME: 1 minute and 46 seconds FLUOROSCOPY IMAGES: 4 Ka,r: 20.4 mGy FINDINGS: Status post internal fixation of the left femoral intertrochanteric fracture with an intramedullary femoral collin and interlocking femoral neck pin. The hardware appears intact. Alignment is near-anatomic. IMPRESSION: Fluoroscopic assistance as above. ACT 112: Negative or not required by law. Electronically signed by: Jc Cotto M.D. 07/07/2022 12:53 PM (1) Closed fracture of left hip Encounter type: initial encounter Qualified Code(s): S72.002A - Fracture of unspecified part of neck of left femur, initial encounter for closed fracture
[2022-07-12] MEDS: POLYETHYLENE (MIRALAX) 17 GM PACK PO SCH ×2 (01:01→05:50)
[2022-07-12] MEDS: ACETAMINOPHEN 500 MG TAB PO SCH ×3 (05:50→21:47)
[2022-07-12] MEDS: LEVOTHYROXINE SODIUM 25 MCG TABLET PO SCH (05:51)
[2022-07-12 08:37] LABS: Basophils # (auto) 0.02 K/uL (0-0.2); Basophils % (auto) 0.3 %; Eosinophils # (auto) 0.17 K/uL (0-0.50); Eosinophils % (auto) 2.3 %; Hematocrit (blood only) 28.6 % (42.0-52.0); Hemoglobin 9.5 g/dl (14.0-18.0); Immature Granulocytes # (auto) 0.26 K/uL (0.01-0.20); Immature Granulocytes % (auto) 3.6 %; Lymphocytes # (auto) 1.51 K/uL (1.2-3.4); Lymphocytes % (auto) 20.7 %; Mean Corpuscular Hemoglobin 29.7 pg (25.0-34.0); Mean Corpuscular Hgb Conc 33.2 g/dL (32.0-36.0); Mean Corpuscular Volume 89.4 fL (80.0-100.0); Mean Platelet Volume 8.9 fL (9.4-12.4); Monocytes # (auto) 0.98 K/uL (0.11-0.59); Monocytes % (auto) 13.5 %; Neutrophils # (auto) 4.34 K/uL (1.40-6.50); Neutrophils % (auto) 59.6 %; Nucleated RBC # (auto) 0.09 K/uL (0-0.12); Nucleated RBC % (auto) 1.2 %; Platelet Count 278 K/uL (130-400); RDW Coefficient of Variation 13.4 % (11.5-14.5); RDW Standard Deviation 43.6 fL (36.4-46.3); White Blood Count 7.28 K/ul (4.8-10.8)
[2022-07-12 08:55] LABS: BUN Creatinine Ratio 18.3 (10-20); Calcium 8.2 mg/dl (8.6-10.3); Creatinine Clr Calc Pharmacy 86.9 ml/min; Est GFR (African American) 110.6 ml/min; Est GFR (Non-African American) 95.4 ml/min
[2022-07-12] MEDS: INSULIN ASPART PER UNIT CHARGE SC SCH ×4 (09:34→21:46)
[2022-07-12] MEDS: CHOLECALCIFEROL 1,000 UNITS 25 MCG TAB PO SCH (09:38)
[2022-07-12] MEDS: MULTIVITAMIN CHEWABLE TAB PO SCH (09:38)
[2022-07-12] MEDS: ATORVASTATIN 40 MG TAB PO SCH (09:39)
[2022-07-12] MEDS: DIVALPROEX DELAY RELEASE 500 MG TAB PO SCH ×2 (09:39→21:46)
[2022-07-12] MEDS: ENOXAPARIN INJ 40 MG/0.4 ML SYR SQ SCH (09:40)
[2022-07-12] MEDS: LOPERAMIDE HCL 2 MG CAP PO PRN ×2 (13:16→18:46)
--- NOTE | 2022-07-12 14:01 | Hospitalist Progress Note ---
Date of Service July 12, 2022 Assessment & Plan (1) Closed fracture of left hip: (2) Fall: (3) Rhabdomyolysis: (4) Acute blood loss anemia: (5) Tachycardia: Plan 61-year-old male from [facility] living with history of psychiatric disorder, seizure disorder, mild cognitive dysfunction who presented to ED on 07/06 after unwitnessed ground-level fall and found to have left hip fracture Closed fracture of left hip/left displaced comminuted intertrochanteric femur fracture - status post left intramedullary collin femur (lt) by Dr. Swanson on 07/07 -Continue pain management, bowel regimen, DVT prophylaxis, PT OT Acute blood loss anemia: Postop hemoglobin 12->9.8 and has remained stable >9 since. No bleeding noted. Will start iron supplements. History of seizure disorder-continue valproate History of diabetes-resume home meds Januvia and metformin. Discontinue sliding-scale insulin. DVT prophylaxis-subcu Lovenox. Change to aspirin twice daily at discharge Disposition- Paperwork in process for rehab given his psychiatric diagnosis. Target letter to be done today. Patient is stable. Please note the above document was generated using voice recognition software. It may contain grammatical, syntax or spelling errors. Any formal questions or concerns about the content, text or information contained within the body of this dictation should be directly addressed to the provider for clarification Admission and Anticipated Discharge Date Admission Date: July 06, 2022 Subjective Patient was seen and examined at bedside. Complains of pain after physical therapy. Denies any other issues. No fever, chills, chest pain or sense of breath, nausea or vomiting. Normal oral intake. Voiding without issues. regu lar bowel movement. Review of Systems Review of Systems: All systems reviewed & are unremarkable except as noted in Subjective Physical Exam Physical Exam: General: Lying comfortably in bed, not in distress, on room air HEENT: EOMI, WOJCIECH, MMM Chest: Fair breath sounds bilaterally, no wheezes or crackles CVS: Regular rate and rhythm, normal heart sounds, no murmur Abdomen: Soft, non tender, not distended, normal bowel sounds Neuro: Awake, alert, oriented, conversing well, non focal Extremities: No cyanosis, clubbing or edema MSK: Left hip incision site clean dry and intact and covered with dressing Psych: Calm, cooperative Results & Data Results & Data Vital Signs (Past 12 Hours) Vital Signs Temp Pulse Resp BP Pulse Ox O2 Del Method 07/12/22 07:31 36.8 C 100 H 16 138/69 96 Room Air Laboratory Results Short CBC 07/12/22 Range/Units 08:10 WBC 7.28 (4.8-10.8) K/ul Hgb 9.5 L (14.0-18.0) g/dl Hct 28.6 L (42.0-52.0) % Plt Count 278 (130-400) K/uL BMP 07/12/22 08:10 Sodium 139 Potassium 4.0 Chloride 104 Carbon Dioxide 27 BUN 15 Creatinine 0.82 Glucose 162 H Calcium 8.2 L Medications Administered Current Inpatient Medications Acetaminophen (Acetaminophen 500 Mg Tab) 1,000 mg PO Q8H [facility] Stop: 08/06/22 14:29 Last Admin: 07/12/22 05:50 Dose: 1,000 mg Atorvastatin Calcium (Atorvastatin 40 Mg Tab) 40 mg PO QAM [facility] Stop: 08/06/22 08:59 Last Admin: 07/12/22 09:39 Dose: 40 mg Dextrose (Dextrose 50% 50 Ml Syringe) 25 - 50 ml IV UD PRN; Protocol PRN Reason: Hypoglycemia Protocol Stop: 08/06/22 00:49 Dextrose (Dextrose 50% 50 Ml Syringe) 25 - 50 ml IV UD PRN; Protocol PRN Reason: Hypoglycemia Protocol Stop: 08/06/22 13:47 Divalproex Sodium (Divalproex Delay Release 500 Mg Tab) 500 mg PO BID [facility] Stop: 08/06/22 08:59 Last Admin: 07/12/22 09:39 Dose: 500 mg Enoxaparin Sodium (Enoxaparin Inj 40 Mg/0.4 Ml Syr) 40 mg SQ QAM [facility]ELL Stop: 08/11/22 08:59 Last Admin: 07/12/22 09:40 Dose: 40 mg Glucagon (Glucagon For Inj 1 Mg Vial) 1 mg SQ UD PRN; Protocol PRN Reason: Hypoglycemia Protocol Stop: 08/06/22 00:49 Glucagon (Glucagon For Inj 1 Mg Vial) 1 mg SQ UD PRN; Protocol PRN Reason: Hypoglycemia Protocol Stop: 08/06/22 13:47 Glucose (Glucose 10 Tab/Tube) 4 - 8 tab PO UD PRN; Protocol PRN Reason: Hypoglycemia Treatment Stop: 08/06/22 00:49 Glucose (Glucose 40% Gel 15 Gm Tube) 15 - 30 gm PO UD PRN; Protocol PRN Reason: Hypoglycemia Protocol Stop: 08/06/22 00:49 Glucose (Glucose 10 Tab/Tube) 4 - 8 tab PO UD PRN; Protocol PRN Reason: Hypoglycemia Treatment Stop: 08/06/22 13:47 Glucose (Glucose 40% Gel 15 Gm Tube) 15 - 30 gm PO UD PRN; Protocol PRN Reason: Hypoglycemia Protocol Stop: 08/06/22 13:47 Hydromorphone HCl (Hydromorphone Inj 0.5 Mg/0.5 Ml Syr) 0.5 mg IV Q3H PRN PRN Reason: Severe Pain (Scale 7, 8, 9,10) Stop: 07/21/22 00:49 Last Admin: 07/08/22 02:01 Dose: 0.5 mg Insulin Aspart (Insulin Aspart Per Unit Charge) 0 units SC ACHS [facility] Stop: 08/06/22 00:49 Last Admin: 07/12/22 13:39 Dose: 2 units Levothyroxine Sodium (Levothyroxine Sodium 25 Mcg Tablet) 25 mcg PO DAILYBB [facility] Stop: 08/06/22 06:29 Last Admin: 07/12/22 05:51 Dose: 25 mcg Loperamide HCl (Loperamide Hcl 2 Mg Cap) 2 mg PO QID PRN PRN Reason: Diarrhea Stop: 08/06/22 00:49 Last Admin: 07/12/22 13:16 Dose: 2 mg Miscellaneous (Ketoconazole 2 % Shampoo - Order Awaiting Action) 1 each N/A QS [facility] Stop: 08/06/22 07:59 Last Admin: 07/10/22 12:25 Dose: Not Given Miscellaneous (Carbohydrates For Hypoglycemia ) 15 - 30 gm PO UD PRN PRN Reason: Hypoglycemia Protocol Stop: 08/06/22 00:49 Miscellaneous (Carbohydrates For Hypoglycemia ) 15 - 30 gm PO UD PRN PRN Reason: Hypoglycemia Protocol Stop: 08/06/22 13:47 Multivitamins/Folic Acid/Vitamin C (Multivitamin Chewable Tab) 1 tab PO QAM [facility] Stop: 08/06/22 08:59 Last Admin: 07/12/22 09:38 Dose: 1 tab Ondansetron HCl (Ondansetron Inj 2 Mg/Ml 2 Ml Vial) 4 mg IV Q6H PRN PRN Reason: Nausea Stop: 08/06/22 00:49 Oxycodone HCl (Oxycodone Hcl Ir 5 Mg Tab (Immediate Release)) 5 mg PO Q4H PRN PRN Reason: Moderate Pain (Scale 4, 5, 6) Stop: 07/21/22 14:11 Last Admin: 07/11/22 08:19 Dose: 5 mg Triamcinolone Acetonide (Triamcinolone Acet 0.1% Cr 15 Gm Tube) 1 appln TOP BID PRN PRN Reason: SKIN IRRITATION BEHIND LEFT EA Stop: 08/06/22 00:49 Vitamin D (Cholecalciferol 1,000 Units 25 Mcg Tab) [facility] [place] Stop: 08/06/22 08:59 Last Admin: 07/12/22 09:38 Dose: 2,000 units (1) Closed fracture of left hip Encounter type: initial encounter Qualified Code(s): S72.002A - Fracture of unspecified part of neck of left femur, initial encounter for closed fracture
[2022-07-12] MEDS: metFORMIN HCL ER 500 MG TABCR PO SCH (17:58)
[2022-07-12] MEDS: oxyCODONE HCL IR 5 MG TAB (IMMEDIATE RELEASE) PO PRN (19:06)
[2022-07-13] MEDS: LEVOTHYROXINE SODIUM 25 MCG TABLET PO SCH (06:22)
[2022-07-13] MEDS: ACETAMINOPHEN 500 MG TAB PO SCH ×3 (06:22→20:49)
[2022-07-13 08:09] LABS: Creatinine Clr Calc Pharmacy 91.4 ml/min; Est GFR (African American) 112.9 ml/min; Est GFR (Non-African American) 97.4 ml/min
[2022-07-13] MEDS: CHOLECALCIFEROL 1,000 UNITS 25 MCG TAB PO SCH (08:42)
[2022-07-13] MEDS: ATORVASTATIN 40 MG TAB PO SCH (08:42)
[2022-07-13] MEDS: DIVALPROEX DELAY RELEASE 500 MG TAB PO SCH ×2 (08:42→20:49)
[2022-07-13] MEDS: metFORMIN HCL ER 500 MG TABCR PO SCH ×2 (08:42→17:57)
[2022-07-13] MEDS: ENOXAPARIN INJ 40 MG/0.4 ML SYR SQ SCH (08:43)
[2022-07-13] MEDS: FERROUS SULFATE 325 MG TAB PO SCH (08:43)
[2022-07-13] MEDS: MULTIVITAMIN CHEWABLE TAB PO SCH (08:43)
[2022-07-13] MEDS ORDERED: SITagliptin PHOSPHATE 100 MG TAB PO SCH (09:00)
[2022-07-13] MEDS: INSULIN ASPART PER UNIT CHARGE SC SCH ×4 (09:45→20:56)
--- NOTE | 2022-07-13 14:15 | Hospitalist Progress Note ---
Date of Service July 13, 2022 Assessment & Plan (1) Closed fracture of left hip: (2) Fall: (3) Acute blood loss anemia: Plan 61-year-old male from [facility] living with history of psychiatric disorder, seizure disorder, mild cognitive dysfunction who presented to ED on 07/06 after unwitnessed ground-level fall and found to have left hip fracture Closed fracture of left hip/left displaced comminuted intertrochanteric femur fracture - status post left intramedullary collin femur (lt) by Dr. Swanson on 07/07 -Continue pain management, bowel regimen, DVT prophylaxis, PT OT Acute blood loss anemia: Postop hemoglobin 12->9.8 and has remained stable >9 since. No bleeding noted. Started on oral iron supplementation History of seizure disorder-continue valproate History of diabetes-patient on metformin but Januvia not on formulary. SSI prn. DVT prophylaxis-subcu Lovenox. Change to aspirin twice daily at discharge Disposition- Paperwork in process for rehab given his psychiatric diagnosis. Patient is stable. Admission and Anticipated Discharge Date Admission Date: July 06, 2022 Subjective Patient was seen and examined at bedside. Denies any new issues. Some pain with activities otherwise no pain at rest. No fever, chills, chest pain or shortness of breath no nausea or vomiting. Normal oral intake. Had bowel movement yesterday Review of Systems Review of Systems: All systems reviewed & are unremarkable except as noted in Subjective Physical Exam Physical Exam: General: Lying comfortably in bed, not in distress, on room air HEENT: EOMI, WOJCIECH, MMM Chest: Fair breath sounds bilaterally, no wheezes or crackles CVS: Regular rate and rhythm, normal heart sounds, no murmur Abdomen: Soft, non tender, not distended, normal bowel sounds Neuro: Awake, alert, oriented, conversing well, non focal Extremities: No cyanosis, clubbing or edema MSK: Left hip incision site clean dry and intact and covered with dressing Psych: Calm, cooperative Results & Data Results & Data Vital Signs (Past 12 Hours) Vital Signs Temp Pulse Resp BP Pulse Ox O2 Del Method 07/13/22 07:51 37.5 C 99 H 16 114/75 94 Room Air Laboratory Results BMP 07/13/22 07:21 Creatinine 0.78 Medications Administered Current Inpatient Medications Acetaminophen (Acetaminophen 500 Mg Tab) 1,000 mg PO Q8H [facility] Stop: 05/30/23 14:29 Last Admin: 07/13/22 06:22 Dose: 1,000 mg Atorvastatin Calcium (Atorvastatin 40 Mg Tab) 40 mg PO QAM [facility] Stop: 08/06/22 08:59 Last Admin: 07/13/22 08:42 Dose: 40 mg Dextrose (Dextrose 50% 50 Ml Syringe) 25 - 50 ml IV UD PRN; Protocol PRN Reason: Hypoglycemia Protocol Stop: 08/06/22 00:49 Divalproex Sodium (Divalproex Delay Release 500 Mg Tab) 500 mg PO BID [facility] Stop: 08/06/22 08:59 Last Admin: 07/13/22 08:42 Dose: 500 mg Enoxaparin Sodium (Enoxaparin Inj 40 Mg/0.4 Ml Syr) 40 [facility] [place] Stop: 08/11/22 08:59 Last Admin: 07/13/22 08:43 Dose: 40 mg Ferrous Sulfate (Ferrous Sulfate 325 Mg Tab) [address] [facility] Stop: 08/12/22 08:59 Last Admin: 07/13/22 08:43 Dose: 325 mg Glucagon (Glucagon For Inj 1 Mg Vial) 1 mg SQ UD PRN; Protocol PRN Reason: Hypoglycemia Protocol Stop: 08/06/22 00:49 Glucose (Glucose 10 Tab/Tube) 4 - 8 tab PO UD PRN; Protocol PRN Reason: Hypoglycemia Treatment Stop: 08/06/22 00:49 Glucose (Glucose 40% Gel 15 Gm Tube) 15 - 30 gm PO UD PRN; Protocol PRN Reason: Hypoglycemia Protocol Stop: 08/06/22 00:49 Hydromorphone HCl (Hydromorphone Inj 0.5 Mg/0.5 Ml Syr) 0.5 mg IV Q3H PRN PRN Reason: Severe Pain (Scale 7, 8, 9,10) Stop: 07/21/22 00:49 Last Admin: 07/08/22 02:01 Dose: 0.5 mg Insulin Aspart (Insulin Aspart Per Unit Charge) 0 units SC [facility]; Protocol Stop: 08/11/22 16:29 Last Admin: 07/13/22 09:45 Dose: 3 units Levothyroxine Sodium (Levothyroxine Sodium 25 Mcg Tablet) [facility] Stop: 08/06/22 06:29 Last Admin: 07/13/22 06:22 Dose: 25 mcg Loperamide HCl (Loperamide Hcl 2 Mg Cap) 2 mg PO QID PRN PRN Reason: Diarrhea Stop: 08/06/22 00:49 Last Admin: 07/12/22 18:46 Dose: 2 mg Metformin HCl (Metformin Hcl Er 500 Mg Tabcr) 1,000 mg PO BIDM [facility] Stop: 08/11/22 16:59 Last Admin: 07/13/22 08:42 Dose: 1,000 mg Miscellaneous (Ketoconazole 2 % Shampoo - Order Awaiting Action) 1 each N/A QS [facility] Stop: 08/06/22 07:59 Last Admin: 07/10/22 12:25 Dose: Not Given Miscellaneous (Carbohydrates For Hypoglycemia ) 15 - 30 gm PO UD PRN PRN Reason: Hypoglycemia Protocol Stop: 08/06/22 00:49 Multivitamins/Folic Acid/Vitamin C (Multivitamin Chewable Tab) 1 tab PO QAM [facility] Stop: 08/06/22 08:59 Last Admin: 07/13/22 08:43 Dose: 1 tab Ondansetron HCl (Ondansetron Inj 2 Mg/Ml 2 Ml Vial) 4 mg IV Q6H PRN PRN Reason: Nausea Stop: 08/06/22 00:49 Oxycodone HCl (Oxycodone Hcl Ir 5 Mg Tab (Immediate Release)) 5 mg PO Q4H PRN PRN Reason: Moderate Pain (Scale 4, 5, 6) Stop: 07/21/22 14:11 Last Admin: 07/12/22 19:06 Dose: 5 mg Triamcinolone Acetonide (Triamcinolone Acet 0.1% Cr 15 Gm Tube) 1 appln TOP BID PRN PRN Reason: SKIN IRRITATION BEHIND LEFT EA Stop: 08/06/22 00:49 Vitamin D (Cholecalciferol 1,000 Units 25 Mcg Tab) 2,000 [facility] [place] Stop: 08/06/22 08:59 Last Admin: 07/13/22 08:42 Dose: 2,000 units (1) Closed fracture of left hip Encounter type: initial encounter Qualified Code(s): S72.002A - Fracture of unspecified part of neck of left femur, initial encounter for closed fracture
[2022-07-13] MEDS: oxyCODONE HCL IR 5 MG TAB (IMMEDIATE RELEASE) PO PRN (22:38)
[2022-07-14] MEDS: HYDROmorphone INJ 0.5 MG/0.5 ML SYR IV PRN (00:07)
[2022-07-14] MEDS: LEVOTHYROXINE SODIUM 25 MCG TABLET PO SCH (06:30)
[2022-07-14] MEDS: ACETAMINOPHEN 500 MG TAB PO SCH ×3 (06:30→20:45)
[2022-07-14] MEDS: metFORMIN HCL ER 500 MG TABCR PO SCH ×2 (08:43→18:21)
[2022-07-14] MEDS: MULTIVITAMIN CHEWABLE TAB PO SCH (08:55)
[2022-07-14] MEDS: CHOLECALCIFEROL 1,000 UNITS 25 MCG TAB PO SCH (08:55)
[2022-07-14] MEDS: ENOXAPARIN INJ 40 MG/0.4 ML SYR SQ SCH (08:55)
[2022-07-14] MEDS: FERROUS SULFATE 325 MG TAB PO SCH (08:55)
[2022-07-14] MEDS: DIVALPROEX DELAY RELEASE 500 MG TAB PO SCH ×2 (08:55→20:45)
[2022-07-14] MEDS: ATORVASTATIN 40 MG TAB PO SCH (08:55)
[2022-07-14] MEDS: INSULIN ASPART PER UNIT CHARGE SC SCH ×4 (09:33→21:30)
--- NOTE | 2022-07-14 09:36 | Hospitalist Progress Note ---
Date of Service July 14, 2022 Assessment & Plan (1) Closed fracture of left hip: (2) Fall: (3) Acute blood loss anemia: Plan 61-year-old male from [facility] living with history of psychiatric disorder, seizure disorder, mild cognitive dysfunction who presented to ED on 07/06 after unwitnessed ground-level fall and found to have left hip fracture Closed fracture of left hip/left displaced comminuted intertrochanteric femur fracture - status post left intramedullary collin femur (left) by Dr. Swanson on 07/07 -Continue pain management, bowel regimen, DVT prophylaxis, PT OT Acute blood loss anemia: Postop hemoglobin 12->9.8 and has remained stable >9 since. No bleeding noted. Started on oral iron supplementation History of seizure disorder-continue valproate History of diabetes-patient on metformin but Januvia not on formulary. SSI prn. DVT prophylaxis-subcu Lovenox. Change to aspirin twice daily at discharge Disposition- Paperwork in process for rehab given his psychiatric diagnosis. Patient is stable. Admission and Anticipated Discharge Date Admission Date: July 06, 2022 Subjective Patient was seen and examined at bedside. Denies any issues. Pain is controlled. Had BM yesterday. Appetite is okay. Sleeping well. No fever, chills, N/V, SOB. Review of Systems Review of Systems: All systems reviewed & are unremarkable except as noted in Subjective Physical Exam Physical Exam: General: Lying comfortably in bed, not in distress, on room air HEENT: EOMI, WOJCIECH, MMM Chest: Fair breath sounds bilaterally, no wheezes or crackles CVS: Regular rate and rhythm, normal heart sounds, no murmur Abdomen: Soft, non tender, not distended, normal bowel sounds Neuro: Awake, alert, oriented, conversing well, non focal Extremities: No cyanosis, clubbing or edema MSK: Left hip incision site clean dry and intact and covered with dressing Psych: Calm, cooperative Results & Data Results & Data Vital Signs (Past 12 Hours) Vital Signs Temp Pulse Resp BP Pulse Ox O2 Del Method 07/14/22 08:13 37.2 C 96 H 20 136/72 96 Room Air Medications Administered Current Inpatient Medications Acetaminophen (Acetaminophen 500 Mg Tab) 1,000 mg PO Q8H [facility] Stop: 08/06/22 14:29 Last Admin: 07/14/22 06:30 Dose: 1,000 mg Atorvastatin Calcium (Atorvastatin 40 Mg Tab) 40 mg PO QAM [facility] Stop: 08/06/22 08:59 Last Admin: 07/14/22 08:55 Dose: 40 mg Dextrose (Dextrose 50% 50 Ml Syringe) 25 - 50 ml IV UD PRN; Protocol PRN Reason: Hypoglycemia Protocol Stop: 08/06/22 00:49 Divalproex Sodium (Divalproex Delay Release 500 Mg Tab) 500 mg PO BID [facility] Stop: 08/06/22 08:59 Last Admin: 07/14/22 08:55 Dose: 500 mg Enoxaparin Sodium (Enoxaparin Inj 40 Mg/0.4 Ml Syr) [facility] Stop: 08/11/22 08:59 Last Admin: 07/14/22 08:55 Dose: 40 mg Ferrous Sulfate (Ferrous Sulfate 325 Mg Tab) [facility] [place] Stop: 08/12/22 08:59 Last Admin: 07/14/22 08:55 Dose: 325 mg Glucagon (Glucagon For Inj 1 Mg Vial) 1 mg SQ UD PRN; Protocol PRN Reason: Hypoglycemia Protocol Stop: 08/06/22 00:49 Glucose (Glucose 10 Tab/Tube) 4 - 8 tab PO UD PRN; Protocol PRN Reason: Hypoglycemia Treatment Stop: 08/06/22 00:49 Glucose (Glucose 40% Gel 15 Gm Tube) 15 - 30 gm PO UD PRN; Protocol PRN Reason: Hypoglycemia Protocol Stop: 08/06/22 00:49 Hydromorphone HCl (Hydromorphone Inj 0.5 Mg/0.5 Ml Syr) 0.5 mg IV Q3H PRN PRN Reason: Severe Pain (Scale 7, 8, 9,10) Stop: 07/21/22 00:49 Last Admin: 07/14/22 00:07 Dose: 0.5 mg Insulin Aspart (Insulin Aspart Per Unit Charge) 0 units SC ACHS [facility]; Protocol Stop: 08/11/22 16:29 Last Admin: 07/13/22 20:56 Dose: 2 units Levothyroxine Sodium (Levothyroxine Sodium 25 Mcg Tablet) [facility] Stop: 08/06/22 06:29 Last Admin: 07/14/22 06:30 Dose: 25 mcg Loperamide HCl (Loperamide Hcl 2 Mg Cap) 2 mg PO QID PRN PRN Reason: Diarrhea Stop: 08/06/22 00:49 Last Admin: 07/12/22 18:46 Dose: 2 mg Metformin HCl (Metformin Hcl Er 500 Mg Tabcr) 1,000 mg PO BIDM [facility] Stop: 08/11/22 16:59 Last Admin: 07/14/22 08:43 Dose: 1,000 mg Miscellaneous (Ketoconazole 2 % Shampoo - Order Awaiting Action) 1 each N/A QS [facility] Stop: 08/06/22 07:59 Last Admin: 07/10/22 12:25 Dose: Not Given Miscellaneous (Carbohydrates For Hypoglycemia ) 15 - 30 gm PO UD PRN PRN Reason: Hypoglycemia Protocol Stop: 08/06/22 00:49 Multivitamins/Folic Acid/Vitamin C (Multivitamin Chewable Tab) [facility] [place] Stop: 08/06/22 08:59 Last Admin: 07/14/22 08:55 Dose: 1 tab Ondansetron HCl (Ondansetron Inj 2 Mg/Ml 2 Ml Vial) 4 mg IV Q6H PRN PRN Reason: Nausea Stop: 08/06/22 00:49 Oxycodone HCl (Oxycodone Hcl Ir 5 Mg Tab (Immediate Release)) 5 mg PO Q4H PRN PRN Reason: Moderate Pain (Scale 4, 5, 6) Stop: 07/21/22 14:11 Last Admin: 07/13/22 22:38 Dose: 5 mg Triamcinolone Acetonide (Triamcinolone Acet 0.1% Cr 15 Gm Tube) 1 appln TOP BID PRN PRN Reason: SKIN IRRITATION BEHIND LEFT EA Stop: 08/06/22 00:49 Vitamin D (Cholecalciferol 1,000 Units 25 Mcg Tab) 2,000 [facility] [place] Stop: 08/06/22 08:59 Last Admin: 07/14/22 08:55 Dose: 2,000 units (1) Closed fracture of left hip Encounter type: initial encounter Qualified Code(s): S72.002A - Fracture of unspecified part of neck of left femur, initial encounter for closed fracture
[2022-07-15] MEDS: ACETAMINOPHEN 500 MG TAB PO SCH ×3 (06:11→22:42)
[2022-07-15] MEDS: LEVOTHYROXINE SODIUM 25 MCG TABLET PO SCH (06:11)
--- NOTE | 2022-07-15 07:32 | Progress Notes ---
SUBJECTIVE: A 61-year-old gentleman, postoperative day #8 from IM nailing of a left intertrochanteri c fracture. He seems to be doing okay. He is still having some pain, but seems to be getting a jett le bit better daily. No other complaints. No chest pain or shortness of breath. OBJECTIVE: VITAL SIGNS: Temperature 36.7. Vital signs, fairly stable. Intermittently tachycardic. EXTREMITIES: Examination of the left hip and leg reveals the leg to be well aligned. Dressing is cl alicia, dry and intact. Thigh is soft and supple. Mild swelling. He is neurologically intact. LABORATORY DATA: No new labs. ASSESSMENT: A 61-year-old gentleman now 8 days out from IM nailing of a left comminuted intertrochan teric fracture. Orthopedically seems to be doing okay. We are just waiting for placement. PLAN: 1. DVT prophylaxis including thigh-high TEDs, SCDs and we would recommend an aspirin twice a day. Cintia ni is currently on Lovenox per the primary care service. 2. PT/OT, weightbear as tolerated. 3. Pain control, seems to be okay with current pain regimen. 4. Disposition: He is orthopedically okay for discharge any time medically able. We are just waiti ng for placement. I need to see him back in 2-3 weeks out from surgery date. Any orthopedic questio ns can be directed to me at [phone]. Job ID: [id number]
[2022-07-15 07:36] LABS: Hematocrit (blood only) 28.2 % (42.0-52.0); Hemoglobin 9.5 g/dl (14.0-18.0); Mean Corpuscular Hemoglobin 29.9 pg (25.0-34.0); Mean Corpuscular Hgb Conc 33.7 g/dL (32.0-36.0); Mean Corpuscular Volume 88.7 fL (80.0-100.0); Mean Platelet Volume 8.7 fL (9.4-12.4); Nucleated RBC # (auto) 0.13 K/uL (0-0.12); Nucleated RBC % (auto) 1.2 %; Platelet Count 414 K/uL (130-400); RDW Coefficient of Variation 14.1 % (11.5-14.5); RDW Standard Deviation 43.4 fL (36.4-46.3); Red Blood Count 3.18 M/uL (4.70-6.10); White Blood Count 10.53 K/ul (4.8-10.8)
[2022-07-15 07:58] LABS: BUN Creatinine Ratio 22.9 (10-20); Calcium 8.2 mg/dl (8.6-10.3); Creatinine Clr Calc Pharmacy 101.8 ml/min; Est GFR (African American) 118.1 ml/min; Est GFR (Non-African American) 101.9 ml/min; Potassium 4.2 mmol/L (3.5-5.1)
[2022-07-15] MEDS: FERROUS SULFATE 325 MG TAB PO SCH (08:41)
[2022-07-15] MEDS: CHOLECALCIFEROL 1,000 UNITS 25 MCG TAB PO SCH (08:41)
[2022-07-15] MEDS: DIVALPROEX DELAY RELEASE 500 MG TAB PO SCH ×2 (08:42→21:48)
[2022-07-15] MEDS: MULTIVITAMIN CHEWABLE TAB PO SCH (08:42)
[2022-07-15] MEDS: ATORVASTATIN 40 MG TAB PO SCH (08:42)
[2022-07-15] MEDS: ENOXAPARIN INJ 40 MG/0.4 ML SYR SQ SCH (08:42)
[2022-07-15] MEDS: metFORMIN HCL ER 500 MG TABCR PO SCH ×2 (08:43→17:42)
[2022-07-15] MEDS: INSULIN ASPART PER UNIT CHARGE SC SCH ×4 (09:12→21:48)
--- NOTE | 2022-07-15 15:18 | Hospitalist Progress Note ---
Date of Service July 15, 2022 Assessment & Plan (1) Closed fracture of left hip: (2) Fall: (3) Acute blood loss anemia: Plan 61-year-old male from [facility] living with history of psychiatric disorder, seizure disorder, mild cognitive dysfunction who presented to ED on 07/06 after unwitnessed ground-level fall and found to have left hip fracture Closed fracture of left hip/left displaced comminuted intertrochanteric femur fracture - status post left intramedullary collin femur (left) by Dr. Swanson on 07/07 -Continue pain management, bowel regimen, DVT prophylaxis, PT OT, +BM today Acute blood loss anemia: Postop hemoglobin 12->9.5 and has remained stable >9 since. No bleeding noted. Started on oral iron supplementation History of seizure disorder-continue valproate History of diabetes-patient on metformin but Januvia not on formulary. SSI prn. BSG 214, 172, a1c from 2021, will update in a.m. DVT prophylaxis- ASA bid per ortho Disposition- Paperwork in process for rehab given his psychiatric diagnosis. Patient is stable. Possible d/c tomorrow to [facility]. Pt was seen and examined in collaboration with Dr. Rico, please see addendum A total of 45 was spent coordinating, documenting, and providing care for this patient excluding time spent in the performance of separately billed services. This included personally viewing all current laboratories and imaging studies, medication reconciliation, outpatient chart review, and discussion with specialists. Admission and Anticipated Discharge Date Admission Date: July 06, 2022 Supervising Physician Co-Signing Physician Notes Attending addendum: The patient was seen and examined in medical floor He has been complaining of pain in the left hip He was strongly advised to participate in physical therapy Denies any other symptoms On examination Sitting on a chair without any acute distress Hemodynamically stable Chest-clear to auscultate bilaterally Heart-S1, [id number] Abdomen-benign Extremities-trace edema bilateral His labs and imaging studies reviewed Status post left hip intramedullary femoral collin placement Will need to continue physical therapy and will need rehab Agree with assessment and plan as outlined above by Cindy Rico Subjective Patient seen and examined in room 353. Follow-up left hip fracture. He continues to complain of left hip pain. Overall has decreased appetite. Denies fever, chills, chest pain, shortness breath, nausea, vomiting, abdominal pain. Review of Systems Review of Systems: All systems reviewed & are unremarkable except as noted in HPI & below Physical Exam Physical Exam: Gen: WD/WN, NAD, A&O x3 HEENT: Normocephalic, atraumatic, conjunctivae moist, sclerae anicteric, mucous membranes moist. Lung: Clear to Auscultation bilaterally, no wheezes/rales/rhonchi Heart: tachy rate, regular rhythm, no murmurs, rubs, or gallops Abdomen: Soft, NT, ND +BS x 4 Extremities: L hip dressing CDI Skin: Warm, no rash, negative turgor. Results & Data Results & Data Vital Signs (Past 12 Hours) Vital Signs Temp Pulse Resp BP Pulse Ox O2 Del Method 07/15/22 07:38 36.8 C 101 H 16 114/73 94 Room Air Laboratory Results Short CBC 07/15/22 Range/Units 07:19 WBC 10.53 (4.8-10.8) K/ul Hgb 9.5 L (14.0-18.0) g/dl Hct 28.2 L (42.0-52.0) % Plt Count 414 H (130-400) K/uL BMP 07/15/22 07:19 Sodium 138 Potassium 4.2 Chloride 104 Carbon Dioxide 28 BUN 16 Creatinine 0.70 Glucose 159 H Calcium 8.2 L Medications Administered Current Inpatient Medications Acetaminophen (Acetaminophen 500 Mg Tab) 1,000 mg PO Q8H [facility] Stop: 08/06/22 14:29 Last Admin: 07/15/22 15:01 Dose: 1,000 mg Aspirin (Aspirin 81 Mg Ectab) 81 mg PO BID [facility] Stop: 08/14/22 20:59 Atorvastatin Calcium (Atorvastatin 40 Mg Tab) 40 mg PO QAM [facility] Stop: 08/06/22 08:59 Last Admin: 07/15/22 08:42 Dose: 40 mg Dextrose (Dextrose 50% 50 Ml Syringe) 25 - 50 ml IV UD PRN; Protocol PRN Reason: Hypoglycemia Protocol Stop: 08/06/22 00:49 Divalproex Sodium (Divalproex Delay Release 500 Mg Tab) 500 mg PO BID [facility] Stop: 08/06/22 08:59 Last Admin: 07/15/22 08:42 Dose: 500 mg Ferrous Sulfate (Ferrous Sulfate 325 Mg Tab) 325 mg PO QAM [facility] Stop: 08/12/22 08:59 Last Admin: 07/15/22 08:41 Dose: 325 mg Glucagon (Glucagon For Inj 1 Mg Vial) 1 mg SQ UD PRN; Protocol PRN Reason: Hypoglycemia Protocol Stop: 08/06/22 00:49 Glucose (Glucose 10 Tab/Tube) 4 - 8 tab PO UD PRN; Protocol PRN Reason: Hypoglycemia Treatment Stop: 08/06/22 00:49 Glucose (Glucose 40% Gel 15 Gm Tube) 15 - 30 gm PO UD PRN; Protocol PRN Reason: Hypoglycemia Protocol Stop: 08/06/22 00:49 Hydromorphone HCl (Hydromorphone Inj 0.5 Mg/0.5 Ml Syr) 0.5 mg IV Q3H PRN PRN Reason: Severe Pain (Scale 7, 8, 9,10) Stop: 07/21/22 00:49 Last Admin: 07/14/22 00:07 Dose: 0.5 mg Insulin Aspart (Insulin Aspart Per Unit Charge) 0 units SC [facility]; Protocol Stop: 08/11/22 16:29 Last Admin: 07/15/22 12:31 Dose: 10 units Levothyroxine Sodium (Levothyroxine Sodium 25 Mcg Tablet) [facility] Stop: 08/06/22 06:29 Last Admin: 07/15/22 06:11 Dose: 25 mcg Loperamide HCl (Loperamide Hcl 2 Mg Cap) 2 mg PO QID PRN PRN Reason: Diarrhea Stop: 08/06/22 00:49 Last Admin: 07/12/22 18:46 Dose: 2 mg Metformin HCl (Metformin Hcl Er 500 Mg Tabcr) 1,000 mg [facility] [place] Stop: 08/11/22 16:59 Last Admin: 07/15/22 08:43 Dose: 1,000 mg Miscellaneous (Ketoconazole 2 % Shampoo - Order Awaiting Action) 1 each N/A [facility] Stop: 08/06/22 07:59 Last Admin: 07/10/22 12:25 Dose: Not Given Miscellaneous (Carbohydrates For Hypoglycemia ) 15 - 30 gm PO UD PRN PRN Reason: Hypoglycemia Protocol Stop: 08/06/22 00:49 Multivitamins/Folic Acid/Vitamin C (Multivitamin Chewable Tab) 1 tab PO [facility] [place] Stop: 08/06/22 08:59 Last Admin: 07/15/22 08:42 Dose: 1 tab Ondansetron HCl (Ondansetron Inj 2 Mg/Ml 2 Ml Vial) 4 mg IV Q6H PRN PRN Reason: Nausea Stop: 08/06/22 00:49 Oxycodone HCl (Oxycodone Hcl Ir 5 Mg Tab (Immediate Release)) 5 mg PO Q4H PRN PRN Reason: Moderate Pain (Scale 4, 5, 6) Stop: 07/21/22 14:11 Last Admin: 07/13/22 22:38 Dose: 5 mg Triamcinolone Acetonide (Triamcinolone Acet 0.1% Cr 15 Gm Tube) 1 appln TOP BID PRN PRN Reason: SKIN IRRITATION BEHIND LEFT EA Stop: 08/06/22 00:49 Vitamin D (Cholecalciferol 1,000 Units 25 Mcg Tab) 2,000 units PO QAM [facility] Stop: 08/06/22 08:59 Last Admin: 07/15/22 08:41 Dose: 2,000 units (1) Closed fracture of left hip Encounter type: initial encounter Qualified Code(s): S72.002A - Fracture of unspecified part of neck of left femur, initial encounter for closed fracture
[2022-07-15] MEDS: ASPIRIN 81 MG ECTAB PO SCH (21:48)
[2022-07-16] MEDS: LEVOTHYROXINE SODIUM 25 MCG TABLET PO SCH (05:58)
[2022-07-16] MEDS: ACETAMINOPHEN 500 MG TAB PO SCH ×2 (05:58→13:32)
[2022-07-16 07:56] LABS: BUN Creatinine Ratio 23.2 (10-20); Calcium 8.1 mg/dl (8.6-10.3); Creatinine Clr Calc Pharmacy 86.9 ml/min; Est GFR (African American) 110.6 ml/min; Est GFR (Non-African American) 95.4 ml/min; Potassium 4.1 mmol/L (3.5-5.1)
[2022-07-16 08:18] LABS: Estimated Average Glucose 174 mg/dl; Hemoglobin A1C 7.7 % (4.5-5.6)
[2022-07-16] MEDS: CHOLECALCIFEROL 1,000 UNITS 25 MCG TAB PO SCH (08:26)
[2022-07-16] MEDS: ATORVASTATIN 40 MG TAB PO SCH (08:27)
[2022-07-16] MEDS: FERROUS SULFATE 325 MG TAB PO SCH (08:27)
[2022-07-16] MEDS: MULTIVITAMIN CHEWABLE TAB PO SCH (08:27)
[2022-07-16] MEDS: metFORMIN HCL ER 500 MG TABCR PO SCH (08:27)
[2022-07-16] MEDS: ASPIRIN 81 MG ECTAB PO SCH (08:28)
[2022-07-16] MEDS: DIVALPROEX DELAY RELEASE 500 MG TAB PO SCH (08:28)
[2022-07-16] MEDS: INSULIN ASPART PER UNIT CHARGE SC SCH ×2 (10:01→12:25)
--- NOTE | 2022-07-16 11:47 | Discharge Summary ---
Discharge Summary Date of Service July 16, 2022 Notes For Next Care Provider Patient admitted to hospital secondary to fall and suffered left displaced comminuted intertrochanteric femur fracture. He underwent left intramedullary zeferino by Dr. Swanson on 07/07. Pain is controlled with scheduled Tylenol as well as as needed oxycodone. He has only been needing oxycodone very sparingly. He is on ASA 81 mg twice daily for DVT prophylaxis per orthopedics x 6 weeks. He did have acute blood loss anemia with postop hemoglobin trending down from 12-9.5 but remained stable. He was started on oral iron for this. A1c was 7.7. As outpatient controlled on metformin. Inpatient blood sugar was controlled with metformin and insulin sliding scale. Medication Changes From Visit Aspirin 81 mg twice daily for DVT prophylaxis, ask your orthopedic doctor when this can be discontinued. Ferrous sulfate 325 mg once daily due to anemia. Oxycodone 5 mg every 4 hours as needed for pain. Admission HPI Per Admitting Provider HISTORY OF PRESENT ILLNESS: This is a 61-year-old male with past medical history significant for type 2 diabetes, hyperlipidemia, history of seizure disorder, history of psychiatric disorders, a poor historian, has mild mental retardation, lives at assisted living at [place], seems like his lives next door, ambulates with a walker, presents with a fall, recently he has had frequent falls. He was in the ER in the morning with a fall. Looks like he says he fell from the chair on his left hip, could not get up, lot of pain and was brought in here and found to have left hip fracture. He thinks, he might have some slight dizziness before fall. Denies any chest pain. No shortness of breath, no cough, no fevers. Appetite is okay. Eating and swallowing okay. No earache. Has occasional runny nose. No sore throat. After falling down, he said he had some nausea. Currently no abdominal pain. Normal bowel and bladder movements. Hemodynamically stable. Admission Exam Per Admitting Provider PHYSICAL EXAMINATION: GENERAL: The patient is of moderate build, not in acute distress. VITAL SIGNS: Temperature 36.6, pulse 90, respiratory rate 20, blood pressure 164/97, oxygen 94% on room air. HEENT: Pupils equal, round and reactive to light. Oral mucosa dry. NECK: No JVD, no neck masses. CARDIOVASCULAR: S1 and S2 heard. Regular rate and rhythm. No murmur, no gallop. RESPIRATORY SYSTEM: Normal AP diameter. No accessory muscle use. No wheezing, no crackles. ABDOMEN: Soft, bowel sounds present, nontender, no distention. CENTRAL NERVOUS SYSTEM: Alert and oriented. Speech is clear. No facial droop. Obeys simple commands. Moves extremities. EXTREMITIES: Left lower extremity is shortened and externally rotated. Mild pedal edema present, no erythema seen. Principal Dx & Hospital Course #1 = Principal Diagnosis (1) Closed fracture of left hip: (2) Fall: (3) Acute blood loss anemia: Plan 61-year-old male from [facility] living with history of psychiatric disorder, seizure disorder, mild cognitive dysfunction who presented to ED on 07/06 after unwitnessed ground-level fall and found to have left hip fracture. He was found to have left displaced comminuted intertrochanteric femur fracture. He is status post intramedullary zeferino by Dr. Swanson on 07/07. His pain has been controlled with scheduled Tylenol 1000 mg every 8 hours. He has also been sparingly using oral oxycodone 5 mg as needed, last dose was on 07/13. Per Dr. Swanson he is to be on aspirin 81 mg twice daily for 6 weeks. He did have acute blood loss anemia in setting of surgery and postop hemoglobin trended down from 12-9.5. It has remained stable and he was started on ferrous sulfate. He has history of diabetes and A1c was 7.7. He was managed on insulin sliding scale as well as metformin. Overall appetite was diminished throughout hospital stay. He was moving bowels. Initially had urinary catheter placed and this has since been removed and he is urinating without difficulty. He does have history of seizure disorder however no seizure activity was noted throughout hospital stay. He other rowe remained hemodynamically stable. On day of discharge she continues to complain of left hip pain but is otherwise without acute concern. All questions and concerns were answered. He is being discharged to subacute rehab today. Discharge Exam Gen: WD/WN, NAD, A&O x3 HEENT: Normocephalic, atraumatic, conjunctivae moist, sclerae anicteric, mucous membranes moist. Lung: Clear to Auscultation bilaterally, no wheezes/rales/rhonchi Heart: tachy rate, regular rhythm, no murmurs, rubs, or gallops Abdomen: Soft, NT, ND +BS x 4 Extremities: L hip dressing CDI Skin: Warm, no rash, negative turgor. Updated Medication List Medication Instructions Recorded Confirmed Type metformin 500 mg tablet,extended 1,000 mg PO BID 01/14/18 07/06/22 History release 24 hr alendronate 70 mg tablet (Fosamax) 70 mg PO WK 06/10/20 07/06/22 History atorvastatin 40 mg tablet (Lipitor) 40 mg PO QAM 06/10/20 07/06/22 History divalproex 500 mg tablet,delayed 500 mg PO BID 06/10/20 07/06/22 History release acetaminophen 500 mg tablet 1,000 mg PO Q8H PRN Pain, 07/22/21 07/06/22 History (Tylenol Extra Strength) Moderate/FEVER ketoconazole 2 % shampoo 1 ea topical 2XWK 07/22/21 07/06/22 History loperamide 2 mg capsule 2 mg PO QID PRN Diarrhea 07/22/21 07/06/22 History ondansetron HCl 4 mg tablet 4 mg PO Q8H PRN Nausea 07/22/21 07/06/22 History sitagliptin phosphate 100 mg 100 mg PO QAM 07/22/21 07/06/22 History tablet (Januvia) triamcinolone acetonide 0.1 % 1 applic topical BID PRN SKIN 07/22/21 07/06/22 History topical cream IRRITATION BEHIND LEFT EAR Vitafusion Multivit Gummy 2 tab PO QAM 06/25/22 07/06/22 History Vitafusion Vitamin D 2,000 unit PO QAM 06/25/22 07/06/22 History levothyroxine 25 mcg tablet 25 mcg PO DAILYBB 06/25/22 07/06/22 History diphenoxylate-atropine 2.5 2 tab PO QID 07/06/22 07/06/22 History mg-0.025 mg tablet aspirin 81 mg tablet,delayed 81 mg PO BID #30 tabs 07/16/22 Rx release ferrous sulfate 325 mg (65 mg 325 mg PO QAM #30 tabs 07/16/22 Rx iron) tablet,delayed release oxycodone 5 mg tablet 5 mg PO Q4H PRN pain #14 tabs 05/09/23 Rx Hospital Stay Data Consultations 07/06/22 22:59 ED Decision to Admit Stat 07/07/22 08:00 Consult Orthopedic Surgery Routine 07/08/22 10:43 Consult Psychiatry Routine Procedures Performed Operation Date: 07/07/22 10:00 Actual Procedures p Left Intramedullary Zeferino Femur(Left) - [place] Sw[place] MD Diagnostic Imagining Performed Femur X-Ray 07/06/22 21:43 XR pelvis 1-2V routine, XR femur LT 2V routine CLINICAL HISTORY: left hip pain COMPARISON STUDY: Abdomen and pelvis CT 07/06/2022.. FINDINGS: Comminuted and displaced intertrochanteric fracture within the proximal left femur. Contrast within the bladder from the recent CT examination. No acute fracture or dislocation within the pelvis or right hip. The distal left femur is intact. IMPRESSION: Comminuted and displaced intertrochanteric fracture within the proximal left femur. ACT 112: Negative or not required by law. Electronically signed by: Jc Cotto M.D. 07/07/2022 7:33 AM Pelvis X-Ray 07/06/22 21:43 XR pelvis 1-2V routine, XR femur LT 2V routine CLINICAL HISTORY: left hip pain COMPARISON STUDY: Abdomen and pelvis CT 07/06/2022.. FINDINGS: Comminuted and displaced intertrochanteric fracture within the proximal left femur. Contrast within the bladder from the recent CT examination. No acute fracture or dislocation within the pelvis or right hip. The distal left femur is intact. IMPRESSION: Comminuted and displaced intertrochanteric fracture within the proximal left femur. ACT 112: Negative or not required by law. Electronically signed by: Jc Cotto M.D. 07/07/2022 7:33 AM Chest X-Ray 07/06/22 22:43 XR chest 1V portable HISTORY: left hip fracture COMPARISON: Chest 06/25/2022. FINDINGS: No pneumothorax. No pleural effusions. There are low lung volumes with chronic interstitial thickening. The heart remains mildly enlarged. No evidence for pulmonary edema. IMPRESSION: Stable cardiomegaly and mild interstitial thickening. ACT 112: Negative or not required by law. Electronically signed by: Jc Cotto M.D. 07/07/2022 7:35 AM Femur X-Ray 07/07/22 00:00 FL femur LT 2V CLINICAL HISTORY: Left femoral fracture. Postop. COMPARISON STUDY: Left femur 07/06/2022. FLUOROSCOPY TIME: 1 minute and 46 seconds FLUOROSCOPY IMAGES: 4 Ka,r: 20.4 mGy FINDINGS: Status post internal fixation of the left femoral intertrochanteric fracture with an intramedullary femoral zeferino and interlocking femoral neck pin. The hardware appears intact. Alignment is near-anatomic. IMPRESSION: Fluoroscopic assistance as above. ACT 112: Negative or not required by law. Electronically signed by: Jc Cotto M.D. 07/07/2022 12:53 PM Pending Results Patient Have Any Pending Studies at Discharge: No Discharge Instructions Given to Patient (Per Discharging Provider) MEDICATION CHANGES: Aspirin 81 mg twice daily for DVT prophylaxis for 6 weeks. Ferrous sulfate 325 mg once daily due to anemia. Oxycodone 5 mg every 4 hours as needed for pain. SUMMARY OF TEST RESULTS: You were admitted to hospital secondary to a fall and left hip fracture. You were found to have a displaced comminuted intertrochanteric femur fracture. You underwent surgical fixation by Dr. Swanson on 07/07. PENDING TEST RESULTS: None RECOMMENDATIONS FOR FOLLOW-UP: Please follow-up with primary care provider once discharged from rehab. Follow-up with orthopedic surgeon as scheduled. You may bear weight as tolerated. Routine wound care to incision sites, change daily. You may remove dressing and shower. Continue all other medications. Your A1c is 7.7. Recommend close follow-up with primary care provider for improved glycemic control. OTHER INSTRUCTIONS: Seek medical attention if you have: * temperature above 101 * chest pain or trouble breathing * abdominal pain, nausea, vomiting * diarrhea, dark stools or bloody stools * any unanswered questions or concerns Call 911 if symptoms are severe. Please take good care of yourself. It has been a pleasure taking care of you. Please take care of yourself. If you have any questions regarding your recent hospitalization please contact [facility] and request Neil Alvarez @ [phone]. Total Time Total Time Spent Total Time Spent (In Minutes): 45 minutes Supervising Physician Co-Signing Physician Notes Attending addendum: The patient was seen and examined in medical floor Still complains to pain in the left hip but has been participating with physical therapy Otherwise remains stable and denies any other significant symptoms On examination Sitting on a chair without any acute distress Hemodynamically stable Chest-clear to auscultate bilaterally Heart-S1, [id number] -Abdomen- benign Extremity-status post left hip surgery with pain on movement Discharge medications and instructions reviewed Status post left intramedullary zeferino femur placement We will continue to have PT and OT in the facility Medically stable to be discharge Agree with the assessment and plan as outlined above by Cindy Rico
--- NOTE | 2022-07-16 13:48 | Progress Notes ---
DATE OF SERVICE: 07/16/2022. SUBJECTIVE: A 61-year-old gentleman now 9 days out from IM nailing of a left comminuted intertrochan teric hip fracture. He continues to make progress daily. He denies much in the way of pain currentl y. I did wake him when I went into his room this morning. OBJECTIVE: VITAL SIGNS: Temperature 37.0. Vital signs are stable. GENERAL: Shows a pleasant middle-aged male. He is sitting up in his bedside chair and was sleeping when I went in the room this morning. EXTREMITIES: Examination of the left hip and leg reveals the dressing to be clean, dry and intact. No significant drainage. Some mild swelling of his thigh. Leg lengths appear equal. NEUROLOGIC: He is neurologically intact. LABORATORY DATA: None. ASSESSMENT: A 61-year-old gentleman now 9 days out from IM nailing of a left comminuted, displaced i ntertrochanteric hip fracture. He is doing pretty well. Making progress. Pain seems to be controll ed. PLAN: 1. DVT prophylaxis including thigh-high TEDs, SCDs, and he is on Lovenox as per the primary service. We would recommend a baby aspirin twice a day for 6 weeks. 2. PT/OT. He can fully weight bear as tolerated on this left leg. 3. Pain control, seems to be doing okay with current pain regimen. 4. Medical management as per the hospitalist service. 5. Disposition: He is orthopedically okay for discharge any time. I need to see him back in 2-3 we eks out from surgery date. Any orthopedic questions can be directed to me at [phone]. Job ID: [id number]
== END 2022-07-16 16:55 | DRG 481 ==
LOC: ED 21:34 → 3W 23:51 → SUATTDRO 23:51 → 3W 07-07 00:23